=== PATIENT | female | born 1970 | race Caucasian/White ===

== ENCOUNTER 2024-03-01 14:36 | Outpatient (OUT) | payer OTHER, SELFPAY ==
[2024-03-01 16:48] LABS: Thyroid Stimulating Hormone 2.708 uIU/mL (0.358-3.740)
== END 2024-03-01 14:37 | disposition home or self-care (01) ==
LOC: LAB 14:40
PROVIDERS: PCP Family Medicine; Visit Provider Family Medicine
DX: E03.9 Hypothyroidism, unspecified (principal)
CPT/HCPCS: 36415; 84439; 84443

== ENCOUNTER 2024-08-20 17:13 | Emergency (ER) | payer OTHER, SELFPAY ==
[2024-08-20] VITALS (48 sets, daily range): BP systolic 93–172; BP diastolic 60–106; PULSE 62–94; TEMP 37.2; O2SAT 90–100; BMI 26.6
--- NOTE | 2024-08-20 17:22 | ECG_ITS ---
[facility] Test Date: 2024-08-20 Pat Name: ORTIZ BAUTISTA Department: Room: - Gender: Female [employer]: : 1970 Requested By: CHON AGUILA Order Number: [id number] Reading MD: IDA FINNEY Measurements Intervals [place] Rate: 63 P: 43 HI: 130 QRS: 88 QRSD: 78 T: 23 QT: 402 QTc: 409 Interpretive Statements 1100 Sinus rhythm [address] depression 9130 borderline ECG No previous ECG available for comparison Electronically Signed On 08-21-2024 6:37:36 EDT by IDA FINNEY
--- OUTSIDE RECORDS SUMMARY | 2024-08-20 17:28 | XMS_ITS | CCD ---
Author Organization [facility] Care Team Providers Care Stator Tester Name Role Phone Rosalba Martinez Unavailable DR ANGIE AGUILA Primary Care Unavailable SUZETTE, DR PHAN Reed Consulting Unavailable AYLA, DR ANGIE Rose Attending Unavailable AYLA, DR ANGIE Rose Admitting Unavailable AYLA, DR ANGIE Rose Consulting Unavailable AYLA, DR ANGIE Rose Primary Care Unavailable AYLA, DR ANGIE Rose Consulting Unavailable AYLA, DR ANGIE Rose Attending Unavailable AYLA, DR ANGIE Rose Admitting Unavailable Angie Aguila Unavailable GIULIA TURPIN Attending Unavailable MD Angie Aguila Primary Care Provider [phone] Self, Referral Attending Provider Unavailable DO Giulia Turpin Referring Provider [phone] Angie Aguila Primary Care Unavailable Giulia Turpin Referring Unavailable Self, Referral Attending Unavailable Self, Referral Admitting Unavailable Allergies Allergy Classification Reported Allergen(s) Allergy Type Date of Onset Reaction(s) Facility (1 source) patient allergy list reviewed by nurse or physicia Propensity to adverse reactions 5 Comment:Done [facility] Other (1 source) Allergies Reconciled Propensity to adverse reactions 1 Unknown [facility] Other Medications Current Medications Medication Drug Class(es) Dates Sig (Normalized) Sig (Original) acetaminophen 325 mg / HYDROcodone bitartrate 5 mg oral tablet (2 sources) Opioid Agonist Start: 08-27-2021 take 1 tablet by mouth every four to six hours Hydrocodone-Aceta minophen Active 1 TAB PO EVERY 4-6 HOURS 45 6 August 27, 2021 Start: 09-19-2020 End: 08-17-2021 take 1 tablet by mouth every four to six hours Hydrocodone-Acetaminophen ([place]) 5-325 mg tablet Discontinued 1 - 2 TAB PO EVERY 4-6 HOURS 50 September 19, 2020 August 17, 2021 3:22pm amoxicillin 875 mg / clavulanate 125 mg oral tablet (2 sources) Penicillin-class Antibacterial Start: 10-25-2023 take 1 tablet by mouth every twelve hours Amoxicillin-Pot Clavulanate 875-125 MG 1 tablet Orally every 12 hrs for 10 day(s) Sep, Active Ascorbic Acid (3 sources) Vitamin C Vitamin C Active azithromycin 250 mg oral tablet (2 sources) Macrolide Antimicrobial Start: 02-03-2023 Azithromycin 250 MG as directed Orally 2 tabs po today, then 1 tab daily x 4 more days for 5 Jan, Active benzonatate 200 mg oral capsule (2 sources) Non-narcotic Antitussive Start: 02-03-2023 take 1 capsule by mouth every eight hours Benzonatate 200 MG 1 capsule Orally Three times a day for 10 day(s) Jan, Active cholecalciferol 0.025 mg oral tablet (1 source) Vitamin D Start: 09-11-2020 take 1 tablet by mouth once daily Cholecalciferol (Vitamin D3) (Vitamin D3) 25 mcg (1,000 unit) Tablet Active 25 MCG PO Daily September 11, 2020 12:00am diclofenac sodium 0.01 mg/mg topical gel (4 sources) Nonsteroidal Anti-inflammatory Drug Start: 09-11-2020 apply 2 g topically twice daily Diclofenac Sodium Active 2 GM TOPICAL Twice daily September 11, 2020 12:00am Start: 07-11-2019 Voltaren 1 % a pply 1-2 grams to affected area Transdermal BID PRN for 30 days Jul, Active doxycycline hyclate 100 mg oral tablet (2 sources) Tetracycline-class Drug Start: 08-27-2021 take 100 mg by mouth twice daily Doxycycline Hyclate Active 100 MG PO Twice daily 08 04August 26, 2021 11:00pm Start: 09-19-2020 End: 08-17-2021 take 100 mg by mouth twice daily Doxycycline Hyclate Discontinued 100 MG PO Twice daily 08 04September 19, 2020 12:00am August 17, 2021 3:21pm DULoxetine 30 mg delayed release oral capsule (8 sources) Serotonin and Norepinephrine Reuptake Inhibitor Start: 09-11-2020 take 30 mg by mouth once daily in the morning Duloxetine Active 30 MG PO Every morning September 11, 2020 12:00am levothyroxine sodium 0.088 mg oral tablet (8 sources) l-Thyroxine Start: 09-11-2020 take 88 ug by mouth once daily in the morning Levothyroxine Active 88 MCG PO Every morning September 11, 2020 12:00am take 1 tablet by mouth once jasper y in the morning Magnesium (1 source) Start: 08-17-2021 take 200 mg by mouth once daily Magnesium Active 200 MG PO Daily August 16, 2021 11:00pm melatonin 10 mg oral tablet (1 source) Start: 09-11-2020 take 1 mg by mouth at bedtime Melatonin Active 1 MG PO Bedtime September 11, 2020 12:00am methylPREDNISolone 4 mg oral tablet (1 source) Corticosteroid Start: 11-06-2021 Medrol 4 MG as directed Orally for 6 days Oct, Active Multivitamin preparation (1 source) Start: 08-17-2021 take 1 tablet by mouth once daily Multivitamin Active 1 TAB PO Daily August 16, 2021 11:00pm naproxen 500 mg oral tablet (5 sources) Nonsteroidal Anti-inflammatory Drug take 1 tablet by mouth twice daily as needed Naproxen 500 MG TAKE 1 TABLET BY MOUTH TWICE DAILY NEEDED for 90 Active take 1 tablet by [facility] every twelve hours at mealtime as needed Naproxen 500 MG 1 tablet with food or milk as needed Orally every 12 hrs Active omeprazole 20 mg delayed release oral tablet (4 sources) Proton Pump Inhibitor Start: 09-11-2020 take 20 mg by mouth once daily in the morning Omeprazole Active 20 MG PO Every morning September 11, 2020 12:00am take 1 capsule by [facility] every twenty-four hours Omeprazole 20 MG 1 capsule Orally Once a day Active thyroid (assisted) 60 mg oral tablet (2 sources) take 1 tablet by mouth every twenty-four hours [place] Thyroid 60 MG 1 tablet once a day Active Turmeric extract (1 source) Start: 08-17-2021 take 800 mg by mouth once daily Turmeric Active 800 MG PO Daily August 16, 2021 11:00pm vitamin b12 0.5 mg oral tablet (1 source) Vitamin B12 Start: 09-11-2020 take 1 tablet by mouth once daily Cyanocobalamin (Vitamin B-12) (Vitamin B-12) 500 mcg Tablet Active 500 MCG PO Daily September 11, 2020 12:00am Vitamin D (3 sources) Vitamin D Active Completed/Discontinued Medications Medication Drug Class(es) Dates Sig (Normalized) Sig (Original) Triamcinolone (20 sources) Corticosteroid Start: 02-11-2021 Kenalog -40 mg Jan, 40 mg Start: 03-11-2020 Kenalog -40 mg February, 40 mg Start: 07-11-2019 Kenalog -40 mg Jul, 40 mg Problems Active Problems Problem Classification Problem Date Documented Da te Episodic/Chronic Chronic obstructive pulmonary disease and bronchiectasis (1 source) Bronchitis, not specified as acute or chronic Episodic Disorders of lipid metabolism (3 sources) Hyperlipidemia; Translations: [Hyperlipidemia, unspecified] Chronic Esophageal disorders (3 sources) Esophageal reflux finding; Translations: [Esophageal reflux] Onset: 12-13-2017 Chronic Essential hypertension (3 sources) Essential hypertension; Translations: [Essential (primary) hypertension] Chronic Immunizations and screening for infectious disease (3 sources) Vaccination given; Translations: [Encounter for immunization] Episodic Influenza (3 sources) Upper respiratory tract infection due to Influenza; Translations: [Influenza due to unidentified influenza virus with other respiratory manifestations] Episodic Menopausal disorders (3 sources) Menopause present; Translations: [Menopausal and female climacteric states] Chronic Mood disorders (7 sources) Major depression in partial remission; Translations: [Major depressive disorder, single episode, in partial remission] Chronic Nutritional deficiencies (3 sources) Vitamin D deficiency; Translations: [Vitamin D deficiency, unspecified] Onset: 05-14-2014 Chronic Osteoarthritis (20 sources) Degenerative joint disease of hand; Translations: [Primary osteoarthritis, right hand] Onset: 02-21-2017 Resolved: 11-06-2021 Chronic Other circulatory disease (3 sources) Elevated blood-pressure reading without diagnosis of hypertension; Translations: [Elevated blood-pressure reading, without diagnosis of hypertension] Episodic Other connective tissue disease (1 source) Tenosynovitis of left radial styloid; Translations: [Radial styloid tenosynovitis [de Quervain]] 10-12-2023 Episodic Other gastrointestinal disorders (3 sources) Flatulence, eructation and gas pain; Translations: [Abdominal distension (gaseous)] Episodic Other nervous system disorders (1 source) Pain in limb; Translations: [Other acute postprocedural pain] 10-12-2023 Episodic Other nutritional; endocrine; and metabolic disorders (3 sources) Overweight; Translations: [Overweight] Episodic Other nutritional; endocrine; and metabolic disorders (3 sources) Body mass index 25-29 - overweight; Translations: [Body mass index (BMI) 26.0-26.9, adult] Episodic Other upper respiratory disease (3 sources) Allergic rhinitis; Translations: [Allergic rhinitis, unspecified] Onset: 05-14-2014 Chronic Residual codes; unclassified (1 source) Family history of malignant neoplasm of breast; Translations: [FAMILY HX MALIG NEOPLASM OF BREAST] Onset: 10-26-2022 Episodic Residual codes; unclassified (7 sources) Family history of breast cancer; Translations: [Family history of malignant neoplasm of breast] Onset: 01-28-2014 Episodic Spondylosis; intervertebral disc disorders; other back problems (1 source) Other intervertebral disc degeneration, thoracic region; Translations: [OTH IV DISC DEGEN THORACIC REGION] Onset: 10-26-2022 Chronic Spondylosis; intervertebral disc disorders; other back problems (19 sources) Pain in thoracic spine; Translations: [Cervicalgia] Onset: 10-26-2022 Episodic Thyroid disorders (8 sources) Hypothyroidism, unspecified; Translations: [Hypothyroidism] Onset: 07-11-2022 Chronic Unclassified (3 sources) LOW BACK PAIN, UNSPECIFIED; Translations: [LOW BACK PAIN, UNSPECIFIED] Onset: 10-26-2022 Unclassified (1 source) Encounter for screening mammogram for malignant neoplasm of breast; Translations: [Encounter for screening mammogram for malignant neoplasm of breast] Onset: 11-29-2023 Past or Other Problems Problem Classification Problem Date Documented Da te Episodic/Chronic Allergic reactions (3 sources) Contact dermatitis due to plants; Translations: [Unspecified contact dermatitis due to plants, except food] Onset: 9 Episodic Cardiac dysrhythmias (3 sources) Palpitations; Translations: [Palpitations] Onset: 5 Episodic Noninfectious gastroenteritis (3 sources) Non-infective enteritis and colitis; Translations: [Noninfective gastroenteritis and colitis, unspecified] Onset: 7 Episodic Other connective tissue disease (1 source) Pain in left finger(s); Translations: [Pain of left thumb M79.645] Onset: 1 Resolved: 1 Episodic Other connective tissue disease (1 source) Trigger thumb, left thumb Onset: 2 Resolved: 2 Episodic Other connective tissue disease (1 source) Pain in left hand Onset: 2 Resolved: 2 Episodic Other connective tissue disease (1 source) Myalgia/myositis - multiple; Translations: [Unspecified myalgia and myositis] Onset: 7 Episodic Other connective tissue disease (2 sources) Muscle pain; Translations: [Unspecified myalgia and myositis] Onset: 7 Episodic Other gastrointestinal disorders (3 sources) Diarrhea; Translations: [Diarrhea] Onset: 7 Episodic Other non-traumatic joint disorders (3 sources) Hand joint pain; Translations: [Pain in joint, hand] Onset: 9 Episodic Other screening for suspected conditions (not mental disorders or infectious disease) (6 sources) Musculoskeletal screening procedure; Translations: [Encounter for screening for other musculoskeletal disorder] Onset: 4 Episodic Other upper respiratory infections (4 sources) Acute maxillary sinusitis; Translations: [Acute recurrent maxillary sinusitis] Onset: 8 Episodic Residual codes; unclassified (3 sources) Other specified postprocedural states; Translations: [Other specified postprocedural states Z98.890] Onset: 1 Resolved: 2 Episodic Residual codes; unclassified (3 sources) Family history of malignant neoplasm of gastrointestinal tract; Translations: [Family history of malignant neoplasm of digestive organs] Onset: 4 Episodic Residual codes; unclassified (3 sources) Family history of diabetes mellitus; Translations: [Family history of diabetes mellitus] Onset: 4 Episodic Unclassified (1 source) LOW BACK PAIN, UNSPECIFIED; Translations: [LOW BACK PAIN, UNSPECIFIED] Onset: 2 Unclassified (3 sources) Long-term current use of drug therapy; Translations: [Long-term (current) use of other medications] Onset: 4 Results Test Name Value Interpretation Reference Range Facility MM screening mammo BI w/CADo n 11-29-2023 MM screening mammo BI w/CAD [facility] [place] [address] [place] [address] Mammography Report Signed Patient: Lorena Bautista MR#: [id number] 69 : 1970 Acct:[id number] Age/Sex: 53 / F ADM Date: 11/29/23 Loc: [place] Room: Type: [facility] Attending Dr: Referral Self Copies to: MD ISADORA Nguyen MONA DO SELF,REFERRAL Ordering Provider: THERESE,REFERRAL Date of Service: 11/29/23 MM/MM screening mammo BI w/CAD: SCREENING CLINICAL DATA: Screening for malignancy. BILATERAL SCREENING MAMMOGRAMS - FULL FIELD DIGITAL WITH TOMOSYNTHESIS AND CAD Tomosynthesis craniocaudal and mediolateral oblique views of both breasts were obtained using low- dose digital technique. Comparison is made to prior studies from January 15, 2021 through August 16, 2022. This examination was reviewed with the aid of CAD. There are scattered fibroglandular densities with similar asymmetry. A few benign-appearing calcifications are noted. There are no developing masses, typically malignant calcifications or architectural distortion. There has been no significant interval change. MM/MM screening mammo BI w/CAD IMPRESSION: NO MAMMOGRAPHIC EVIDENCE OF MALIGNANCY. ROUTINE FOLLOW-UP IS RECOMMENDED IN ONE YEAR. RESULT CODE: 2 Benign Findings(s) DENSITY CODE: 2 (approximately 25-50% glandular) FOLLOW UP: 1YR The false-negative rate of mammography is approximately 10-percent. Management of a palpable abnormality must be based on clinical grounds. Patient was entered into a reminder system with a target due date for the next mammogram. Impression dictated by: Florence Jauregui M.D.11/29/2023 3:40 PM Dictation Location: [facility] Transcribed By: [facility] 11/29/23 1540 Dictated By: Florence Jauregui MD 11/29/23 1536 Signed By: 11/29/23 1540 [facility] XR CSPINE 2_3 VIEWSon 2021 XR CSPINE 2_3 VIEWS EXAMINATION: XR CSPINE 2_3 VIEWS HISTORY: Neck pain COMPARISON: No relevant comparison available. FINDINGS: BONES: Reversal normal lordotic curvature from C2 to C6. No fracture, spondylolisthesis, or bone lesion. Minimal degenerative facet arthropathy C6-C7, C7-T1. DISC SPACES: Minimal narrowing C5-C6. PARASPINOUS: Negative. No paraspinous abnormality is seen. OTHER: Negative. IMPRESSION: 1. Mild degenerative changes. No acute bone abnormality. 2. Reversal of normal lordotic curvature; positioning versus muscle spasm. Electronically authenticated by: PHAN BRADFORD Date: 2022-10-18 23:36 Normal [facility] XR LSPINE MIN 4 VIEWSon 10-01 XR LSPINE MIN 4 VIEWS EXAMINATION: XR LSPINE MIN 4 VIEWS HISTORY: Low back pain COMPARISON: No relevant comparison available. FINDINGS: BONES: Minimal grade 1 retrolisthesis of L3 on 4. No fracture, spondylolisthesis, or significant facet arthropathy. No appreciable significant bone encroachment on the neural foramen. DISC SPACES: No significant disc height narrowing, subluxation, or endplate abnormality. PARASPINOUS: Negative. No paraspinous abnormality is seen. OTHER: Negative. IMPRESSION: 1. No acute bone abnormality. 2. Minimal degenerative changes of lumbar spine. Electronically authenticated by: PHAN BRADFORD Date: 2022-10-18 23:29 Normal [facility] XR TSPINE 3 VIEWSon 10-19-20 22 XR TSPINE 3 VIEWS EXAMINATION: XR TSPINE 3 VIEWS HISTORY: Pain in thoracic spine COMPARISON: No relevant comparison available. FINDINGS: BONES: No significant spondylosis, scoliosis, fracture, or visible bony lesion. DISC SPACES: Multilevel mild degenerative changes of the midthoracic spine. PARASPINOUS: Negative. No paraspinous abnormality is seen. OTHER: Negative. IMPRESSION: 1. No acute bone abnormality. 2. Multilevel mild degenerative disc disease of mid thoracic spine. Electronically authenticated by: PHAN BRADFORD Date: 2022-10-18 23:30 Normal [facility] CBC AUTO DIFFon 07-08-2022 BASO # 0.1 103/ul Normal 0.0-0.1 [facility] Comment on above: Performed By: #### C BC #### [facility] [address] [address] [address] Hamilton Craven Basophils/100 WBC (Bld) 1.5 % Normal 0.2-2.0 [facility] Comment on above: Performed By: #### C BC #### [facility] [address] [place] [address] Dr. Hamilton Carven EO # 0.1 103/ul Normal 0.0-0.7 [facility] Comment on above: Performed By: #### C BC #### [facility] [address] [place] [address] Dr. Hamilton Craven Eosinophils/100 WBC (Bld) 2.3 % Normal 0.9-7.0 [facility] Comment on above: Performed By: #### C BC #### [facility] [address] [place] [address] Dr. Hamilton Craven Erythrocyte distribution width (RBC) [Ratio] 16.0 % Critically high 11.0-15.0 [facility] Comment on above: Performed By: #### C BC #### [facility] [address] [place] [address] Dr. Hamilton Craven Hematocrit (Bld) [Volume fraction] 40.3 % Normal 36.0-48.0 [facility] Comment on above: Performed By: #### C BC #### [facility] [address] [place] [address] Dr. Hamilton Craven Hemoglobin (Bld) [Mass/Vol] 12.7 g/dL Normal 12.0-16.0 [facility] Comment on above: Performed By: #### C BC #### [facility] [address] [place] [address] Dr. Hamilton Craven IG # 0.02 10e3/ul Normal 0.00-0.03 [facility] Comment on above: Performed By: #### C BC #### [facility] [address] [place] [address] Dr. Hamilton Craven IG % 0.3 % Normal 0.0-0.5 [facility] Comment on above: Performed By: #### C BC #### [facility] [address] [place] [address] Dr. Hamilton Craven LYMPH # 1.8 103/ul Normal 1.2-3.8 [facility] Comment on above: Performed By: #### C BC #### [facility] [address] [place] [address] Dr. Hamilton Craven Lymphocytes/100 WBC (Bld) 30.5 % Normal 20.5-60.0 [facility] Comment on above: Performed By: #### C BC #### [facility] [address] [place] [address] Dr. Hamilton Craven MANUAL DIFF REQ NO Normal [facility] Comment on above: Performed By: #### C BC #### [facility] [address] [place] [address] Dr. Hamilton Craven MCH (RBC) [Entitic mass] 26.4 pg Critically low 26.7-34.0 [facility] Comment on above: Performed By: #### C BC #### [facility] [address] [place] [address] Dr. Hamilton Craven MCHC (RBC) [Mass/Vol] 31.5 g/dL Normal 29.9-35.2 [facility] Comment on above: Performed By: #### C BC #### [facility] [address] [place] [address] Dr. Hamilton Craven MCV (RBC) [Entitic vol] 83.8 fL Normal 81.0-99.0 [facility] Comment on above: Performed By: #### C BC #### [facility] [address] [place] [address] Dr. Hamilton Craven MONO # 0.4 103/ul Normal 0.3-0.8 [facility] Comment on above: Performed By: #### C BC #### [facility] [address] [place] [address] Dr. Hamilton Craven Monocytes/100 WBC (Bld) 6.0 % Normal 1.7-12.0 [facility] Comment on above: Performed By: #### C BC #### [facility] [address] [place] [address] Dr. Hamilton Craven NEUT # 3.6 103/ul Normal 1.4-6.5 [facility] Comment on above: Performed By: #### C BC #### [facility] [address] [place] [address] Dr. Hamilton Craven Neutrophils/100 WBC (Bld) 59.4 % Normal 43.0-75.0 [facility] Comment on above: Performed By: #### C BC #### [facility] [address] [place] [address] Dr. Hamilton Craven Platelet mean volume (Bld) [Entitic vol] 9.1 fL Critically low 9.5-13.5 [facility] Comment on above: Performed By: #### C BC #### [facility] [address] [place] [address] Dr. Hamilton Craven PLT 431 103/ul Normal 150-450 [facility] Comment on above: Performed By: #### C BC #### [facility] [address] [place] [address] Dr. Hamilton Craven RBC 4.81 106/ul Normal 4.20-5.40 [facility] Comment on above: Performed By: #### C BC #### [facility] [address] [place] [address] Dr. Hamilton Craven WBC 6.0 103/ul Normal 4.0-11.0 [facility] Comment on above: Performed By: #### C BC #### [facility] [address] [place] [address] Dr. Hamilton Craven FREE T4on 07-08-2022 Free T4 [Mass/Vol] 1.30 ng/dL Normal 0.76-1.46 [facility] Comment on above: Performed By: #### F T4 #### [facility] [address] [place] [address] Dr. Hamilton Craven GLYCOHEMOGLOBIN A1Con 2021 ADA RECOMMENDATION SEE BELOW Normal [facility] Comment on above: Result Comment: ADA RECOMMENDED LIMIT 4.0 - 6.0 ADA THERAPEUTIC TARGET < 7.0 ACTION SUGGESTED > 7.0 Performed By: #### A 1C #### [facility] [address] [place] [address] Dr. Hamilton Craven Glucose [Mass/Vol] 128 mg/dL Normal [facility] Comment on above: Performed By: #### A 1C #### [facility] [address] [address] [address] Hamilton Craven HbA1c (Bld) [Mass fraction] 6.1 % Normal 4.5-6.2 [facility] Comment on above: Performed By: #### A 1C #### [facility] [address] [address] [address] Hamilton Craven LIPID PROFILEon 07-08-2022 CHOL-HDL RATIO NORM SEE BELOW Normal [facility] Comment on above: Result Comment: 3.3 - 4.4 LOW RISK 4.4 - 7.1 AVERAGE RISK 7.1 - 11.0 MODERATE RISK >11.0 HIGH RISK Performed By: #### T SH, LIPID, CMP #### [facility] [address] [address] [address] Hamilton Craven Cholesterol [Mass/Vol] 214 mg/dL Critically high <=200 [facility] Comment on above: Performed By: #### T SH, LIPID, CMP #### [facility] [address] [address] [address] Hamilton Craven Cholesterol in HDL [Mass/Vol] 56 mg/dL Normal 40-60 [facility] Comment on above: Performed By: #### T ANGELA, LIPID, CMP #### [facility] [address] [address] [address] Hamilton Craven Cholesterol in LDL [Mass/Vol] 141.0 mg/dL Normal [facility] Comment on above: Performed By: #### T SH, LIPID, CMP #### [facility] [address] [address] [address] Hamilton Craven Cholesterol.total/C holesterol in HDL [Mass ratio] 3.8 {ratio} Normal [facility] Comment on above: Performed By: #### T SH, LIPID, CMP #### [facility] [address] [address] [address] Hamilton Craven HDL NORMAL > or = 60 mg/dl - LO W CARDIOVASCULAR RISK <40 mg/dl - HIGH CARDIOVASCULAR RISK Normal [facility] Comment on above: Performed By: #### T ANGELA, LIPID, CMP #### [facility] [address] [place] [address] Dr. Hamilton Craven LDL CALC NORMAL SEE BELOW Normal [facility] Comment on above: Result Comment: <100 mg/dl OPTIMAL 100 - 129 mg/dl NEAR OR ABOVE OPTIMAL 130 - 159 mg/dl BORDERLINE HIGH 160 - 189 mg/dl HIGH >190 mg/dl VERY HIGH Performed By: #### T ANGELA, LIPID, CMP #### [facility] [address] [address] [address] Hamilton Craven Triglyceride [Mass/Vol] 85 mg/dL Normal <=150 [facility] Comment on above: Performed By: #### T ANGELA, LIPID, CMP #### [facility] [address] [place] [address] Dr. Hamilton Craven VLDL CALC 17.0 mg/dL Normal [facility] Comment on above: Performed By: #### T ANGELA, LIPID, CMP #### [facility] [address] [place] [address] Dr. Hamilton Craven PROF 14(COMP METB)on 022 Albumin [Mass/Vol] 3.9 g/dL Normal 3.4-5.0 [facility] Comment on above: Performed By: #### T ANGELA, LIPID, CMP #### [facility] [address] [place] [address] Dr. Hamilton Craven Albumin/Globulin [Mass ratio] 1.1 {ratio} Normal [facility] Comment on above: Performed By: #### T ANGELA, LIPID, CMP #### [facility] [address] [place] [address] Dr. Hamilton Craven ALP [Catalytic activity/Vol] 95 U/L Normal 46-116 [facility] Comment on above: Performed By: #### T ANGELA, LIPID, CMP #### [facility] [address] [place] [address] Dr. Hamilton Craven ALT [Catalytic activity/Vol] 41 U/L Normal 14-59 [facility] Comment on above: Performed By: #### T ANGELA, LIPID, CMP #### [facility] [address] [address] [address] Hamilton Craven Anion gap [Moles/Vol] 7.0 mmol/L Normal [facility] Comment on above: Performed By: #### T SH, LIPID, CMP #### [facility] [address] [place] [address] Dr. Hamilton Craven AST [Catalytic activity/Vol] 25 U/L Normal 15-37 [facility] Comment on above: Performed By: #### T SH, LIPID, CMP #### [facility] [address] [place] [address] Dr. Hamilton Craven Bilirubin [Mass/Vol] 0.3 mg/dL Normal 0.2-1.0 [facility] Comment on above: Performed By: #### T ANGELA, LIPID, CMP #### [facility] [address] [place] [address] Dr. Hamilton Craven Calcium [Mass/Vol] 9.0 mg/dL Normal 8.5-10.1 [facility] Comment on above: Performed By: #### T ANGELA, LIPID, CMP #### [facility] [address] [place] [address] Dr. Hamilton Craven Chloride [Moles/Vol] 102 mmol/L Normal 98-107 [facility] Comment on above: Performed By: #### T ANGELA, LIPID, CMP #### [facility] [address] [place] [address] Dr. Hamilton Craven CO2 [Moles/Vol] 32.7 mmol/L Critically high 21.0-32.0 [facility] Comment on above: Performed By: #### T SH, LIPID, CMP #### [facility] [address] [place] [address] Dr. Hamilton Craven Creatinine [Mass/Vol] 0.95 mg/dL Normal 0.55-1.02 [facility] Comment on above: Performed By: #### T SH, LIPID, CMP #### [facility] [address] [place] [address] Dr. Hamilton Craven EGFR-AF BURMESE >60 Normal >=60 [facility] Comment on above: Performed By: #### T SH, LIPID, CMP #### [facility] [address] [address] [address] Hamilton Craven EGFR-NON AF BURMESE >60 Normal >=60 [facility] Comment on above: Performed By: #### T SH, LIPID, CMP #### [facility] [address] [address] [address] Hamilton Craven Globulin (S) [Mass/Vol] 3.7 g/dL Normal [facility] Comment on above: Performed By: #### T SH, LIPID, CMP #### [facility] [address] [address] [address] Hamilton Craven Glucose [Mass/Vol] 112 mg/dL Critically high 74-106 [facility] Comment on above: Performed By: #### T SH, LIPID, CMP #### [facility] [address] [place] [address] Dr. Hamilton Craven Potassium [Moles/Vol] 3.7 mmol/L Normal 3.5-5.1 [facility] Comment on above: Performed By: #### T SH, LIPID, CMP #### [facility] [address] [place] [address] Dr. Hamilton Craven Protein [Mass/Vol] 7.6 g/dL Normal 6.4-8.2 [facility] Comment on above: Performed By: #### T SH, LIPID, CMP #### [facility] [address] [place] [address] Dr. Hamilton Craven Sodium [Moles/Vol] 138 mmol/L Normal 136-145 [facility] Comment on above: Performed By: #### T SH, LIPID, CMP #### [facility] [address] [place] [address] Dr. Hamilton Craven Urea nitrogen [Mass/Vol] 10.0 mg/dL Normal 7.0-18.0 [facility] Comment on above: Performed By: #### T SH, LIPID, CMP #### [facility] [address] [place] [address] Dr. Hamilton Craven Urea nitrogen/Creatinine [Mass ratio] 10.5 mg/mg Normal [facility] Comment on above: Performed By: #### T SH, LIPID, CMP #### [facility] [address] [place], [place] [address] Dr. Hamilton Craven TSHon 07-08-2022 TSH 0.200 uIU/mL Critically low 0.358-3.740 [facility] Comment on above: Performed By: #### T SH, LIPID, CMP #### [facility] [address] [place], [place] [address] Dr. Hamilton Craven XR hand LT min 3V*on 022 XR hand LT min 3V* [facility] Other XR hand LT min 3V* [facility] [employer] Other XR hand LT min 3V* [address] [place] [address] [facility] Other XR hand LT min 3V* [place] [address] [facility] Other XR hand LT min 3V* XRay Report [facility] Other XR hand LT min 3V* Signed [facility] Other XR hand LT min 3V* Patient: Diandra Bautitsa MR#: [id number] [facility] Other XR hand LT min 3V* 69 [facility] Other XR hand LT min 3V* : 1970 Acct:[id number] [facility] Other XR hand LT min 3V* Age/Sex: 51 / F ADM Date: 11/06/21 [facility] Other XR hand LT min 3V* Loc: SOXD Room: Type : REG CLI [facility] Other XR hand LT min 3V* Attending Dr: Patito Martinez MD [facility] Other XR hand LT min 3V* Ordering Provider: Rosalba Martinez MD [facility] Other XR hand LT min 3V* Date of Service: 11/06/21 [facility] Other XR hand LT min 3V* XR/XR hand LT min 3V*: Primary osteoarthritis of left hand [facility] Other XR hand LT min 3V* Copies to: Rosalba Martinez MD [facility] Other XR hand LT min 3V* Left wrist 11/06/2021. [facility] Other XR hand LT min 3V* CLINICAL DATA: Primary osteoarthritis of left hand. [facility] Other XR hand LT min 3V* FINDINGS: 3 views of the left wrist were obtained along with a dedicated view of the left first [facility] Other XR hand LT min 3V* carpal-metacarpal joint. This examination is compared with a prior study 09/30/2021. [facility] Other XR hand LT min 3V* There is redemonstration of postsurgical changes related to fusion of the first carpal-metacarpal [facility] Other XR hand LT min 3V* joint. The hardware appears intact and unchanged in position. There are underlying degenerative [facility] Other XR hand LT min 3V* changes at the first carpal-metacarpal joint. No fracture or dislocation is identified. No [facility] Other XR hand LT min 3V* significant soft tissue swelling is seen. [facility] Other XR hand LT min 3V* XR/XR hand LT min 3V* [facility] Other XR hand LT min 3V* IMPRESSION: Stable postsurgical changes related to fusion of the left first CMC joint [facility] Other XR hand LT min 3V* Impression dictated by: Tarun Aranda Jr., M.D.11/06/2021 12:15 PM [facility] Other XR hand LT min 3V* Dictation Location: RADIO-PC-05 [facility] Other XR hand LT min 3V* Transcribed By: ERNIE 11/06/21 1215 [facility] Other XR hand LT min 3V* Dictated By: Tarun Aranda Jr, MD 11/06/21 1211 [facility] Other XR hand LT min 3V* Signed By: [facility] Other XR hand LT min 3V* 11/06/21 1215 [facility] Other XR hand LT min 3V*on XR hand LT min 3V* [facility] Other XR hand LT min 3V* [facility] [employer] Other XR hand LT min 3V* [address] [place] [address] [facility] Other XR hand LT min 3V* [place] [address] [facility] Other XR hand LT min 3V* XRay Report [facility] Other XR hand LT min 3V* Signed [facility] Other XR hand LT min 3V* Patient: Diandra Bautista MR#: [id number] [facility] Other XR hand LT min 3V* 69 [facility] Other XR hand LT min 3V* : 1970 Acct:[id number] [facility] Other XR hand LT min 3V* Age/Sex: 51 / F ADM Date: 09/30/21 [facility] Other XR hand LT min 3V* Loc: SOXD Room: Type : REG CLI [facility] Other XR hand LT min 3V* Attending Dr: Patito Martinez MD [facility] Other XR hand LT min 3V* Ordering Provider: Rosalba Martinez MD [facility] Other XR hand LT min 3V* Date of Service: 09/30/21 [facility] Other XR hand LT min 3V* XR/XR hand LT min 3V*: Primary osteoarthritis, right hand [facility] Other XR hand LT min 3V* Copies to: Rosalba Martinez MD [facility] Other XR hand LT min 3V* 4 views LEFT hand plain film [facility] Other XR hand LT min 3V* COMPARISON:None [facility] Other XR hand LT min 3V* HISTORY:Status post LEFT 1st carpometacarpal fusion [facility] Other XR hand LT min 3V* 2 bony vikki fuse the 1st carpometacarpal articulation. Mild bony bridging identified. Bony [facility] Other XR hand LT min 3V* alignment adequate. No soft tissue abnormality. [facility] Other XR hand LT min 3V* XR/XR hand LT min 3V* [facility] Other XR hand LT min 3V* IMPRESSION:No hardware failure. Bony fusion changes. [facility] Other XR hand LT min 3V* Impression dictated by: Jignesh Mercado M.D.09/30/2021 2:36 PM [facility] Other XR hand LT min 3V* Dictation Location: [address] [address] [facility] Other XR hand LT min 3V* Transcribed By: ERNIE 09/30/21 1436 [facility] Other XR hand LT min 3V* Dictated By: Jignesh Mercado DO 09/30/21 1434 [facility] Other XR hand LT min 3V* Signed By: [facility] Other XR hand LT min 3V* 09/30/21 1436 [facility] [employer] Other XR hand LT min 3V*on 021 XR hand LT min 3V* [facility] [employer] Other XR hand LT min 3V* [facility] [employer] Other XR hand LT min 3V* [address] [place] [address] [facility] Other XR hand LT min 3V* [place] [address] [facility] Other XR hand LT min 3V* XRay Report [facility] Other XR hand LT min 3V* Signed [facility] Other XR hand LT min 3V* Patient: Diandra Bautista MR#: [id number] [facility] Other XR hand LT min 3V* 69 [facility] Other XR hand LT min 3V* : 1970 Acct:[id number] [facility] Other XR hand LT min 3V* Age/Sex: 51 / F ADM Date: 08/11/21 [facility] Other XR hand LT min 3V* Loc: SOXD Room: Type : [facility] Other XR hand LT min 3V* Attending Dr: Patito Martinez MD [facility] Other XR hand LT min 3V* Ordering Provider: Rosalba Martinez MD [facility] Other XR hand LT min 3V* Date of Service: 08/11/21 [facility] Other XR hand LT min 3V* XR/XR hand LT min 3V*: Pain of left thumb [facility] Other XR hand LT min 3V* Copies to: Rosalba Martinez MD [facility] Other XR hand LT min 3V* 4 viewsLEFT hand plain film [facility] Other XR hand LT min 3V* COMPARISON:None [facility] Other XR hand LT min 3V* HISTORY:Status post LEFT carpometacarpal fusion. [facility] Other XR hand LT min 3V* Extensive 1st carpometacarpal degenerative changes identified. No fracture or dislocation. [facility] Other XR hand LT min 3V* XR/XR hand LT min 3V* [facility] Other XR hand LT min 3V* IMPRESSION:Extensive 1st carpometacarpal degeneration. [facility] Other XR hand LT min 3V* Impression dictated by: Jignesh Mercado M.D.08/11/2021 4:17 PM [facility] Other XR hand LT min 3V* Dictation Location: [address] [address] [facility] Other XR hand LT min 3V* Transcribed By: ERNIE 08/11/21 [facility] Other XR hand LT min 3V* Dictated By: Jignesh Mercado DO 08/11/21 [facility] Other XR hand LT min 3V* Signed By: [facility] Other XR hand LT min 3V* 08/11/[address] [place] [address] [employer] Other OBSOLETEon 10-21-2017 OBSOLETE Refill (RHEULN) ----LORENA BAUTISTA ([id number]) 1970 [facility] Time Provider Gpnqaudkjy72/22/17 JANAK YE During your visit today, we recorded the following information about you:Rosamaria Ramirez Ma 10/21/2017 7:26 AM SignedPharmacy electronically requests the following refill(s)Pending Prescriptions Disp Refills DULOXETINE 30 MG CAPSULE,DELAYED RELEASE 90 capsule 0 Sig: Take 1 capsule by mouth once daily. ASHWIN: Daisy Ye MD 10/21/2017 8:50 AM SignedCall pharmacy and patientNot seen since 01/2016Multiple cancellationDefer med refill to current providerThank you.Dinorah Smith RN 10/25/2017 6:48 PM SignedCall to patient. Lm to return call.Call to pharmacy.They will send the order to the pcp.Allergies As of Date: 10/21/2017(No Known Allergies)Date Reviewed: 02/02/2016Reviewed by: Rosamaria Ramirez Ma - Fully AssessedReason for Visit: Refill Request [94]Prescriptions as of 10/21/2017 Sig: DULOXETINE 30 MG CAPSULE,[place]* TAKE 1 CAPSULE BY MOUTH EVERY* NAPROXEN 500 MG TABLET TAKE 1 TABLET BY MOUTH TWICE * GABAPENTIN 100 MG CAPSULE TAKE 1 TO 3 CAPSULES BY MOUTH* PATANASE NASAL Use in the nose. LEVOTHYROXINE 100 MCG CAPSULE Take by mouth once daily. OMEPRAZOLE 20 MG CAPSULE,[place]UST[place]* Take 20 mg by mouth once jasper* MELATONIN 3 MG TABLET Take by mouth as needed.Problem List As Of Date 10/21/2017 Noted Resolved Bilateral hand pain [M79.641, M79.642] INVALID FOR* Pain in both feet [M79.671, M79.672] INVALID FOR* YENNI positive [R76.8] INVALID FOR* Thyroid disease [E07.9] INVALID FOR* Myalgia [M79.1] INVALID FOR* Secondary osteoarthritis of multiple sites [M15*INVALID FOR* Knee pain, bilateral [M25.561, M25.562] INVALID FOR* Joint stiffness of multiple sites [M25.60] INVALID FOR* Palpitations [R00.2] Bilateral low back pain without sciatica [M54.5]INVALID FOR* Chronic thumb pain, bilateral [M79.646, G89.29] INVALID FOR* Chronic pain syndrome [G89.4] INVALID FOR* Bilateral thumb pain [M79.644, M79.645] INVALID FOR* Chronic bilateral low back pain without sciatic*INVALID FOR* Status:Closed by DINORAH SMITH RN on 10/25/17 Normal [facility] Vital Signs Date Time Vital Sign Value Performing Clinician Facility 10-25-2023 11:30-0500 Body height 160.02 cm Angie Aguila Other [facility] Other 10-25-2023 11:30-0500 Body mass index (BMI) [Ratio] 26.29 kg/m2 Angie Aguila Other [facility] Other 10-25-2023 11:30-0500 Body temperature 98.5 [degF] Angie Aguila Other [facility] Other 10-25-2023 11:30-0500 Body weight 67.31 kg Angie Aguila Other [facility] Other 10-25-2023 11:30-0500 Diastolic blood pressure 77 mm[Hg] Angie Aguila Other [facility] Other 10-25-2023 11:30-0500 Systolic blood pressure 124 mm[Hg] Angie Aguila Other [facility] Other 09-30-2021 12:15-0500 Body height 160.02 cm Rosalba Martinez Other [facility] Other 09-30-2021 12:15-0500 Body mass index (BMI) [Ratio] 32.77 kg/m2 Rosalba Calvmelissa Other [facility] Other 09-30-2021 12:15-0500 Body weight 83.92 kg Rosalbaadriel Martinez Other [facility] Other 08-11-2021 12:15-0400 Body height 160.02 cm Rosalba Martinez Other [facility] Other 08-11-2021 12:15-0400 Body mass index (BMI) [Ratio] 26.57 kg/m2 Rosalba Martinez Other [facility] Other 08-11-2021 12:15-0400 Body weight 68.04 kg Rosalba Martinez Other [facility] Other Encounters Encounter Date Encounter Type Care Provider Facility Start: 12-12-2023 End: 12-12-2023 ambulatory Angie Aguila Other [facility] Other Start: 12-12-2023 Telephone encounter Angie Aguila [facility] Start: 11-29-2023 End: 11-29-2023 ambulatory Angie Aguila Facility:[facility] Start: 11-29-2023 End: 11-29-2023 ambulatory MD Angie Aguila Work Phone: [facility] Work Phone: Start: 11-29-2023 End: 11-29-2023 Patient encounter procedure MD Angie Aguila Work Phone: [facility] Work Phone: Start: 11-02-2023 End: 11-02-2023 ambulatory GIULIA TURPIN Not Available Start: 10-25-2023 End: 10-25-2023 ambulatory Angie Aguila Other [facility] Other Start: 10-25-2023 Office outpatient visit 15 minutes Angie Aguila [facility] Start: 10-25-2023 End: 10-25-2023 Patient encounter procedure MD Angie Aguila Work Phone: [facility] Work Phone: Start: 06-07-2023 End: 06-07-2023 ambulatory Angie Aguila Other [facility] Other Start: 06-07-2023 Telephone encounter Angie Aguila [facility] Start: 02-03-2023 (Televisit) Televisit Angie Aguila [facility] Start: 02-03-2023 End: 02-03-2023 ambulatory Angie Aguila Other [facility] Other Start: 10-18-2022 Adult health examination Angie Aguila Other [facility] Other Start: 10-18-2022 End: 10-19-[address] ANGIE AGUILA Facility:[facility] Start: 07-11-2022 Encounter for genera l adult medical examination without abnormal findings DR ANGEI AGUILA [facility] Start: 07-08-2022 End: 07-09-[address] ANGIE AGUILA Facility:[facility] Start: 07-08-2022 End: 07-09-2022 Encounter for general adult medical examination without abnormal findings DR ANGIE AGUILA Facility:[facility] Start: 11-06-2021 End: 11-06-2021 ambulatory Rosalba Martinez Other [facility] Other Start: 11-06-2021 Postop follow up vis it related to original px Rosalba Martinez [facility] Start: 09-30-2021 End: 09-30-2021 ambulatory Rosalba Martinez Other [facility] Other Start: 09-30-2021 Postop follow up vis it related to original px Rosalba Martinez [facility] Start: 08-11-2021 Office outpatient visit 25 minutes Rosalba Martinez [facility] Procedures Date Procedure Procedure Detail Performing Clinician Start: 11-29-2023 Screening mammograph y of bilateral breasts MD Angie Aguila Work Phone: Start: 09-19-2018 General examination of patient Angie Aguila Other Screening for malign ant neoplasm of colon Angie Aguila Other Immunizations Immunization Date Immunization Notes Care Provider Fa rock 08-30-2022 influenza virus vaccine, split virus (incl. purified surface antigen) Angie Aguila Other [facility] Other 08-04-2021 influenza virus vaccine, split virus (incl. purified surface antigen) Angie Aguila Other [facility] Other 07-01-2021 COVID-19 Vaccine Pfi zer - Documentation Purposes Only Angie Aguila Other [facility] 06-10-2021 COVID-19 Vaccine Pfi zer - Documentation Purposes Only Angie Aguila Other [facility] 02-11-2021 Kenalog -40 mg Rosalba Calve y Other [facility] Other 03-11-2020 Kenalog -40 mg Rosalba Calve y Other [facility] Other 07-11-2019 Kenalog -40 mg Rosalba Calve y Other [facility] Other 08-31-2017 tetanus and diphther ia toxoids, adsorbed, preservative free, for adult use (5 Lf of tetanus toxoid and 2 Lf of diphtheria toxoid) Angie Aguila Other [facility] Other 09-13-2016 tetanus and diphther ia toxoids, adsorbed, preservative free, for adult use (5 Lf of tetanus toxoid and 2 Lf of diphtheria toxoid) Angie Aguila Other [facility] Other 10-02-2015 influenza virus vaccine, split virus (incl. purified surface antigen) Angie Ayla Other [facility] Other Payers Date Payer Category Payer Self-pay [id number] 2023 Unknown [id number] 2.16.8 [id number] 1970 Unknown [id number] 2.16.84 [id number] 1970 Unknown [id number] 2.16.84 [id number] 1970 Unknown [id number] 1959 Unknown [id number] 2.16. [id number] Unknown [id number] 2.16.8 [id number] Social History Date Type Detail Facility Unknown if ever smoked [facility] Other Sex Assigned At Sex Assigned At Bir th [facility] Other Start: 08-27-2021 Tobacco smoking status MEIS Never smoked tobacco (finding) [facility] Start: 1970 Sex Assigned At Female F [facility] Medical Equipment Procedure Code Equipment Code Equipment Origin al Text Equipment Identifier Dates Arthroplasty, thumb Orthopaedic bone staple, non-adjustable, sterile [id number] FDA Start: 09-19-2020 Arthroplasty, thumb Orthopaedic bone staple, non-adjustable, sterile [id number] FDA Start: 08-27-2021 Arthroplasty, thumb Orthopaedic bone staple, non-adjustable, sterile [id number] FDA Start: 08-27-2021 Evaluation note 10-25-2023 Note Date & Type Note Facility 10-25-2023 Evaluation note Encounter Date Diagnosis Assessment Notes Sep, Acute non-recurrent maxillary sinusitis (ICD-10 - J01.00) Sinus infections can be triggered by a secondary infection from a viral URI or even seasonal allergies. Take medications as directed. Use saline nasal spray prior to presciption nasal spray. Take medications as directed, and complete all doses of medication even if you start to feel better. Patient advised to follow up with PCP if symptoms persist or worsen. Patient verbalized understanding and agreement with treatment plan. Sep, Hypothyroidism , unspecified (ICD-10 - E03.9) Chronic problem, due for labs. [facility] Other Evaluation note 02-03-2023 Note Date & Type Note Facility 02-03-2023 Evaluation note Encounter Date Diagnosis Assessment Notes Jan, Bronchitis (ICD-10 - J40) Supportive care as directed. Push fluids and rest. Pt denied school or work note today. Pt is to take otc antipyretic prn for fever and aches. Pt is to take otc cough suppressant prn for cough. Pt is to be re-evaluated after tx if sx worsen or don't improve by pcp or UC. Discussed sx of resp distress - wheeze, sob, difficulty breathing and swallowing, chest tightness, or chest pain. Pt is to f/u immediately in ER if these sx present. Pt is to call the office with any questions or concerns regarding dx and tx. Pt understood and agreed to tx plan. [facility] Other Evaluation note 11-06-2021 Note Date & Type Note Facility 11-06-2021 Evaluation note Encounter Date Diagnosis Assessment Notes Oct, Primary osteoarthritis of left hand (ICD-10 - M19.042) Oct, Trigger thumb, left thumb (ICD-10 - M65.312) Rx given for Medrol Dosepak Oct, Left hand pain (ICD-10 - M79.642) Oct, Other specified postprocedural states (ICD-10 - Z98.890) [facility] Other Evaluation note 09-30-2021 Note Date & Type Note Facility 09-30-2021 Evaluation note Encounter Date Diagnosis Assessment Notes Sep, Other specified postprocedural states (ICD-10 - Z98.890) Sep, Primary osteoarthritis of left hand (ICD-10 - M19.042) Radiographs reviewed with patient. She is progressing well from surgery at this time. May transition from large brace to smaller neoprene thumb brace. Continue gentle motion and strengthening exercises. Call with questions/julio rns. [facility] Other Evaluation note 08-11-2021 Note Date & Type Note Facility 08-11-2021 Evaluation note Encounter Date Diagnosis Assessment Notes Jul, Primary osteoarthritis, right hand (ICD-10 - M19.041) Jul, Other specified postprocedural states (ICD-10 - Z98.890) Jul, Pain of left thumb (ICD-10 - M79.645) Based on location of pain and exam findings we will proceed with a left thumb CMC fusion with a first dorsal wrist compartment release. : Risks and benefits of procedure explained to patient: patient verbalizes understanding. Jul, Arthritis of hand, left (ICD-10 - M19.042) [facility] Other Evaluation note Note Date & Type Note Facility Evaluation note No Information [employer] Other Evaluation note Note Date & Type Note Facility Evaluation note No assessment information [facility] Work Phone: History general Narrative - Reported Note Date & Type Note Facility History general Narrative - Reported Type Medical History acid reflux Medical History thyroid disease Medical History Osteoarthritis Surgical History gall bladder Surgical History tonsillectomy and adenoidectomy Surgical History C section Surgical History colonoscopy Surgical History right thumb carpomet acarpal joint arthrodesis/ fusion 09/19 [facility] Other History general Narrative - Reported Note Date & Type Note Facility History general Narrative - Reported Type Medical History acid reflux Medical History thyroid disease Medical History Osteoarthritis Surgical History gall bladder Surgical History tonsillectomy and adenoidectomy Surgical History C section Surgical History colonoscopy Surgical History right thumb carpomet acarpal joint arthrodesis/ fusion 09/19 Surgical History left thumb [facility] arthr odesis/ fusion and left first dorsal wrist compartment. DOS: 08/27/2021. 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 DOS: 08/27/2021. Hospitalization History SEE SURGICAL HX [facility] Other Summary Purpose Family History Relationship Condition Age at Onset Recorded Date/T sharron father Family history of co ronary artery bypass surgery Unknown Coronary artery disease Unknown Alzheimer's disease Unknown Diabetes mellitus Unknown Hypertension Unknown Not Specified Malignant neoplasm of ovary Unknown Malignant neoplasm of breast Unknown Hypothyroidism Unknown natural son Type 1 diabetes mellitus Unknown Advance Directives Advance Directive Response Recorded Date/ Time Advance Directives No December 3:08pm Chief Complaint and Reason for Visit Chief Complaint Cough, Sinus Congest ion, Covid Negative Screening Additional Source Comments INFORMATION SOURCE (unrecogn ized section and content) DATE CREATED AUTHOR 04/25/2018 [facility] DATE CREATED AUTHOR AUTHOR'S ORGANIZ ATION 01/12/2023 [facility] DATE CREATED AUTHOR AUTHOR'S ORGANIZ ATION 11/03/2023 [facility] DATE CREATED AUTHOR AUTHOR'S ORGANIZ ATION 12/02/2023 [facility] REASON FOR VISIT (unrecogniz ed section and content) Left Thumb PainRecheck Left HandRecheck Left Handsinus drainage, congestion, coughrefillCOUGH, SINUS CONGESTION, COVID NEGATIVENo Information Care Teams (unrecognized sec tion and content) Team Status: Active Member Role Status Dates Angie Aguila MD Primary Care Provider Active Team Status: Inactive Member Role Status Dates Angie Aguila MD Attending Provider Active St art: October 25, 2023 End: October 25, 2023 Team Status: Inactive Member Role Status Dates Angie Aguila MD Primary Care Provider Active Start: November 29, 2023 End: November 29, 2023 Referral Self Attending Provider Active Start: J anuary 2023 End: November 29, 2023 Giulia Turpin DO Referring Provider Active Start: November 29, 2023 End: November 29, 2023 Goals (unrecognized section and content) Goals may be documented in a n alternate section FOR RECORDS PERTAINING TO PATIENTS WHO ARE OR HAVE BEEN ENROLLED IN A CHEMICAL DEPENDENCY/SUBSTANCEABUSE PROGRAM, SOME INFORMATION MAY BE OMITTED. This clinical summary was aggregated from multiple sources. Caution should be exercised in using it in the provision of clinical care. This summary normalizes information from multiple sources, and as a consequence, information in this document may materially change the coding, format and clinical context of patient data. In addition, data may be omitted in some cases. CLINICAL DECISIONS SHOULD BE BASED ON THE PRIMARY CLINICAL RECORDS. [employer] [facility]. provides no warranty or guarantee of the accuracy or completeness of information in this document.
--- NOTE | 2024-08-20 17:34 | XR_ITS ---
The [address] [address] Patient Name: ORTIZ BAUTISTA MRN: [id number] date: 1970 Sex: F Assigned Patient Location: ED.MAIN Current Patient Location: ED.MAIN Accession/Order Number: [id number] Exam Date: 08/20/2024 17:30 Report Date: 08/20/2024 18:59 At the request of: WILLIAM BANEGAS Procedure: XR chest 1V EXAM: XR chest 1V HISTORY: Chest pain COMPARISON: None. TECHNIQUE: Chest X-ray AP, 1 view FINDINGS: Support devices: None. Lungs/pleura: No consolidation, effusion, or pneumothorax. Heart and mediastinum: Normal contours. Bones: No acute abnormality identified. XR/XR chest 1V Impression: No radiographic evidence of acute cardiopulmonary process. Electronically authenticated by: DANNI MEYER Date: 08/20/2024 18:59
[2024-08-20 17:36] LABS: Basophils Absolute Auto 0.1 10^3/uL (0.0-0.1); Basophils Percent Auto 1.1 % (0.2-2.0); Eosinophils Absolute Auto 0.5 10^3/uL (0.0-0.7); Eosinophils Percent Auto 5.3 % (0.9-7.0); Hemoglobin 15.4 g/dL (12.0-16.0); Immature Granulocytes Abs Auto 0.03 10^3/uL (0.00-0.03); Immature Granulocytes Pct Auto 0.3 % (0.0-0.5); Lymphocytes Absolute Auto 2.8 10^3/uL (1.2-3.8); Lymphocytes Percent Auto 28.7 % (20.5-60.0); Mean Corpuscular HGB Conc 33.5 g/dL (29.9-35.2); Mean Corpuscular Hemoglobin 30.4 pg (26.7-34.0); Mean Corpuscular Volume 90.9 fL (81.0-99.0); Mean Platelet Volume 8.9 fL (9.5-13.5); Monocytes Absolute Auto 0.5 10^3/uL (0.3-0.8); Monocytes Percent Auto 5.6 % (1.7-12.0); Neutrophils Absolute Auto 5.7 10^3/uL (1.4-6.5); Platelet Count 395 10^3/uL (150-450); Red Blood Count 5.06 10^6/uL (4.20-5.40); Red Cell Distribution Width 12.8 % (11.0-15.0); White Blood Count 9.6 10^3/uL (4.0-11.0)
[2024-08-20] MEDS: ASPIRIN 81 MG TAB.CHEW 162 MG PO (17:45)
[2024-08-20] MEDS: NITROGLYCERIN 0.4 MG BOTTLE SL (17:45)
[2024-08-20 17:48] LABS: INR 0.93; Prothrombin Time 9.9 sec (9.0-11.6)
[2024-08-20 17:54] LABS: Lactate/Lactic Acid 1.1 mmol/L (0.4-2.0)
--- NOTE | 2024-08-20 17:57 | ED_ITS ---
Documented by User: MANOLO Mendoza 08/20/24 20:18 HPI - Chest Pain General Chief Complaint: Chest Pain Stated Complaint: CHEST PAIN Time Seen by Provider: 08/20/24 17:22 Source: patient and family Mode of arrival: walk-in Limitations: no limitations History of Present Illness HPI narrative: Patient is a 54-year-old female who presents to the emergency department for a 1 hour history of chest pain radiating to the left arm. She states she has had intermittent jaw pain for some time which is not a new symptom today. She does not feel short of breath and has not had any upper respiratory symptoms. Pain is not worse with movement or deep breathing. She states she has been under a lot of stress recently caring for her father with dementia. She states her father had issues with coronary artery disease in his 50s. She denies pedal edema. She does not take any medications for high blood pressure, cholesterol or diabetes. She denies tobacco abuse. Related Data Allergies Allergy/AdvReac Type Severity Reaction Status Date / Time No Known Drug Allergies Allergy Verified 08/20/24 17:17 Review of Systems ROS Constitutional Denies: fever or chills Ears, nose, mouth, and throat Denies: throat pain or nasal congestion Cardiovascular Reports: chest pain Respiratory Denies: shortness of breath or cough Gastrointestinal Denies: abdominal pain, nausea or vomiting Musculoskeletal Reports: extremity pain; Denies: back pain or neck pain Integumentary/Breast Denies: rash Neurological Denies: numbness in extremities or weakness in extremities Hematologic/Lymphatic Denies: easy bruising or easy bleeding PFSH PFS Social History Little interest or pleasure in doing things: not at all Feeling down, depressed, or hopeless: not at all Exam Narrative Exam Narrative: Gen.: Awake, alert, in no distress Head: Normocephalic, atraumatic ENT: Moist mucous membranes Respiratory: No respiratory distress, lungs clear bilaterally Cardio: Regular rate and rhythm Gastrointestinal: Abdomen is soft, nondistended and nontender to palpation Extremities: Moves extremities equally, no pedal edema Psych: Normal mood and affect Neuro: No focal neuro deficit Skin: Warm, dry, intact Constitutional Vital Signs, click to edit/add: Last Vital Signs Temp 98.9 F 08/20/24 17:17 Pulse 81 08/20/24 17:57 Resp 17 08/20/24 17:57 BP 110/74 08/20/24 17:57 Pulse Ox 97 08/20/24 17:57 O2 Del Method Room Air 08/20/24 17:17 Course Vital Signs Vital signs: Vital Signs Temperature 98.9 F 08/20/24 17:17 Pulse Rate 71 08/20/24 17:17 Respiratory Rate 18 08/20/24 17:17 Blood Pressure 172/106 H 08/20/24 17:17 Pulse Oximetry 98 08/20/24 17:17 Oxygen Delivery Method Room Air 08/20/24 17:17 Temperature 98.9 F 08/20/24 17:17 Pulse Rate 81 08/20/24 17:57 Respiratory Rate 17 08/20/24 17:57 Blood Pressure 110/74 08/20/24 17:57 Pulse Oximetry 97 08/20/24 17:57 Oxygen Delivery Method Room Air 08/20/24 17:17 MDM - Chest Pain MDM Narrative Medical decision making narrative: After my initial evaluation, the patient was ordered to have 2 aspirin, sublingual nitro. She was given 1 sublingual nitro, she did have a vasovagal episode where her heart rate elevated, this resolved almost immediately and blood pressure was stable. She had no syncopal episode, loss of consciousness and remained awake and aware the whole time. Blood pressure is 110/74 and most recent evaluation. Initial troponin is elevated, no EKG changes noted. Repeat troponin was obtained after 1 hour. Patient and her were made aware that the patient will need transfer to tertiary care for non-STEMI. Heparin drip was ordered for the patient, she was pain-free after the sublingual nitro. They prefer to be transferred to [facility]. Case discussed with Dr. Espinosa for cardiology. Repeat troponin is 700. [facility] hospitalist accepted the patient through the transfer line, I did contact the transfer line to make them aware of the significantly elevated repeat troponin. Patient remains pain free and is stable at this time. SHARED APC VISIT, PHYSICIAN ATTESTATION: [id number] I performed a substantive part of the MDM during the patient?s E/M visit. I personally evaluated and examined the patient. I personally made or approved the documented management plan and acknowledge its risk of complications. I, Dr Naik, have reviewed the above progress note and course of action in the ER; agree with the above. I have personally seen and evaluated this patient, gone over history and physical, and discussed disposition and treatment plan with the patient. Critical care time 35 minutes exclusive from separate billable procedures that were performed. The following was considered in the determination of critical care but not limited to the level of medical decision making, intensive cardiac and/or respiratory monitoring, frequent vital sign monitoring, evaluation of laboratory studies, evaluation of radiographic studies, oxygen monitoring, and constant monitoring and speaking to family at bedside Medical Records Data Attestation: I reviewed the patient's medical records. Lab Data Attestation: I reviewed the patient's lab results. Labs: Lab Results 08/20/24 08/20/24 Range/Units 17:25 18:35 WBC 9.6 (4.0-11.0) 10^3/uL RBC 5.06 (4.20-5.40) 10^6/uL Hgb 15.4 (12.0-16.0) g/dL Hct 46.0 (36.0-48.0) % MCV 90.9 (81.0-99.0) fL MCH 30.4 (26.7-34.0) pg MCHC 33.5 (29.9-35.2) g/dL RDW 12.8 (11.0-15.0) % Plt Count 395 (150-450) 10^3/uL MPV 8.9 L (9.5-13.5) fL Neut % (Auto) 59.0 (43.0-75.0) % Lymph % (Auto) 28.7 (20.5-60.0) % [place] % (Auto) 5.6 (1.7-12.0) % Eos % (Auto) 5.3 (0.9-7.0) % Baso % (Auto) 1.1 (0.2-2.0) % Neut # (Auto) 5.7 (1.4-6.5) 10^3/uL Lymph # (Auto) 2.8 (1.2-3.8) 10^3/uL [place] # (Auto) 0.5 (0.3-0.8) 10^3/uL Eos # (Auto) 0.5 (0.0-0.7) 10^3/uL Baso # (Auto) 0.1 (0.0-0.1) 10^3/uL Abs Immat Gran (auto) 0.03 (0.00-0.03) 10^3/uL Imm/Tot Granulo (auto) 0.3 (0.0-0.5) % PT 9.9 (9.0-11.6) sec INR 0.93 Sodium 141 (136-145) mmol/L Potassium 3.9 (3.5-5.1) mmol/L Chloride 103 (98-107) mmol/L Carbon Dioxide 28.9 (21.0-32.0) mmol/L Anion Gap 13.0 BUN 11.0 (7.0-18.0) mg/dL Creatinine 1.05 H (0.55-1.02) mg/dL Est GFR ( Amer) >60 (>=60 mL/min/1.73m^2) Est GFR (Non-Af Amer) 54 L (>=60 mL/min/1.73m^2) BUN/Creatinine Ratio 10.5 Glucose 106 (74-106) mg/dL Lactate 1.1 (0.4-2.0) mmol/L Calcium 9.5 (8.5-10.1) mg/dL Magnesium 2.3 (1.8-2.4) mg/dL Total Bilirubin 0.5 (0.2-1.0) mg/dL AST 23 (15-37) U/L ALT 36 (14-59) U/L Alkaline Phosphatase 69 (46-116) U/L Troponin I High Sens 143.7 H* 710.1 H* (4.0-51.3) pg/mL NT-Pro-B Natriuret Pep 40.0 (<=900.0) pg/mL Total Protein 8.1 (6.4-8.2) g/dL Albumin 4.3 (3.4-5.0) g/dL Globulin 3.8 g/dL Albumin/Globulin Ratio 1.1 Lipase 84.0 H (16.0-77.0) U/L Imaging Data Chest x-ray: Attestation: I have reviewed the pertinent imaging results. Radiologist's impression: ITS Impressions Chest X-Ray 08/20/24 17:34 Impression: No radiographic evidence of acute cardiopulmonary process. Electronically authenticated by: DANNI MEYER Date: 08/20/2024 18:59 ECG Data Attestation: I personally reviewed and interpreted this ECG as follows: (Normal sinus rhythm at a rate of 63, no acute ST elevation or ectopy. EKG reviewed by attending physician. EKG #2 at 17:52. Normal sinus rhythm at a rate of 76, no acute ST elevation or ectopy. EKG reviewed by attending physician. Or) Heart Score History: Highly Suspicious ECG: Normal Age: >45-<65 years Risk Factors: 1 or 2 Risk Factors Troponin: <3X Normal Limit Total Heart Score Recommendations & Risks:: 5 Critical Care Time Critical Care Time Critical Care Time: Yes Total Critical Care Time: 35 Attestation: 35 minutes of critical care time for evaluation of non-STEMI, heparin drip and transfer to tertiary care Discharge Plan Discharge Chief Complaint: Chest Pain Clinical Impression: Chest pain, Elevated troponin Patient Disposition: [facility] Time of Disposition Decision: 20:17 Discharge Location: [facility] Condition: Fair Mode of Transportation: EMS Documented by User: Jignesh Naik MD 08/20/24 20:25 HPI - Chest Pain General Chief Complaint: Chest Pain Stated Complaint: CHEST PAIN Time Seen by Provider: 08/20/24 17:22 Related Data Allergies Allergy/AdvReac Type Severity Reaction Status Date / Time No Known Drug Allergies Allergy Verified 08/20/24 17:17 PFSH PFS Social History Little interest or pleasure in doing things: not at all Feeling down, depressed, or hopeless: not at all Exam Constitutional Vital Signs, click to edit/add: Last Vital Signs Temp 98.9 F 08/20/24 17:17 Pulse 81 08/20/24 17:57 Resp 17 08/20/24 17:57 BP 110/74 08/20/24 17:57 Pulse Ox 97 08/20/24 17:57 O2 Del Method Room Air 08/20/24 17:17 Course Vital Signs Vital signs: Vital Signs Temperature 98.9 F 08/20/24 17:17 Pulse Rate 71 08/20/24 17:17 Respiratory Rate 18 08/20/24 17:17 Blood Pressure 172/106 H 08/20/24 17:17 Pulse Oximetry 98 08/20/24 17:17 Oxygen Delivery Method Room Air 08/20/24 17:17 Temperature 98.9 F 08/20/24 17:17 Pulse Rate 81 08/20/24 17:57 Respiratory Rate 17 08/20/24 17:57 Blood Pressure 110/74 08/20/24 17:57 Pulse Oximetry 97 08/20/24 17:57 Oxygen Delivery Method Room Air 08/20/24 17:17 MDM - Chest Pain MDM Narrative Medical decision making narrative: I, Dr Naik, have reviewed the above progress note and course of action in the ER; agree with the above. I have personally seen and evaluated this patient, gone over history and physical, and discussed disposition and treatment plan with the patient. Critical care time 35 minutes exclusive from separate billable procedures that were performed. The following was considered in the determination of critical care but not limited to the level of medical decision making, intensive cardiac and/or respiratory monitoring, frequent vital sign monitoring, evaluation of laboratory studies, evaluation of radiographic studies, oxygen monitoring, and constant monitoring and speaking to family at bedside Lab Data Labs: Lab Results 08/20/24 08/20/24 Range/Units 17:25 18:35 WBC 9.6 (4.0-11.0) 10^3/uL RBC 5.06 (4.20-5.40) 10^6/uL Hgb 15.4 (12.0-16.0) g/dL Hct 46.0 (36.0-48.0) % MCV 90.9 (81.0-99.0) fL MCH 30.4 (26.7-34.0) pg MCHC 33.5 (29.9-35.2) g/dL RDW 12.8 (11.0-15.0) % Plt Count 395 (150-450) 10^3/uL MPV 8.9 L (9.5-13.5) fL Neut % (Auto) 59.0 (43.0-75.0) % Lymph % (Auto) 28.7 (20.5-60.0) % [place] % (Auto) 5.6 (1.7-12.0) % Eos % (Auto) 5.3 (0.9-7.0) % Baso % (Auto) 1.1 (0.2-2.0) % Neut # (Auto) 5.7 (1.4-6.5) 10^3/uL Lymph # (Auto) 2.8 (1.2-3.8) 10^3/uL [place] # (Auto) 0.5 (0.3-0.8) 10^3/uL Eos # (Auto) 0.5 (0.0-0.7) 10^3/uL Baso # (Auto) 0.1 (0.0-0.1) 10^3/uL Abs Immat Gran (auto) 0.03 (0.00-0.03) 10^3/uL Imm/Tot Granulo (auto) 0.3 (0.0-0.5) % PT 9.9 (9.0-11.6) sec INR 0.93 Sodium 141 (136-145) mmol/L Potassium 3.9 (3.5-5.1) mmol/L Chloride 103 (98-107) mmol/L Carbon Dioxide 28.9 (21.0-32.0) mmol/L Anion Gap 13.0 BUN 11.0 (7.0-18.0) mg/dL Creatinine 1.05 H (0.55-1.02) mg/dL Est GFR ( Amer) >60 (>=60 mL/min/1.73m^2) Est GFR (Non-Af Amer) 54 L (>=60 mL/min/1.73m^2) BUN/Creatinine Ratio 10.5 Glucose 106 (74-106) mg/dL Lactate 1.1 (0.4-2.0) mmol/L Calcium 9.5 (8.5-10.1) mg/dL Magnesium 2.3 (1.8-2.4) mg/dL Total Bilirubin 0.5 (0.2-1.0) mg/dL AST 23 (15-37) U/L ALT 36 (14-59) U/L Alkaline Phosphatase 69 (46-116) U/L Troponin I High Sens 143.7 H* 710.1 H* (4.0-51.3) pg/mL NT-Pro-B Natriuret Pep 40.0 (<=900.0) pg/mL Total Protein 8.1 (6.4-8.2) g/dL Albumin 4.3 (3.4-5.0) g/dL Globulin 3.8 g/dL Albumin/Globulin Ratio 1.1 Lipase 84.0 H (16.0-77.0) U/L Imaging Data Chest x-ray: Radiologist's impression: ITS Impressions Chest X-Ray 08/20/24 17:34 Impression: No radiographic evidence of acute cardiopulmonary process. Electronically authenticated by: DANNI MEYER Date: 08/20/2024 18:59 Heart Score Total Heart Score Recommendations & Risks:: 5 Discharge Plan Discharge Chief Complaint: Chest Pain Clinical Impression: Chest pain, Elevated troponin Patient Disposition: [facility] Time of Disposition Decision: 20:17 Discharge Location: [facility] Condition: Fair Mode of Transportation: EMS
[2024-08-20 18:00] LABS: Alanine Aminotransferase 36 U/L (14-59); Albumin Level 4.3 g/dL (3.4-5.0); Alkaline Phosphatase 69 U/L (46-116); Aspartate Amino Transferase 23 U/L (15-37); BUN Creatinine Ratio 10.5; Bilirubin Total 0.5 mg/dL (0.2-1.0); Calcium 9.5 mg/dL (8.5-10.1); Carbon Dioxide 28.9 mmol/L (21.0-32.0); Chloride 103 mmol/L (98-107); Estimated GFR (African America >60 (>=60 mL/min/1.73m^2); Estimated GFR (Non-African Ame 54 (>=60 mL/min/1.73m^2); Globulin 3.8 g/dL; Glucose 106 mg/dL (74-106); Magnesium 2.3 mg/dL (1.8-2.4); Potassium 3.9 mmol/L (3.5-5.1); Sodium 141 mmol/L (136-145); Total Protein 8.1 g/dL (6.4-8.2)
--- NOTE | 2024-08-20 18:00 | ECG_ITS ---
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
[2024-08-20 18:01] LABS: Albumin Globulin Ratio 1.1
[2024-08-20 18:04] LABS: Troponin I High Sensitivity 143.7 pg/mL (4.0-51.3)
[2024-08-20] MEDS: HEPARIN SODIUM,PORCINE/D5W 25,000 UNIT/500 ML IV.SOLN 14.064 UNIT IV (18:44)
[2024-08-20 19:20] LABS: Troponin I High Sensitivity 710.1 pg/mL (4.0-51.3)
[2024-08-20] MEDS: ACETAMINOPHEN 500 MG TABLET 1000 MG PO (19:29)
[2024-08-20 22:05] LABS: Creatine Kinase 192 U/L (26-192)
[2024-08-20 22:14] LABS: Creatine Kinase MB 7.56 ng/mL (<=3.60); Troponin I High Sensitivity 3845.2 pg/mL (4.0-51.3)
[2024-08-20] MEDS: MORPHINE SULFATE 2 MG/ML SYRINGE IV (22:32)
[2024-08-21] VITALS (7 sets, daily range): BP systolic 131–140; BP diastolic 91–98; PULSE 73–88; O2SAT 94–98
--- NOTE | 2024-08-21 00:43 | ECG_ITS ---
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
[2024-08-21 01:09] LABS: Troponin I High Sensitivity 5205.7 pg/mL (4.0-51.3)
[2024-08-21 01:11] LABS: Partial Thromboplastin Time 38.7 sec (22.3-36.2)
== END 2024-08-21 02:00 | disposition short-term general hospital (02) ==
PROVIDERS: Emergency Medicine; Physician Assistant; Emergency Provider Emergency Medicine; PCP Family Medicine
DX: R07.9 Chest pain, unspecified (principal); R79.89 Other specified abnormal findings of blood chemistry
CPT/HCPCS: 36415; 71045; 80053; 82550; 82553; 83605; 83690; 83735; 83880; 84484; 85025; 85610; 85730; 93005; 96365; 96366; 96375; 99285; J1644; J2270

== ENCOUNTER 2024-09-17 11:55 | Outpatient (OUT) | payer OTHER, SELFPAY ==
[2024-09-17 12:41] LABS: Anion Gap 10.4; BUN Creatinine Ratio 13.5; Calcium 9.1 mg/dL (8.5-10.1); Carbon Dioxide 29.9 mmol/L (21.0-32.0); Chloride 102 mmol/L (98-107); Estimated GFR (African America >60 (>=60 mL/min/1.73m^2); Estimated GFR (Non-African Ame 55 (>=60 mL/min/1.73m^2); Glucose 132 mg/dL (74-106); Potassium 4.3 mmol/L (3.5-5.1); Sodium 138 mmol/L (136-145)
[2024-09-17 13:38] LABS: Thyroid Stimulating Hormone 3.358 uIU/mL (0.358-3.740)
== END 2024-09-17 11:56 | disposition home or self-care (01) ==
LOC: LAB 11:56
PROVIDERS: PCP Family Medicine; Visit Provider Internal Medicine Cardiovascular Disease
DX: I51.9 Heart disease, unspecified (principal); E03.9 Hypothyroidism, unspecified
CPT/HCPCS: 36415; 80048; 84443

== ENCOUNTER 2024-10-19 11:32 | Outpatient (OUT) | payer OTHER, SELFPAY ==
--- OUTSIDE RECORDS SUMMARY | 2024-10-19 11:44 | XMS_ITS | CCD ---
Author Organization [facility] Care Team Providers Care Conservation Biology Professor Name Role Phone Rosalba Martinez Unavailable DR ANGIE AGUILA Primary Care Unavailable SUZETTE, DR PHAN Reed Consulting Unavailable AGUILA, DR ANGIE Rose Attending Unavailable AYLA, DR ANGIE Rose Admitting Unavailable AGUILA, DR ANGIE Rose Consulting Unavailable AGUILA, DR ANGIE Rose Primary Care Unavailable AGUILA, DR ANGIE Rose Consulting Unavailable AGUILA, DR ANGIE Rose Attending Unavailable AGUILA, DR ANGIE Rose Admitting Unavailable Angie Aguila Unavailable GIULIA MUIR Attending Unavailable MD Angie Aguila Primary Care Provider Self, Referral Attending Provider Unavailable DO Giulia Muir Referring Provider Angie Aguila Primary Care Unavailable Giulia Muir Referring Unavailable Self, Referral Attending Unavailable Self, Referral Admitting Unavailable PIRKL, DELL Referring Unavailable PIRKL, DELL Referring Unavailable UNA CRAVEN Attending Unavailable FELICIA ORNELAS Referring Unavailable NAM SANCHEZ Admitting Unavailable PREET MACHADO Attending Unavailable Allergies Allergy Classification Reported Allergen(s) Allergy Type Date of Onset Reaction(s) Facility (1 source) patient allergy list reviewed by nurse or physicia Propensity to adverse reactions 5 Comment:Done [place] Other (1 source) Allergies Reconciled Propensity to adverse reactions 1 Unknown [place] Other (1 source) Nitroglycerin; Translations: [NITROGLYCERIN] Drug Allergy 4 [facility] Repository Medications Current Medications Medication Drug Class(es) Dates Sig (Normalized) Sig (Original) amoxicillin 875 mg / clavulanate 125 mg oral tablet (2 sources) Penicillin-class Antibacterial Start: 10-25-2023 take 1 tablet by mouth every twelve hours Amoxicillin-Pot Clavulanate 875-125 MG 1 tablet Orally every 12 hrs for 10 day(s) Sep, Active apixaban 2.5 mg oral tablet (2 sources) Factor Xa Inhibitor Start: 08-28-2024 take 1 tablet by mouth twice daily Apixaban (Eliquis) 2.5 mg tablet Active 2.5 MG PO Twice daily August 28, 2024 12:00am Ascorbic Acid (3 sources) Vitamin C Vitamin [...] a day for 10 day(s) Jan, Active carvedilol 3.125 mg oral tablet (2 sources) alpha-Adrenergic Moises, beta-Adrenergic Moises Start: 08-28-2024 take 3.125 mg by mouth twice daily at mealtime Carvedilol Active 3.125 MG PO Twice daily August 28, 2024 12:00am must administer with a meal/food DULoxetine 20 mg delayed release oral capsule (16 sources) Serotonin and Norepinephrine Reuptake Inhibitor Start: 08-28-2024 take 1 capsule by mouth once daily Duloxetine Active 0 .ROUTE .COMPLEX August 28, 2024 11:43am TAKE 1 CAPSULE BY MOUTH DAILY Start: 05-22-2024 End: 08-28-2024 take 1 capsule by mouth once daily Duloxetine Discontinued 0 .ROUTE .COMPLEX May 22, 2024 11:10am August 28, 2024 11:44am TAKE 1 CAPSULE BY MOUTH DAILY Start: 03-12-2024 End: 05-22-2024 take 1 capsule by mouth once daily Duloxetine Discontinued 0 .ROUTE .COMPLEX March 12, 2024 12:43pm May 22, 2024 11:10am TAKE 1 CAPSULE BY MOUTH DAILY Start: 09-11-2020 End: 03-12-2024 take 30 mg by mouth once daily in the morning Duloxetine Discontinued 30 MG PO Every morning September 11, 2020 1:00am March 12, 2024 12:43pm levothyroxine sodium 0.075 mg oral tablet (11 sources) l-Thyroxine Start: 08-28-2024 take 75 ug by mouth once daily Levothyroxine Active 75 MCG PO Daily August 28, 2024 12:00am Start: 09-11-2020 End: 03-13-2024 take 88 ug by mouth once daily in the morning Levothyroxine Discontinued 88 MCG PO Every morning September 11, 2020 1:00am March 13, 2024 2:00pm take 1 tablet by raeann th once daily in the morning melatonin 10 mg oral tablet (3 sources) Start: 09-11-2020 take 1 mg by mouth at bedtime Melatonin Active 1 MG PO Bedtime September 11, 2020 1:00am methylPREDNISolone 4 mg oral tablet (1 source) Corticosteroid Start: 11-06-2021 Medrol 4 MG as directed Orally for 6 days Oct, Active Multivitamin preparation (3 sources) Start: 08-17-2021 take 1 tablet by mouth once daily Multivitamin Active 1 TAB PO Daily August 17, 2021 12:00am Start: 08-17-2021 take 1 tablet by raeann th once daily Multivitamin Active 1 TAB PO Daily August 16, 2021 11:00pm naproxen 500 mg oral tablet (5 sources) Nonsteroidal Anti-inflammatory Drug take 1 tablet by mouth twice daily as needed Naproxen 500 MG TAKE 1 TABLET BY MOUTH TWICE DAILY NEEDED for 90 Active take 1 tablet by raeann th every twelve hours at mealtime as needed Naproxen 500 MG 1 tablet with food or milk as needed Orally every 12 hrs Active thyroid (shelter) 60 mg oral tablet (2 sources) take 1 tablet by raeann th every twenty-four hours [place] Thyroid 60 MG 1 tablet once a day Active Turmeric extract (3 sources) Start: 08-17-2021 take 800 mg by mouth once daily Turmeric Active 800 MG PO Daily August 17, 2021 12:00am Start: 08-17-2021 take 800 mg by mouth once jasper y Turmeric Active 800 MG PO Daily August 16, 2021 11:00pm valsartan 40 mg oral tablet (2 sources) Angiotensin 2 Receptor Moises Start: 08-28-2024 take 40 mg by mouth once daily Valsartan Active 40 MG PO Daily August 28, 2024 12:00am vitamin b12 0.5 mg oral tablet (3 sources) Vitamin B12 Start: 09-11-2020 take 1 tablet by mouth once daily Cyanocobalamin (Vitamin B-12) (Vitamin B-12) 500 mcg Tablet Active 500 MCG PO Daily September 11, 2020 1:00am Vitamin D (3 sources) Vitamin D Active Completed/Discontinued Medications Medication Drug Class(es) Dates Sig (Normalized) Sig (Original) acetaminophen 325 mg / HYDROcodone bitartrate 5 mg oral tablet (6 sources) Opioid Agonist Start: 08-27-2021 End: 08-28-2024 take 1 tablet by mouth every four to six hours Hydrocodone-Acetami nophen Discontinued 1 TAB PO EVERY 4-6 HOURS 45 6 August 27, 2021 August 28, 2024 11:43am Start: 09-19-2020 End: 08-17-2021 take 1 tablet by mouth every four to six hours Hydrocodone-Acetaminophen ([place]) 5-325 mg tablet Discontinued 1 - 2 TAB PO EVERY 4-6 HOURS 50 7 September 19, 2020 August 17, 2021 4:22pm cholecalciferol 0.025 mg oral tablet (3 sources) Vitamin D Start: 09-11-2020 End: 08-28-2024 take 1 tablet by mouth once daily Cholecalciferol (Vitamin D3) (Vitamin D3) 25 mcg (1,000 unit) Tablet Discontinued 25 MCG PO Daily September 11, 2020 1:00am August 28, 2024 11:42am diclofenac sodium 0.01 mg/mg topical gel (6 sources) Nonsteroidal Anti-inflammatory Drug Start: 09-11-2020 End: 08-28-2024 apply 2 g topically twice daily Diclofenac Sodium Discontinued 2 GM TOPICAL Twice daily September 11, 2020 1:00am August 28, 2024 11:42am Start: 07-11-2019 Voltaren 1 % a pply 1-2 grams to affected area Transdermal BID PRN for 30 days Jul, Active doxycycline hyclate 100 mg oral tablet (6 sources) Tetracycline-class Drug Start: 08-27-2021 End: 08-28-2024 take 100 mg by mouth twice daily Doxycycline Hyclate Discontinued 100 MG PO Twice daily 10 August 27, 2021 12:00August 28, 2024 11:42am Start: 09-19-2020 End: 08-17-2021 take 100 mg by mouth twice daily Doxycycline Hyclate Discontinued 100 MG PO Twice daily 08 04September 19, 2020 1:00am August 17, 2021 4:21pm Magnesium (3 sources) Start: 08-17-2021 End: 08-28-2024 take 200 mg by mouth once daily Magnesium Discontinued 200 MG PO Daily August 17, 2021 12:00am August 28, 2024 11:43am Start: 08-17-2021 take 200 mg by mouth once jasper y Magnesium Active 200 MG PO Daily August 16, 2021 11:00pm omeprazole 20 mg delayed release oral tablet (6 sources) Proton Pump Inhibitor Start: 09-11-2020 End: 08-28-2024 take 20 mg by mouth once daily in the morning Omeprazole Discontinued 20 MG PO Every morning September 11, 2020 1:00am August 28, 2024 11:43am take 1 capsule by [facility] every twenty-four hours Omeprazole 20 MG 1 capsule Orally Once a day Active Thyroid (Pork) (2 sources) Start: 05-22-2024 End: 08-28-2024 take 1 tablet by mouth once daily Thyroid (Pork) Discontinued 0 .ROUTE .COMPLEX May 22, 2024 11:10am August 28, 2024 11:45am TAKE 1 TABLET BY MOUTH EVERY DAY Thyroid (Pork) ([place] Thyroid) 60 mg tablet (4 sources) Start: 03-13-2024 End: 05-22-2024 take 1 tablet by mouth once daily Thyroid (Pork) ([place] Thyroid) 60 mg tablet Discontinued 60 MG PO Daily March 13, 2024 2:00pm May 22, 2024 11:10am Start: 03-13-2024 End: 03-13-2024 take 1 tablet by mouth once daily Thyroid (Pork) ([place] Thyroid) 60 mg tablet Discontinued 60 MG PO Daily March 13, 2024 12:00am March 13, 2024 2:00pm Triamcinolone (20 sources) Corticosteroid Start: 02-11-2021 Kenalog [...] disorder, single episode, in partial remission] Chronic Nonspecific chest pain (2 sources) Chest pain, unspecified; Translations: [Chest pain, unspecified] Onset: 08-21-2024 Episodic Nutritional deficiencies (3 sources) Vitamin D deficiency; Translations: [Vitamin D deficiency, unspecified] Onset: 05-14-2014 Chronic Osteoarthritis (20 sources) Degenerative joint disease of hand; Translations: [Primary osteoarthritis, right hand] Onset: 02-21-2017 Resolved: 11-06-2021 Chronic Other and ill-defined heart disease (2 sources) Takotsubo syndrome; Translations: [Takotsubo syndrome] Onset: 09-05-2024 Chronic Other and ill-defined heart disease (2 sources) Heart disease, unspecified; Translations: [Heart disease, unspecified] Onset: 09-05-2024 Chronic Other circulatory disease (3 sources) Elevated blood-pressure reading without diagnosis of hypertension; Translations: [Elevated blood-pressure reading, without diagnosis of hypertension] Episodic Other connective tissue disease (3 sources) Tenosynovitis of left radial styloid; Translations: [Radial styloid tenosynovitis [de Quervain]] 10-12-2023 Episodic Other gastrointestinal disorders (3 sources) Flatulence, eructation and gas pain; Translations: [Abdominal distension (gaseous)] Episodic Other nervous system disorders (3 sources) Pain in limb; Translations: [Other acute postprocedural [...] Translations: [Cervicalgia] Onset: 10-26-2022 Episodic Thyroid disorders (16 sources) Hypothyroidism, unspecified; Translations: [Hypothyroidism] Onset: 07-11-2022 [...] Test Name Value Interpretation Reference Range Facility Follow-Upon 09-05-2024 Follow-Up [id number] DaengeloMark mikaela Ryan 1970 F Date Provider Department Center 09/05/2024 [id number] MACHADO JOSHUA Angela [facility] Family History Problem Relation Age of Onset Breast cancer Mother Heart disease Father Family Status - Relation Status Age at Mother Father Level of Service:57775 [place] OFFICE/OUTPATIENT ESTABLISHED MOD MDM 30 MIN Reason for Visit and Comments: Post-Cath [731] - 1. Normal coronary angiogram. 2. 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 Having some episodes of pressure since cath Cardiomyopathy [104] - NON ISCHEMIC Hypothyroidism [143] Normal [facility] 30on 08-22-2024 30 The patient is Moderately Stable - Low risk of patient condition declining or worsening The patient's goals for the shift include discharge The clinical goals for the shift include vss Over the shift, the patient did not make progress toward the following goals. Barriers to progression include . Recommendations to address these barriers include . Normal [facility] 30 The patient is Moderately Stable - Low risk of patient condition declining or worsening The patient's goals for the shift include discharge The clinical goals for the shift include vss; rest Over the shift, the patient did not make progress toward the following goals. Barriers to progression include . Recommendations to address these barriers include Problem: Neurosensory - Adult Goal: Achieves stable or improved neurological status Outcome: Progressing Goal: Achieves maximal functionality and self care Outcome: Progressing Problem: Respiratory - Adult Goal: Achieves optimal ventilation and oxygenation Outcome: Progressing Problem: Cardiovascular - Adult Goal: Maintains optimal cardiac output and hemodynamic stability Outcome: Progressing Goal: Absence of cardiac dysrhythmias or at baseline Outcome: Progressing Problem: Skin/Tissue Integrity - Adult Goal: Skin integrity remains intact Outcome: Progressing Problem: Musculoskeletal - Adult Goal: Return mobility to safest level of function Outcome: Progressing Goal: Return ADL status to a safe level of function Outcome: Progressing Problem: Gastrointestinal - Adult Goal: Minimal or absence of nausea and vomiting Outcome: Progressing Goal: Maintains or returns to baseline bowel function Outcome: Progressing Goal: Maintains adequate nutritional intake Outcome: Progressing Problem: Genitourinary - Adult Goal: Absence of urinary retention Outcome: Progressing Problem: Infection - Adult Goal: Absence of infection at discharge Outcome: Progressing Goal: Absence of infection during hospitalization Outcome: Progressing Problem: Metabolic/Fluid and Electrolytes - Adult Goal: Electrolytes maintained within normal limits Outcome: Progressing Goal: Hemodynamic stability and optimal renal function maintained Outcome: Progressing Problem: Hematologic - Adult Goal: Maintains hematologic stability Outcome: Progressing . Normal [facility] BASIC METABOLIC PANELon 10-2 Anion gap [Moles/Vol] 11 mmol/L Normal 7-20 [facility] Comment on above: Performed By: #### L [id number] #### [facility] ([facility]) [address] [place] [address] Calcium [Mass/Vol] 8.8 mg/dL Normal 8.6-10.3 [facility] Comment on above: Performed By: #### L [id number] #### [facility] ([facility]) [address] [place] [address] Chloride [Moles/Vol] 105 mmol/L Normal 98-107 [facility] Comment on above: Performed By: #### L [id number] #### [facility] ([facility]) [address] [facility] [address] CO2 [Moles/Vol] 26 mmol/L Normal 21-31 [facility] Comment on above: Performed By: #### L [id number] #### [facility] ([facility]) [address] [place] [address] Creatinine [Mass/Vol] 0.83 mg/dL Normal 0.60-1.20 [facility] Comment on above: Performed By: #### L [id number] #### [facility] ([facility]) [address] [facility] [place] [address] GLOMERULAR FILTRATION RATE ML/MIN/1.73 SQ M.PREDICTED 82.7 mL/min/1.73m*2 Normal >60.0 [facility] Comment on above: Result Comment: The [facility]???s estimated glomerular filtration rate (eGFR) will no longer include consideration of race in its calculation. The National Kidney Foundation???s eGFR Task Force developed new recommendations for the estimation of the glomerular filtration rate in the [place] They recommend immediate implementation of the new equation refit without the race variable in all laboratories because the calculation does not include race. In addition to not including race in the calculation and reporting, it included diversity in its development, and has acceptable performance characteristics and potential consequences that do not disproportionately affect any one group of individuals. Performed By: #### L [id number] #### [facility] ([facility]) [address] [place] [address] Glucose [Mass/Vol] 96 mg/dL Normal 70-100 [facility] Comment on above: Performed By: #### L [id number] #### [facility] ([facility]) [address] [place] [address] Potassium [Moles/Vol] 3.8 mmol/L Normal 3.5-5.1 [facility] Comment on above: Performed By: #### L [id number] #### [facility] ([facility]) [address] [place] [address] Sodium [Moles/Vol] 138 mmol/L Normal 136-145 [facility] Comment on above: Performed By: #### L [id number] #### [facility] ([facility]) [address] [place] [address] Urea nitrogen [Mass/Vol] 18 mg/dL Normal 7-25 [facility] Comment on above: Performed By: #### L [id number] #### [facility] ([facility]) [address] [place] [address] UREA NITROGEN/CREATININE (MASS RATIO) IN SER/PLAS 21.7 Normal [facility] Comment on above: Performed By: #### L [id number] #### [facility] ([facility]) [address] [place] [address] CBC WITH AUTO DIFFERENTIALon 08-22-2024 Basophils (Bld) [#/Vol] 0.09 10*3/uL Normal 0.00-0.20 [facility] Comment on above: Performed By: #### L [id number] #### [facility] ([facility]) [address] [place] [address] Basophils/100 WBC (Bld) 0.9 % Normal 0.0-1.0 [facility] Comment on above: Performed By: #### L [id number] #### [facility] ([facility]) [address] [place] [address] Eosinophils (Bld) [#/Vol] 0.26 10*3/uL Normal 0.00-0.50 [facility] Comment on above: Performed By: #### L [id number] #### [facility] [address] [place] [address] Eosinophils/100 WBC (Bld) 2.5 % Normal 0.0-6.0 [facility] Comment on above: Performed By: #### L [id number] #### [facility] [address] [place] [address] Erythrocyte distribution width (RBC) [Ratio] 13.1 % Normal 11.5-15.0 [facility] Comment on above: Performed By: #### L [id number] #### [facility] ([facility]) [address] [place] [address] ERYTHROCYTE MEAN CORPUSCULAR HEMOGLOBIN CONCENTRATION (G/DL) BY AUTOMATED 33.4 g/dL Normal 32.0-35.0 [facility] Comment on above: Performed By: #### L [id number] #### [facility] ([facility]) [address] [place] [address] Hematocrit (Bld) [Volume fraction] 44.6 % Normal 36.0-48.0 [facility] Comment on above: Performed By: #### L [id number] #### [facility] ([facility]) [address] [place] [address] Hemoglobin (Bld) [Mass/Vol] 14.9 g/dL Normal 12.0-15.0 [facility] Comment on above: Performed By: #### L [id number] #### [facility] ([facility]) [address] [place] [address] Immature granulocytes (Bld) [#/Vol] 0.05 10*3/uL Normal 0.00-0.20 [facility] Comment on above: Performed By: #### L [id number] #### [facility] [address] [place] [address] Immature granulocytes/100 WBC (Bld) 0.5 % Normal 0.0-1.0 [facility] Comment on above: Performed By: #### L [id number] #### [facility] ([facility]) [address] [place] [address] Lymphocytes (Bld) [#/Vol] 2.85 10*3/uL Normal 1.20-4.00 [facility] Comment on above: Performed By: #### L [id number] #### [facility] ([facility]) [address] [place] [address] Lymphocytes/100 WBC (Bld) 27.4 % Normal 20.0-45.0 [facility] Comment on above: Performed By: #### L [id number] #### [facility] ([facility]) [address] [place] [address] MCH (RBC) [Entitic mass] 30.4 pg Normal 27.0-33.0 [facility] Comment on above: Performed By: #### L [id number] #### [facility] ([facility]) [address] [place] [address] MCV (RBC) [Entitic vol] 91.0 fL Normal 82.0-98.0 [facility] Comment on above: Performed By: #### L [id number] #### [facility] [address] [place] [address] Monocytes (Bld) [#/Vol] 0.67 10*3/uL Normal 0.10-1.00 [facility] Comment on above: Performed By: #### L [id number] #### [facility] ([facility]) [address] [place] [address] Monocytes/100 WBC (Bld) 6.4 % Normal 5.0-12.0 [facility] Comment on above: Performed By: #### L [id number] #### [facility] [address] [place] [address] Neutrophils (Bld) [#/Vol] 6.48 10*3/uL Normal 1.60-7.60 [facility] Comment on above: Performed By: #### L [id number] #### [facility] ([facility]) [address] [place] [address] Neutrophils/100 WBC (Bld) 62.3 % Normal 40.0-72.0 [facility] Comment on above: Performed By: #### L [id number] #### [facility] ([facility]) [address] [place] [address] NRBC (PER 100 WBCS) BY AUTOMATED COUNT 0.0 % Normal 0 [facility] Comment on above: Performed By: #### L [id number] #### [facility] ([facility]) [address] [place] [address] PLATELETS (10*3/UL) IN BLOOD AUTOMATED COUNT 384 10*3/uL Normal 150-400 [facility] Comment on above: Performed By: #### L [id number] #### [facility] ([facility]) [address] [place] [address] RBC (Bld) [#/Vol] 4.90 10*6/uL Normal 3.80-5.00 [facility] Comment on above: Performed By: #### L [id number] #### [facility] [address] [place] [address] WBC (Bld) [#/Vol] 10.40 10*3/uL Normal 4.00-10.60 [facility] Comment on above: Performed By: #### L [id number] #### [facility] [address] [place] [address] Documentationon 08-22-2024 Documentation [id number] Mark Bautista 1970 F Date Provider Department Center 08/22/2024 [facility] No family history on file Normal [facility] MAGNESIUMon 08-22-2024 Magnesium [Mass/Vol] 2.2 mg/dL Normal 1.9-2.7 [facility] Comment on above: Performed By: #### L [id number] #### [facility] ([facility]) [address] [place] [address] TROPONIN Ion 08-22-2024 Troponin I.cardiac [Mass/Vol] 0.64 ng/mL Critically high 0.00-0.04 [facility] Comment on above: Result Comment: M-KS EVIOUS CRITICAL RESULT Previous result verified on 08/22/2024 0103 on specimen/case [id number] called with component Troponin I for procedure Troponin I with value 0.76 ng/mL. Performed By: #### L [id number] #### [facility] ([facility]) [address] [place] [address] 30on 08-21-2024 30 Daily Case Managemen t Update Multidisciplinary rounds have been completed. Barriers to Discharge: Pending clinical course and improvement in clinical condition. Patient transferred from [facility] w/ CP and elevated troponin's. Patient developed midsternal CP w/ radiation into L arm and L jaw. No reported cardiac hx. Started on hep gtt prior to transfer. Cardio consult: NSTEMI, likely type 1. TTE showed EF of 15-20%, no significant valvular abnormalities. Bilateral cardiac catheterization today, normal coronary angio, non-ischemic cardiomyopathy, likely Takotsubo Syndrome. Patient is from home. Diet: Dietary Orders (From admission, onward) Start Ordered 08/21/241453 Regular Diet Heart Healthy/HTN, CABG,Stroke, (2gNA, low fat, low cholesterol) Diet effective now Question Answer Comment Room Service? Yes Fat restriction: Heart Healthy/HTN, CABG,Stroke, (2gNA, low fat, low cholesterol) 08/21/24 145 Physician Expected Discharge Date: 08/24/2024 Discharge Delays: PT Six Click Score: 24 OT Six Click Score: PT Recommendations: OT Recommendations: Does patient understand post acute plan of care? Yes Is expected discharge disposition appropriate for patient?: Yes New Consults: Normal [facility] 30 The patient is Moderately Stable - Low risk of patient condition declining or worsening The patient's goals for the shift include remain chest pain free The clinical goals for the shift include hemodynamically stable Problem: Neurosensory - Adult Goal: Achieves stable or improved neurological status Outcome: Progressing Goal: Absence of seizures Outcome: Progressing Goal: Remains free of injury related to seizures activity Outcome: Progressing Goal: Achieves maximal functionality and self care Outcome: Progressing Problem: Respiratory - Adult Goal: Achieves optimal ventilation and oxygenation Outcome: Progressing Problem: Cardiovascular - Adult Goal: Maintains optimal cardiac output and hemodynamic stability Outcome: Progressing Goal: Absence of cardiac dysrhythmias or at baseline Outcome: Progressing Problem: Skin/Tissue Integrity - Adult Goal: Skin integrity remains intact Outcome: Progressing Goal: Incisions, wounds, or drain sites healing without S/S of infection Outcome: Progressing Goal: Oral mucous membranes remain intact Outcome: Progressing Problem: Musculoskeletal - Adult Goal: Return mobility to safest level of function Outcome: Progressing Goal: Maintain proper alignment of affected body part Outcome: Progressing Goal: Return ADL status to a safe level of function Outcome: Progressing Problem: Gastrointestinal - Adult Goal: Minimal or absence of nausea and vomiting Outcome: Progressing Goal: Maintains or returns to baseline bowel function Outcome: Progressing Goal: Maintains adequate nutritional intake Outcome: Progressing Goal: Establish and maintain optimal ostomy function Outcome: Progressing Problem: Genitourinary - Adult Goal: Absence of urinary retention Outcome: Progressing Goal: Urinary catheter remains patent Outcome: Progressing Problem: Infection - Adult Goal: Absence of infection at discharge Outcome: Progressing Goal: Absence of infection during hospitalization Outcome: Progressing Goal: Absence of fever/infection during anticipated neutropenic period Outcome: Progressing Problem: Metabolic/Fluid and Electrolytes - Adult Goal: Electrolytes maintained within normal limits Outcome: Progressing Goal: Hemodynamic stability and optimal renal function maintained Outcome: Progressing Goal: Glucose maintained within prescribed range Outcome: Progressing Problem: Hematologic - Adult Goal: Maintains hematologic stability Outcome: Progressing Normal [facility] 30 The patient is Moderately Stable - Low risk of patient condition declining or worsening The patient's goals for the shift include no pain The clinical goals for the shift include vss Problem: Neurosensory - Adult Goal: Achieves stable or improved neurological status Outcome: Progressing Problem: Respiratory - Adult Goal: Achieves optimal ventilation and oxygenation Outcome: Progressing Problem: Cardiovascular - Adult Goal: Maintains optimal cardiac output and hemodynamic stability Outcome: Progressing Normal [facility] ANTI-XA (HEPARIN LEVEL)on HEPARIN UNFRACTIONATED (U/ML) IN PPP BY CHROMOGENIC METHOD 0.68 IU/mL Normal 0.3-0.7 [facility] Comment on above: Order Comment: Check anti-Xa level every 6 hours while on heparin infusion, or per protocol. Result Comment: Kiki roxaban and Apixaban will interfere with the anti Xa assay used to monitor UFH and LMWH. Performed By: #### L [id number] #### [facility] ([facility]) [address] [place] [address] APTTon 08-21-2024 ACTIVATED PARTIAL THROMBOPLASTIN TIME IN PPP BY COAGULATION ASSAY 30.0 Seconds Normal 25.0-35.0 [facility] Comment on above: Order Comment: Basel ine aPTT before initiating heparin infusion. Result Comment: Clin ical significance of the APTT is questionable in the presence of heparin. Performed By: #### L [id number] #### [facility] ([facility]) [address] [place] [address] Activated partial thrombopla stin time (aPTT) in platelet poor plasma by coagulation aon 08-21-2024 aPTT Coag (PPP) [Time] 38.7 s High 22.3-36.2 [facility] BASIC METABOLIC PANELon 08-01 Anion gap [Moles/Vol] 12 mmol/L Normal 7-20 [facility] Comment on above: Performed By: #### L [id number] #### [facility] ([facility]) [address] [place] [address] Calcium [Mass/Vol] 8.7 mg/dL Normal 8.6-10.3 [facility] Comment on above: Performed By: #### L [id number] #### [facility] ([facility]) [address] [place] [address] Chloride [Moles/Vol] 103 mmol/L Normal 98-107 [facility] Comment on above: Performed By: #### L [id number] #### [facility] ([facility]) [address] [place] [address] CO2 [Moles/Vol] 27 mmol/L Normal 21-31 [facility] Comment on above: Performed By: #### L [id number] #### [facility] ([facility]) [address] [place] [address] Creatinine [Mass/Vol] 0.83 mg/dL Normal 0.60-1.20 [facility] Comment on above: Performed By: #### L [id number] #### [facility] ([facility]) [address] [place] [address] GLOMERULAR FILTRATION RATE ML/MIN/1.73 SQ M.PREDICTED 82.7 mL/min/1.73m*2 Normal >60.0 [facility] Comment on above: Result Comment: The [facility]???s estimated glomerular filtration rate (eGFR) will no longer include consideration of race in its calculation. The National Kid[employer] Foundation???s eGFR Task Force developed new recommendations for the estimation of the glomerular filtration rate in the [place] They recommend immediate implementation of the new equation refit without the race variable in all laboratories because the calculation does not include race. In addition to not including race in the calculation and reporting, it included diversity in its development, and has acceptable performance characteristics and potential consequences that do not disproportionately affect any one group of individuals. Performed By: #### L [id number] #### [facility] ([facility]) [address] [place] [address] Glucose [Mass/Vol] 100 mg/dL Normal 70-100 [facility] Comment on above: Performed By: #### L [id number] #### [facility] ([facility]) [address] [place] [address] Potassium [Moles/Vol] 3.7 mmol/L Normal 3.5-5.1 [facility] Comment on above: Performed By: #### L [id number] #### [facility] ([facility]) [address] [place] [address] Sodium [Moles/Vol] 138 mmol/L Normal 136-145 [facility] Comment on above: Performed By: #### L [id number] #### [facility] ([facility]) [address] [place] [address] Urea nitrogen [Mass/Vol] 11 mg/dL Normal 7-25 [facility] Comment on above: Performed By: #### L [id number] #### [facility] ([facility]) [address] [place] [address] UREA NITROGEN/CREATININE (MASS RATIO) IN SER/PLAS 13.3 Normal [facility] Comment on above: Performed By: #### L [id number] #### [facility] ([facility]) [address] [place] [address] CBC WITH AUTO DIFFERENTIALon 08-21-2024 Basophils (Bld) [#/Vol] 0.10 10*3/uL Normal 0.00-0.20 [facility] Comment on above: Performed By: #### L [id number] #### [facility] ([facility]) [address] [place] [address] Basophils/100 WBC (Bld) 1.0 % Normal 0.0-1.0 [facility] Comment on above: Performed By: #### L [id number] #### [facility] ([facility]) [address] [place] [address] Eosinophils (Bld) [#/Vol] 0.31 10*3/uL Normal 0.00-0.50 [facility] Comment on above: Performed By: #### L [id number] #### [facility] ([facility]) [address] [place] [address] Eosinophils/100 WBC (Bld) 3.0 % Normal 0.0-6.0 [facility] Comment on above: Performed By: #### L [id number] #### [facility] ([facility]) [address] [place] [address] Erythrocyte distribution width (RBC) [Ratio] 13.0 % Normal 11.5-15.0 [facility] Comment on above: Performed By: #### L [id number] #### [facility] [address] [place] [address] ERYTHROCYTE MEAN CORPUSCULAR HEMOGLOBIN CONCENTRATION (G/DL) BY AUTOMATED 34.3 g/dL Normal 32.0-35.0 [facility] Comment on above: Performed By: #### L [id number] #### [facility] [address] [place] [address] Hematocrit (Bld) [Volume fraction] 43.7 % Normal 36.0-48.0 [facility] Comment on above: Performed By: #### L [id number] #### [facility] [address] [place] [address] Hemoglobin (Bld) [Mass/Vol] 15.0 g/dL Normal 12.0-15.0 [facility] Comment on above: Performed By: #### L [id number] #### [facility] ([facility]) [address] [place] [address] Immature granulocytes (Bld) [#/Vol] 0.03 10*3/uL Normal 0.00-0.20 [facility] Comment on above: Performed By: #### L [id number] #### [facility] [address] [place] [address] Immature granulocytes/100 WBC (Bld) 0.3 % Normal 0.0-1.0 [facility] Comment on above: Performed By: #### L [id number] #### [facility] ([facility]) [address] [place] [address] Lymphocytes (Bld) [#/Vol] 3.16 10*3/uL Normal 1.20-4.00 [facility] Comment on above: Performed By: #### L [id number] #### [facility] ([facility]) [address] [place] [address] Lymphocytes/100 WBC (Bld) 30.6 % Normal 20.0-45.0 [facility] Comment on above: Performed By: #### L [id number] #### [facility] ([facility]) [address] [place] [address] MCH (RBC) [Entitic mass] 30.4 pg Normal 27.0-33.0 [facility] Comment on above: Performed By: #### L [id number] #### [facility] ([facility]) [address] [place] [address] MCV (RBC) [Entitic vol] 88.6 fL Normal 82.0-98.0 [facility] Comment on above: Performed By: #### L [id number] #### [facility] ([facility]) [address] [place] [address] Monocytes (Bld) [#/Vol] 0.62 10*3/uL Normal 0.10-1.00 [facility] Comment on above: Performed By: #### L [id number] #### [facility] ([facility]) [address] [place] [address] Monocytes/100 WBC (Bld) 6.0 % Normal 5.0-12.0 [facility] Comment on above: Performed By: #### L [id number] #### [facility] ([facility]) [address] [place] [address] Neutrophils (Bld) [#/Vol] 6.10 10*3/uL Normal 1.60-7.60 [facility] Comment on above: Performed By: #### L [id number] #### [facility] ([facility]) [address] [place] [address] Neutrophils/100 WBC (Bld) 59.1 % Normal 40.0-72.0 [facility] Comment on above: Performed By: #### L [id number] #### [facility] ([facility]) [address] [place] [address] NRBC (PER 100 WBCS) BY AUTOMATED COUNT 0.0 % Normal 0 [facility] Comment on above: Performed By: #### L [id number] #### [facility] [address] [place] [address] PLATELETS (10*3/UL) IN BLOOD AUTOMATED COUNT 377 10*3/uL Normal 150-400 [facility] Comment on above: Performed By: #### L [id number] #### [facility] ([facility]) [address] [place] [address] RBC (Bld) [#/Vol] 4.93 10*6/uL Normal 3.80-5.00 [facility] Comment on above: Performed By: #### L [id number] #### [facility] ([facility]) [address] [place] [address] WBC (Bld) [#/Vol] 10.32 10*3/uL Normal 4.00-10.60 [facility] Comment on above: Performed By: #### L [id number] #### [facility] ([facility]) [address] [place] [address] CONSULTon 08-21-2024 CONSULT -- Attestation signed by Ankit Crook MD at 08/21/2024 2:10 PM Evaluated, reviewed and discussed with water resources program director on rounds. I agree with his notations and plan Cardiology Consult Note Reason for Consult: elevated trop, chest pain HPI: Lorena Bautista is a 54 y.o. female with past medical history of major depressive disorder and hypothyroidism, who presented as a direct admission from [facility] with chest pain and elevated troponin. Patient reported that last night she started having midsternal chest pain with radiation into her left arm and left jaw, her chest pain was retrosternal in location, severe in intensity, with no other associated symptoms. She denied having any shortness of breath or sweating or any other complaints. Initial high-sensitivity troponin of 143, initial troponin in [facility] with 2 mg/dL. Patient was started on heparin infusion. EKG with ST depressions laterally. Transthoracic echocardiogram pending. Cardiology consulted for further evaluation and management. Cardiology ROS: Review of Systems Constitutional: Negative for activity change and appetite change. Respiratory: Negative for chest tightness, shortness of breath and wheezing. Cardiovascular: Positive for chest pain. Negative for palpitations and leg swelling. Gastrointestinal: Negative for abdominal pain, nausea and vomiting. Neurological: Negative for dizziness and light-headedness. Past Medical History She has no past medical history on file. Surgical History She has no past surgical history on file. Social History She reports that she has never smoked. She has never used smokeless tobacco. No history on file for alcohol use and drug use. Family History No family history on file. Allergies Nitroglycerin Medications Current Outpatient Medications Medication Instructions cholecalciferol (VITAMIN D-3) 1,000 Units, oral, Daily cyanocobalamin (VITAMIN B-12) 500 mcg, oral, Daily DULoxetine (CYMBALTA) 30 mg, oral, Daily melatonin 1.5 mg, oral, Nightly PRN thyroid, pork, 60 mg tablet 1 tablet, oral, Daily Medications Prior to Admission Medication Sig Dispense Refill Last Dose cholecalciferol (Vitamin D-3) 25 MCG (1000 units) tablet Take 1,000 Units by mouth in the morning. cyanocobalamin (Vitamin B-12) 500 mcg tablet Take 500 mcg by mouth in the morning. DULoxetine (Cymbalta) [address] capsule Take 30 mg by mouth in the morning. melatonin 3 mg tablet Take 1.5 mg by mouth if needed at bedtime for sleep. thyroid, pork, 60 mg tablet Take 1 tablet by mouth in the morning. Last Recorded Vitals Patient Vitals for the past 24 hrs: BP Temp Temp src Pulse Resp SpO2 Height Weight 08/21/24 0500 122/79 -- -- 71 14 97 % -- -- 08/21/24 0346 (!) 151/106 37.2 ???C (99 ???F) Temporal 77 16 99 % 1.6 m (5' 3 ) 67 kg (147 lb 12.8 oz) Physical Examination: Physical Exam Constitutional: General: She is not in acute distress. Appearance: Normal appearance. She is not ill-appearing. HENT: Head: Normocephalic and atraumatic. Cardiovascular: Rate and Rhythm: Normal rate and regular rhythm. Heart sounds: Normal heart sounds. No murmur heard. Pulmonary: Breath sounds: Normal breath sounds. No wheezing or rales. Abdominal: Palpations: Abdomen is soft. Tenderness: There is no abdominal tenderness. Musculoskeletal: Right lower leg: No edema. Left lower leg: No edema. Skin: General: Skin is warm and dry. Findings: No erythema or rash. Neurological: Mental Status: She is alert and oriented to person, place, and time. Mental status is at baseline. Relevant Lab Results Encounter Date: 08/21/24 ECG 12 lead Result Value Ventricular Rate 76 Atrial Rate 76 KS Interval 132 QRS DURATION 72 QT Interval 408 QTC CALCULATION(BAZETT) 459 P Huntington 63 R-Huntington 87 T Wave Huntington 99 Impression Normal sinus rhythm Nonspecific ST and T wave abnormality Abnormal ECG No previous ECGs available Lab Results Component Value Date TROPONINI 2.09 (HH) 08/21/2024 No echocardiogram results found for the past 12 months No nuclear medicine results found for the past 12 months Relevant Imaging Results ECG 12 lead Normal sinus rhythm Nonspecific ST and T wave abnormality Abnormal ECG No previous ECGs available ASSESSMENT NSTEMI, likely type I, EKG with ST depressions laterally, transthoracic echocardiogram report pending (preliminary reading with apical regional wall motion abnormalities, which could be LAD territory versus stress-induced cardiomyopathy) Major depressive disorder Hypothyroidism PLAN Given ongoing chest pain and ischemic EKG signs, in addition to elevated troponin and regional wall motion abnormalities on echocardiogram we will proceed with coronary an (more content not included)... Normal [facility] HEMOGLOBIN A1Con 08-21-2024 Glucose [Mass/Vol] 128 mg/dL Normal [facility] Comment on above: Performed By: #### L [id number] #### [facility] ([facility]) [address] [place] [address] HbA1c (Bld) [Mass fraction] 6.1 % High 4.0-6.0 [facility] Comment on above: Performed By: #### L [id number] #### [facility] ([facility]) [address] [place] [address] HEMOGLOBIN AND HEMATOCRIT, B LOODon 08-21-2024 Hematocrit (Bld) [Volume fraction] 46.3 % Normal 36.0-48.0 [facility] Comment on above: Performed By: #### L [id number] ####[facility] ([facility])[address] [place] [address] Hemoglobin (Bld) [Mass/Vol] 15.2 g/dL High 12.0-15.0 [facility] Comment on above: Performed By: #### L [id number] ####[facility] ([facility])[address] [place] [address] HPon 08-21-2024 HP Cardiology Interval Pre-Procedural History & Physical Chief Complaint: elevated trop, chest pain HPI: Lorena Bautista is a 54 y.o. female with past medical history of major depressive disorder and hypothyroidism, who presented as a direct admission from [facility] with chest pain and elevated troponin. Patient reported that last night she started having midsternal chest pain with radiation into her left arm and left jaw, her chest pain was retrosternal in location, severe in intensity, with no other associated symptoms. She denied having any shortness of breath or sweating or any other complaints. Initial high-sensitivity troponin of 143, initial troponin in [facility] with 2 mg/dL. Patient was started on heparin infusion. EKG with ST depressions laterally. Transthoracic echocardiogram pending. Cardiology consulted for further evaluation and management. Cardiology ROS: Constitutional: Negative for activity change and appetite change. Respiratory: Negative for chest tightness, shortness of breath and wheezing. Cardiovascular: Positive for chest pain. Negative for palpitations and leg swelling. Gastrointestinal: Negative for abdominal pain, nausea and vomiting. Neurological: Negative for dizziness and light-headedness. Past Medical History She has no past medical history on file. Surgical History She has no past surgical history on file. Social History She reports that she has never smoked. She has never used smokeless tobacco. No history on file for alcohol use and drug use. Family History No family history on file. Allergies Nitroglycerin Medications Medications Prior to Admission Medication Sig Dispense Refill Last Dose cholecalciferol (Vitamin D-3) 25 MCG (1000 units) tablet Take 1,000 Units by mouth in the morning. cyanocobalamin (Vitamin B-12) 500 mcg tablet Take 500 mcg by mouth in the morning. DULoxetine (Cymbalta) [address] capsule Take 30 mg by mouth in the morning. melatonin 3 mg tablet Take 1.5 mg by mouth if needed at bedtime for sleep. thyroid, pork, 60 mg tablet Take 1 tablet by mouth in the morning. Last Recorded Vitals Patient Vitals for the past 24 hrs: BP Temp Temp src Pulse Resp SpO2 Height Weight 08/21/24 0927 (!) 141/103 36 ???C (96.8 ???F) Temporal 78 12 98 % -- -- 08/21/24 0500 122/79 -- -- 71 14 97 % -- -- 08/21/24 0346 (!) 151/106 37.2 ???C (99 ???F) Temporal 77 16 99 % 1.6 m (5' 3 ) 67 kg (147 lb 12.8 oz) Physical Examination: GENERAL: alert and oriented x3, well developed, in no acute distress. HEAD: atraumatic, normocephalic. EYES: YONATAN, EOMI. NECK: trachea midline, no JVD present, no carotid bruits present. CARDIAC: S1, S2 present. RRR. No murmur, rubs, or gallops. RESPIRATORY: CTAB, no increased effort of breathing, no rales, rhonchi, or wheezing. ABDOMEN: soft, nontender, nondistended. EXTREMITIES: no lower extremity edema, peripheral pulses are 2+ bilaterally. No rash/skin discoloration present. NEURO: strength/sensation equal and symmetric in bilateral upper and lower extremities. PSYCH: appropriate mood, affect, and judgement. Relevant Lab Results Encounter Date: 08/21/24 ECG 12 lead Result Value Ventricular Rate 76 Atrial Rate 76 KS Interval 132 QRS DURATION 72 QT Interval 408 QTC CALCULATION(BAZETT) 459 P Huntington 63 R-Huntington 87 T Wave Huntington 99 Impression Normal sinus rhythm Nonspecific ST and T wave abnormality Abnormal ECG No previous ECGs available Lab Results Component Value Date TROPONINI 1.07 (HH) 08/21/2024 Complete Echo (TTE) w/wo Imaging Agent, Strain, 3D, Bubble Study Result Date: 08/21/2024 1 1 [facility] Heart Station [address] [place] [address] [phone] (fax) Echocardiogram-[facility] Name: LORENA BAUTISTA Study Date: 08/21/2024 07:30 AM B/P: 122 mmHg/79 mmHg HR: 78 bpm Date of : 1970 Location: [facility] Height: 63 in. Age: 54 year(s) Patient Room: 3116 Weight: 147 lb. Gender: Female Patient Status: InPt BSA: 1.7 m2 Indication: Chest Pain, Non-STEMI Examination: Echocardiogram (Complete), Lumason Contrast Image Quality: Poor sound transmission in apical views Patient Consent: Procedure explained to patient Exam Details Contrast: I.V. dose of Lumason Conclusions Left Ventricle: The left ventricle is normal size. Global left ventricular systolic function is normal. EF range is estimated at 15 % -20 %. Interventricular septal thickness is increased in the proximal portion. Regional wall motion abnormalities (see diagram). Grade 1, mild diastolic dysfunction (abnormal relaxation). Right Ventricle: The right ventricle is normal in size. Normal right ventricular systolic function. Doppler studies suggest normal right sided pressures. Left Atrium: The left atrium is at upper normal limits in size. Mitral Valve: Mild mitral regurgitation. Overall Conclusions: No (more content not included)... Normal [facility] LIPID PANELon 08-21-2024 CHOL/HDL 4.2 mg/dL Normal [facility] Comment on above: Performed By: #### L [id number] #### [facility] ([facility]) [address] [place] [address] Cholesterol [Mass/Vol] 226 mg/dL High 120-200 [facility] Comment on above: Performed By: #### L [id number] #### [facility] ([facility]) [address] [place] [address] Magnesium [Mass/Vol] 179 mg/dL High 40-149 [facility] Comment on above: Result Comment: TRIG LYCERIDE REFERENCE RANGE: 20 YEARS AND OLDER CARDIOVASCULAR RISK LESS THAN 150 mg/dL LOW RISK 150 TO 199 mg/dL BORDERLINE RISK 200 mg/dL AND GREATER HIGH RISK Performed By: #### L [id number] #### [facility] ([facility]) [address] [place] [address] Magnesium [Mass/Vol] 136 mg/dL Normal 0-160 [facility] Comment on above: Performed By: #### L [id number] #### [facility] ([facility]) [address] [place] [address] Magnesium [Mass/Vol] 54 mg/dL Normal 23-92 [facility] Comment on above: Performed By: #### L [id number] #### [facility] ([facility]) [address] [place] [address] NON HDL CHOL. (LDL+VLDL) 172 Normal [facility] Comment on above: Performed By: #### L [id number] #### [facility] ([facility]) [address] [place] [address] TOTAL VLDL-C 36 mg/dL Normal 0-40 [facility] Comment on above: Performed By: #### L [id number] #### [facility] ([facility]) [address] [place] [address] MAGNESIUMon 08-21-2024 Magnesium [Mass/Vol] 2.1 mg/dL Normal 1.9-2.7 [facility] Comment on above: Performed By: #### L [id number] #### [facility] ([facility]) [address] [place] [address] No Panel Informationon 08-21 Troponin I High Sensitivity 5205.7 pg/mL High 4.0-51.3 [facility] Comment on above: RESULTS CALLED TO MUNIR KAMINSKI RN at 0108CUT-OFF POINTS HAVE BEEN ESTABLISHED BASED ON THE FOURTHUNIVERSAL DEFINITION OF MYOCARDIAL INFARCTION. THE UPPERREFERENCE LIMIT (URL) OF TROPONIN, DEFINED THE 99THPERCENTILE OF cTnI DISTRIBUTION IN A REFERENCE POPULATION,HAS BEEN CONFIRMED THE DECISION THRESHOLD FOR MIDIAGNOSIS.99TH PERCENTILE = 51.4 PG/MLNOTE: HIGH-SENSITIVITY TROPONIN ASSAY IS NOT INTENDED TO BEUSED IN ISOLATION BUT SHOULD BE INTERPRETED IN CONJUNCTIONWITH OTHER DIAGNOSTIC AND CLINICAL INFORMATION. PHOSPHORUSon 08-21-2024 Magnesium [Mass/Vol] 3.8 mg/dL Normal 2.5-5.0 [facility] Comment on above: Performed By: #### L [id number] #### [facility] ([employer]) [address] [place] [address] POCT GLUCOSE METER UNSOLICIT ED RESULTSon 08-21-2024 Glucose [Mass/Vol] 130 mg/dL High 70-105 [facility] Comment on above: Order Comment: Waive d Testing in the ED is performed under the ED CLIA certificate #[id number]. Result Comment: bflo od Performed By: #### L [id number] #### [facility] ([facility]ICKI) [address] [place] [address] PROTIME-INRon 08-21-2024 INR IN PPP BY COAGULATION ASSAY 0.96 Normal 0.90-1.10 [facility] Comment on above: Result Comment: ACCC P RECOMMENDED INR FOR WARFARIN THERAPY CONDITION INR PROPHYLAXIS OF VENOUS THROMBOSIS 2-3 (HIGH-RISK SURGERY) TREATMENT OF VENOUS THROMBOSIS 2-3 TREATMENT OF PULMONARY EMBOLISM 2-3 PREVENTION OF SYSTEMIC EMBOLISM: 2-3 ACUTE MYOCARDIAL INFARCTION TISSUE HEART VALVES VALVULAR HEART DISEASE ATRIAL FIBRILLATION RECURRENT SYSTEMIC EMBOLISM MECHANICAL HEART VALVE 2.5-3.5 FROM: ORAL ANTICOAGULANTS. MECHANISM OF ACTION, CLINICAL EFFECTIVENESS, AND OPTIMAL THERAPEUTIC RANGE. CHEST 1995;108:231S-246S. Performed By: #### L [id number] #### [facility] ([facility]) [address] [place] [address] PROTHROMBIN TIME (PT) IN PPP BY COAGULATION ASSAY 12.8 Seconds Normal 12.3-14.8 [facility] Comment on above: Performed By: #### L [id number] #### [facility] ([facility]) [address] [place] [address] T4, FREEon 08-21-2024 THYROXINE (T4) FREE (NG/DL) IN SER/PLAS 0.58 ng/dL Low 0.71-1.85 [facility] Comment on above: Performed By: #### L [id number] #### [facility] ([facility]) [address] [place] [address] TROPONIN Ion 08-21-2024 Troponin I.cardiac [Mass/Vol] 0.76 ng/mL Critically high 0.00-0.04 [facility] Comment on above: Result Comment: M-KS EVIOUS CRITICAL RESULT Previous result verified on 08/21/2024612 on specimen/case [id number] called with component Troponin I for procedure Troponin I with value 2.09 ng/mL. Performed By: #### L [id number] #### [facility] ([facility]) [address] [place] [address] Troponin I.cardiac [Mass/Vol] 0.58 ng/mL Critically high 0.00-0.04 [facility] Comment on above: Result Comment: M-KS EVIOUS CRITICAL RESULT Previous result verified on 08/21/2024612 on specimen/case [id number] called with component Troponin I for procedure Troponin I with value 2.09 ng/mL. Performed By: #### L [id number] ####[facility] ([facility])[address] [place] [address] Troponin I.cardiac [Mass/Vol] 1.07 ng/mL Critically high 0.00-0.04 [facility] Comment on above: Result Comment: M-KS EVIOUS CRITICAL RESULT Previous result verified on 08/21/2024612 on specimen/case [id number] called with component Troponin I for procedure Troponin I with value 2.09 ng/mL. Performed By: #### L [id number] #### [facility] ([facility]) [address] [place] [address] Troponin I.cardiac [Mass/Vol] 2.09 ng/mL Critically high 0.00-0.04 [facility] Comment on above: Result Comment: M-TR OPONIN INITIAL CRITICAL HIGH; RESPUN AND RETESTED Performed By: #### L [id number] #### [facility] ([facility]) [address] [place] [address] TSH3 REFLEX TO FT4on 024 THYROTROPIN (MIU/L) IN SER/PLAS BY DETECTION LIMIT <= 0.05 MIU/L 10.64 mIU/L High 0.34-5.60 [facility] Comment on above: Performed By: #### L [id number] #### [facility] ([facility]) [address] [place] [address] Basophils Auto (Bld) [#/Vol] on 08-20-2024 Basophils (Bld) [#/Vol] 0.1 10 3/uL 0.0-0.1 [facility] Basophils/100 WBC Auto (Bld) on 08-20-2024 Basophils/100 WBC (Bld) 1.1 % 0.2-2.0 [facility] Eosinophils/100 WBC Auto (Bl d)on 08-20-2024 Eosinophils/100 WBC (Bld) 5.3 % 0.9-7.0 [facility] Erythrocyte distribution wid th Auto (RBC) [Ratio]on 08-20-2024 Erythrocyte distribution width (RBC) [Ratio] 12.8 % 11.0-15.0 [facility] Estimated glomerular filtrat ion rate (GFR) non- Americanon 08-20-2024 GFR/1.73 sq M.predicted among non-blacks MDRD (S/P/Bld) [Vol rate/Area] 54 mL/min/{1.73_m2} Low >=60 mL/min/1.73m 2 [facility] Globulin Calc (S) [Mass/Vol] on 08-20-2024 Globulin (S) [Mass/Vol] 3.8 g/dL [facility] Hematocrit Auto (Bld) [Volum e fraction]on 08-20-2024 Hematocrit (Bld) [Volume fraction] 46.0 % 36.0-48.0 [facility] Hemoglobin [Mass/volume] in Bloodon 08-20-2024 Hemoglobin (Bld) [Mass/Vol] 15.4 g/dL 12.0-16.0 [facility] INR in Platelet poor plasma by Coagulation assayon 08-20-2024 INR Coag (PPP) [Relative time] 0.93 {INR} [facility] Comment on above: DESIRED INR:2.0-3.0 CONDITIONS NOT LISTED BELOW2.5-3.5 FOR PROSTHETIC HEART VALVE REPLACEMENT2.5-3.5 RECURRENT THROMBOSIS Laboratory - Chemistry and C hemistry - challengeon 08-20-2024 CK [Catalytic activity/Vol] 192 U/L 26-192 [facility] CK.MB [Mass/Vol] 7.56 ng/mL High <=3.60 [facility] Comment on above: RESULTS CALLED TO JUAN MARRERO RN at 2211 Albumin [Mass/Vol] 4.3 g/dL 3.4-5.0 [facility] ALP [Catalytic activity/Vol] 69 U/L 46-116 [facility] ALT [Catalytic activity/Vol] 36 U/L 14-59 [facility] AST [Catalytic activity/Vol] 23 U/L 15-37 [facility] Bilirubin [Mass/Vol] 0.5 mg/dL 0.2-1.0 [facility] Calcium [Mass/Vol] 9.5 mg/dL 8.5-10.1 [facility] Chloride [Moles/Vol] 103 mmol/L 98-107 [facility] CO2 [Moles/Vol] 28.9 mmol/L 21.0-32.0 [facility] Creatinine [Mass/Vol] 1.05 mg/dL High 0.55-1.02 [facility] GFR/1.73 sq M.predicted MDRD (S/P/Bld) [Vol rate/Area] mL/min/{1.73_m2} >=60 mL/min/1.73m 2 [facility] Glucose [Mass/Vol] 106 mg/dL 74-106 [facility] Lactate [Moles/Vol] 1.1 mmol/L 0.4-2.0 [facility] Lipase [Catalytic activity/Vol] 84.0 U/L High 16.0-77.0 [facility] Magnesium [Mass/Vol] 2.3 mg/dL 1.8-2.4 [facility] Natriuretic peptide B (Bld) [Mass/Vol] 40.0 pg/mL <=900.0 [facility] Potassium [Moles/Vol] 3.9 mmol/L 3.5-5.1 [facility] Protein [Mass/Vol] 8.1 g/dL 6.4-8.2 [facility] Sodium [Moles/Vol] 141 mmol/L 136-145 [facility] Urea nitrogen [Mass/Vol] 11.0 mg/dL 7.0-18.0 [facility] Urea nitrogen/Creatinine [Mass ratio] 10.5 mg/mg [facility] Laboratory - Hematology and Cell countson 08-20-2024 Immature granulocytes/100 WBC (Bld) 0.3 % 0.0-0.5 [facility] Leukocytes [#/volume] correc ermelnida for nucleated erythrocytes in Blood by Automated counon 08-20-2024 WBC corrected for nucl RBC Auto (Bld) [#/Vol] 9.6 10 3/uL 4.0-11.0 [facility] Lymphocytes Auto (Bld) [#/Vo l]on 08-20-2024 Lymphocytes (Bld) [#/Vol] 2.8 10 3/uL 1.2-3.8 [facility] Lymphocytes/100 WBC Auto (Bl d)on 08-20-2024 Lymphocytes/100 WBC (Bld) 28.7 % 20.5-60.0 [facility] MCH Auto (RBC) [Entitic mass ]on 08-20-2024 MCH (RBC) [Entitic mass] 30.4 pg 26.7-34.0 [facility] MCHC Auto (RBC) [Mass/Vol]on 08-20-2024 MCHC (RBC) [Mass/Vol] 33.5 g/dL 29.9-35.2 [facility] MCV Auto (RBC) [Entitic vol] on 08-20-2024 MCV (RBC) [Entitic vol] 90.9 fL 81.0-99.0 [facility] Monocytes Auto (Bld) [#/Vol] on 08-20-2024 Monocytes (Bld) [#/Vol] 0.5 10 3/uL 0.3-0.8 [facility] Monocytes/100 WBC Auto (Bld) on 08-20-2024 Monocytes/100 WBC (Bld) 5.6 % 1.7-12.0 [facility] Neutrophils Auto (Bld) [#/Vo l]on 08-20-2024 Neutrophils (Bld) [#/Vol] 5.7 10 3/uL 1.4-6.5 [facility] Neutrophils/100 WBC Auto (Bl d)on 08-20-2024 Neutrophils/100 WBC (Bld) 59.0 % 43.0-75.0 [facility] No Panel Informationon 08-20 Troponin I High Sensitivity 3845.2 pg/mL High 4.0-51.3 [facility] Comment on above: RESULTS CALLED TO JUAN MARRERO RN at 2211CUT-OFF POINTS HAVE BEEN ESTABLISHED BASED ON THE FOURTHUNIVERSAL DEFINITION OF MYOCARDIAL INFARCTION. THE UPPERREFERENCE LIMIT (URL) OF TROPONIN, DEFINED THE 99THPERCENTILE OF cTnI DISTRIBUTION IN A REFERENCE POPULATION,HAS BEEN CONFIRMED THE DECISION THRESHOLD FOR MIDIAGNOSIS.99TH PERCENTILE = 51.4 PG/MLNOTE: HIGH-SENSITIVITY TROPONIN ASSAY IS NOT INTENDED TO BEUSED IN ISOLATION BUT SHOULD BE INTERPRETED IN CONJUNCTIONWITH OTHER DIAGNOSTIC AND CLINICAL INFORMATION. Eosinophils # (Auto) 0.5 10 3/uL 0.0-0.7 [facility] Immature Granulocyte # (Auto) 0.03 10 3/uL 0.00-0.03 [facility] Platelet mean volume Auto (B ld) [Entitic vol]on 08-20-2024 Platelet mean volume (Bld) [Entitic vol] 8.9 fL Low 9.5-13.5 [facility] Platelets Auto (Bld) [#/Vol] on 08-20-2024 Platelets (Bld) [#/Vol] 395 10 3/uL 150-450 [facility] Prothrombin time (PT)on 08-01 PT Coag (PPP) [Time] 9.9 s 9.0-11.6 [facility] RBC Auto (Bld) [#/Vol]on RBC (Bld) [#/Vol] 5.06 10 6/uL 4.20-5.40 [facility] Serum or plasma albumin/glob ulin mass ratioon 08-20-2024 Albumin/Globulin [Mass ratio] 1.1 {ratio} [facility] Serum or plasma anion gap de terminationon 08-20-2024 Anion gap [Moles/Vol] 13.0 mmol/L [facility] MM screening mammo BI w/CADo n 11-29-2023 MM screening mammo BI w/CAD [place] [address] Mammography Report Signed Patient: Lorena Bautista MR#: [id number] 69 : 1970 Acct:[id number] Age/Sex: 53 / F ADM Date: 11/29/23 Loc: [place] Room: Type: [facility] Attending Dr: Referral Self Copies to: MD ISADORA Nguyen MONA DO SELF,REFERRAL Ordering Provider: SELF,REFERRAL Date of Service: 11/29/23 MM/MM screening mammo [...] Florence Jauregui M.D.11/29/2023 3:40 PM Dictation Location: [facility] Transcribed By: [facility] 11/29/23 1540 Dictated By: Florence Jauregui MD 11/29/23 1536 Signed By: 11/29/23 1540 [facility] XR CSPINE 2_3 VIEWSon 2021 XR CSPINE 2_3 VIEWS EXAMINATION: XR CSPI NE 2_3 VIEWS HISTORY: Neck pain COMPARISON: No [...] PHAN BRADFORD Date: 2022-10-18 23:36 Normal [facility] XR LSPINE MIN 4 VIEWSon 10-01 [...] by: PHAN BRADFORD Date: 2022-10-18 23:29 Normal [facility] XR TSPINE 3 VIEWSon 10-19-20 XR TSPINE 3 VIEWS EXAMINATION: XR TSPI NE 3 VIEWS HISTORY: Pain in thoracic spine [...] by: PHAN BRADFORD Date: 2022-10-18 23:30 Normal [facility] CBC AUTO DIFFon 07-08-2022 BASO # 0.1 103/ul Normal 0.0-0.1 [facility] Comment on above: Performed By: #### C BC #### [facility] [address] [place] [address] Dr. Hamilton Craven Basophils/100 WBC (Bld) 1.5 % Normal 0.2-2.0 [facility] Comment on above: Performed By: #### C BC #### [facility] [address] [place] [address] Dr. Hamilton Craven EO # 0.1 103/ul Normal 0.0-0.7 [facility] Comment on above: Performed By: #### C BC #### [facility] [address] [place] [address] Dr. Hamilton Craven Eosinophils/100 WBC (Bld) 2.3 % Normal 0.9-7.0 [facility] Comment on above: Performed By: #### C BC #### [facility] [address] [place] [address] Dr. Hamilton Craven Erythrocyte distribution width (RBC) [Ratio] 16.0 % Critically high 11.0-15.0 [facility] Comment on above: Performed By: #### C BC #### [facility] [address] [place] [address] Dr. Hamilton Craven Hematocrit (Bld) [Volume fraction] 40.3 % Normal 36.0-48.0 [facility] Comment on above: Performed By: #### C BC #### [facility] [address] [place] [address] Dr. Hamilton Craven Hemoglobin (Bld) [Mass/Vol] 12.7 g/dL Normal 12.0-16.0 [facility] Comment on above: Performed By: #### C BC #### [facility] [address] [place] [address] Dr. Hamilton Craven IG # 0.02 10e3/ul Normal 0.00-0.03 [facility] Comment on above: Performed By: #### C BC #### [facility] [address] [place] [address] Dr. Hamilton Craven IG % 0.3 % Normal 0.0-0.5 [facility] Comment on above: Performed By: #### C BC #### [facility] [address] [place] [address] Dr. Hamilton Craven LYMPH # 1.8 103/ul Normal 1.2-3.8 [facility] Comment on above: Performed By: #### C BC #### [facility] [address] [place] [address] Dr. Hamilton Craven Lymphocytes/100 WBC (Bld) 30.5 % Normal 20.5-60.0 [facility] Comment on above: Performed By: #### C BC #### [facility] [address] [place] [address] Dr. Hamilton Craven MANUAL DIFF REQ NO Normal [facility] Comment on above: Performed By: #### C BC #### [facility] [address] [place] [address] Dr. Hamilton Craven MCH (RBC) [Entitic mass] 26.4 pg Critically low 26.7-34.0 [facility] Comment on above: Performed By: #### C BC #### [facility] [address] [place] [address] Dr. Hamilton Craven MCHC (RBC) [Mass/Vol] 31.5 g/dL Normal 29.9-35.2 [facility] Comment on above: Performed By: #### C BC #### [facility] [address] [place] [address] Dr. Hamilton Craven MCV (RBC) [Entitic vol] 83.8 fL Normal 81.0-99.0 [facility] Comment on above: Performed By: #### C BC #### [facility] [address] [place] [address] Dr. Hamilton Craven MONO # 0.4 103/ul Normal 0.3-0.8 [facility] Comment on above: Performed By: #### C BC #### [facility] [address] [place] [address] Dr. Hamilton Craven Monocytes/100 WBC (Bld) 6.0 % Normal 1.7-12.0 [facility] Comment on above: Performed By: #### C BC #### [facility] [address] [place] [address] Dr. Hamilton Craven NEUT # 3.6 103/ul Normal 1.4-6.5 [facility] Comment on above: Performed By: #### C BC #### [facility] [address] [place] [address] Dr. Hamilton Craven Neutrophils/100 WBC (Bld) 59.4 % Normal 43.0-75.0 [facility] Comment on above: Performed By: #### C BC #### [facility] [address] [place] [address] Dr. Hamilton Craven Platelet mean volume (Bld) [Entitic vol] 9.1 fL Critically low 9.5-13.5 [facility] Comment on above: Performed By: #### C BC #### [facility] [address] [place] [address] Dr. Hamilton Craven PLT 431 103/ul Normal 150-450 [facility] Comment on above: Performed By: #### C BC #### [facility] [address] [place] [address] Dr. Hamilton Craven RBC 4.81 106/ul Normal 4.20-5.40 [facility] Comment on above: Performed By: #### C BC #### [facility] [address] [place] [address] Dr. Hamilton Craven WBC 6.0 103/ul Normal 4.0-11.0 [facility] Comment on above: Performed By: #### C BC #### [facility] [address] [address] [address] Hamilton Craven FREE T4on 07-08-2022 Free T4 [Mass/Vol] 1.30 ng/dL Normal 0.76-1.46 [facility] Comment on above: Performed By: #### F T4 #### [facility] [address] [address] [address] Hamilton Craven GLYCOHEMOGLOBIN A1Con 2021 ADA RECOMMENDATION SEE BELOW Normal [facility] Comment on above: Result Comment: ADA RECOMMENDED LIMIT 4.0 - 6.0 ADA THERAPEUTIC TARGET < 7.0 ACTION SUGGESTED > 7.0 Performed By: #### A 1C #### [facility] [address] [place] [address] Dr. Hamilton Craven Glucose [Mass/Vol] 128 mg/dL Normal [facility] Comment on above: Performed By: #### A 1C #### [facility] [address] [place] [address] Dr. Hamilton Craven HbA1c (Bld) [Mass fraction] 6.1 % Normal 4.5-6.2 [facility] Comment on above: Performed By: #### A 1C #### [facility] [address] [place] [address] Dr. Hamilton Craven LIPID PROFILEon 07-08-2022 CHOL-HDL RATIO NORM SEE BELOW Normal [facility] Comment on above: Result Comment: 3.3 - 4.4 LOW RISK 4.4 - 7.1 AVERAGE RISK 7.1 - 11.0 MODERATE RISK >11.0 HIGH RISK Performed By: #### T SH, LIPID, CMP #### [facility] [address] [address] [address] Hamilton Craven Cholesterol [Mass/Vol] 214 mg/dL Critically high <=200 [facility] Comment on above: Performed By: #### T SH, LIPID, CMP #### [facility] [address] [place] [address] Dr. Hamilton Craven Cholesterol in HDL [Mass/Vol] 56 mg/dL Normal 40-60 [facility] Comment on above: Performed By: #### T SH, LIPID, CMP #### [facility] [address] [address] [address] Hamilton Craven Cholesterol in LDL [Mass/Vol] 141.0 mg/dL Normal [facility] Comment on above: Performed By: #### T SH, LIPID, CMP #### [facility] [address] [address] [address] Hamilton Craven Cholesterol.total/C holesterol in HDL [Mass ratio] 3.8 {ratio} Normal [facility] Comment on above: Performed By: #### T SH, LIPID, CMP #### [facility] [address] [address] [address] Hamilton Craven HDL NORMAL > or = 60 mg/dl - LO W CARDIOVASCULAR RISK <40 mg/dl - HIGH CARDIOVASCULAR RISK Normal [facility] Comment on above: Performed By: #### T ANGELA, LIPID, CMP #### [facility] [address] [address] [address] Hamilton Craven LDL CALC NORMAL SEE BELOW Normal [facility] Comment on above: Result Comment: <100 mg/dl OPTIMAL 100 - 129 mg/dl NEAR OR ABOVE OPTIMAL 130 - 159 mg/dl BORDERLINE HIGH 160 - 189 mg/dl HIGH >190 mg/dl VERY HIGH Performed By: #### T SH, LIPID, CMP #### [facility] [address] [address] [address] Hamilton Craven Triglyceride [Mass/Vol] 85 mg/dL Normal <=150 [facility] Comment on above: Performed By: #### T ANGELA, LIPID, CMP #### [facility] [address] [address] [address] Hamilton Craven VLDL CALC 17.0 mg/dL Normal [facility] Comment on above: Performed By: #### T SH, LIPID, CMP #### [facility] [address] [place] [address] Dr. Hamilton Craven PROF 14(COMP METB)on 022 Albumin [Mass/Vol] 3.9 g/dL Normal 3.4-5.0 [facility] Comment on above: Performed By: #### T SH, LIPID, CMP #### [facility] [address] [address] [address] Hamilton Craven Albumin/Globulin [Mass ratio] 1.1 {ratio} Normal [facility] Comment on above: Performed By: #### T SH, LIPID, CMP #### [facility] [address] [address] [address] Hamilton Craven ALP [Catalytic activity/Vol] 95 U/L Normal 46-116 [facility] Comment on above: Performed By: #### T SH, LIPID, CMP #### [facility] [address] [address] [address] Hamilton Craven ALT [Catalytic activity/Vol] 41 U/L Normal 14-59 [facility] Comment on above: Performed By: #### T SH, LIPID, CMP #### [facility] [address] [address] [address] Hamilton Craven Anion gap [Moles/Vol] 7.0 mmol/L Normal [facility] Comment on above: Performed By: #### T SH, LIPID, CMP #### [facility] [address] [address] [address] Hamilton Craven AST [Catalytic activity/Vol] 25 U/L Normal 15-37 [facility] Comment on above: Performed By: #### T SH, LIPID, CMP #### [facility] [address] [address] [address] Hamilton Craven Bilirubin [Mass/Vol] 0.3 mg/dL Normal 0.2-1.0 [facility] Comment on above: Performed By: #### T SH, LIPID, CMP #### [facility] [address] [address] [address] Hamilton Craven Calcium [Mass/Vol] 9.0 mg/dL Normal 8.5-10.1 [facility] Comment on above: Performed By: #### T SH, LIPID, CMP #### [facility] [address] [address] [address] Hamilton Craven Chloride [Moles/Vol] 102 mmol/L Normal 98-107 [facility] Comment on above: Performed By: #### T SH, LIPID, CMP #### [facility] [address] [address] [address] Hamilton Craven CO2 [Moles/Vol] 32.7 mmol/L Critically high 21.0-32.0 [facility] Comment on above: Performed By: #### T SH, LIPID, CMP #### [facility] [address] [address] [address] Hamilton Craven Creatinine [Mass/Vol] 0.95 mg/dL Normal 0.55-1.02 [facility] Comment on above: Performed By: #### T SH, LIPID, CMP #### [facility] [address] [address] [address] Hamilton Craven EGFR-AF LUXEMBOURGER >60 Normal >=60 [facility] Comment on above: Performed By: #### T SH, LIPID, CMP #### [facility] [address] [address] [address] Hamilton Craven EGFR-NON AF LUXEMBOURGER >60 Normal >=60 [facility] Comment on above: Performed By: #### T SH, LIPID, CMP #### [facility] [address] [address] [address] Hamilton Craven Globulin (S) [Mass/Vol] 3.7 g/dL Normal [facility] Comment on above: Performed By: #### T SH, LIPID, CMP #### [facility] [address] [address] [address] Hamilton Craven Glucose [Mass/Vol] 112 mg/dL Critically high 74-106 [facility] Comment on above: Performed By: #### T SH, LIPID, CMP #### [facility] [address] [address] [address] Hamilton Craven Potassium [Moles/Vol] 3.7 mmol/L Normal 3.5-5.1 [facility] Comment on above: Performed By: #### T SH, LIPID, CMP #### [facility] [address] [address] [address] Hamilton Craven Protein [Mass/Vol] 7.6 g/dL Normal 6.4-8.2 [facility] Comment on above: Performed By: #### T SH, LIPID, CMP #### [facility] [address] [address] [address] Hamilton Craven Sodium [Moles/Vol] 138 mmol/L Normal 136-145 [facility] Comment on above: Performed By: #### T SH, LIPID, CMP #### [facility] [address] [address] [address] Hamilton Craven Urea nitrogen [Mass/Vol] 10.0 mg/dL Normal 7.0-18.0 [facility] Comment on above: Performed By: #### T SH, LIPID, CMP #### [facility] [address] [address] [address] Hamilton Craven Urea nitrogen/Creatinine [Mass ratio] 10.5 mg/mg Normal [facility] Comment on above: Performed By: #### T ANGELA, LIPID, CMP #### [facility] [address] [address] [address] Hamilton Craven TSHon 07-08-2022 TSH 0.200 uIU/mL Critically low 0.358-3.740 [facility] Comment on above: Performed By: #### T SH, LIPID, CMP #### [facility] [address] [place] [address] Dr. Hamilton Craven XR hand LT min 3V*on 022 XR hand LT min 3V* [facility] [employer] Other XR hand LT min 3V* [facility] [employer] Other XR hand LT min 3V* [address] [place] [address] [employer] Other XR hand LT min 3V* [place] [address] [employer] [facility] [employer] Other XR hand LT min 3V* XRay Report [employer] [facility] [employer] Other XR hand LT min 3V* Signed [employer] Other XR hand LT min 3V* Patient: Diandra Bautista MR#: [id number] [employer] Other XR hand LT min 3V* 69 [employer] Other XR hand LT min 3V* : 1970 Acct:[id number] [employer] Other XR hand LT min 3V* Age/Sex: 51 / F ADM Date: 11/06/21 [employer] Other XR hand LT min 3V* Loc: SOXD Room: Type : [facility] [employer] Other XR hand LT min 3V* Attending Dr: Patito Martinez MD [employer] Other XR hand LT min 3V* Ordering Provider: Rosalba Martinez MD [employer] Other XR hand LT min 3V* Date of Service: 11/06/21 [employer] Other XR hand LT min 3V* XR/XR hand LT min 3V*: Primary osteoarthritis of left hand [employer] Other XR hand LT min 3V* Copies to: Rosalba Martinez MD [employer] Other XR hand LT min 3V* Left wrist 11/06/2021. [employer] Other XR hand LT min 3V* CLINICAL DATA: Prima ry osteoarthritis of left hand. [employer] Other XR hand LT min 3V* FINDINGS: 3 views of the left wrist were obtained along with a dedicated view of the left first [employer] Other XR hand LT min 3V* carpal-metacarpal joint. This examination is compared with a prior study 09/30/2021. [employer] Other XR hand LT min 3V* There is redemonstration of postsurgical changes related to fusion of the first carpal-metacarpal [employer] Other XR hand LT min 3V* joint. The hardware appears intact and unchanged in position. There are underlying degenerative [employer] Other XR hand LT min 3V* changes at the first carpal-metacarpal joint. No fracture or dislocation is identified. No [employer] Other XR hand LT min 3V* significant soft tissue swelling is seen. [employer] Other XR hand LT min 3V* XR/XR hand LT min 3V* [employer] Other XR hand LT min 3V* IMPRESSION: Stable postsurgical changes related to fusion of the left first CMC joint [employer] Other XR hand LT min 3V* Impression dictated by: Tarun Aranda Jr., M.D.11/06/2021 12:15 PM [employer] Other XR hand LT min 3V* Dictation Location: [place] [address] [employer] Other XR hand LT min 3V* Transcribed By: ERNIE 11/06/21 [facility]5 [employer] Other XR hand LT min 3V* Dictated By: Tarun Aranda Jr, MD 11/06/21 [facility]1 [employer] Other XR hand LT min 3V* Signed By: [employer] Other XR hand LT min 3V* 11/06/21 1215 [facility] [employer] Other XR hand LT min 3V*on 021 XR hand LT min 3V* [facility] [employer] Other XR hand LT min 3V* [facility] [place] [employer] Other XR hand LT min 3V* [address] [place] [address] [employer] Other XR hand LT min 3V* [place] [address] [employer] Other XR hand LT min 3V* XRay Report [employer] Other XR hand LT min 3V* Signed [employer] Other XR hand LT min 3V* Patient: Diandra Bautista MR#: [id number] [employer] Other XR hand LT min 3V* 71 [employer] Other XR hand LT min 3V* : 1970 Acct:[id number] [employer] Other XR hand LT min 3V* Age/Sex: 51 / F ADM Date: 09/30/21 [employer] Other XR hand LT min 3V* Loc: [facility] Room: Type : [facility] [employer] Other XR hand LT min 3V* Attending Dr: Patito Martinez MD [employer] Other XR hand LT min 3V* Ordering Provider: Rosalba Martinez MD [employer] Other XR hand LT min 3V* Date of Service: 09/30/21 [employer] Other XR hand LT min 3V* XR/XR hand LT min 3V*: Primary osteoarthritis, right hand [employer] Other XR hand LT min 3V* Copies to: Rosalba Martinez MD [employer] Other XR hand LT min 3V* 4 views LEFT hand plain film [employer] Other XR hand LT min 3V* COMPARISON:None [email or web address] Other XR hand LT min 3V* HISTORY:Status post LEFT 1st carpometacarpal fusion [employer] Other XR hand LT min 3V* 2 bony vikki fuse the 1st carpometacarpal articulation. Mild bony bridging identified. Bony [employer] Other XR hand LT min 3V* alignment adequate. No soft tissue abnormality. [employer] Other XR hand LT min 3V* XR/XR hand LT min 3V* [employer] Other XR hand LT min 3V* IMPRESSION:No hardwa re failure. Bony fusion changes. [employer] Other XR hand LT min 3V* Impression dictated by: Jignesh Mercado M.D.09/30/2021 2:36 PM [employer] Other XR hand LT min 3V* Dictation Location: [place] [address] [employer] Other XR hand LT min 3V* Transcribed By: ERNIE 09/30/21 [facility] [employer] Other XR hand LT min 3V* Dictated By: Jignesh Mercaod DO 09/30/21 [facility] [employer] Other XR hand LT min 3V* Signed By: [employer] Other XR hand LT min 3V* 09/30/[address] [place] [address] [employer] Other XR hand LT min 3V*on 021 XR hand LT min 3V* [facility] [employer] Other XR hand LT min 3V* [facility] [employer] Other XR hand LT min 3V* [address] [place] [address] [employer] Other XR hand LT min 3V* [place] [address] [employer] Other XR hand LT min 3V* XRay Report [employer] Other XR hand LT min 3V* Signed [employer] Other XR hand LT min 3V* Patient: Diandra Bautista MR#: [id number] [employer] Other XR hand LT min 3V* 69 [employer] Other XR hand LT min 3V* : 1970 Acct:[id number] [employer] Other XR hand LT min 3V* Age/Sex: 51 / F ADM Date: 08/11/21 [employer] Other XR hand LT min 3V* Loc: SOXD Room: Type : REG CLI [employer] Other XR hand LT min 3V* Attending Dr: Patito Martinez MD [employer] Other XR hand LT min 3V* Ordering Provider: Rosalba Martinez MD [employer] Other XR hand LT min 3V* Date of Service: 08/11/21 [employer] Other XR hand LT min 3V* XR/XR hand LT min 3V*: Pain of left thumb [employer] Other XR hand LT min 3V* Copies to: Rosalba Martinez MD [employer] Other XR hand LT min 3V* 4 viewsLEFT hand noe in film [employer] Other XR hand LT min 3V* COMPARISON:None [email or web address] Other XR hand LT min 3V* HISTORY:Status post LEFT carpometacarpal fusion. [employer] Other XR hand LT min 3V* Extensive 1st carpometacarpal degenerative changes identified. No fracture or dislocation. 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 [employer] Other XR hand LT min 3V* Impression dictated by: Jignesh Mercado M.D.08/11/2021 4:17 PM [employer] Other XR hand LT min 3V* Dictation Location: [facility] [employer] Other XR hand LT min 3V* Transcribed By: PWS 08/11/21 [facility]7 [place] [employer] Other XR hand LT min 3V* Dictated By: Jignesh Mercado DO 08/11/21 1612 [place] [employer] Other XR hand LT min 3V* Signed By: [employer] Other XR hand LT min 3V* 08/11/21 [facility]3 [facility] [employer] Other OBSOLETEon 10-21-2017 OBSOLETE Refill (RHEULN) LORENA BAUTISTA ([id number]) 1970 [facility] Time Provider Vvuazkwbsc16/22/17 JANAK YE During your visit today, we [...] by DINORAH SMITH RN on 10/25/[address] [facility] Vital Signs Date Time Vital Sign Value Performing Clinician Facility 08-28-2024 11:040 Body height 160.02 cm [facility] 08-28-2024 11:240400 Body mass index (BMI) [Ratio] 27.1 kg/m2 [facility] 08-28-2024 11:24040 Body weight 69.39 kg [facility] 10-29-2024 11:24-0400 Diastolic blood pressure 84 mm[Hg] [facility] 08-28-2024 11:24-0400 Heart rate 62 /min [facility] 08-28-2024 11:24-0400 SaO2% (BldA) [Mass fraction] 97 % [facility] 08-28-2024 11:24-0400 Systolic blood pressure 128 mm[Hg] [facility] 10-25-2023 11:30-0500 Body height 160.02 cm Angie Aguila Other [facility] [employer] Other 10-25-2023 11:30-0500 Body mass index (BMI) [Ratio] 26.29 kg/m2 Angie Aguila Other [employer] Other 10-25-2023 11:30-0500 Body temperature 98.5 [degF] Angie Aguila Other [facility] Other 10-25-2023 11:30-0500 Body weight 67.31 kg Angie Aguila Other [employer] Other 10-25-2023 11:30-0500 Diastolic blood pressure 77 mm[Hg] Angie Aguila Other [facility] Other 10-25-2023 11:30-0500 Systolic blood pressure 124 mm[Hg] Angie Aguila Other [employer] Other 09-30-2021 12:15-0500 Body height 160.02 cm Rosalba Martinez Other [facility] Other 09-30-2021 12:15-0500 Body mass index (BMI) [Ratio] 32.77 kg/m2 Rosalba Juan Other [employer] Other 09-30-2021 12:15-0500 Body weight 83.92 kg Rosalba Martinez Other [facility] Other 08-11-2021 12:15-0400 Body height 160.02 cm Rosalba Martinez Other [facility] Other 08-11-2021 12:15-0400 Body mass index (BMI) [Ratio] 26.57 kg/m2 Rosalba Martinez Other [employer] Other 08-11-2021 12:15-0400 Body weight 68.04 kg Rosalba Martienz Other [employer] Other Encounters Encounter Date Encounter Type Care Provider Facility Start: 09-05-2024 End: 09-05-2024 ambulatory [facility] Start: 08-28-2024 End: 08-28-2024 ambulatory [facility] Work Phone: Start: 08-28-2024 End: 08-28-2024 Patient encounter procedure [facility] Work Phone: Start: 08-23-2024 Non-patient / Non-visit [facility] Work Phone: Start: 08-21-2024 Evaluation and management of inpatient DELL LOPEZ [facility] Start: 08-21-2024 End: 08-22-2024 Evaluation and management of inpatient UNA CRAVEN [facility] Start: 08-21-2024 Non-patient / Non-visit [facility] Work Phone: Start: 08-20-2024 Non-patient / Non-visit [facility] Work Phone: Start: 12-12-2023 End: 12-12-2023 ambulatory Angie Aguila Other [employer] Other Start: 12-12-2023 Telephone encounter Angie Aguila [facility] Start: 11-29-2023 End: 11-29-2023 ambulatory Angie Aguila Facility:[facility] Start: 11-29-2023 End: 11-29-2023 ambulatory MD Angie Aguila Work Phone: [facility] Work Phone: Start: 11-29-2023 End: 11-29-2023 Patient encounter procedure MD Angie Aguila Work Phone: [facility] Work Phone: Start: 11-02-2023 End: 11-02-2023 ambulatory GIULIA MUIR Not Available Start: 10-25-2023 End: 10-25-2023 ambulatory Angie Aguila Other [facility] Other Start: 10-25-2023 Office outpatient visit 15 minutes Angie Aguila [facility] Start: 10-25-2023 End: 10-25-2023 Patient encounter procedure MD Angie Aguila Work Phone: [facility] Work Phone: Start: 06-07-2023 End: 06-07-2023 ambulatory Angie Aguila Other [facility] Other Start: 06-07-2023 Telephone encounter Angie Aguila [facility] Start: 02-03-2023 (Televisit) Televisit Angie Aguila [facility] Start: 02-03-2023 End: 02-03-2023 ambulatory Angie Aguila Other [facility] Other Start: 10-18-2022 Adult health examination Angie Aguila Other [employer] Other Start: 10-18-2022 End: 10-19-[address] ANGIE AGUILA Facility: Start: 07-11-2022 Encounter for genera l adult medical examination without abnormal findings DR ANGIE AGUILA [facility] Start: 07-08-2022 End: 07-09-[address] ANGIE AGUILA Facility:[facility] Start: 07-08-2022 End: 07-09-2022 Encounter for general adult medical examination without abnormal findings DR ANGIE AGUILA Facility:[facility] Start: 11-06-2021 End: 11-06-2021 ambulatory Rosalba Martinez Other [employer] Other Start: 11-06-2021 Postop follow up vis it related to original px Rosalba Calvey [facility] Start: 09-30-2021 End: 09-30-2021 ambulatory Rosalbaadriel Martinez Other [employer] Other Start: 09-30-2021 Postop follow up vis it related to original px Rosalba Calvey [facility] Start: 08-11-2021 Office outpatient visit 25 minutes Rosalba Calvey [facility] Procedures Date Procedure Procedure Detail Performing Clinician Start: 11-29-2023 Screening mammograph y of bilateral breasts MD Angie Aguila Work Phone: Start: 09-19-2018 General examination of patient Angie Ayla Other Screening for malign ant neoplasm of colon Angie Aguila Other Plan of Treatment Date Care Activity Detail Author [facility] Immunizations Immunization Date Immunization Notes Care Provider Fa cility 08-30-2022 influenza virus vaccine, split virus (incl. purified surface antigen) Angie Aguila Other [facility] [employer] Other 08-30-2022 influenza virus vaccine, unspecified formulation [facility] 08-04-2021 influenza virus vaccine, split virus (incl. purified surface antigen) Angie Aguila Other [facility] [employer] Other 08-04-2021 influenza virus vaccine, unspecified formulation [facility] 07-01-2021 COVID-19 Vaccine Pfi zer - Documentation Purposes Only Angie Aguila Other [facility] 06-10-2021 COVID-19 Vaccine Pfi zer - Documentation Purposes Only Angie Aguila Other [facility] 02-11-2021 Kenalog -40 mg Rosalba Calve y Other [employer] Other 03-11-2020 Kenalog -40 mg Rosalba Calve y Other [employer] Other 07-11-2019 Kenalog -40 mg Rosalba Calve y Other [employer] Other 08-31-2017 tetanus and diphther ia toxoids, adsorbed, preservative free, for adult use (5 Lf of tetanus toxoid and 2 Lf of diphtheria toxoid) Angie Aguila Other [facility] 09-13-2016 tetanus and diphther ia toxoids, adsorbed, preservative free, for adult use (5 Lf of tetanus toxoid and 2 Lf of diphtheria toxoid) Angie Aguila Other [facility] 10-02-2015 influenza virus vaccine, split virus (incl. purified surface antigen) Angie Aguila Other [place] [employer] Other 10-02-2015 influenza virus vaccine, unspecified formulation [facility] Payers Date Payer Category Payer Self-pay [id number] 2022 Unknown [id number] 2.16.8 [id number] 1970 Unknown [id number] 2.16.84 [id number] 1970 Unknown [id number] 2.16.84 [id number] 1970 Unknown [id number] 1959 Unknown [id number]. [id number] Unknown [id number] 2.16.8 [id number] Social History Date Type Detail Facility Unknown if ever smoked [facility] Other Sex Assigned At Sex Assigned At Bir th [employer] Other Start: 08-27-2021 End: 08-27-2021 Tobacco smoking status TXIS Never smoked tobacco (finding) [facility] Start: 1970 Sex Assigned At Female F [facility] Medical Equipment Procedure Code Equipment Code Equipment Origin al Text Equipment Identifier Dates Arthroplasty, thumb Orthopaedic bone staple, non-adjustable, sterile [id number] FDA Start: 09-19-2020 Arthroplasty, thumb Orthopaedic bone staple, non-adjustable, sterile [id number] FDA Start: 08-27-2021 Arthroplasty, thumb Orthopaedic bone staple, non-adjustable, sterile [id number] FDA Start: 08-27-2021 Clinical Notes 08-11-2021 to 09-05-2024 Note Date & Type Note Facility 09-05-2024 Note DC Cardiology - [facility] Subjective Lorena Bautista is a 54 y.o. year old female patient being seen for Post-Cath, Cardiomyopathy (NON ISCHEMIC ), and Hypothyroidism Patient Active Problem List Diagnosis Chest pain Elevated troponin Depression Acquired hypothyroidism HPI Patient was admitted recently to the hospital with chest pain and elevated troponin associated with ST depression laterally on the EKG. Echo showed severely reduced left ventricular ejection fraction. Cardiac catheterization showed normal coronary arteries. It was felt that the findings were consistent with stress/Takotsubo cardiomyopathy. She was discharged home on carvedilol, valsartan, aspirin, and atorvastatin in addition to small dose of anticoagulation Eliquis 2.5 mg twice daily because of the severity of left ventricle dysfunction. Patient is here today for follow-up visit. She states that she has been doing very good. She is almost back to her normal activities. She denies any chest discomfort or shortness of breath at rest or with exertion. She denies orthopnea or paroxysmal nocturnal dyspnea or dizziness or palpitations. She denies legs edema or leg discomfort on exertion. ROS All systems were reviewed and they were negative except for the positive findings noted above in the history Past Medical History: Diagnosis Date CHF (congestive heart failure) (CMS/HCC) Depression Hypothyroidism Myocardial infarction (CMS/HCC) Nonischemic cardiomyopathy (CMS/HCC) Past Surgical History: Procedure Laterality Date ADENOIDECTOMY CARDIAC CATHETERIZATION SECTION, CLASSIC CHOLECYSTECTOMY TONSILLECTOMY Family History Problem Relation Name Age of Onset Breast cancer Mother Heart disease Father Social History Tobacco Use Smoking status: Never Smokeless tobacco: Never Substance Use Topics Alcohol use: Never Drug use: Never Allergies Allergies Allergen Reactions Nitroglycerin Other Asystole after nitroglycerin was given Medications Current Outpatient Medications: carvedilol (Coreg) 3.125 mg tablet, Take 1 tablet (3.125 mg) by mouth with breakfast and with evening meal for 197 doses., Disp: 60 tablet, Rfl: 3 cholecalciferol (Vitamin D-3) 25 MCG (1000 units) tablet, Take 1,000 Units by mouth in the morning., Disp: , Rfl: cyanocobalamin (Vitamin B-12) 500 mcg tablet, Take 500 mcg by mouth in the morning., Disp: , Rfl: DULoxetine (Cymbalta) [address] capsule, Take 20 mg by mouth in the morning., Disp: , Rfl: levothyroxine (Synthroid, Levoxyl) 75 mcg tablet, Take 75 mcg by mouth before breakfast., Disp: , Rfl: melatonin 3 mg tablet, Take 1.5 mg by mouth if needed at bedtime for sleep., Disp: , Rfl: valsartan (Diovan) 40 mg tablet, Take 1 tablet (40 mg) by mouth in the morning for 198 doses., Disp: 30 tablet, Rfl: 6 apixaban (Eliquis) 2.5 mg tablet, Take 1 tablet (2.5 mg) by mouth two times daily for 14 days., Disp: 28 tablet, Rfl: 0 thyroid, pork, 60 mg tablet, Take 1 tablet (60 mg) by mouth in the morning. Do not start before August 27, 2024. (Patient not taking: Reported on 09/05/2024), Disp: 30 tablet, Rfl: 0 Objective Visit Vitals BP 131/85 Pulse 55 Wt 70.3 kg (155 lb) SpO2 98% BMI 27.46 kg/m??? Smoking Status Never BSA 1.77 m??? Physical exam: GENERAL: alert and oriented x3, well developed, in no acute distress. HEAD: atraumatic, normocephalic. EYES: YONATAN, EOMI. NECK: trachea midline, no JVD present, no carotid bruits present. CARDIAC: S1, S2 present. RRR. No murmur, rubs, or gallops. RESPIRATORY: CTAB, no increased effort of breathing, no rales, rhonchi, or wheezing. ABDOMEN: soft, nontender, nondistended. EXTREMITIES: no lower extremity edema. No rash/skin discoloration present. NEURO: strength/sensation equal and symmetric in bilateral upper and lower extremities. PSYCH: appropriate mood, affect, and judgement. Recent Labs Lab Results Component Value Date GLUCOSE 96 08/22/2024 CALCIUM 8.8 08/22/2024 NA 138 08/22/2024 K 3.8 08/22/2024 CO2 26 08/22/2024 CL 105 08/22/2024 BUN 18 08/22/2024 CREATININE 0.83 08/22/2024 Lab Results Component Value Date WBC 10.40 08/22/2024 HGB 14.9 08/22/2024 HCT 44.6 08/22/2024 MCV 91.0 08/22/2024 PLT 384 08/22/2024 Lab Results Component Value Date CHOL 226 (H) 08/21/2024 Lab Results Component Value Date HDL 54 08/21/2024 Lab Results Component Value Date LDLCALC 136 08/21/2024 Lab Results Component Value Date TRIG 179 (H) 08/21/2024 No components found for: CHOLHDL No results found for: ALT , AST , GGT , ALKPHOS , BILITOT Lab Results Component Value Date TSH 10.64 (H) 08/21/2024 Imaging and other tests EK08/21/2024 showed normal sinus rhythm and slight ST-T changes EKG 08/20/2024 showed sinus rhythm and minimal ST depression Echo: 08/21/2024 Left Ventricle: The left ventricle is normal size. Global left ventricular (more content not included)... [facility] 08-22-2024 Note Hospital Medicine Discharge Summary Final Discharge Diagnosis: Stress-induced cardiomyopathy Elevated troponin in setting of above Acquired hypothyroidism Major depressive disorder Admission Diagnosis: Chest pain [R07.9] Hospital course: Lorena Bautista is a 54 y.o. female with past medical history of major depressive disorder and hypothyroidism, who presented as a direct admission from [facility] with chest pain and elevated troponin. Patient reported that last night she started having midsternal chest pain with radiation into her left arm and left jaw, her chest pain was retrosternal in location, severe in intensity, with no other associated symptoms. She denied having any shortness of breath or sweating or any other complaints. Initial high-sensitivity troponin of 143, initial troponin in [facility] with 2 mg/dL. Patient was started on heparin infusion. EKG with ST depressions laterally. Transthoracic echocardiogram pending. Cardiology consulted for further evaluation and management. Patient was seen by cardiology service on 08/21 who decided to take the patient to cardiac catheterization on the same day. TTE showed EF 15-20% with regional wall motion abnormalities. The cardiac cath showed normal coronary angiogram and the findings were consistent with non-ischemic cardiomyopathy, likely stress-induced cardiomyopathy. Patient did state that she has been having a stressful time due to legal issues surrounding the family. Cardiology was okay with the patient being discharged. She was discharged in stable condition to home. Surgical, Invasive or Diagnostic Procedures Done During Admission: Cardiac Cath Consultations During Admission: Cardiology Dear Dr. Ayla MD, Lorena is advised to follow up with you within 1-2 weeks. Items to follow up in ambulatory setting: None Follow-up with: Cardiology Scheduled appointments: No future appointments. Your medication list START taking these medications Instructions Last Dose Given Next Dose Due apixaban 2.5 mg tablet Commonly known as: Eliquis Take 1 tablet (2.5 mg) by mouth two times daily for 14 days. carvedilol 3.125 mg tablet Commonly known as: Coreg Take 1 tablet (3.125 mg) by mouth with breakfast and with evening meal for 197 doses. valsartan 40 mg tablet Commonly known as: Diovan Take 1 tablet (40 mg) by mouth in the morning for 198 doses. CHANGE how you take these medications Instructions Last Dose Given Next Dose Due thyroid (pork) 60 mg tablet Start taking on: August 27, 2024 What changed: These instructions start on August 27, 2024. If you are unsure what to do until then, ask your doctor or other care provider. Take 1 tablet (60 mg) by mouth in the morning. Do not start before August 27, 2024. CONTINUE taking these medications Instructions Last Dose Given Next Dose Due cholecalciferol 25 MCG (1000 units) tablet Commonly known as: Vitamin D-3 cyanocobalamin 500 mcg tablet Commonly known as: Vitamin B-12 D[address] capsule Commonly known as: Cymbalta melatonin 3 mg tablet Where to Get Your Medications These medications were sent to [id number] - [place], [facility] [address] [id number] apixaban 2.5 mg tablet carvedilol 3.125 mg tablet thyroid (pork) 60 mg tablet valsartan 40 mg tablet Lorena is allergic to nitroglycerin. Disposition: Home or Self Care () Discharge Condition: Stable Code Status: Prior Diagnostic Results Hematology: No lab exists for component: PCAL1 , LACTICACID , ESR Chemistry: No lab exists for component: AFIO2 , APHT , APCOT , APOT , ATCO2 , CK , ALB , IBILI Test Results Pending At Discharge: Diet at the time of discharge: regular diet Nutrition Screen Activity: Patient currently has no discharge activity orders Objective Blood pressure 99/73, pulse 79, temperature 36.6 ???C (97.9 ???F), temperature source Temporal, resp. rate 12, height 1.6 m (5' 3 ), weight 66.8 kg (147 lb 3.2 oz), SpO2 95%. Physical Exam Vitals reviewed. Constitutional: General: She is not in acute distress. Appearance: She is not ill-appearing or toxic-appearing. HENT: Head: Normocephalic and atraumatic. Mouth/Throat: Mouth: Mucous membranes are moist. Eyes: General: No scleral icterus. Extraocular Movements: Extraocular movements intact. Pupils: Pupils are equal, round, and reactive to light. Cardiovascular: Rate and Rhythm: Normal rate and regular rhythm. Pulmonary: Effort: Pulmonary effort is normal. No respiratory distress. Breath sounds: No stridor. Abdominal: General: There is no distension. Palpations: Abdomen is soft. There is no mass. Tenderness: There is no abdominal tenderness. There is no guarding. Skin: Findings: No rash. Neurological: Mental Status: She is alert. Mental (more content not included)... [facility] 08-22-2024 Note [facility] CARDIOLOGY INPAT IENT PROGRESS NOTE Reason for follow up: elevated trop, chest pain Subjective Patient was seen today while in room, with at bedside. Patient reports ongoing episodes of hot flashes with associated sweating. She has felt one mild episode of chest heaviness that occurred this morning and resolved within a few minutes. Review of Systems Constitutional: Sweating, hot flashes All other systems reviewed and are negative. ALLERGIES Allergies Allergen Reactions Nitroglycerin Other Asystole after nitroglycerin was given CURRENT MEDS apixaban, 2.5 mg, oral, BID aspirin, 81 mg, oral, Daily atorvastatin, 40 mg, oral, Nightly carvedilol, 3.125 mg, oral, BID with meals DULoxetine, 30 mg, oral, Daily ondansetron, 4 mg, intravenous, Once valsartan, 40 mg, oral, q12h JOSE ANGEL PRN medications: acetaminophen, melatonin, Insert peripheral IV AND Saline lock IV AND sodium chloride Objective Patient Vitals for the past 24 hrs: BP Temp Temp src Pulse Resp SpO2 Weight 08/22/24 0825 99/73 36.6 ???C (97.9 ???F) Temporal 79 12 95 % -- 08/22/24 0535 -- -- -- -- -- -- 66.8 kg (147 lb 3.2 oz) 08/22/24 0400 104/72 36.8 ???C (98.2 ???F) Temporal 59 14 95 % -- 08/22/24 0000 93/73 36.2 ???C (97.2 ???F) Temporal 62 11 97 % -- 08/21/24 2200 94/74 -- -- 75 17 95 % -- 08/21/24 2000 106/73 36.5 ???C (97.7 ???F) Temporal 66 17 95 % -- 08/21/24 1700 98/82 36.4 ???C (97.6 ???F) Temporal 70 13 96 % -- 08/21/24 1415 113/83 36.6 ???C (97.9 ???F) Temporal 68 15 -- -- 08/21/24 1357 108/87 -- -- 69 14 100 % -- 08/21/24 1323 -- -- -- -- -- 99 % -- 08/21/24 1322 (!) 138/97 -- -- 77 12 99 % -- BP 99/73 (BP Location: Right arm, Patient Position: Lying) Pulse 79 Temp 36.6 ???C (97.9 ???F) (Temporal) Resp 12 Ht 1.6 m (5' 3 ) Wt 66.8 kg (147 lb 3.2 oz) SpO2 95% BMI 26.08 kg/m??? Wt Readings from Last 3 Encounters: 08/22/24 66.8 kg (147 lb 3.2 oz) General: Awake, alert, appropriate mood / affect, NAD Eyes: anicteric sclera. Non-injected conjunctiva. No xanthelasmas Neck: No elevated JVP. No carotid bruit Pulm: Breath sounds clear to ascultation bilaterally with no wheeze, crackles or rhonchi Cards: HRRR. NL S1, S2. No S3 or S4 gallop. Murmur: none Abd: Soft, Nontender, physiologic bowel sounds are present Extr: Lower extremity edema: mild. DP pulses present bilaterally Skin: warm, dry, well perfused Neuro: A&Ox3, No gross deficits Lab Results Component Value Date NA 138 08/22/2024 K 3.8 08/22/2024 CL 105 08/22/2024 ANIONGAP 11 08/22/2024 BUN 18 08/22/2024 CREATININE 0.83 08/22/2024 CALCIUM 8.8 08/22/2024 MG 2.2 08/22/2024 PHOS 3.8 08/21/2024 Lab Results Component Value Date CHOLESTEROL 226 (H) 08/21/2024 TRIGLYCERIDES 179 (H) 08/21/2024 HDL 54 08/21/2024 LDL CALC 136 08/21/2024 Lab Results Component Value Date TSH 10.64 (H) 08/21/2024 FREE T4 0.58 (L) 08/21/2024 Lab Results Component Value Date HGBA1C 6.1 (H) 08/21/2024 Lab Results Component Value Date WBC 10.40 08/22/2024 RBC 4.90 08/22/2024 HGB 14.9 08/22/2024 HCT 44.6 08/22/2024 MCV 91.0 08/22/2024 MCH 30.4 08/22/2024 MCHC 33.4 08/22/2024 RDW 13.1 08/22/2024 NEUTOPHILPCT 62.3 08/22/2024 LYMPHOPCT 27.4 08/22/2024 MONOPCT 6.4 08/22/2024 EOSPCT 2.5 08/22/2024 BASOPCT 0.9 08/22/2024 NEUTROABS 6.48 08/22/2024 LYMPHSABS 2.85 08/22/2024 MONOSABS 0.67 08/22/2024 EOSABS 0.26 08/22/2024 BASOSABS 0.09 08/22/2024 PLT 384 08/22/2024 NRBC 0.0 08/22/2024 No X-ray results found for the past 24 hours CV Testing: Echo 08/21/24: Conclusions Left Ventricle: The left ventricle is normal size. Global left ventricular systolic function is normal. EF range is estimated at 15 % -20 %. Interventricular septal thickness is increased in the proximal portion. Regional wall motion abnormalities (see diagram). Grade 1, mild diastolic dysfunction (abnormal relaxation). Right Ventricle: The right ventricle is normal in size. Normal right ventricular systolic function. Doppler studies suggest normal right sided pressures. Left Atrium: The left atrium is at upper normal limits in size. Mitral Valve: Mild mitral regurgitation. Overall Conclusions: No significant valvular abnormalities Due to suboptimal imaging Lumason contrast was administered for opacification and better delineation of endocardial borders. Encounter Date: 08/21/24 ECG 12 lead Result Value Ventricular Rate 76 Atrial Rate 76 KS Interval 132 QRS DURATION 72 QT Interval 408 QTC CALCULATION(BAZETT) 459 P Huntington 63 R-Huntington 87 T Wave Huntington 99 Impression Normal sinus rhythm Nonspecific ST and T wave abnormality Abnormal ECG No previous ECGs available Confirmed by Francisca Liang ([id number]) on 08/21/2024 5:36:12 PM Cardiac Catheterization 08/21/24: Impression/Findings: Normal coronary angiogram. Findings are consistent with non-ischemic cardiomyopathy, likely Takotsubo syndrome (stre (more content not included)... [facility] 08-21-2024 Note 08/21/24 1830 Admission Assessment Questions Verify insurance with patient Yes Do you understand medical disease or what brought you into the hospital? Yes Who is your current PCP? Angie Aguila MD Can I schedule a follow up appointment for you at the time of discharge? No (Patient will schedule per self.) Do you understand why you are taking your current medications? Yes Are you taking your medications as prescribed? Yes Did patient provide teach back? No Pharmacy Bedside Delivery Status Interested Does the patient have a rn case mgr assigned to them through their insurance? No Living Arrangement (Current/Prior to Hospitalization) Private residence (Home, 1 story home with 3-4 steps to enter but does have a ramp.) Does the patient have history of HHC or SNF? No Assistive Device Other (Comment);Grab bars;Raised toilet seat (Ramp) Patient's goal for discharge Home Was patient reminded that goal for discharge is 11am? Yes Does the patient have transportation at discharge? Yes Type of Residence Private residence Is PT/OT appropriate? No Is PT/OT ordered? No Is SW consult appropriate? No Is SW consult ordered? No Do you understand the benefits of MyChart? Yes Were you able to send link and activate MyChart? No (Declines sign up at this time. Instructed patient to ask at [facility] in [place] when she follows up if she decides she would like to.) [facility] 08-21-2024 Note Patient: Lorena Bautista Procedure Information Date/Time: 08/21/24 1900 Procedure: Coronary angiography Location: [facility] RADIO/TV TECHNICIAN 3 / [facility] (Cath) Providers: Shun Benz MD Clinical information reviewed: Tobacco Allergies Meds Med Hx Surg Hx Fam Hx Soc Hx Physical Exam Airway Mallampati: II TM distance: >3 FB Neck ROM: full Cardiovascular Rhythm: regular Rate: normal Dental Pulmonary Abdominal Anesthesia Plan ASA 3 (Conscious sedation) Anesthetic plan and risks discussed with patient. Additional Equipment Requests [facility] 08-21-2024 Note Case was discussed w [employer] the PANKAJ on 08/21/2024. I agree with the history, physical, assessment, and plan of care. I discussed the findings and therapeutic plan. I agree with the documentation, except for any updates below. Roxy Ocasio MD [facility] 08-21-2024 Note Hospital Medicine History and Physical 08/21/2024 4:01 AM THE HOSPITALIST TEAM PREFERS TO USE [employer] CHAT FOR NON-URGENT COMMUNICATION 7AM-7PM. IF I DO NOT RESPOND WITHIN 20 MINUTES OR URGENT MATTERS, PLEASE CALL THROUGH THE REPA[employer]. FROM 7PM-7AM, PLEASE PAGE [phone](COVR). Chief Complaint Direct admission from [facility] with chest pain and elevated troponin History of Present Illness Lorena Bautista is an 54 y.o. female who came from home with past medical history of depression and hypothyroidism presents as a direct mission from [facility] with chest pain and elevated troponin level. Patient reports around 4:30 PM this afternoon she began to have midsternal chest pain with radiation into her left arm and left jaw. She reports the pain was stabbing and constant. She denies any cardiac history in the past. She denies smoking use. She does report that her father has a history of a CABG. At [facility], labs were completed showing WBC 9.6, RBC 5.06, hemoglobin 15.4, hematocrit 46, platelet count 395, INR 0.93, sodium 141, potassium 3.9, BUN 11, creatinine 1.05, lactate 1.1, magnesium 2.3, troponin 143.7. Repeat troponin found to be 710.1. [place] provider spoke with our cardiology department who stated to start patient on a heparin drip and transfer patient for possible cardiac intervention in a.m. During my exam, patient is still complaining of left jaw pain but states that chest pain has subsided. She reports that she was given sublingual nitroglycerin at [facility] which bottomed out her blood pressure and cause a near syncopal episode. Review of System and Physical Exam Temp: [37.2 ???C (99 ???F)] 37.2 ???C (99 ???F) Heart Rate: [77] 77 Resp: [16] 16 BP: (151)/(106) 151/106 Physical Exam Vitals reviewed. Constitutional: Appearance: She is normal weight. HENT: Head: Normocephalic. Mouth/Throat: Pharynx: Oropharynx is clear. Eyes: Conjunctiva/sclera: Conjunctivae normal. Cardiovascular: Rate and Rhythm: Normal rate. Pulses: Normal pulses. Pulmonary: Effort: Pulmonary effort is normal. Breath sounds: Normal breath sounds. Abdominal: General: Abdomen is flat. Bowel sounds are normal. Palpations: Abdomen is soft. Musculoskeletal: General: Normal range of motion. Skin: General: Skin is warm and dry. Capillary Refill: Capillary refill takes less than 2 seconds. Neurological: General: No focal deficit present. Mental Status: She is alert and oriented to person, place, and time. Mental status is at baseline. Psychiatric: Mood and Affect: Mood normal. Review of Systems Constitutional: Negative for appetite change, chills, diaphoresis, fatigue and fever. Respiratory: Positive for chest tightness. Negative for shortness of breath. Cardiovascular: Positive for chest pain. Negative for palpitations. Gastrointestinal: Negative for abdominal distention, abdominal pain, anal bleeding, blood in stool, constipation, diarrhea, nausea and vomiting. Genitourinary: Negative for difficulty urinating and dyspareunia. Musculoskeletal: Negative for arthralgias and back pain. Skin: Negative for color change and pallor. Neurological: Negative for dizziness, syncope, facial asymmetry, light-headedness, numbness and headaches. Psychiatric/Behavioral: Negative for agitation and behavioral problems. Problem List Principal Problem: Chest pain Active Problems: Elevated troponin Depression Acquired hypothyroidism Assessment and Plan Lorena Bautista is an 54 y.o. female who came from home with past medical history of depression and hypothyroidism presents as a direct mission from [facility] with chest pain and elevated troponin level. #Chest pain #Elevated troponin #Acquired hypothyroidism #Depression -Troponin 143.7->710.1 on the high intensity scale at outside hospital, will trend troponin every 6 hours -IV heparin drip initiated -N.p.o. for possible cardiac cath -Patient currently denying chest pain -Patient reportedly given nitroglycerin at outside hospital which caused extreme hypotension and near syncope episode -Echocardiogram for a.m. -CXR completed outside hospital showing no acute process -Repeat EKG pending -Cardiology consult -Continue home meds VTE Prophylaxis: IV heparin ----- Focus of this inpatient stay will remain on problems that need acute care setting for care. We will review available studies and will order additional labs, imaging and other studies as appropriate. As needed medicines are ordered as appropriate. VTE Prophylaxis will be ordered as appropriate. Please see above for management plan for individual hospital problems. Home medications are reviewed and will be continued as appropriate. Patient will be continued to be followed during this hospital stay by a member of [facility]. Past Medical History No past medical history on file. Past (more content not included)... [facility] 10-25-2023 Evaluation note Encounter Date Diagnosis Assessment [...] - E03.9) Chronic problem, due for labs. [facility] Other 04-06-2023 Evaluation note* Encounter Date Diagnosis Assessment Notes Treatment Notes Treatment Clinical Notes Jan, Bronchitis (ICD-10 - J40) Supportive [...] Pt understood and agreed to tx plan. [facility] Other 01-07-2022 Evaluation note* Encounter Date Diagnosis Assessment Notes Treatment Notes Treatment Clinical Notes Oct, Primary osteoarthritis of left hand (ICD-10 - M19.042) Oct, Trigger thumb, left thumb (ICD-10 - M65.312) Rx given for Medrol Dosepak Oct, Left hand pain (ICD-10 - M79.642) Oct, Other specified postprocedural states (ICD-10 - Z98.890) [facility] Other 12-01-2021 Evaluation note* Encounter Date Diagnosis Assessment Notes Treatment Notes Treatment Clinical Notes Sep, Other specified postprocedural states (ICD-10 - Z98.890) Sep, Primary osteoarthritis of left hand (ICD-10 - M19.042) Radiographs reviewed with patient. She is progressing well from surgery at this time. May transition from large brace to smaller neoprene thumb brace. Continue gentle motion and strengthening exercises. Call with questions/concerns. [facility] Other 10-12-2021 Evaluation note* Encounter Date Diagnosis Assessment Notes Treatment Notes Treatment Clinical Notes Jul, Primary osteoarthritis, right hand (ICD-10 [...] Arthritis of hand, left (ICD-10 - M19.042) [facility] Other Evaluation noteNo InformationNort [employer] Other Evaluation noteNo assessment information available [facility] Work Phone: Evaluation note* Diagnosis Onset Date Resolution Status Hypothyroidism, unspecified acute [facility] Work Phone: History general Narrative - Reported* Type Description Date Medical History acid reflux Medical History thyroid disease Medical History Osteoarthritis Surgical History gall bladder Surgical History tonsillectomy and adenoidectomy Surgical History C section Surgical History colonoscopy Surgical History right thumb carpometacarpal caridad nt arthrodesis/ fusion 09/19 [facility] Other History general Narrative - Reported* Type Description Date Medical History acid reflux Medical History thyroid disease Medical History Osteoarthritis Surgical History gall bladder Surgical History tonsillectomy and adenoidectomy Surgical History C section Surgical History colonoscopy Surgical History right thumb carpometacarpal caridad nt arthrodesis/ fusion 09/19 Surgical History left thumb [facility] arthr odesis/ fusion and left first dorsal wrist compartment. DOS: 08/27/2021. 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 DOS: 08/27/2021. Hospitalization History SEE SURGICAL HX [facility] Other Summary Purpose Family History No Family History Records Found Relationship Condition Age at Onset Recorded Date/T sharron father Family history of co ronary artery bypass surgery Unknown Coronary artery disease Unknown Alzheimer's disease Unknown Diabetes mellitus Unknown Hypertension Unknown Not Specified Malignant neoplasm of ovary Unknown Malignant neoplasm of breast Unknown Hypothyroidism Unknown natural son Type 1 diabetes mellitus Unknown Relationship Condition Age at Onset Recorded Date/T sharron father Family history of co ronary artery bypass surgery Unknown Coronary artery disease Unknown Alzheimer's disease Unknown Diabetes mellitus Unknown Hypertension Unknown mother Malignant neoplasm of ovary Unknown Malignant neoplasm of breast Unknown Hypothyroidism Unknown son Type 1 diabetes mellitus Unknown father Heart disease Unknown mother Malignant neoplasm Unknown son Diabetes mellitus Unknown Advance Directives No Advanced Directives Records Found Advance Directive Response Recorded Date/ Time Advance Directives No December 3:08pm Advance Directive Response Recorded Date/ Time Advance Directives No December 4:08pm Chief Complaint and Reason for Visit Chief Complaint Cough, Sinus Congest ion, Covid Negative Screening Chief Complaint Amb Documentation [facility]: Heart Cath f/u Reason for Visit Hypothyroidism, unsp ecified Additional Source Comments INFORMATION SOURCE (unrecogn ized section and content) DATE CREATED AUTHOR 04/25/[address] [facility] DATE CREATED AUTHOR AUTHOR'S ORGANIZ ATION 01/12/2023 [facility] DATE CREATED AUTHOR AUTHOR'S ORGANIZ ATION 11/03/2023 [facility] EPIC DATE CREATED AUTHOR AUTHOR'S ORGANIZ ATION 12/02/2023 [facility] DATE CREATED AUTHOR AUTHOR'S ORGANIZ ATION 09/18/2024 [facility] REASON FOR VISIT (unrecogniz ed section and content) Left Thumb PainRecheck Left HandRecheck Left Handsinus drainage, congestion, coughrefillCOUGH, SINUS CONGESTION, COVID NEGATIVENo Information Care Teams (unrecognized sec tion and content) Team Status: Active Member Role Status Dates Angie Aguila MD Primary Care Provider Active Team Status: Active Member Role Status Dates Angie Aguila MD Primary Care Provider Active Start: August 20, 2024 Jade Soto PA-C Attending Provider Active Start: August 20, 2024 Team Status: Active Member Role Status Dates Angie Aguila MD Primary Care Provider Active Start: August 21, 2024 Jignesh Ornelas DO Attending Provider Active S tart: August 21, 2024 Team Status: Active Member Role Status Dates Angie Aguila MD Primary Care Provider Active Start: August 23, 2024 Trina David CMA Attending Provider Active Start: August 23, 2024 Team Status: Inactive Member Role Status Dates Angie Aguila MD Primary Care Provide r, Attending Provider Active Start: August 28, 2024 End: August 28, 2024 Team Status: Inactive Member Role Status Dates Angie Aguila MD Attending Provider Active St art: October 25, 2023 End: October 25, 2023 Team Status: Inactive Member Role Status Dates Angie Aguila MD Primary Care Provider Active Start: November 29, 2023 End: November 29, 2023 Referral Self Attending Provider Active Start: Aiden [email or web address] End: November 29, 2023 Giulia Muir DO Referring Provider Active Start: November 29, [...] BE BASED ON THE PRIMARY CLINICAL RECORDS. [email or web address] [email or web address]. provides no warranty or guarantee of the accuracy or completeness of information in this document.
[2024-10-19 12:33] LABS: Anion Gap 9.3; BUN Creatinine Ratio 9.1; Calcium 8.6 mg/dL (8.5-10.1); Chloride 105 mmol/L (98-107); Estimated GFR (African America >60 (>=60 mL/min/1.73m^2); Estimated GFR (Non-African Ame 58 (>=60 mL/min/1.73m^2); Glucose 122 mg/dL (74-106); Potassium 4.3 mmol/L (3.5-5.1); Sodium 142 mmol/L (136-145)
== END 2024-10-19 11:33 | disposition home or self-care (01) ==
LOC: LAB 11:33
PROVIDERS: PCP Family Medicine; Visit Provider Nurse Practitioner Family
DX: I50.22 Chronic systolic (congestive) heart failure (principal)
CPT/HCPCS: 36415; 80048

== ENCOUNTER 2024-12-03 09:52 | Outpatient (OUT) | payer OTHER, SELFPAY ==
--- NOTE | 2024-12-03 10:00 | CA_ITS ---
Patient Name: ORTIZ BAUTISTA MR#: [id number] : 1970 Exam Date: 12/03/2024 Ordering Doctor: DR. PREET MACHADO M.D. ECHOCARDIOGRAM REPORT PROCEDURE: CA ECHO DOPPLER COMPLETE INDICATIONS: Structural heart disease COMPARISON: None. DESCRIPTION: COMPLETE ECHOCARDIOGRAM Real-time transthoracic echocardiography with 2D, M-mode, spectral and color flow Doppler performed. QUALITY: Technical quality was good. LEFT VENTRICLE: Normal chamber size. Normal left ventricular wall thickness. LV EF: Global left ventricular systolic function is normal; visually estimated ejection fraction is 55 to 60%. No significant wall motion abnormalities. DIASTOLIC: Normal diastolic function. ATRIAL SEPTUM: Inadequately seen. LEFT ATRIUM: Normal chamber size. RIGHT ATRIUM: Normal chamber size. RIGHT VENTRICLE: Normal chamber size. Right ventricular systolic function appears reduced. TRICUSPID VALVE: Normal mobility and thickness. No stenosis with no regurgitation. MITRAL VALVE: Normal mobility and thickness. No evidence of mitral valve stenosis. There is no mitral annular calcification. No mitral regurgitation. AORTIC VALVE: Normal trileaflet appearance. No visible sclerosis. Normal leaflet mobility. No evidence of aortic valve stenosis. No aortic regurgitation. AORTIC ROOT: Normal diameter and appearance. Ascending aorta is normal in size. PULMONIC VALVE: Normal thickness and mobility. No stenosis. Trivial regurgitation. PERICARDIUM: Anterior free space; trivial effusion versus fat pad. IVC: Inadequately seen. CONCLUSION: 1. Global left ventricular systolic function is normal; visually estimated ejection fraction is 55 to 60% 2. Normal right ventricular size and reduced systolic function 3. Normal diastolic function 4. The left atrium is normal in size 5. No significant valvular abnormalities 6. Anterior free space; trivial effusion versus fat pad Adult Echocardiography Procedure Report Left Ventricle LVEDD (3.7 - 5.6 cm): 4.63 cm LVESD (2.2 - 4.0 cm): 2.61 cm LVIVS thickness (0.6 - 1.2 cm): 0.98 cm LVPW thickness (0.5 - 1.0 cm): 0.77 cm e': 0.07 m/s E - e': 7.30 LVOT Max Gradient: 3.17 mm[Hg] LVOT Area (cm2): 0.89 m/s Peak Velocity (LVOT): 0.89 m/s Mean Velocity (LVOT): 0.52 m/s LVOT Diameter 2.23 cm Left Atrium LA Volume Index (2D A2C): 30.50 ml/m2 Left Atrium Systolic Dimension: 3.14 cm Mitral Valve MV E to A Ratio: 0.73 Mitral Valve A-Wave Peak Velocity: 0.67 m/s Mitral Valve E-Wave Peak Velocity: 0.48 m/s Right Ventricle Aorta AO Root Diam: 3.48 cm Ascending Ao Diam: 2.73 cm Aortic Valve AoV Area (Peak Chaitanya): 3.70 cm2, 3.70 cm2 AoV Area (VTI): 3.87 cm2, 3.87 cm2 Peak Velocity(Antegrade Flow): 0.94 m/s Peak Gradient(Antegrade Flow): 3.54 mm[Hg] Mean Velocity(Antegrade Flow): 0.55 m/s Mean Gradient(Antegrade Flow): 1.49 mm[Hg] Velocity Time Integral: 21.71 cm Tricuspid Valve Pulmonic Valve Mean Gradient: 1.32 mm[Hg] Mean Velocity: 0.54 m/s Peak Velocity: 0.79 m/s, 0.82 m/s Peak Gradient: 2.66 mm[Hg], 2.48 mm[Hg] Right Atrium Right Atrium Systolic Pressure: 46.16 ml, 46.16 ml Dictated by: Benny Willoughby M.D. on 12/03/2024 at 12:51 Approved by: Benny Willoughby M.D. on 12/03/2024 at 12:54
[2024-12-03 12:32] LABS: Alanine Aminotransferase 31 U/L (14-59); Aspartate Amino Transferase 22 U/L (15-37); Chol HDL Ratio 4.3; Cholesterol 231 mg/dL (<=200); HDL Cholesterol 54 mg/dL (40-60); Triglycerides 141 mg/dL (<=150); VLDL CHOLESTEROL 28.2 mg/dL
== END 2024-12-03 09:53 | disposition home or self-care (01) ==
PROVIDERS: PCP Family Medicine; Visit Provider Internal Medicine Cardiovascular Disease
DX: I51.9 Heart disease, unspecified (principal)
CPT/HCPCS: 36415; 80061; 84450; 84460; 93306

== ENCOUNTER 2025-01-04 12:26 | Outpatient (OUT) | payer OTHER, SELFPAY ==
--- OUTSIDE RECORDS SUMMARY | 2025-01-04 12:32 | XMS_ITS | CCD ---
Author Organization [facility] Care Team Providers Care Conveyor Operator Name Role Phone Rosalba Martinez Unavailable DR CHON AGUILA Primary Care Unavailable SUZETTE, DR PHAN Reed Consulting Unavailable AYLA, DR CHON Rose Attending Unavailable AYLA, DR CHON Rose Admitting Unavailable AYLA, DR CHON Rose Consulting Unavailable AYLA, DR CHON Rose Primary Care Unavailable AYLA, DR CHON Rose Consulting Unavailable AGUILA, DR CHON Rose Attending Unavailable AYLA, DR CHON Rose Admitting Unavailable Chon Aguila Unavailable MD Chon Aguila Primary Care Provider Self, Referral Attending Provider Unavailable DO Giulia Miur Referring Provider [phone] Chon Aguila MD Primary Care Provider GIULIA MIUR Attending Unavailable Chon Aguila MD Primary Care Provider Giulia Muir DO Attending Provider Giulia Muir Admitting Unavailable Giulia Muir Attending Unavailable Chon Aguila Primary Care Unavailable FELICIA ORNELAS Referring Unavailable HORNAM OLIVA Admitting Unavailable UNA CRAVEN Attending Unavailable JOHN DELL Referring Unavailable JOHN DELL Referring Unavailable PREET ESPINOSA Attending Unavailable PREET ESPINOSA Attending Unavailable Allergies Allergy Classification Reported Allergen(s) Allergy Type Date of Onset Reaction(s) Facility (1 source) patient allergy list reviewed by nurse or physicia Propensity to adverse reactions 5 Comment:Done [employer] Other (1 source) Allergies Reconciled Propensity to adverse reactions 1 Unknown [employer] Other (1 source) Nitroglycerin; Translations: [NITROGLYCERIN] Drug Allergy 4 [facility] Repository Medications Current Medications Medication Drug Class(es) Dates Sig (Normalized) Sig (Original) amoxicillin 875 mg / clavulanate 125 mg oral tablet (2 sources) Penicillin-class Antibacterial Start: 10-25-2023 take 1 tablet by mouth every twelve hours Amoxicillin-Pot Clavulanate 875-125 MG 1 tablet Orally every 12 hrs for 10 day(s) Sep, Active apixaban 2.5 mg oral tablet (5 sources) Factor Xa Inhibitor Start: 08-28-2024 End: 08-31-2025 take 1 tablet by mouth in the morning apixaban (Eliquis) 2.5 MG tablet Take 2.5 mg by mouth in the morning and 2.5 mg in the evening. 09/05/2024 08/31/2025 Active Ascorbic Acid (3 sources) Vitamin C [...] Jan, Active carvedilol 3.125 mg oral tablet (5 sources) alpha-Adrenergic Moises, beta-Adrenergic Moises Start: 08-28-2024 End: 09-05-2025 take 1 tablet by mouth in the morning carvedilol (Coreg) 3.125 MG tablet Take 3.125 mg by mouth in the morning and 3.125 mg in the evening. Take with meals. 09/05/2024 09/05/2025 Active DULoxetine 20 mg delayed release oral capsule (20 sources) Serotonin and Norepinephrine Reuptake Inhibitor Start: 10-29-2024 DULoxetine (Cymbalta) [address] capsule 10/29/2024 Active Start: 08-28-2024 End: 10-29-2024 take 1 capsule by mouth once daily Duloxetine 20 mg capsule,delayed release(DR/EC) Active 0 .ROUTE .COMPLEX 30 Siddharth 30th, 2024 4:39pm TAKE 1 CAPSULE BY MOUTH DAILY Start: [...] MOUTH DAILY Start: 09-11-2020 End: 03-12-2024 take 1 capsule by mouth once daily in the morning Duloxetine 30 mg capsule,delayed release(DR/EC) Discontinued 30 MG PO Every morning September 11, 2020 12:00am March 12, 2024 11:43am eplerenone 25 mg oral tablet (2 sources) Aldosterone Antagonist Start: 10-10-2024 End: 10-10-2025 take 1 tablet by mouth in the morning eplerenone (Inspra) 25 MG tablet Take 25 mg by mouth in the morning. 10/10/2024 10/10/2025 Active levothyroxine sodium 0.075 mg oral tablet (16 sources) l-Thyroxine Start: 09-24-2024 take 1 tablet by mouth once daily Levothyroxine 75 mcg tablet Active 0 .ROUTE .COMPLEX September 24, 2024 4:59pm TAKE 1 TABLET BY MOUTH DAILY Start: 08-28-2024 End: 09-24-2024 take 1 tablet by mouth once daily Levothyroxine 75 mcg tablet Discontinued 75 MCG PO Daily August 27, 2024 11:00pm September 24, 2024 4:59pm Start: 09-11-2020 End: 03-13-2024 take 1 tablet by mouth once daily in the morning Levothyroxine 88 mcg tablet Discontinued 88 MCG PO Every morning September 11, 2020 12:00am March 13, 2024 1:00pm take 1 tablet by raeann th once daily in the morning melatonin 10 mg oral tablet (6 sources) Start: 09-11-2020 take 1 mg by mouth at bedtime as needed for sleep Melatonin 10 mg Tablet Active 1 MG PO Bedtime as needed for Sleep September 11, 2020 12:00am Start: 09-11-2020 take 1 mg by mouth at bedtime Melatonin Active 1 MG PO Bedtime September 11, 2020 1:00am melatonin ([facility] latonin) 3 MG tablet Oral Active methylPREDNISolone 4 mg oral tablet (1 source) [...] TAB PO Daily August 16, 2021 11:00pm Multivitamin Tablet (1 source) Start: 08-17-2021 take 1 tablet by mouth once daily Multivitamin Tablet Active 1 TAB PO Daily August 16, 2021 11:00pm naproxen 500 mg oral tablet (7 sources) Nonsteroidal Anti-inflammatory Drug naproxen (Naprosyn) 500 MG tablet every 12 (twelve) hours Active take 1 tablet by raeann th twice daily as needed Naproxen 500 MG TAKE 1 TABLET BY MOUTH TWICE DAILY NEEDED for 90 Active take 1 tablet by raeann th every twelve hours at mealtime as needed Naproxen 500 MG 1 tablet with food or milk as needed Orally every 12 hrs Active thyroid (alf) 60 mg oral tablet (4 sources) Start: 08-26-2023 End: 11-07-2024 take 1 tablet by mouth in the morning [place] Thyroid 60 MG tablet Take 60 mg by mouth in the morning. 08/26/2023 11/07/2024 Discontinued Turmeric extract (4 sources) Start: 08-17-2021 take 1 capsule by mouth once daily Turmeric 400 mg Capsule Active 800 MG PO Daily August 16, 2021 11:00pm Start: 08-17-2021 take 800 mg by mouth once jasper y Turmeric Active 800 MG PO Daily August 17, 2021 12:00am Start: 08-17-2021 take 800 mg by mouth once jasper y Turmeric Active 800 MG PO Daily August 16, 2021 11:00pm valsartan 40 mg oral tablet (5 sources) Angiotensin 2 Receptor Moises Start: 08-28-2024 End: 09-05-2025 valsartan (Diovan) 40 MG tablet Take 40 mg by mouth 09/05/2024 09/05/2025 Active vitamin b12 0.5 mg oral tablet (4 sources) Vitamin B12 Start: 09-11-2020 take 1 tablet by mouth once daily Cyanocobalamin (Vitamin B-12) (Vitamin B-12) 500 mcg Tablet Active 500 MCG PO Daily September 11, 2020 12:00am Vitamin D (3 sources) Vitamin D Active Completed/Discontinued Medications Medication Drug Class(es) Dates Sig (Normalized) Sig (Original) acetaminophen 325 mg / HYDROcodone bitartrate 5 mg oral tablet (8 sources) Opioid Agonist Start: 08-27-2021 End: 08-28-2024 take 1 tablet by mouth every four to six hours as needed for pain Hydrocodone-Acetami nophen 5-325 mg tablet Discontinued 1 TAB PO EVERY 4-6 HOURS as needed for pain 45 6 August 27, 2021 August 28, 2024 10:43am Start: 09-19-2020 End: 08-17-2021 take 1 tablet by mouth every four to six hours as needed for pain Hydrocodone-Acetaminophen ([place]) 5-325 mg tablet Discontinued 1 - 2 TAB PO EVERY 4-6 HOURS as needed for Pain 50 7 September 19, 2020 August 17, 2021 3:22pm cholecalciferol 0.025 mg oral tablet (4 sources) Vitamin D Start: 09-11-2020 End: 08-28-2024 take 1 tablet by mouth once daily Cholecalciferol (Vitamin D3) (Vitamin D3) 25 mcg (1,000 unit) Tablet Discontinued 25 MCG PO Daily September 11, 2020 12:00am August 28, 2024 10:42am diclofenac sodium 0.01 mg/mg topical gel (7 sources) Nonsteroidal Anti-inflammatory Drug Start: 09-11-2020 End: 08-28-2024 apply 2 g topically twice daily as needed for pain Diclofenac Sodium 1 % Gel Discontinued 2 GM TOPICAL Twice daily as needed for Pain September 11, 2020 12:00am August 28, 2024 10:42am Start: 09-11-2020 End: 08-28-2024 apply 2 g topically twice daily Diclofenac Sodium Disc ontinued 2 GM TOPICAL Twice daily September 11, 2020 1:00am August 28, 2024 11:42am Start: 07-11-2019 Voltaren 1 % a pply 1-2 grams to affected area Transdermal BID PRN for 30 days Jul, Active doxycycline hyclate 100 mg oral tablet (8 sources) Tetracycline-class Drug Start: 08-27-2021 End: 08-28-2024 take 1 tablet by mouth twice daily Doxycycline Hyclate 100 mg tablet Discontinued 100 MG PO Twice daily 08 04August 26, 2021 11:00pm August 28, 2024 10:42am Start: 09-19-2020 End: 08-17-2021 take 1 tablet by mouth twice daily Doxycycline Hyclate 100 mg tablet Discontinued 100 MG PO Twice daily 08 04September 19, 2020 12:00am August 17, 2021 3:21pm Duloxetine 30 mg capsule,delayed release(DR/EC) (2 sources) Start: 05-22-2024 End: 08-28-2024 take 1 capsule by mouth once daily Duloxetine 30 mg capsule,delayed release(DR/EC) Discontinued 0 .ROUTE .COMPLEX May 22, 2024 10:10am August 28, 2024 10:44am TAKE 1 CAPSULE BY MOUTH DAILY Start: 03-12-2024 End: 05-22-2024 take 1 capsule by mouth once daily Duloxetine 30 mg capsule,delayed release(DR/EC) Discontinued 0 .ROUTE .COMPLEX March 12, 2024 11:43am May 22, 2024 10:10am TAKE 1 CAPSULE BY MOUTH DAILY Magnesium (4 sources) Start: 08-17-2021 End: 08-28-2024 take 1 tablet by mouth once daily Magnesium 200 mg Tablet Discontinued 200 MG PO Daily August 16, 2021 11:00pm August 28, 2024 10:43am Start: 08-17-2021 End: 08-28-2024 take 200 mg by mouth once daily Magnesium Discontinued 200 MG PO Daily August 17, 2021 12:00am August 28, 2024 11:43am Start: 08-17-2021 take 200 mg by mouth once daily Magnesium Active 200 MG PO Daily August 16, 2021 11:00pm omeprazole 20 mg delayed release oral tablet (7 sources) Proton Pump Inhibitor Start: 09-11-2020 End: 08-28-2024 take 1 tablet by mouth once daily in the morning Omeprazole 20 mg Tablet,Delayed Release (Dr/Ec) Discontinued 20 MG PO Every morning September 11, 2020 12:00am August 28, 2024 10:43am take 1 capsule by [facility] every twenty-four hours Omeprazole 20 MG 1 capsule Orally Once a day Active Thyroid ([place]) (2 sources) Start: 05-22-2024 End: 08-28-2024 take 1 tablet by mouth once daily Thyroid ([place]) Discontinued 0 .ROUTE .COMPLEX May 22, 2024 11:10am August 28, 2024 11:45am TAKE 1 TABLET BY MOUTH EVERY DAY Thyroid ([place]) ([place] Thyroid) 60 mg tablet (6 sources) Start: 03-13-2024 End: 05-22-2024 take 1 tablet by mouth once daily Thyroid ([place]) ([place] Thyroid) 60 mg tablet Discontinued 60 MG PO Daily March 13, 2024 1:00pm May 22, 2024 10:10am Start: 03-13-2024 End: 05-22-2024 take 1 tablet by mouth once daily Thyroid ([place]) ([place] Thyroid) 60 mg tablet Discontinued 60 MG PO Daily March 13, 2024 2:00pm May 22, 2024 11:10am Start: 03-13-2024 End: 03-13-2024 take 1 tablet by mouth once daily Thyroid ([place]) ([place] Thyroid) 60 mg tablet Discontinued 60 MG PO Daily March 12, 2024 11:00pm March 13, 2024 1:00pm Start: 03-13-2024 End: 03-13-2024 take 1 tablet by mouth once daily Thyroid ([place]) ([place] Thyroid) 60 mg tablet Discontinued 60 MG PO Daily March 13, 2024 12:00am March 13, 2024 2:00pm Thyroid ([place]) 60 mg tablet (1 source) Start: 05-22-2024 End: 08-28-2024 take 1 tablet by mouth once daily Thyroid ([place]) 60 mg tablet Discontinued 0 .ROUTE .COMPLEX May 22, 2024 10:10am August 28, 2024 10:45am TAKE 1 TABLET BY MOUTH EVERY DAY Triamcinolone (20 sources) Corticosteroid Start: 02-11-2021 Kenalog -40 mg Jan, 40 mg Start: 03-11-2020 Kenalog -40 mg February, 40 mg Start: 07-11-2019 Kenalog -40 mg Jul, 40 mg Problems Active Problems Problem Classification Problem Date Documented Da te Episodic/Chronic Chronic obstructive pulmonary disease and bronchiectasis (1 source) Bronchitis, not specified as acute or chronic Episodic Disorders of lipid metabolism (5 sources) Hyperlipidemia; Translations: [Hyperlipidemia, unspecified] Onset: 12-19-2024 Chronic Esophageal disorders (3 sources) Esophageal reflux finding; Translations: [Esophageal reflux] Onset: 12-13-2017 Chronic Essential hypertension (5 sources) Essential hypertension; Translations: [Essential (primary) hypertension] Onset: 12-19-2024 Chronic Immunizations and screening for infectious disease [...] right hand] Onset: 02-21-2017 Resolved: 11-06-2021 Chronic Comment on above: Problem List clean-u p per request of Phys. EHR Cmte Other and ill-defined heart disease (2 sources) Takotsubo syndrome; Translations: [Takotsubo syndrome] Onset: 09-05-2024 Chronic Other and ill-defined heart disease (2 sources) Heart disease, unspecified; Translations: [Heart disease, unspecified] Onset: 09-05-2024 Chronic Other circulatory disease (3 sources) Elevated blood-pressure reading without diagnosis of hypertension; Translations: [Elevated blood-pressure reading, without diagnosis of hypertension] Episodic Other connective tissue disease (4 sources) Tenosynovitis of left radial styloid; Translations: [Radial styloid tenosynovitis [de Quervain]] 10-12-2023 Episodic Comment on above: Problem List clean-u p per request of Phys. EHR Cmte Other gastrointestinal disorders (3 sources) Flatulence, eructation and gas pain; Translations: [Abdominal distension (gaseous)] Episodic Other nervous system disorders (4 sources) Pain in limb; Translations: [Other acute postprocedural pain] 10-12-2023 Episodic Comment on above: Problem List clean-u p per request of Phys. EHR Cmte Other nutritional; endocrine; and metabolic disorders (4 sources) Overweight; Translations: [Overweight] Onset: 12-19-2024 Episodic Other nutritional; endocrine; and metabolic disorders (3 sources) Body mass index 25-29 - overweight; Translations: [Body mass index (BMI) 26.0-26.9, adult] Episodic Other nutritional; endocrine; and metabolic disorders (1 source) Overweight; Translations: [Overweight] Onset: 12-19-2024 Episodic Other screening for suspected conditions (not mental disorders or infectious disease) (9 sources) Musculoskeletal screening procedure; Translations: [Encounter for screening for other musculoskeletal disorder] Onset: 05-14-2014 11-07-2024 Episodic Other upper respiratory disease (3 sources) Allergic rhinitis; Translations: [Allergic rhinitis, unspecified] Onset: 05-14-2014 Chronic Kristy-; endo-; and myocarditis; cardiomyopathy (except that caused by tuberculosis or sexually transmitted disease) (1 source) Cardiomyopathy; Translations: [Other cardiomyopathies] 08-28-2024 Chronic Residual codes; unclassified (1 source) Family history of malignant neoplasm of breast; Translations: [FAMILY HX MALIG NEOPLASM OF BREAST] Onset: 10-26-2022 Episodic Residual codes; unclassified (9 sources) Family history of breast cancer; Translations: [Family history of malignant neoplasm of breast] Onset: 01-28-2014 11-07-2024 Episodic Spondylosis; intervertebral disc disorders; other back problems (1 source) Other intervertebral disc degeneration, thoracic region; Translations: [OTH IV DISC DEGEN THORACIC REGION] Onset: 10-26-2022 Chronic Spondylosis; intervertebral disc disorders; other back problems (19 sources) Pain in thoracic spine; Translations: [Cervicalgia] Onset: 10-26-2022 Episodic Thyroid disorders (17 sources) Hypothyroidism, unspecified; Translations: [Hypothyroidism] Onset: 07-11-2022 Chronic Unclassified (3 sources) LOW BACK PAIN, UNSPECIFIED; Translations: [LOW BACK PAIN, UNSPECIFIED] Onset: 10-26-2022 Past or Other Problems Problem Classification Problem Date Documented Da te Episodic/Chronic Allergic reactions (3 sources) Contact dermatitis due to plants; Translations: [Unspecified contact dermatitis due to plants, except food] Onset: 9 Episodic Cardiac dysrhythmias (3 sources) Palpitations; Translations: [Palpitations] Onset: 5 Episodic Noninfectious gastroenteritis (3 sources) Non-infective enteritis and colitis; Translations: [Noninfective gastroenteritis and colitis, unspecified] Onset: 7 Episodic Nonspecific chest pain (2 sources) Chest pain, unspecified; Translations: [Chest pain, unspecified] Onset: 4 Episodic Other connective tissue disease (1 source) [...] in joint, hand] Onset: 9 Episodic Other upper respiratory infections (4 sources) [...] Test Name Value Interpretation Reference Range Facility Office Visiton 12-19-2024 Follow-up visit [id number] Mark Bautista 1970 F Date Provider Department Center 12/19/2024 [id number] ESPINOSA JOSH[facility] Family History Problem Relation Age of Onset Breast cancer Mother Heart disease Father Family Status - Relation Status Age at Mother Father Level of Service:74564 [place] OFFICE/OUTPATIENT ESTABLISHED MOD MDM 30 MIN Reason for Visit and Comments: Cardiomyopathy [104] Congestive Heart Failure [127] - Had echo 2 weeks ago. She wasn't able to tolerate spironolactone or Inspra. Hyperlipidemia [182] - Had lipids 2 weeks ago. Valve Disorder [3372] Normal [facility] MM screening mammo BI w/CADo n 12-14-2024 MM screening mammo BI w/CAD [facility] [place] [address] Mammography Report Signed Patient: Ortiz Bautista MR#: [id number] : 1970 Acct:[id number] Age/Sex: 54 / F ADM Date: 12/14/24 Loc: [place] Room: Type: [facility] Attending Dr: Giulia Muir DO Copies to: MD ISADORA Nguyen MONA DO Ordering Provider: GIULIA MUIR DO Date of Service: 12/14/24 MM/MM screening mammo BI w/CAD: screening BILATERAL Screening Full Field digital mammogram with 3-D imaging. Full field digital CC and MLO imaging performed. CAD utilized. COMPARISON: 11/29/2023 HISTORY: Annual screening BREAST COMPOSITION: Scattered fibroglandular densities of the breast parenchyma identified BREAST CALCIFICATIONS: Benign calcifications present. VASCULAR CALCIFICATIONS: None ARCHITECTURAL DISTORTION: None BREAST NODULE: None AXILLARY LYMPH NODES: Normal POSTSURGICAL CHANGES: None MM/MM screening mammo BI w/CAD IMPRESSION: No mammographic evidence of malignancy. Routine follow-up recommended in one year. RESULT CODE: 2 Benign Findings(s) DENSITY CODE: 2 (approximately 25-50% glandular) FOLLOW UP: 1YR THE FALSE-NEGATIVE RATE OF MAMMOGRAPHY IS APPROXIMATELY 10%. IMAGING OF A PALPABLE ABNORMALITY MUST BE BASED ON CLINICAL GROUNDS. PATIENT WAS ENTERED INTO A REMINDER SYSTEM WITH A TARGET DUE DATE FOR THE NEXT MAMMOGRAM. Impression dictated by: Jignesh Mercado M.D.12/14/2024 11:18 AM Dictation Location: [facility] Transcribed By: [facility] 12/14/24 1118 Dictated By: Jignesh Mercado DO 12/14/24 111 Signed By: 12/14/24 1118 Normal [facility] Mammography reportOrdered By : Jignesh Mercado on 12-14-2024 Diagnostic imaging study [facility] [address] [place] [address] [place] [address] Mammography Report Signed Patient: Ortiz Bautista MR#: [id number] : 1970 Acct:[id number] Age/Sex: 54 / F ADM Date: 5 Loc: [place] Room: Type: [facility] Attending Dr: Giulia Muir DO Copies to: MD ISADORA Nguyen MONA DO~ Ordering Provider: GIULIA MUIR DO Date of Service: 12/14/24 MM/MM screening mammo BI w/CAD: screening BILATERAL Screening Full Field digital mammogram with 3-D imaging. Full field digital CC and MLO imaging performed. CAD utilized. COMPARISON: 11/29/2023 HISTORY: Annual screening BREAST COMPOSITION: Scattered fibroglandular densities of the breast parenchyma identified BREAST CALCIFICATIONS: Benign calcifications present. VASCULAR CALCIFICATIONS: None ARCHITECTURAL DISTORTION: None BREAST NODULE: None AXILLARY LYMPH NODES: Normal POSTSURGICAL CHANGES: None MM/MM screening mammo BI w/CAD IMPRESSION: No mammographic evidence of malignancy. Routine follow-up recommended in one year. RESULT CODE: 2 Benign Findings(s) DENSITY CODE: 2 (approximately 25-50% glandular) FOLLOW UP: 1YR THE FALSE-NEGATIVE RATE OF MAMMOGRAPHY IS APPROXIMATELY 10%. IMAGING OF A PALPABLE ABNORMALITY MUST BE BASED ON CLINICAL GROUNDS. PATIENT WAS ENTERED INTO A REMINDER SYSTEM WITH A TARGET DUE DATE FOR THE NEXT MAMMOGRAM. Impression dictated by: Jignesh Mercado M.D.12/14/2024 11:18 AM Dictation Location: [facility] Transcribed By: [facility] 12/14/24 111 Dictated By: Jignesh Mercado DO 12/14/24 1117 Signed By: 12/14/24 1118 [facility] 36on 12-11-2024 36 MD Alvaro Moreira MA Her lipids are elevated. I put in my note that she is on atorvastatin but I do not see that is on her medication list. Can you please verify if she is on it what the dose is. Spoke with patient and informed her of normal echo per Dr. Espinosa. Also confirmed with patient she is NOT on atorvastatin. She has follow up apt with Dr. Espinosa on 12/13/2024 and will discuss lipids at that time. Patient verbalized understanding. Normal [facility] Cholesterol in LDL Calc [Mas s/Vol]on 12-03-2024 Cholesterol in LDL [Mass/Vol] Cholesterol in LDL [Mass/volume] in Serum or Plasma by calculation [facility] Comment on above: <100 mg/dl [id number] 0-129 mg/dl NEAR OR ABOVE [id number] mg/dl BORDERLINE [id number] mg/dl HIGH>190 mg/dl VERY HIGH Cholesterol in VLDL Calc [Ma ss/Vol]on 12-03-2024 Cholesterol in VLDL [Mass/Vol] Cholesterol in VLDL [Mass/volume] in Serum or Plasma by calculation [facility] Laboratory - Chemistry and C hemistry - challengeon 12-03-2024 ALT [Catalytic activity/Vol] 31 U/L 14-59 [facility] AST [Catalytic activity/Vol] 22 U/L 15-37 [facility] Cholesterol [Mass/Vol] 231 mg/dL High <=200 [facility] Cholesterol in HDL [Mass/Vol] 54 mg/dL 40-60 [facility] Comment on above: > or =60 mg/dl - LOW CARDIOVASCULAR RISK<40 mg/dl - HIGH CARDIOVASCULAR RISK Triglyceride [Mass/Vol] 141 mg/dL <=150 [facility] Serum or plasma total choles terol/high density lipoprotein (HDL) cholesterol mass rodney 12-03-2024 Cholesterol.total/C holesterol in HDL [Mass ratio] Serum or plasma total cholesterol/high density lipoprotein (HDL) cholesterol mass rat [facility] Comment on above: 3.3 - 4.4 LOW RISK4. 4 - 7.1 AVERAGE RISK7.1 - 11.0 MODERATE RISK>11.0 HIGH RISK Estimated glomerular filtrat ion rate (GFR) non- Americanon 10-19-2024 GFR/1.73 sq M.predicted among non-blacks MDRD (S/P/Bld) [Vol rate/Area] Estimated glomerular filtration rate (GFR) non- Low >=60 mL/min/1.73m 2 [facility] Laboratory - Chemistry and C hemistry - challengeon 10-19-2024 Calcium [Mass/Vol] 8.6 mg/dL 8.5-10.1 [facility] Chloride [Moles/Vol] 105 mmol/L 98-107 [facility] CO2 [Moles/Vol] 32.0 mmol/L 21.0-32.0 [facility] Creatinine [Mass/Vol] 0.99 mg/dL 0.55-1.02 [facility] GFR/1.73 sq M.predicted MDRD (S/P/Bld) [Vol rate/Area] mL/min/{1.73_m2} >=60 mL/min/1.73m 2 [facility] Glucose [Mass/Vol] 122 mg/dL High 74-106 [facility] Potassium [Moles/Vol] 4.3 mmol/L 3.5-5.1 [facility] Sodium [Moles/Vol] 142 mmol/L 136-145 [facility] Urea nitrogen [Mass/Vol] 9.0 mg/dL 7.0-18.0 [facility] Urea nitrogen/Creatinine [Mass ratio] 9.1 mg/mg [facility] Serum or plasma anion gap de terminationon 10-19-2024 Anion gap [Moles/Vol] Serum or plasma anion gap determination [facility] 36on 10-04-2024 36 Regarding lab result s from 09/17/2024: MD Sherin Moreira MA BMP and TSH are normal. Continue current management Spoke with patient and informed her of lab results per Dr. Espinosa. I scheduled her for her follow up in Dec and transferred her to [facility] to get her echo set up. Normal [facility] Estimated glomerular filtrat ion rate (GFR) non- Americanon 09-17-2024 GFR/1.73 sq M.predicted among non-blacks MDRD (S/P/Bld) [Vol rate/Area] Estimated glomerular filtration rate (GFR) non- Low >=60 mL/min/1.73m 2 [facility] Laboratory - Chemistry and C hemistry - challengeon 09-17-2024 Calcium [Mass/Vol] 9.1 mg/dL 8.5-10.1 [facility] Chloride [Moles/Vol] 102 mmol/L 98-107 [facility] CO2 [Moles/Vol] 29.9 mmol/L 21.0-32.0 [facility] Creatinine [Mass/Vol] 1.04 mg/dL High 0.55-1.02 [facility] GFR/1.73 sq M.predicted MDRD (S/P/Bld) [Vol rate/Area] mL/min/{1.73_m2} >=60 mL/min/1.73m 2 [facility] Glucose [Mass/Vol] 132 mg/dL High 74-106 [facility] Potassium [Moles/Vol] 4.3 mmol/L 3.5-5.1 [facility] Sodium [Moles/Vol] 138 mmol/L 136-145 [facility] Urea nitrogen [Mass/Vol] 14.0 mg/dL 7.0-18.0 [facility] Urea nitrogen/Creatinine [Mass ratio] 13.5 mg/mg [facility] TSH Qn 3.358 m[IU]/L 0.358-3.740 [facility] Serum or plasma anion gap de terminationon 09-17-2024 Anion gap [Moles/Vol] Serum or plasma anion gap determination [facility] Follow-Upon 09-05-2024 Follow-Up [id number] Mark Bautista Shelby 1970 F Date Provider Department [place] 09/05/2024 [id number] ESPINOSA JOSHUA [facility] Family History Problem Relation Age of Onset Breast cancer Mother Heart disease Father Family Status - Relation Status Age at Mother Father Level of Service:36608 [place] OFFICE/OUTPATIENT ESTABLISHED MOD MDM 30 MIN Reason for Visit and Comments: Post-Cath [731] - 1. Normal coronary angiogram. 2. 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 Having some episodes of pressure since cath Cardiomyopathy [104] - NON ISCHEMIC Hypothyroidism [143] Normal [facility] 30on 08-22-2024 30 The patient is Moderately Stable - Low risk of patient condition declining or worsening The patient's goals for the shift include discharge The clinical goals for the shift include vss Over the shift, the patient did not make progress toward the following goals. Barriers to progression include . Recommendations to address these barriers include . Normal [facility] 30 The patient is Moderately Stable - [...] Maintains hematologic stability Outcome: Progressing . Normal [facility] BASIC METABOLIC PANELon 10-2 Anion gap [Moles/Vol] 11 mmol/L Normal 7-20 [facility] Comment on above: Performed By: #### L [id number] #### [facility] ([facility]) [address] [place] [address] Calcium [Mass/Vol] 8.8 mg/dL Normal 8.6-10.3 [facility] Comment on above: Performed By: #### L [id number] #### [facility] ([facility]) [address] [place] [address] Chloride [Moles/Vol] 105 mmol/L Normal 98-107 [facility] Comment on above: Performed By: #### L [id number] #### [facility] ([facility] [address] [place] [address] CO2 [Moles/Vol] 26 mmol/L Normal 21-[address] [facility] Comment on above: Performed By: #### L [id number] #### [facility] ([facility]) [address] [place] [address] Creatinine [Mass/Vol] 0.83 mg/dL Normal 0.60-1.20 [facility] Comment on above: Performed By: #### L [id number] #### [facility] ([facility]) [address] [place] [address] GLOMERULAR FILTRATION RATE ML/MIN/1.73 SQ M.PREDICTED 82.7 mL/min/1.73m*2 Normal >60.0 [facility] Comment on above: Result Comment: [facility]???s estimated glomerular filtration rate (eGFR) will no [...] group of individuals. Performed By: #### L [id number] #### [facility] ([facility]) [address] [place] [address] Glucose [Mass/Vol] 96 mg/dL Normal 70-100 [facility] Comment on above: Performed By: #### L [id number] #### [facility] ([facility]) [address] [place] [address] Potassium [Moles/Vol] 3.8 mmol/L Normal 3.5-5.1 [facility] Comment on above: Performed By: #### L [id number] #### [facility] ([facility]) [address] [place] [address] Sodium [Moles/Vol] 138 mmol/L Normal 136-145 [facility] Comment on above: Performed By: #### L [id number] #### [facility] ([facility]) [address] [place] [address] Urea nitrogen [Mass/Vol] 18 mg/dL Normal 7-25 [facility] Comment on above: Performed By: #### L [id number] #### [facility] ([facility]) [address] [place] [address] UREA NITROGEN/CREATININE (MASS RATIO) IN SER/PLAS 21.7 Normal [facility] Comment on above: Performed By: #### L [id number] #### [facility] ([facility]) [address] [place] [address] CBC WITH AUTO DIFFERENTIALon 08-22-2024 Basophils (Bld) [#/Vol] 0.09 10*3/uL Normal 0.00-0.20 [facility] Comment on above: Performed By: #### L [id number] #### [facility] ([facility]) [address] [place] [address] Basophils/100 WBC (Bld) 0.9 % Normal 0.0-1.0 [facility] Comment on above: Performed By: #### L [id number] #### [facility] ([facility]) [address] [place] [address] Eosinophils (Bld) [#/Vol] 0.26 10*3/uL Normal 0.00-0.50 [facility] Comment on above: Performed By: #### L [id number] #### [facility] ([facility] [address] [place] [address] Eosinophils/100 WBC (Bld) 2.5 % Normal 0.0-6.0 [facility] Comment on above: Performed By: #### L [id number] #### [facility] ([facility] [address] [place] [address] Erythrocyte distribution width (RBC) [Ratio] 13.1 % Normal 11.5-15.0 [facility] Comment on above: Performed By: #### L [id number] #### [facility] ([facility]) [address] [place] [address] ERYTHROCYTE MEAN CORPUSCULAR HEMOGLOBIN CONCENTRATION (G/DL) BY AUTOMATED 33.4 g/dL Normal 32.0-35.0 [facility] Comment on above: Performed By: #### L [id number] #### [facility] ([facility]) [address] [place] [address] Hematocrit (Bld) [Volume fraction] 44.6 % Normal 36.0-48.0 [facility] Comment on above: Performed By: #### L [id number] #### [facility] ([facility]) [address] [place] [address] Hemoglobin (Bld) [Mass/Vol] 14.9 g/dL Normal 12.0-15.0 [facility] Comment on above: Performed By: #### L [id number] #### [facility] ([facility]) [address] [place] [address] Immature granulocytes (Bld) [#/Vol] 0.05 10*3/uL Normal 0.00-0.20 [facility] Comment on above: Performed By: #### L [id number] #### [facility] ([facility] [address] [place] [address] Immature granulocytes/100 WBC (Bld) 0.5 % Normal 0.0-1.0 [facility] Comment on above: Performed By: #### L [id number] #### [facility] ([facility]) [address] [place] [address] Lymphocytes (Bld) [#/Vol] 2.85 10*3/uL Normal 1.20-4.00 [facility] Comment on above: Performed By: #### L [id number] #### [facility] ([facility]) [address] [address] Lymphocytes/100 WBC (Bld) 27.4 % Normal 20.0-45.0 [facility] Comment on above: Performed By: #### L [id number] #### [facility] ([facility]) [address] [place] [address] MCH (RBC) [Entitic mass] 30.4 pg Normal 27.0-33.0 [facility] Comment on above: Performed By: #### L [id number] #### [facility] ([facility]) [address] [address] MCV (RBC) [Entitic vol] 91.0 fL Normal 82.0-98.0 [facility] Comment on above: Performed By: #### L [id number] #### [facility] ([facility]) [address] [place] [address] Monocytes (Bld) [#/Vol] 0.67 10*3/uL Normal 0.10-1.00 [facility] Comment on above: Performed By: #### L [id number] #### [facility] ([facility]) [address] [place] [address] Monocytes/100 WBC (Bld) 6.4 % Normal 5.0-12.0 [facility] Comment on above: Performed By: #### L [id number] #### [facility] ([facility]) [address] [place] [address] Neutrophils (Bld) [#/Vol] 6.48 10*3/uL Normal 1.60-7.60 [facility] Comment on above: Performed By: #### L [id number] #### [facility] ([facility]) [address] [place] [address] Neutrophils/100 WBC (Bld) 62.3 % Normal 40.0-72.0 [facility] Comment on above: Performed By: #### L [id number] #### [facility] ([facility]) [address] [place] [address] NRBC (PER 100 WBCS) BY AUTOMATED COUNT 0.0 % Normal 0 [facility] Comment on above: Performed By: #### L [id number] #### [facility] ([facility]) [address] [place] [address] PLATELETS (10*3/UL) IN BLOOD AUTOMATED COUNT 384 10*3/uL Normal 150-400 [facility] Comment on above: Performed By: #### L [id number] #### [facility] ([facility] [address] [place] [address] RBC (Bld) [#/Vol] 4.90 10*6/uL Normal 3.80-5.00 [facility] Comment on above: Performed By: #### L [id number] #### [facility] ([facility] [address] [place] [address] WBC (Bld) [#/Vol] 10.40 10*3/uL Normal 4.00-10.60 [facility] Comment on above: Performed By: #### L [id number] #### [facility] ([facility] [address] [place] [address] Documentationon 08-22-2024 Documentation [id number] Mark Bautista 1970 F Date Provider Department Center 08/22/2024 FRANCI COUGHLIN [facility] CARD [facility] HeartVAS No family history on file Normal [facility] MAGNESIUMon 08-22-2024 Magnesium [Mass/Vol] 2.2 mg/dL Normal 1.9-2.7 [facility] Comment on above: Performed By: #### L [id number] #### [facility] ([facility]) [address] [place] [address] TROPONIN Ion 08-22-2024 Troponin I.cardiac [Mass/Vol] 0.64 ng/mL Critically high 0.00-0.04 [facility] Comment on above: Result Comment: M-[place] EVIOUS CRITICAL RESULT Previous result verified on 08/22/2024 0103 on specimen/case [id number] called with component Troponin I for procedure Troponin I with value 0.76 ng/mL. Performed By: #### L [id number] #### [facility] ([facility]) [address] [place] [address] 30on 08-21-2024 30 Daily Case Managemen t Update Multidisciplinary rounds have been completed. Barriers to Discharge: Pending clinical course and improvement in clinical condition. Patient transferred from [facility] w/ CP and elevated troponin's. Patient developed [...] Dietary Orders (From admission, onward) Start Ordered 08/21/24 1454 Regular Diet Heart Healthy/HTN, CABG,Stroke, (2gNA, low fat, low cholesterol) Diet effective now Question Answer Comment Room Service? Yes Fat restriction: Heart Healthy/HTN, CABG,Stroke, (2gNA, low fat, low cholesterol) 08/21/24 1454 Physician Expected Discharge Date: 08/24/2024 Discharge Delays: PT Six Click Score: 24 OT Six Click Score: PT Recommendations: OT Recommendations: Does patient understand post acute plan of care? Yes Is expected discharge disposition appropriate for patient?: Yes New Consults: Normal [facility] 30 The patient is Moderately Stable - [...] Goal: Maintains hematologic stability Outcome: Progressing Normal [facility] 30 The patient is Moderately Stable - [...] output and hemodynamic stability Outcome: Progressing Normal [facility] ANTI-XA (HEPARIN LEVEL)on HEPARIN UNFRACTIONATED (U/ML) IN PPP BY CHROMOGENIC METHOD 0.68 IU/mL Normal 0.3-0.7 [facility] Comment on above: Order Comment: Check anti-Xa level every 6 hours while on heparin infusion, or per protocol. Result Comment: [place] roxaban and Apixaban will interfere with the anti Xa assay used to monitor UFH and LMWH. Performed By: #### L [id number] ####[facility] ([facility])[address] [place] [address] APTTon 08-21-2024 ACTIVATED PARTIAL THROMBOPLASTIN TIME IN PPP BY COAGULATION ASSAY 30.0 Seconds Normal 25.0-35.0 [facility] Comment on above: Order Comment: Basel ine aPTT before initiating heparin infusion. Result Comment: Clin ical significance of the APTT is questionable in the presence of heparin. Performed By: #### L [id number] #### [facility] ([facility]) [address] [place] [address] Activated partial thrombopla stin time (aPTT) in platelet poor plasma by coagulation aon 08-21-2024 aPTT Coag (PPP) [Time] 38.7 s High 22.3-36.2 [facility] BASIC METABOLIC PANELon 08-01 Anion gap [Moles/Vol] 12 mmol/L Normal 7-20 [facility] Comment on above: Performed By: #### L [id number] #### [facility] ([facility]) [address] [place] [address] Calcium [Mass/Vol] 8.7 mg/dL Normal 8.6-10.3 [facility] Comment on above: Performed By: #### L [id number] #### [facility] ([facility]) [address] [place] [address] Chloride [Moles/Vol] 103 mmol/L Normal 98-107 [facility] Comment on above: Performed By: #### L [id number] #### [facility] ([facility]) [address] [facility] [place] [address] CO2 [Moles/Vol] 27 mmol/L Normal 21-[address] [facility] Comment on above: Performed By: #### L [id number] #### [facility] ([facility]) [address] [place] [address] Creatinine [Mass/Vol] 0.83 mg/dL Normal 0.60-1.20 [facility] Comment on above: Performed By: #### L [id number] #### [facility] ([facility]) [address] [place] [address] GLOMERULAR FILTRATION RATE ML/MIN/1.73 SQ M.PREDICTED 82.7 mL/min/1.73m*2 Normal >60.0 [facility] Comment on above: Result Comment: [facility]???s estimated glomerular filtration rate (eGFR) will no [...] individuals. Performed By: #### L [id number] #### [facility] ([facility]) [address] [place] [place] [address] Glucose [Mass/Vol] 100 mg/dL Normal 70-100 [facility] Comment on above: Performed By: #### L [id number] #### [facility] ([facility]) [address] [place] [address] Potassium [Moles/Vol] 3.7 mmol/L Normal 3.5-5.1 [facility] Comment on above: Performed By: #### L [id number] #### [facility] ([facility]) [address] [place] [address] Sodium [Moles/Vol] 138 mmol/L Normal 136-145 [facility] Comment on above: Performed By: #### L [id number] #### [facility] ([facility]) [address] [place] [address] Urea nitrogen [Mass/Vol] 11 mg/dL Normal 7-25 [facility] Comment on above: Performed By: #### L [id number] #### [facility] ([facility]) [address] [place] [address] UREA NITROGEN/CREATININE (MASS RATIO) IN SER/PLAS 13.3 Normal [facility] Comment on above: Performed By: #### L [id number] #### [facility] ([facility]) [address] [place] [address] CBC WITH AUTO DIFFERENTIALon 08-21-2024 Basophils (Bld) [#/Vol] 0.10 10*3/uL Normal 0.00-0.20 [facility] Comment on above: Performed By: #### L [id number] #### [facility] ([facility]) [address] [place] [address] Basophils/100 WBC (Bld) 1.0 % Normal 0.0-1.0 [facility] Comment on above: Performed By: #### L [id number] #### [facility] ([facility]) [address] [place] [address] Eosinophils (Bld) [#/Vol] 0.31 10*3/uL Normal 0.00-0.50 [facility] Comment on above: Performed By: #### L [id number] #### [facility] ([facility]) [address] [place] [address] Eosinophils/100 WBC (Bld) 3.0 % Normal 0.0-6.0 [facility] Comment on above: Performed By: #### L [id number] #### [facility] ([facility]) [address] [facility] [place] [address] Erythrocyte distribution width (RBC) [Ratio] 13.0 % Normal 11.5-15.0 [facility] Comment on above: Performed By: #### L [id number] #### [facility] ([facility]) [address] [place] [address] ERYTHROCYTE MEAN CORPUSCULAR HEMOGLOBIN CONCENTRATION (G/DL) BY AUTOMATED 34.3 g/dL Normal 32.0-35.0 [facility] Comment on above: Performed By: #### L [id number] #### [facility] ([facility]) [address] [place] [address] Hematocrit (Bld) [Volume fraction] 43.7 % Normal 36.0-48.0 [facility] Comment on above: Performed By: #### L [id number] #### [facility] ([facility]) [address] [place] [address] Hemoglobin (Bld) [Mass/Vol] 15.0 g/dL Normal 12.0-15.0 [facility] Comment on above: Performed By: #### L [id number] #### [facility] ([facility]) [address] [place] [address] Immature granulocytes (Bld) [#/Vol] 0.03 10*3/uL Normal 0.00-0.20 [facility] Comment on above: Performed By: #### L [id number] #### [facility] ([facility]) [address] [place] [address] Immature granulocytes/100 WBC (Bld) 0.3 % Normal 0.0-1.0 [facility] Comment on above: Performed By: #### L [id number] #### [facility] ([facility]) [address] [place] [address] Lymphocytes (Bld) [#/Vol] 3.16 10*3/uL Normal 1.20-4.00 [facility] Comment on above: Performed By: #### L [id number] #### [facility] ([facility]) [address] [place] [address] Lymphocytes/100 WBC (Bld) 30.6 % Normal 20.0-45.0 [facility] Comment on above: Performed By: #### L [id number] #### [facility] ([facility]) [address] [place] [address] MCH (RBC) [Entitic mass] 30.4 pg Normal 27.0-33.0 [facility] Comment on above: Performed By: #### L [id number] #### [facility] [address] [place] [address] MCV (RBC) [Entitic vol] 88.6 fL Normal 82.0-98.0 [facility] Comment on above: Performed By: #### L [id number] #### [facility] ([facility]) [address] [place] [address] Monocytes (Bld) [#/Vol] 0.62 10*3/uL Normal 0.10-1.00 [facility] Comment on above: Performed By: #### L [id number] #### [facility] ([facility]) [address] [place] [address] Monocytes/100 WBC (Bld) 6.0 % Normal 5.0-12.0 [facility] Comment on above: Performed By: #### L [id number] #### [facility] ([facility]) [address] [place] [address] Neutrophils (Bld) [#/Vol] 6.10 10*3/uL Normal 1.60-7.60 [facility] Comment on above: Performed By: #### L [id number] #### [facility] [address] [place] [address] Neutrophils/100 WBC (Bld) 59.1 % Normal 40.0-72.0 [facility] Comment on above: Performed By: #### L [id number] #### [facility] ([facility]) [address] [place] [address] NRBC (PER 100 WBCS) BY AUTOMATED COUNT 0.0 % Normal 0 [facility] Comment on above: Performed By: #### L [id number] #### [facility] ([facility]) [address] [place] [address] PLATELETS (10*3/UL) IN BLOOD AUTOMATED COUNT 377 10*3/uL Normal 150-400 [facility] Comment on above: Performed By: #### L [id number] #### [facility] ([facility]) [address] [place] [address] RBC (Bld) [#/Vol] 4.93 10*6/uL Normal 3.80-5.00 [facility] Comment on above: Performed By: #### L [id number] #### [facility] ([facility]) [address] [place] [address] WBC (Bld) [#/Vol] 10.32 10*3/uL Normal 4.00-10.60 [facility] Comment on above: Performed By: #### L [id number] #### [facility] ([facility]) [address] [place] [address] CONSULTon 08-21-2024 CONSULT -- Attestation signed by Ankit Crook MD at 08/21/2024 2:10 PM Evaluated, reviewed and discussed with steamfitter apprentice on rounds. I agree with his notations and plan Cardiology Consult Note Reason for Consult: elevated trop, chest pain HPI: Ortiz Bautista is a 54 y.o. female with past medical history of major depressive disorder and hypothyroidism, who presented as a direct admission from [facility] with chest pain and elevated troponin. Patient reported that last night she started having midsternal chest pain with radiation into her left arm and left jaw, her chest pain was retrosternal in location, severe in intensity, with no other associated symptoms. She denied having any shortness of breath or sweating or any other complaints. Initial high-sensitivity troponin of 143, initial troponin in [facility] with 2 mg/dL. Patient was started on [...] Value Ventricular Rate 76 Atrial Rate 76 [place] Interval 132 QRS DURATION 72 QT Interval 408 QTC CALCULATION(BAZETT) 459 P [place] 63 R-[place] 87 T Wave [place] 99 Impression Normal sinus rhythm Nonspecific ST [...] coronary an (more content not included)... Normal [facility] HEMOGLOBIN A1Con 08-21-2024 Glucose [Mass/Vol] 128 mg/dL Normal [facility] Comment on above: Performed By: #### L [id number] ####[facility] ([facility])[address] [place] [address] HbA1c (Bld) [Mass fraction] 6.1 % High 4.0-6.0 [facility] Comment on above: Performed By: #### L [id number] ####[facility] ([facility])[address] [facility] [address] HEMOGLOBIN AND HEMATOCRIT, B LOODon 08-21-2024 Hematocrit (Bld) [Volume fraction] 46.3 % Normal 36.0-48.0 [facility] Comment on above: Performed By: #### L [id number] #### [facility] ([facility]) [address] [place] [address] Hemoglobin (Bld) [Mass/Vol] 15.2 g/dL High 12.0-15.0 [facility] Comment on above: Performed By: #### L [id number] #### [facility] ([facility]) [address] [place] [address] HPon 08-21-2024 HP Cardiology Interval Pre-Procedural History & Physical Chief Complaint: elevated trop, chest pain HPI: Ortiz Bautista is a 54 y.o. female with past medical history of major depressive disorder and hypothyroidism, who presented as a direct admission from [facility] with chest pain and elevated troponin. Patient reported that last night she started having midsternal chest pain with radiation into her left arm and left jaw, her chest pain was retrosternal in location, severe in intensity, with no other associated symptoms. She denied having any shortness of breath or sweating or any other complaints. Initial high-sensitivity troponin of 143, initial troponin in [facility] with 2 mg/dL. Patient was started on [...] Value Ventricular Rate 76 Atrial Rate 76 [place] Interval 132 QRS DURATION 72 QT Interval 408 QTC CALCULATION(BAZETT) 459 P [place] 63 R-[place] 87 T Wave [place] 99 Impression Normal sinus rhythm Nonspecific ST and T wave abnormality Abnormal ECG No previous ECGs available Lab Results Component Value Date TROPONINI 1.07 () 08/21/2024 Complete Echo (TTE) w/wo Imaging Agent, Strain, 3D, Bubble Study Result Date: 08/21/2024 1 1 [facility] Heart Station [address] [place] [address] [phone] (fax) Echocardiogram-[facility] Name: ORTIZ BAUTISTA Study Date: 08/21/2024 07:30 AM B/P: 122 mmHg/79 mmHg HR: 78 bpm Date of : 1970 Location: [facility] Height: 63 in. Age: [...] Conclusions: No (more content not included)... Normal [facility] LIPID PANELon 08-21-2024 CHOL/HDL 4.2 mg/dL Normal [facility] Comment on above: Performed By: #### L [id number] ####[facility] ([facility])[address] [place] [address] Cholesterol [Mass/Vol] 226 mg/dL High 120-200 [facility] Comment on above: Performed By: #### L [id number] ####[facility] ([facility])[address] [place] [address] Magnesium [Mass/Vol] 179 mg/dL High 40-149 [facility] Comment on above: Result Comment: TRIG LYCERIDE REFERENCE RANGE: 20 YEARS AND OLDER CARDIOVASCULAR RISK LESS THAN 150 mg/dL LOW RISK 150 TO 199 mg/dL BORDERLINE RISK 200 mg/dL AND GREATER HIGH RISK Performed By: #### L [id number] ####[facility] ([facility])[address] [place] [address] Magnesium [Mass/Vol] 136 mg/dL Normal 0-160 [facility] Comment on above: Performed By: #### L [id number] ####[facility] ([facility])[address] [place] [address] Magnesium [Mass/Vol] 54 mg/dL Normal 23-92 [facility] Comment on above: Performed By: #### L [id number] ####[facility] ([facility])[address] [place] [address] NON HDL CHOL. (LDL+VLDL) 172 Normal [facility] Comment on above: Performed By: #### L [id number] ####[facility] ([facility])[address] [place] [address] TOTAL VLDL-C 36 mg/dL Normal 0-40 [facility] Comment on above: Performed By: #### L [id number] ####[facility] ([facility])[address] [place] [address] MAGNESIUMon 08-21-2024 Magnesium [Mass/Vol] 2.1 mg/dL Normal 1.9-2.7 [facility] Comment on above: Performed By: #### L [id number] #### [facility] ([facility]) [address] [place] [address] No Panel Informationon 08-21 Troponin I High Sensitivity 5205.7 pg/mL High 4.0-51.3 [facility] Comment on above: RESULTS CALLED TO [...] 08-21-2024 Magnesium [Mass/Vol] 3.8 mg/dL Normal 2.5-5.0 [facility] Comment on above: Performed By: #### L [id number] #### [facility] ([facility]) [address] [place] [address] POCT GLUCOSE METER UNSOLICIT ED RESULTSon 08-21-2024 Glucose [Mass/Vol] 130 mg/dL High 70-105 [facility] Comment on above: Order Comment: Waive d Testing in the ED is performed under the ED CLIA certificate #[id number]. Result Comment: bflo od Performed By: #### L [id number] #### [facility] ([facility]) [address] [place] [address] PROTIME-INRon 08-21-2024 INR IN PPP BY COAGULATION ASSAY 0.96 Normal 0.90-1.10 [facility] Comment on above: Result Comment: ACCC P [...] RANGE. CHEST 1995;108:231S-246S. Performed By: #### L [id number] #### [facility] ([facility]) [address] [place] [address] PROTHROMBIN TIME (PT) IN PPP BY COAGULATION ASSAY 12.8 Seconds Normal 12.3-14.8 [facility] Comment on above: Performed By: #### L [id number] #### [facility] ([facility]) [address] [place] [address] T4, FREEon 08-21-2024 THYROXINE (T4) FREE (NG/DL) IN SER/PLAS 0.58 ng/dL Low 0.71-1.85 [facility] Comment on above: Performed By: #### L [id number] #### [facility] ([facility]) [address] [place] [address] TROPONIN Ion 08-21-2024 Troponin I.cardiac [Mass/Vol] 0.76 ng/mL Critically high 0.00-0.04 [facility] Comment on above: Result Comment: M-[place] EVIOUS CRITICAL RESULT Previous result verified on 08/21/2024612 on specimen/case [id number] called with component Troponin I for procedure Troponin I with value 2.09 ng/mL. Performed By: #### L [id number] #### [facility] ([facility]) [address] [place] [address] Troponin I.cardiac [Mass/Vol] 0.58 ng/mL Critically high 0.00-0.04 [facility] Comment on above: Result Comment: M-WY EVIOUS CRITICAL RESULT Previous result verified on 08/21/2024612 on specimen/case [id number] called with component Troponin I for procedure Troponin I with value 2.09 ng/mL. Performed By: #### L [id number] ####[facility] ([facility])[address] [place] [address] Troponin I.cardiac [Mass/Vol] 1.07 ng/mL Critically high 0.00-0.04 [facility] Comment on above: Result Comment: M-WY EVIOUS CRITICAL RESULT Previous result verified on 08/21/2024612 on specimen/case [id number] called with component Troponin I for procedure Troponin I with value 2.09 ng/mL. Performed By: #### L [id number] ####[facility] ([facility])[address] [place] [address] Troponin I.cardiac [Mass/Vol] 2.09 ng/mL Critically high 0.00-0.04 [facility] Comment on above: Result Comment: M-TR OPONIN INITIAL CRITICAL HIGH; RESPUN AND RETESTED Performed By: #### L [id number] #### [facility] ([facility]) [address] [place] [address] TSH3 REFLEX TO FT4on 024 THYROTROPIN (MIU/L) IN SER/PLAS BY DETECTION LIMIT <= 0.05 MIU/L 10.64 mIU/L High 0.34-5.60 [facility] Comment on above: Performed By: #### L [id number] #### [facility] ([facility]) [address] [place] [address] Basophils Auto (Bld) [#/Vol] on 08-20-2024 Basophils (Bld) [#/Vol] 0.1 10 3/uL 0.0-0.1 [facility] Basophils/100 WBC Auto (Bld) on 08-20-2024 Basophils/100 WBC (Bld) 1.1 % 0.2-2.0 [facility] Eosinophils/100 WBC Auto (Bl d)on 08-20-2024 Eosinophils/100 WBC (Bld) 5.3 % 0.9-7.0 [facility] Erythrocyte distribution wid th Auto (RBC) [Ratio]on 08-20-2024 Erythrocyte distribution width (RBC) [Ratio] 12.8 % 11.0-15.0 [facility] Estimated glomerular filtrat ion rate (GFR) non- Americanon 08-20-2024 GFR/1.73 sq M.predicted among non-blacks MDRD (S/P/Bld) [Vol rate/Area] 54 mL/min/{1.73_m2} Low >=60 mL/min/1.73m 2 [facility] Globulin Calc (S) [Mass/Vol] on 08-20-2024 Globulin (S) [Mass/Vol] 3.8 g/dL [facility] Hematocrit Auto (Bld) [Volum e fraction]on 08-20-2024 Hematocrit (Bld) [Volume fraction] 46.0 % 36.0-48.0 [facility] Hemoglobin [Mass/volume] in Bloodon 08-20-2024 Hemoglobin (Bld) [Mass/Vol] 15.4 g/dL 12.0-16.0 [facility] INR in Platelet poor plasma by Coagulation assayon 08-20-2024 INR Coag (PPP) [Relative time] 0.93 {INR} [facility] Comment on above: DESIRED INR:2.0-3.0 CONDITIONS NOT LISTED BELOW2.5-3.5 FOR PROSTHETIC HEART VALVE REPLACEMENT2.5-3.5 RECURRENT THROMBOSIS Laboratory - Chemistry and C hemistry - challengeon 08-20-2024 CK [Catalytic activity/Vol] 192 U/L 26-192 [facility] CK.MB [Mass/Vol] 7.56 ng/mL High <=3.60 [facility] Comment on above: RESULTS CALLED TO JUAN MARRERO RN at 2211 Albumin [Mass/Vol] 4.3 g/dL 3.4-5.0 [facility] ALP [Catalytic activity/Vol] 69 U/L 46-116 [facility] ALT [Catalytic activity/Vol] 36 U/L 14-59 [facility] AST [Catalytic activity/Vol] 23 U/L 15-37 [facility] Bilirubin [Mass/Vol] 0.5 mg/dL 0.2-1.0 [facility] Calcium [Mass/Vol] 9.5 mg/dL 8.5-10.1 [facility] Chloride [Moles/Vol] 103 mmol/L 98-107 [facility] CO2 [Moles/Vol] 28.9 mmol/L 21.0-32.0 [facility] Creatinine [Mass/Vol] 1.05 mg/dL High 0.55-1.02 [facility] GFR/1.73 sq M.predicted MDRD (S/P/Bld) [Vol rate/Area] mL/min/{1.73_m2} >=60 mL/min/1.73m 2 [facility] Glucose [Mass/Vol] 106 mg/dL 74-106 [facility] Lactate [Moles/Vol] 1.1 mmol/L 0.4-2.0 [facility] Lipase [Catalytic activity/Vol] 84.0 U/L High 16.0-77.0 [facility] Magnesium [Mass/Vol] 2.3 mg/dL 1.8-2.4 [facility] Natriuretic peptide B (Bld) [Mass/Vol] 40.0 pg/mL <=900.0 [facility] Potassium [Moles/Vol] 3.9 mmol/L 3.5-5.1 [facility] Protein [Mass/Vol] 8.1 g/dL 6.4-8.2 [facility] Sodium [Moles/Vol] 141 mmol/L 136-145 [facility] Urea nitrogen [Mass/Vol] 11.0 mg/dL 7.0-18.0 [facility] Urea nitrogen/Creatinine [Mass ratio] 10.5 mg/mg [facility] Laboratory - Hematology and Cell countson 08-20-2024 Immature granulocytes/100 WBC (Bld) 0.3 % 0.0-0.5 [facility] Leukocytes [#/volume] correc ermelinda for nucleated erythrocytes in Blood by Automated counon 08-20-2024 WBC corrected for nucl RBC Auto (Bld) [#/Vol] 9.6 10 3/uL 4.0-11.0 [facility] Lymphocytes Auto (Bld) [#/Vo l]on 08-20-2024 Lymphocytes (Bld) [#/Vol] 2.8 10 3/uL 1.2-3.8 [facility] Lymphocytes/100 WBC Auto (Bl d)on 08-20-2024 Lymphocytes/100 WBC (Bld) 28.7 % 20.5-60.0 [facility] MCH Auto (RBC) [Entitic mass ]on 08-20-2024 MCH (RBC) [Entitic mass] 30.4 pg 26.7-34.0 [facility] MCHC Auto (RBC) [Mass/Vol]on 08-20-2024 MCHC (RBC) [Mass/Vol] 33.5 g/dL 29.9-35.2 [facility] MCV Auto (RBC) [Entitic vol] on 08-20-2024 MCV (RBC) [Entitic vol] 90.9 fL 81.0-99.0 [facility] Monocytes Auto (Bld) [#/Vol] on 08-20-2024 Monocytes (Bld) [#/Vol] 0.5 10 3/uL 0.3-0.8 [facility] Monocytes/100 WBC Auto (Bld) on 08-20-2024 Monocytes/100 WBC (Bld) 5.6 % 1.7-12.0 [facility] Neutrophils Auto (Bld) [#/Vo l]on 08-20-2024 Neutrophils (Bld) [#/Vol] 5.7 10 3/uL 1.4-6.5 [facility] Neutrophils/100 WBC Auto (Bl d)on 08-20-2024 Neutrophils/100 WBC (Bld) 59.0 % 43.0-75.0 [facility] No Panel Informationon 08-20 Troponin I High Sensitivity 3845.2 pg/mL High 4.0-51.3 [facility] Comment on above: RESULTS CALLED TO [...] Eosinophils # (Auto) 0.5 10 3/uL 0.0-0.7 [facility] Immature Granulocyte # (Auto) 0.03 10 3/uL 0.00-0.03 [facility] Platelet mean volume Auto (B ld) [Entitic vol]on 08-20-2024 Platelet mean volume (Bld) [Entitic vol] 8.9 fL Low 9.5-13.5 [facility] Platelets Auto (Bld) [#/Vol] on 08-20-2024 Platelets (Bld) [#/Vol] 395 10 3/uL 150-450 [facility] Prothrombin time (PT)on 08-01 PT Coag (PPP) [Time] 9.9 s 9.0-11.6 [facility] RBC Auto (Bld) [#/Vol]on RBC (Bld) [#/Vol] 5.06 10 6/uL 4.20-5.40 [facility] Serum or plasma albumin/glob ulin mass ratioon 08-20-2024 Albumin/Globulin [Mass ratio] 1.1 {ratio} [facility] Serum or plasma anion gap de terminationon 08-20-2024 Anion gap [Moles/Vol] 13.0 mmol/L [facility] XR CSPINE 2_3 VIEWSon 2021 XR [...] by: PHAN BRADFORD Date: 2022-10-18 23:36 Normal [facility] XR LSPINE MIN 4 VIEWSon 10-01 [...] by: PHAN BRADFORD Date: 2022-10-18 23:29 Normal [facility] XR TSPINE 3 VIEWSon 10-19-20 22 XR TSPINE 3 VIEWS EXAMINATION: XR TSPI [...] PHAN BRADFORD Date: 2022-10-18 23:30 Normal [facility] CBC AUTO DIFFon 07-08-2022 BASO # 0.1 103/ul Normal 0.0-0.1 [facility] Comment on above: Performed By: #### C BC #### [facility] [address] [address] [address] Hamilton Craven Basophils/100 WBC (Bld) 1.5 % Normal 0.2-2.0 [facility] Comment on above: Performed By: #### C BC #### [facility] [address] [address] [address] Hamilton Craven EO # 0.1 103/ul Normal 0.0-0.7 [facility] Comment on above: Performed By: #### C BC #### [facility] [address] [address] [address] Hamilton Craven Eosinophils/100 WBC (Bld) 2.3 % Normal 0.9-7.0 [facility] Comment on above: Performed By: #### C BC #### [facility] [address] [address] [address] Hamilton Craven Erythrocyte distribution width (RBC) [Ratio] 16.0 % Critically high 11.0-15.0 [facility] Comment on above: Performed By: #### C BC #### [facility] [address] [place] [address] Dr. Hamilton Craven Hematocrit (Bld) [Volume fraction] 40.3 % Normal 36.0-48.0 [facility] Comment on above: Performed By: #### C BC #### [facility] [address] [address] [address] Hamilton Craven Hemoglobin (Bld) [Mass/Vol] 12.7 g/dL Normal 12.0-16.0 [facility] Comment on above: Performed By: #### C BC #### [facility] [address] [place] [address] Dr. Hamilton Craven IG # 0.02 10e3/ul Normal 0.00-0.03 [facility] Comment on above: Performed By: #### C BC #### [facility] [address] [place] [address] Dr. Hamilton Craven IG % 0.3 % Normal 0.0-0.5 [facility] Comment on above: Performed By: #### C BC #### [facility] [address] [place] [address] Dr. Hamilton Craven LYMPH # 1.8 103/ul Normal 1.2-3.8 [facility] Comment on above: Performed By: #### C BC #### [facility] [address] [place] [address] Dr. Hamilton Craven Lymphocytes/100 WBC (Bld) 30.5 % Normal 20.5-60.0 [facility] Comment on above: Performed By: #### C BC #### [facility] [address] [place] [address] Dr. Hamilton Craven MANUAL DIFF REQ NO Normal [facility] Comment on above: Performed By: #### C BC #### [facility] [address] [place] [address] Dr. Hamilton Craven MCH (RBC) [Entitic mass] 26.4 pg Critically low 26.7-34.0 [facility] Comment on above: Performed By: #### C BC #### [facility] [address] [place] [address] Dr. Hamilton Craven MCHC (RBC) [Mass/Vol] 31.5 g/dL Normal 29.9-35.2 [facility] Comment on above: Performed By: #### C BC #### [facility] [address] [place] [address] Dr. Hamilton Craven MCV (RBC) [Entitic vol] 83.8 fL Normal 81.0-99.0 [facility] Comment on above: Performed By: #### C BC #### [facility] [address] [place] [address] Dr. Hamilton Craven MONO # 0.4 103/ul Normal 0.3-0.8 [facility] Comment on above: Performed By: #### C BC #### [facility] [address] [place] [address] Dr. Hamilton Craven Monocytes/100 WBC (Bld) 6.0 % Normal 1.7-12.0 [facility] Comment on above: Performed By: #### C BC #### [facility] [address] [place] [address] Dr. Hamilton Craven NEUT # 3.6 103/ul Normal 1.4-6.5 [facility] Comment on above: Performed By: #### C BC #### [facility] [address] [place] [address] Dr. Hamilton Craven Neutrophils/100 WBC (Bld) 59.4 % Normal 43.0-75.0 [facility] Comment on above: Performed By: #### C BC #### [facility] [address] [place] [address] Dr. Hamilton Craven Platelet mean volume (Bld) [Entitic vol] 9.1 fL Critically low 9.5-13.5 [facility] Comment on above: Performed By: #### C BC #### [facility] [address] [place] [address] Dr. Hamilton Craven PLT 431 103/ul Normal 150-450 [facility] Comment on above: Performed By: #### C BC #### [facility] [address] [place] [address] Dr. Hamilton Craven RBC 4.81 106/ul Normal 4.20-5.40 [facility] Comment on above: Performed By: #### C BC #### [facility] [address] [place] [address] Dr. Hamilton Craven WBC 6.0 103/ul Normal 4.0-11.0 [facility] Comment on above: Performed By: #### C BC #### [facility] [address] [place] [address] Dr. Hamilton Craven FREE T4on 07-08-2022 Free T4 [Mass/Vol] 1.30 ng/dL Normal 0.76-1.46 [facility] Comment on above: Performed By: #### F T4 #### [facility] [address] [address] [address] Hamilton Craven GLYCOHEMOGLOBIN A1Con 2021 ADA RECOMMENDATION SEE BELOW Normal [facility] Comment on above: Result Comment: ADA RECOMMENDED LIMIT 4.0 - 6.0 ADA THERAPEUTIC TARGET < 7.0 ACTION SUGGESTED > 7.0 Performed By: #### A 1C #### [facility] [address] [place] [address] Dr. Hamilton Craven Glucose [Mass/Vol] 128 mg/dL Normal [facility] Comment on above: Performed By: #### A 1C #### [facility] [address] [place] [address] Dr. Hamilton Craven HbA1c (Bld) [Mass fraction] 6.1 % Normal 4.5-6.2 [facility] Comment on above: Performed By: #### A 1C #### [facility] [address] [place] [address] Dr. Hamilton Craven LIPID PROFILEon 07-08-2022 CHOL-HDL RATIO NORM SEE BELOW Normal [facility] Comment on above: Result Comment: 3.3 - 4.4 LOW RISK 4.4 - 7.1 AVERAGE RISK 7.1 - 11.0 MODERATE RISK >11.0 HIGH RISK Performed By: #### T SH, LIPID, CMP #### [facility] [address] [place] [address] Dr. Hamilton Craven Cholesterol [Mass/Vol] 214 mg/dL Critically high <=200 [facility] Comment on above: Performed By: #### T SH, LIPID, CMP #### [facility] [address] [place] [address] Dr. Hamilton Craven Cholesterol in HDL [Mass/Vol] 56 mg/dL Normal 40-60 [facility] Comment on above: Performed By: #### T SH, LIPID, CMP #### [facility] [address] [address] [address] Hamilton Craven Cholesterol in LDL [Mass/Vol] 141.0 mg/dL Normal [facility] Comment on above: Performed By: #### T SH, LIPID, CMP #### [facility] [address] [address] [address] Hamilton Craven Cholesterol.total/C holesterol in HDL [Mass ratio] 3.8 {ratio} Normal [facility] Comment on above: Performed By: #### T SH, LIPID, CMP #### [facility] [address] [place] [address] Dr. Hamilton Craven HDL NORMAL > or = 60 mg/dl - LO W CARDIOVASCULAR RISK <40 mg/dl - HIGH CARDIOVASCULAR RISK Normal [facility] Comment on above: Performed By: #### T ANGEAL, LIPID, CMP #### [facility] [address] [place] [address] Dr. Hamilton Craven LDL CALC NORMAL SEE BELOW Normal [facility] Comment on above: Result Comment: <100 mg/dl OPTIMAL 100 - 129 mg/dl NEAR OR ABOVE OPTIMAL 130 - 159 mg/dl BORDERLINE HIGH 160 - 189 mg/dl HIGH >190 mg/dl VERY HIGH Performed By: #### T ANGELA, LIPID, CMP #### [facility] [address] [place] [address] Dr. Hamilton Craven Triglyceride [Mass/Vol] 85 mg/dL Normal <=150 [facility] Comment on above: Performed By: #### T SH, LIPID, CMP #### [facility] [address] [address] [address] Hamilton Craven VLDL CALC 17.0 mg/dL Normal [facility] Comment on above: Performed By: #### T SH, LIPID, CMP #### [facility] [address] [place] [address] Dr. Hamilton Craven PROF 14(COMP METB)on 022 Albumin [Mass/Vol] 3.9 g/dL Normal 3.4-5.0 [facility] Comment on above: Performed By: #### T SH, LIPID, CMP #### [facility] [address] [address] [address] Hamilton Craven Albumin/Globulin [Mass ratio] 1.1 {ratio} Normal [facility] Comment on above: Performed By: #### T SH, LIPID, CMP #### [facility] [address] [address] [address] Hamilton Craven ALP [Catalytic activity/Vol] 95 U/L Normal 46-116 [facility] Comment on above: Performed By: #### T SH, LIPID, CMP #### [facility] [address] [place] [address] Dr. Hamilton Craven ALT [Catalytic activity/Vol] 41 U/L Normal 14-59 [facility] Comment on above: Performed By: #### T SH, LIPID, CMP #### [facility] [address] [address] [address] Hamilton Craven Anion gap [Moles/Vol] 7.0 mmol/L Normal [facility] Comment on above: Performed By: #### T SH, LIPID, CMP #### [facility] [address] [place] [address] Dr. Hamilton Craven AST [Catalytic activity/Vol] 25 U/L Normal 15-37 [facility] Comment on above: Performed By: #### T SH, LIPID, CMP #### [facility] [address] [address] [address] Hamilton Craven Bilirubin [Mass/Vol] 0.3 mg/dL Normal 0.2-1.0 [facility] Comment on above: Performed By: #### T SH, LIPID, CMP #### [facility] [address] [place] [address] Dr. Hamilton Craven Calcium [Mass/Vol] 9.0 mg/dL Normal 8.5-10.1 [facility] Comment on above: Performed By: #### T SH, LIPID, CMP #### [facility] [address] [place] [address] Dr. Hamilton Craven Chloride [Moles/Vol] 102 mmol/L Normal 98-107 [facility] Comment on above: Performed By: #### T ANGELA, LIPID, CMP #### [facility] [address] [address] [address] Hamilton Craven CO2 [Moles/Vol] 32.7 mmol/L Critically high 21.0-32.0 [facility] Comment on above: Performed By: #### T ANGELA, LIPID, CMP #### [facility] [address] [place] [address] Dr. Hamilton Craven Creatinine [Mass/Vol] 0.95 mg/dL Normal 0.55-1.02 [facility] Comment on above: Performed By: #### T ANGELA LIPID, CMP #### [facility] [address] [place] [address] Dr. Hamilton Craven EGFR-AF MALDIVIAN >60 Normal >=60 [facility] Comment on above: Performed By: #### T ANGELA, LIPID, CMP #### [facility] [address] [place] [address] Dr. Hamilton Craven EGFR-NON AF MALDIVIAN >60 Normal >=60 [facility] Comment on above: Performed By: #### T ANGELA, LIPID, CMP #### [facility] [facility] [address] [place] [address] Dr. Hamilton Craven Globulin (S) [Mass/Vol] 3.7 g/dL Normal [facility] Comment on above: Performed By: #### T ANGELA, LIPID, CMP #### [facility] [address] [place] [address] Dr. Hamilton Craven Glucose [Mass/Vol] 112 mg/dL Critically high 74-106 [facility] Comment on above: Performed By: #### T ANGELA, LIPID, CMP #### [facility] [address] [place] [address] Dr. Hamilton Craven Potassium [Moles/Vol] 3.7 mmol/L Normal 3.5-5.1 [facility] Comment on above: Performed By: #### T SH, LIPID, CMP #### [facility] [address] [place] [address] Dr. Hamilton Craven Protein [Mass/Vol] 7.6 g/dL Normal 6.4-8.2 [facility] Comment on above: Performed By: #### T SH, LIPID, CMP #### [facility] [address] [address] [address] Hamilton Craven Sodium [Moles/Vol] 138 mmol/L Normal 136-145 [facility] Comment on above: Performed By: #### T ANGELA, LIPID, CMP #### [facility] [address] [address] [address] Hamilton Craven Urea nitrogen [Mass/Vol] 10.0 mg/dL Normal 7.0-18.0 [facility] Comment on above: Performed By: #### T ANGELA, LIPID, CMP #### [facility] [address] [address] [address] Hamilton Craven Urea nitrogen/Creatinine [Mass ratio] 10.5 mg/mg Normal [facility] Comment on above: Performed By: #### T ANGELA, LIPID, CMP #### [facility] [address] [address] [address] Hamilton Craven TSHon 07-08-2022 TSH 0.200 uIU/mL Critically low 0.358-3.740 [facility] Comment on above: Performed By: #### T ANGELA, LIPID, CMP #### [facility] [address] [address] [address] Hamilton Craven XR hand LT min 3V*on 022 XR hand LT min 3V* [facility] [employer] Other XR hand LT min 3V* [facility] [employer] Other XR hand LT min 3V* [address] [place] [address] [employer] Other XR hand LT min 3V* [place] [address] [employer] [facility] [employer] Other XR hand LT min 3V* XRay Report [employer] [facility] [employer] Other XR hand LT min 3V* Signed [employer] Other XR hand LT min 3V* Patient: Diandra Bautista MR#: [id number] [employer] Other XR hand LT min 3V* 71 [employer] Other XR hand LT min 3V* : 1970 Acct:[id number] [employer] Other XR hand LT min 3V* Age/Sex: 51 / F ADM Date: 11/06/21 [employer] Other XR hand LT min 3V* Loc: SOX Room: Type : [facility] [employer] Other XR hand LT min 3V* Attending Dr: Patito Martinez MD [employer] Other XR hand LT min 3V* Ordering Provider: Rosalba Martinez MD [employer] Other XR hand LT min 3V* Date of Service: 11/06/21 [employer] Other XR hand LT min 3V* XR/XR hand LT min 3V*: Primary osteoarthritis of left hand [employer] Other XR hand LT min 3V* Copies to: Rosalba Martinez MD [employer] Other XR hand LT min 3V* Left wrist 11/06/2021. [employer] Other XR hand LT min 3V* CLINICAL DATA: Prima ry osteoarthritis of left hand. [employer] Other XR hand LT min 3V* FINDINGS: 3 views of the left wrist were obtained along with a dedicated view of the left first [employer] Other XR hand LT min 3V* carpal-metacarpal joint. This examination is compared with a prior study 09/30/2021. [employer] Other XR hand LT min 3V* There is redemonstration of postsurgical changes related to fusion of the first carpal-metacarpal [employer] Other XR hand LT min 3V* joint. The hardware appears intact and unchanged in position. There are underlying degenerative [employer] Other XR hand LT min 3V* changes at the first carpal-metacarpal joint. No fracture or dislocation is identified. No [employer] Other XR hand LT min 3V* significant soft tissue swelling is seen. [employer] Other XR hand LT min 3V* XR/XR hand LT min 3V* [employer] Other XR hand LT min 3V* IMPRESSION: Stable postsurgical changes related to fusion of the left first CMC joint [employer] Other XR hand LT min 3V* Impression dictated by: Tarun Aranda Jr., M.D.11/06/2021 12:15 PM [employer] Other XR hand LT min 3V* Dictation Location: [place] [address] [employer] Other XR hand LT min 3V* Transcribed By: ERNIE 11/06/21 [facility] [employer] Other XR hand LT min 3V* Dictated By: Tarun Aranda Jr, MD 11/06/21 1211 [employer] Other XR hand LT min 3V* Signed By: [employer] Other XR hand LT min 3V* 11/06/[address] [place] [address] [employer] Other XR hand LT min 3V*on 021 XR hand LT min 3V* [facility] [employer] Other XR hand LT min 3V* [facility] [place] [employer] Other XR hand LT min 3V* [address] [facility] [employer] Other XR hand LT min 3V* [place] [address] [employer] Other XR hand LT min 3V* XRay Report [employer] Other XR hand LT min 3V* Signed [employer] Other XR hand LT min 3V* Patient: Diandra Bautista MR#: [id number] [employer] Other XR hand LT min 3V* 71 [employer] Other XR hand LT min 3V* : 1970 Acct:[id number] [employer] Other XR hand LT min 3V* Age/Sex: 51 / F ADM Date: 09/30/21 [employer] Other XR hand LT min 3V* Loc: [facility] Room: Type : [facility] [employer] Other XR hand LT min 3V* Attending Dr: Patito Martinez MD [employer] Other XR hand LT min 3V* Ordering Provider: Rosalba Martinez MD [employer] Other XR hand LT min 3V* Date of Service: 09/30/21 [employer] Other XR hand LT min 3V* XR/XR hand LT min 3V*: Primary osteoarthritis, right hand [employer] Other XR hand LT min 3V* Copies to: Rosalba Martinez MD [employer] Other XR hand LT min 3V* 4 views LEFT hand plain film [employer] Other XR hand LT min 3V* COMPARISON:None N [employer] Other XR hand LT min 3V* HISTORY:Status post LEFT 1st carpometacarpal fusion [employer] Other XR hand LT min 3V* 2 bony vikki fuse the 1st carpometacarpal articulation. Mild bony bridging identified. Bony [employer] Other XR hand LT min 3V* alignment adequate. No soft tissue abnormality. [employer] Other XR hand LT min 3V* XR/XR hand LT min 3V* [employer] Other XR hand LT min 3V* IMPRESSION:No hardwa re failure. Bony fusion changes. [employer] Other XR hand LT min 3V* Impression dictated by: Jignesh Mercado M.D.09/30/2021 2:36 PM [employer] Other XR hand LT min 3V* Dictation Location: [place] [address] [employer] Other XR hand LT min 3V* Transcribed By: ERNIE 09/30/21 [facility] [employer] Other XR hand LT min 3V* Dictated By: Jignesh Mercado DO 09/30/21 [facility] [employer] Other XR hand LT min 3V* Signed By: [employer] Other XR hand LT min 3V* 09/30/[address] [place] [address] [employer] Other XR hand LT min 3V*on XR hand LT min 3V* [facility] [employer] Other XR hand LT min 3V* [facility] [place] [employer] Other XR hand LT min 3V* [address] [place] [address] [employer] Other XR hand LT min 3V* LYD[place] [address] [employer] Other XR hand LT min 3V* XRay Report [employer] Other XR hand LT min 3V* Signed [employer] Other XR hand LT min 3V* Patient: Diandra Bautista MR#: [id number] [employer] Other XR hand LT min 3V* 71 [employer] Other XR hand LT min 3V* : 1970 Acct:[id number] [employer] Other XR hand LT min 3V* Age/Sex: 51 / F ADM Date: 08/11/21 [employer] Other XR hand LT min 3V* Loc: SOX Room: Type : [facility] [employer] Other XR hand LT min 3V* Attending Dr: Patito Martinez MD [employer] Other XR hand LT min 3V* Ordering Provider: Rosalba Martinez MD [employer] Other XR hand LT min 3V* Date of Service: 08/11/21 [employer] Other XR hand LT min 3V* XR/XR hand LT min 3V*: Pain of left thumb [employer] Other XR hand LT min 3V* Copies to: Rosalba Martinez MD [employer] Other XR hand LT min 3V* 4 viewsLEFT hand noe in film [employer] Other XR hand LT min 3V* COMPARISON:None [employer] Other XR hand LT min 3V* HISTORY:Status post LEFT carpometacarpal fusion. [employer] Other XR hand LT min 3V* Extensive 1st carpometacarpal degenerative changes identified. No fracture or dislocation. 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 [employer] Other XR hand LT min 3V* Impression dictated by: Jignesh Mercado M.D.08/11/2021 4:17 PM [employer] Other XR hand LT min 3V* Dictation Location: [place] [address] [employer] Other XR hand LT min 3V* Transcribed By: ERNIE 08/11/21 [facility] [place] [employer] Other XR hand LT min 3V* Dictated By: Jignesh Mercado DO 08/11/21 1612 [employer] Other XR hand LT min 3V* Signed By: [employer] Other XR hand LT min 3V* 08/11/[address] [place] [address] [employer] Other OBSOLETEon 10-21-2017 OBSOLETE Refill (RHEULN) ORTIZ BAUTISTA ([id number]) 1970 [facility] Time Provider Qggavfycio07/22/17 JANAK YE During your visit today, we [...] by DINORAH SMITH RN on 10/25/17 Normal [facility] Vital Signs Date Time Vital Sign Value Performing Clinician Faci lity 11-07-2024 10:16-0500 Body mass index (BMI) [Ratio] 27.12 kg/m2 Giulia Muir DO Work Phone: [facility] 11-07-2024 10:16-0500 Body weight 71.67 kg Giulia Juaresaprchuyitara DO Work Phone: [facility] 11-07-2024 10:16-0500 Diastolic blood pressure 82 mm[Hg] Giulia Nataprawira DO Work Phone: [facility] 11-07-2024 10:16-0500 Systolic blood pressure 144 mm[Hg] Giulia Nataprawira DO Work Phone: [facility] 08-28-2024 11:24-0400 Body height 160.02 cm [facility] 08-28-2024 11:24-0400 Body mass index (BMI) [Ratio] 27.1 kg/m2 [facility] 08-28-2024 11:24-0400 Body weight 69.39 kg [facility] 08-28-2024 11:24-0400 Diastolic blood pressure 84 mm[Hg] [facility] 08-28-2024 11:24-0400 Heart rate 62 /min [facility] 08-28-2024 11:24-0400 SaO2% (BldA) [Mass fraction] 97 % [facility] 08-28-2024 11:24-0400 Systolic blood pressure 128 mm[Hg] [facility] 10-25-2023 11:30-0500 Body height 160.02 cm Chon Aguila Other [facility] [employer] Other 10-25-2023 11:30-0500 Body mass index (BMI) [Ratio] 26.29 kg/m2 Chon Aguila Other [employer] [facility] [employer] Other 10-25-2023 11:30-0500 Body temperature 98.5 [degF] Chon Aguila Other [employer] Other 10-25-2023 11:30-0500 Body weight 67.31 kg Chon Aguila Other [employer] Other 10-25-2023 11:30-0500 Diastolic blood pressure 77 mm[Hg] Chon Aguila Other [employer] Other 10-25-2023 11:30-0500 Systolic blood pressure 124 mm[Hg] Chon Aguila Other [employer] Other 09-30-2021 12:15-0500 Body height 160.02 cm Rosalbaadriel Martinez Other [employer] Other 09-30-2021 12:15-0500 Body mass index (BMI) [Ratio] 32.77 kg/m2 Rosalba Calvey Other [employer] Other 09-30-2021 12:15-0500 Body weight 83.92 kg Rosalba Calvmelissa Other [employer] Other 08-11-2021 12:15-0400 Body height 160.02 cm Rosalba Calvmelissa Other [employer] Other 08-11-2021 12:15-0400 Body mass index (BMI) [Ratio] 26.57 kg/m2 Rosalba Calvey Other [employer] Other 08-11-2021 12:15-0400 Body weight 68.04 kg Rosalba Calvmelissa Other [employer] Other Encounters Encounter Date Encounter Type Care Provider Facility Start: 12-19-2024 End: 12-19-2024 ambulatory [facility] Start: 12-14-2024 End: 12-14-2024 Patient encounter procedure Chon Aguila MD Work Phone: [facility] Work Phone: Start: 12-14-2024 End: 12-14-2024 ambulatory Chon Aguila MD Work Phone: [facility] Work Phone: Start: 12-03-2024 Non-patient / Non-visit Chon Aguila MD Work Phone: [facility] Work Phone: Start: 11-07-2024 End: 11-07-2024 Patient encounter status Giulia Muir DO Work Phone: [facility] Start: 11-07-2024 End: 11-07-2024 Periodic preventive med est patient 40-64yrs Giulia Muir DO Work Phone: [facility] Comment on above: Encounter for gyneco logical examination without abnormal finding (Primary Dx); Other screening mammogram; Family history of breast cancer Start: 11-07-2024 End: 11-07-2024 ambulatory GIULIA Wolfe GABRIELLA Not Available Start: 10-19-2024 Non-patient / Non-visit Chon Aguila MD Work Phone: [facility] Work Phone: Start: 09-17-2024 Non-patient / Non-visit Chon Aguila MD Work Phone: [facility] Work Phone: Start: 09-05-2024 End: 09-05-2024 ambulatory [facility] Start: 08-28-2024 End: 08-28-2024 ambulatory [facility] Work Phone: Start: 08-28-2024 End: 08-28-2024 Patient encounter procedure [facility] Work Phone: Start: 08-23-2024 Non-patient / Non-visit [facility] Work Phone: Start: 08-21-2024 Evaluation and management of inpatient DELL JOHN [facility] Start: 08-21-2024 End: 08-22-2024 Evaluation and management of inpatient FELICIA ORNELAS [facility] Start: 08-21-2024 Non-patient / [facility] Work Phone: Start: 08-20-2024 Non-patient / Non-visit [facility] Work Phone: Start: 12-12-2023 End: 12-12-2023 ambulatory Chon Aguila Other [employer] Other Start: 12-12-2023 Telephone encounter Chon Aguila [facility] Start: 11-29-2023 End: 11-29-2023 ambulatory MD Chon Aguila Work Phone: [facility] Work Phone: Start: 11-29-2023 End: 11-29-2023 Patient encounter procedure MD Chon Aguila Work Phone: [facility] Work Phone: Start: 10-25-2023 End: 10-25-2023 ambulatory Chon Aguila Other [employer] Other Start: 10-25-2023 Office outpatient vi sit 15 minutes Chon Aguila [facility] Start: 10-25-2023 End: 10-25-2023 Patient encounter procedure MD Chon Aguila Work Phone: [facility] Work Phone: Start: 06-07-2023 End: 06-07-2023 ambulatory Chon Aguila Other [employer] Other Start: 06-07-2023 Telephone encounter Chon Aguila [facility] Start: 02-03-2023 (Televisit) Televisit Chon Hess [facility] Start: 02-03-2023 End: 02-03-2023 ambulatory Chon Aguila Other [employer] Other Start: 10-18-2022 Adult health examination Aileen Aguila Other [employer] Other Start: 10-18-2022 End: 10-19-[address] CHON AGUILA Facility:[facility] Start: 07-11-2022 Encounter for genera l adult medical examination without abnormal findings DR CHON AGUILA [facility] Start: 07-08-2022 End: 07-09-[address] CHON AGUILA Facility:[facility] Start: 07-08-2022 End: 07-09-2022 Encounter for general adult medical examination without abnormal findings DR CHON AGUILA Facility:[facility] Start: 11-06-2021 End: 11-06-2021 ambulatory Rosalba Martinez Other [employer] Other Start: 11-06-2021 Postop follow up vis it related to original px Rosalba Calvey [facility] Start: 09-30-2021 End: 09-30-2021 ambulatory Rosalba Juan Other [employer] Other Start: 09-30-2021 Postop follow up vis it related to original px Rosalba Calvey [facility] Start: 08-11-2021 Office outpatient vi sit 25 minutes Rosalba Calvey [facility] Procedures Date Procedure Procedure Detail Performing Clinician Start: 12-14-2024 Screening mammograph y of bilateral breasts Chon Aguila MD Work Phone: Start: 11-29-2023 Screening mammograph y of bilateral breasts MD Chon Aguila Work Phone: Start: 09-19-2018 General examination of patient Chon Aguila Other Screening for malign ant neoplasm of colon Chon Aguila Other Plan of Treatment Date Care Activity Detail Author Start: 11-30-2024 End: 01-05-2026 DBT Breast - bilateral screening Bilateral screening mammogram with tomosynthesis Imaging Routine Other screening mammogram Expected: 11/30/2024, Expires: 01/05/2026 [facility] Work Phone: Comment on above: Expected: 11/30/2024 , Expires: 01/05/2026 [facility] Immunizations Immunization Date Immunization Notes Care Provider Chidi dillard 08-30-2022 influenza virus vaccine, split virus (incl. purified surface antigen) Chon Aguila Other [facility] [employer] Other 08-30-2022 influenza virus vaccine, unspecified formulation [facility] 08-04-2021 influenza virus vaccine, split virus (incl. purified surface antigen) Chon Aguila Other [facility] [employer] Other 08-04-2021 influenza virus vaccine, unspecified formulation [facility] 07-01-2021 COVID-19 Vaccine Pfi zer - Documentation Purposes Only Chon Aguila Other [facility] 06-10-2021 COVID-19 Vaccine Pfi zer - Documentation Purposes Only Chon Aguila Other [facility] 02-11-2021 Kenalog -40 mg Rosalba Calve y Other [facility] [employer] Other 03-11-2020 Kenalog -40 mg Rosalba Calve y Other [facility] [employer] Other 07-11-2019 Kenalog -40 mg Rosalba Calve y Other [facility] [employer] Other 08-31-2017 tetanus and diphther ia toxoids, adsorbed, preservative free, for adult use (5 Lf of tetanus toxoid and 2 Lf of diphtheria toxoid) Chon Aguila Other [facility] 09-13-2016 tetanus and diphther ia toxoids, adsorbed, preservative free, for adult use (5 Lf of tetanus toxoid and 2 Lf of diphtheria toxoid) Chon Aguila Other [facility] 10-02-2015 influenza virus vaccine, split virus (incl. purified surface antigen) Chon Aguila Other [employer] Other 10-02-2015 influenza virus vaccine, unspecified formulation [facility] Payers Date Payer Category Payer Self-pay [id number] 2023 Private Health Insurance [facility] [id number] 2022 Unknown [id number] 1970 Unknown [id number] 1970 Unknown [id number] 1970 Unknown [id number] 1959 Unknown [id number] Unknown [id number] Social History Date Type Detail Facility Unknown if ever smoked [employer] Other Start: 11-07-2024 Sex Assigned At [employer] Other Start: 08-27-2021 End: 11-02-2023 Tobacco smoking status NHIS Never smoked tobacco (finding) [facility] Start: 1970 Sex Assigned At Female [facility] Start: 11-02-2023 Tobacco use and exposure Smokeless tobacco non-user [facility] Start: 11-07-2024 Alcoholic beverage intake Ex-drinker (finding) [facility] Start: 11-07-2024 History of Social function [facility] Start: 11-02-2023 Gender identity Identifies as female gender (finding) [facility] Start: 11-02-2023 Sexual orientation Heterosexual (finding) [facility] Start: 12-15-2024 Sex Female (finding) [facility] Medical Equipment Procedure Code Equipment Code Equipment Origin al Text Equipment Identifier Dates Arthroplasty, thumb Orthopaedic bone staple, non-adjustable, sterile [id number] FDA Start: 09-19-2020 Arthroplasty, thumb Orthopaedic bone staple, non-adjustable, sterile [id number] FDA Start: 08-27-2021 Arthroplasty, thumb Orthopaedic bone staple, non-adjustable, sterile [id number] FDA Start: 08-27-2021 Clinical Notes 08-11-2021 to 12-19-2024 Giulia Muir, DO - 11/07/2024 10:15 AM EST Note Date & Type Note Facility 12-19-2024 Note [place] Cardiology - [facility] Subjective Ortiz Bautista is a 54 y.o. year old female patient being seen for Cardiomyopathy (NON ISCHEMIC ), and Hypothyroidism Patient Active Problem List Diagnosis Chest pain Elevated troponin Depression Hypothyroidism Takotsubo cardiomyopathy Left ventricular systolic dysfunction (LVSD) YENNI positive Bilateral hand pain Chronic bilateral low back pain without sciatica Joint stiffness of multiple sites Myalgia Knee pain, bilateral Pain in both feet Palpitations Secondary osteoarthritis of multiple sites HPI 12/19/2024 Patient is here today for follow-up visit. She reports that she has been doing well. She denies any chest pain or shortness of breath at rest or with exertion. She denies orthopnea or paroxysmal nocturnal dyspnea or dizziness or palpitations. She denies legs edema or leg discomfort on exertion. She has not been checking her blood pressure at home. She states that she is under a lot of stress because her father who lives with her fell recently and had fracture of his back. Also he has Alzheimer and Parkinson. 09/05/2024 Patient was admitted recently to the hospital [...] nitroglycerin was given Medications Current Outpatient Medications: apixaban (Eliquis) 2.5 mg tablet, Take 1 tablet (2.5 mg) by mouth two times daily., Disp: 180 tablet, Rfl: 3 carvedilol (Coreg) 3.125 mg tablet, Take 1 tablet (3.125 mg) by mouth with breakfast and with evening meal., Disp: 180 tablet, Rfl: 3 cholecalciferol (Vitamin D-3) 25 [...] Take 1 tablet (40 mg) by mouth once daily as directed., Disp: 90 tablet, Rfl: 3 eplerenone (Inspra) 25 mg tablet, Take 1 tablet (25 mg) by mouth in the morning. (Patient not taking: Reported on 12/19/2024), Disp: 90 tablet, Rfl: 3 spironolactone (Aldactone) 25 mg tablet, Take 1 tablet (25 mg) by mouth in the morning. (Patient not taking: Reported on 12/19/2024), Disp: 90 tablet, Rfl: 3 thyroid, pork, 60 mg tablet, Take 1 tablet (60 mg) by mouth in the morning. Do not start before August 27, 2024. (Patient not taking: Reported on 09/05/2024), Disp: 30 tablet, Rfl: 0 Objective Visit Vitals BP 157/85 (BP Location: Left arm, Patient Position: Sitting) Pulse 61 Ht 1.6 m (5' 3 ) Wt 72.1 kg (159 lb) SpO2 98% BMI 28.17 kg/m??? Smoking Status Never BSA 1.79 m??? Physical exam: GENERAL: alert and oriented x3, well developed, in no acute distress. HEAD: atraumatic, normocephalic. EYES: YONATAN, EOMI. NECK: trachea midline, no JVD present, no carotid bruits present. CARDIAC: S1, S2 present. RRR. No murmur, rubs, or gallops. RESPIRATORY: CTAB, no increased effort of breathing, no rales, rhonchi, or wheezing. ABDOMEN: soft, nontender, nondistended. EXTREMITIES: no lower extremity edema. No rash/skin discolo (more content not included)... [facility] 11-07-2024 History of Present illness Narrative Images from the original note were not included. Giulia Muir DO Obstetrics and Gynecology Name: Ortiz Shelyb Bautista Date/Time of Service:11/07/2024 10:49 AM :1970 Age: 54 y.o. Subjective Ortiz Bautista is a 54 y.o. female who is here for a routine exam. Gynecologic Exam (Patient here for yearly. Denies any problems at this time. Mammogram order sent to [facility]. Cologuard completed on 04/23/24) Control Contraception: post menopausal status. LMP: No LMP recorded. Patient is postmenopausal. Last Mammogram Results for orders placed in visit on 03/15/22 Bilateral screening mammogram Narrative PERFORMED AT [facility] LOCATION:[address] [place] [address] [place] [address] Mammography Report Signed Patient: Ortiz Bautista MR#: [id number] 69 : 1970 Acct:[id number] Age/Sex: 52 / F ADM Date: 08/16/22 Loc: [place] Room: Type: [facility] Attending Dr: Giulia Muir DO Copies to: MD ISADORA Nguyen MONA DO Ordering Provider: GIULIA MUIR DO Date of Service: 08/16/22 MM/MM screening mammo BI w/CAD: screening;Other screening mammogram CLINICAL DATA: Screening for malignancy. SCREENING MAMMOGRAM - FULL FIELD DIGITAL WITH TOMOSYNTHESIS AND CAD COMPARISON:Mammograms dating back to 2019 Tomosynthesis craniocaudal and mediolateral oblique views of both breasts were obtained using low- dose digital technique. This examination was reviewed with the aid of CAD. The breast tissue is composed of scattered fibroglandular densities. There are no dominant masses, typically malignant calcifications or architectural distortion. There has been no significant interval change. MM/MM screening mammo BI w/CAD Impression NO MAMMOGRAPHIC EVIDENCE OF MALIGNANCY. ROUTINE FOLLOW-UP IS RECOMMENDED IN ONE YEAR. RESULT CODE: 1 Negative DENSITY CODE: 2 (approximately 25-50% glandular) FOLLOW UP: 1YR The false-negative rate of mammography is approximately 10-percent. Management of a palpable abnormality must be based on clinical grounds. Patient was entered into a reminder system with a target due date for the next mammogram. Impression dictated by: Wilbur Ayala Jr., D.OLatesha08/16/2022 4:08 PM Dictation Location: [facility] Transcribed By: ERNIE 08/16/22 1608 Dictated By: Wilbur Ayala Jr, DO 08/16/22 1501 Signed By: <Electronically signed by Wilbur Ayala Jr, DO in OV> 08/16/22 1608 Current Outpatient Medications on File Prior to Visit Medication Sig Dispense Refill apixaban (Eliquis) 2.5 MG tablet Take 2.5 mg by mouth in the morning and 2.5 mg in the evening. carvedilol (Coreg) 3.125 MG tablet Take 3.125 mg by mouth in the morning and 3.125 mg in the evening. Take with meals. DULoxetine (Cymbalta) [address] capsule eplerenone (Inspra) 25 MG tablet Take 25 mg by mouth in the morning. valsartan (Diovan) 40 MG tablet Take 40 mg by mouth levothyroxine (Synthroid, Levoxyl) 75 MCG tablet Take 75 mcg by mouth in the morning. Take before meals. melatonin ( Melatonin) 3 MG tablet Oral naproxen (Naprosyn) 500 MG tablet every 12 (twelve) hours [DISCONTINUED] [place] Thyroid 60 MG tablet Take 60 mg by mouth in the morning. No current facility-administered medications on file prior to visit. Past Medical History: Diagnosis Date YENNI positive COVID-19 09/2021 Depression (CMS/HCC) Enlarged heart Hiatal hernia Hypothyroidism (CMS/HCC) Osteoarthritis Right thyroid nodule (CMS/HCC) Sleep apnea Vitamin D deficiency Past Surgical History: Procedure Laterality Date SECTION, LOW TRANSVERSE CHOLECYSTECTOMY 2008 OTHER SURGICAL HISTORY endoscopy NEG for barretts change OTHER SURGICAL HISTORY 08/2020 bone fusion in right wrist OTHER SURGICAL HISTORY RT thumb carpometacarpal joint fusion w bone autograft OTHER SURGICAL HISTORY left thumb carpometacarpal joint fusion w/bone autograft and release of tendon TONSILECTOMY, ADENOIDECTOMY, BILATERAL MYRINGOTOMY AND TUBES Family History Problem Relation Name Age of Onset Postmenopausal breast cancer Mother Cervical cancer Mother Social History Tobacco Use Smoking status: Never Smokeless tobacco: Never Substance Use Topics Alcohol use: Not Currently Drug use: Never OB History Para Term AB Living 1 1 SAB IAB Ectopic Multiple Live Births # Outcome Date GA Lbr Joss/2nd Weight Sex Type Anes PTL Lv 1 Para No Known Allergies Review of Systems Constitutional: Negative. Respiratory: Negative. Cardiovascular: Negative. Gastrointestinal: Negative. Musculoskeletal: Negative. Skin: Negative. Neurological: Negative. Endocrine: Negative. Objective BP 144/82 Wt 158 lb BMI 27.12 kg/m Body mass index is 27.12 kg/m . Physical Exam Genitourinary: Urethral meatus normal. No lesions in the vagina. Right Labia: No lesions. Left Labia: No lesions. No vaginal discharge. No vaginal prolapse present. Moderate vaginal atrophy present. Right Adnexa: not tender and no mass present. Left Adnexa: not tender and no mass present. No cervical lesion. Cervical exam comments: Stenotic cervical os. Uterus is not tender. Uterus is anteverted. No urethral stress urinary incontinence with cough stress test present. Bladder is not tender. Rectum: No rectovaginal septum nodularity. Breasts: Right: No mass, nipple discharge, skin change or tenderness. Left: No mass, nipple discharge, skin change or tenderness. HENT: Head: Normocephalic and atraumatic. Mouth/Throat: Mouth: Mucous membranes are moist. Cardiovascular: Rate and Rhythm: Normal rate and regular rhythm. Pulmonary: Effort: Pulmonary effort is normal. Breath sounds: Normal breath sounds. Abdominal: General: Bowel sounds are normal. Palpations: Abdomen is soft. Musculoskeletal: General: No tenderness. Cervical back: Neck supple. Neurological: Mental Status: She is alert and oriented to person, place, and time. Skin: General: Skin is warm and dry. Psychiatric: Mood and Affect: Mood normal. Vitals and nursing note reviewed. Assessment/Plan 1. Encounter for gynecological examination without abnormal finding (Primary) Breast and pelvic exam performed. Discussed findings. Patient to contact the office with any changes to her gynecological condition. 2. Other screening mammogram Mammogram order sent. Patient to schedule appointment - Bilateral screening mammogram with tomosynthesis; Future 3. Family history of breast cancer ICD-10-CM 1. Encounter for gynecological examination without abnormal finding Z01.419 2. Other screening mammogram Z12.31 Bilateral screening mammogram with tomosynthesis 3. Family history of breast cancer Z80.3 No follow-ups on file. Giulia Muir DO 11/07/2024 10:49 AM documented in this encounter [facility] 09-05-2024 Note [place] Cardiology - [facility] Subjective Ortiz Bautista is a 54 y.o. year old [...] Global left ventricular (more content not included)... [facility] 08-22-2024 Note Hospital Medicine Discharge Summary Final Discharge Diagnosis: Stress-induced cardiomyopathy Elevated troponin in setting of above Acquired hypothyroidism Major depressive disorder Admission Diagnosis: Chest pain [R07.9] Hospital course: Ortiz Bautista is a 54 y.o. female with past medical history of major depressive disorder and hypothyroidism, who presented as a direct admission from [facility] with chest pain and elevated troponin. Patient reported that last night she started having midsternal chest pain with radiation into her left arm and left jaw, her chest pain was retrosternal in location, severe in intensity, with no other associated symptoms. She denied having any shortness of breath or sweating or any other complaints. Initial high-sensitivity troponin of 143, initial troponin in [facility] with 2 mg/dL. Patient was started on [...] During Admission: Cardiology Dear Dr. Ayla MD, Ortiz is advised to follow up with you [...] Your Medications These medications were sent to [id number] [id number] apixaban 2.5 mg tablet carvedilol 3.125 mg tablet thyroid (pork) 60 mg tablet valsartan 40 mg tablet Ortiz is allergic to nitroglycerin. Disposition: Home or [...] is alert. Mental (more content not included)... [facility] 08-22-2024 Note [facility] CARDIOLOGY INPAT IENT PROGRESS [...] Value Ventricular Rate 76 Atrial Rate 76 [place] Interval 132 QRS DURATION 72 QT Interval 408 QTC CALCULATION(BAZETT) 459 P [place] 63 R-[place] 87 T Wave [place] 99 Impression Normal sinus rhythm Nonspecific ST and T wave abnormality Abnormal ECG No previous ECGs available Confirmed by Francisca Liang ([id number]) on 08/21/2024 5:36:12 PM Cardiac Catheterization 08/21/24: Impression/Findings: Normal coronary angiogram. Findings are consistent with non-ischemic cardiomyopathy, likely Takotsubo syndrome (stre (more content not included)... [facility] 08-21-2024 Note 08/21/24 1830 Admission Assessment Questions Verify insurance with patient Yes Do you understand medical disease or what brought you into the hospital? Yes Who is your current PCP? Chon Aguila MD Can I schedule a follow up appointment for you at the time of discharge? No (Patient will schedule per self.) Do you understand why you are taking your current medications? Yes Are you taking your medications as prescribed? Yes Did patient provide teach back? No Pharmacy Bedside Delivery Status Interested Does the patient have a supportive employment case manager assigned to them through their insurance? No [...] patient to ask at [facility]io Clinic in [place] when she follows up if she decides she would like to.) [facility] 08-21-2024 Note Patient: Ortiz Bautista Procedure Information Date/Time: 08/21/24 1900 Procedure: Coronary angiography Location: [facility] TURP[facility] 3 / [facility] (Cath) Providers: Shun Benz MD Clinical information reviewed: Tobacco Allergies Meds Med Hx Surg Hx Fam Hx Soc Hx Physical Exam Airway Mallampati: II TM distance: >3 FB Neck ROM: full Cardiovascular Rhythm: regular Rate: normal Dental Pulmonary Abdominal Anesthesia Plan ASA 3 (Conscious sedation) Anesthetic plan and risks discussed with patient. Additional Equipment Requests [facility] 08-21-2024 Note Case was discussed w ith the PANKAJ on 08/21/2024. I agree with the history, physical, assessment, and plan of care. I discussed the findings and therapeutic plan. I agree with the documentation, except for any updates below. Roxy Ocasio MD [facility] 08-21-2024 Note Hospital Medicine History and Physical 08/21/2024 4:01 AM THE HOSPITALIST TEAM PREFERS TO USE [employer] CHAT FOR NON-URGENT COMMUNICATION 7AM-7PM. IF I DO NOT RESPOND WITHIN 20 MINUTES OR URGENT MATTERS, PLEASE CALL THROUGH THE FIELD MECHANIC. FROM 7PM-7AM, PLEASE PAGE [phone](COVR). Chief Complaint Direct admission from [facility] with chest pain and elevated troponin History of Present Illness Ortiz Bautista is an 54 y.o. female who came from home with past medical history of depression and hypothyroidism presents as a direct mission from [facility] with chest pain and elevated troponin level. Patient reports around 4:30 PM this afternoon she began to have midsternal chest pain with radiation into her left arm and left jaw. She reports the pain was stabbing and constant. She denies any cardiac history in the past. She denies smoking use. She does report that her father has a history of a CABG. At [facility], labs were completed showing WBC 9.6, RBC 5.06, hemoglobin 15.4, hematocrit 46, platelet count 395, INR 0.93, sodium 141, potassium 3.9, BUN 11, creatinine 1.05, lactate 1.1, magnesium 2.3, troponin 143.7. Repeat troponin found to be 710.1. [place] provider spoke with our cardiology department who stated to start patient on a heparin drip and transfer patient for possible cardiac intervention in a.m. During my exam, patient is still complaining of left jaw pain but states that chest pain has subsided. She reports that she was given sublingual nitroglycerin at [facility] which bottomed out her blood pressure and [...] troponin Depression Acquired hypothyroidism Assessment and Plan Ortiz Bautista is an 54 y.o. female who came from home with past medical history of depression and hypothyroidism presents as a direct mission from [facility] with chest pain and elevated troponin level. [...] this hospital stay by a member of [facility]. Past Medical History No past medical history on file. Past (more content not included)... [facility] 10-25-2023 Evaluation note Encounter Date Diagnosis Assessment [...] - E03.9) Chronic problem, due for labs. [employer] Other 04-06-2023 Evaluation note* Encounter Date Diagnosis [...] Pt understood and agreed to tx plan. [employer] Other 01-07-2022 Evaluation note* Encounter Date Diagnosis Assessment Notes Treatment Notes Treatment Clinical Notes Oct, Primary osteoarthritis of left hand (ICD-10 - M19.042) Oct, Trigger thumb, left thumb (ICD-10 - M65.312) Rx given for Medrol Dosepak Oct, Left hand pain (ICD-10 - M79.642) Oct, Other specified postprocedural states (ICD-10 - Z98.890) [employer] Other 12-01-2021 Evaluation note* Encounter Date Diagnosis Assessment Notes Treatment Notes Treatment Clinical Notes Sep, Other specified postprocedural states (ICD-10 - Z98.890) Sep, Primary osteoarthritis of left hand (ICD-10 - M19.042) Radiographs reviewed with patient. She is progressing well from surgery at this time. May transition from large brace to smaller neoprene thumb brace. Continue gentle motion and strengthening exercises. Call with questions/concerns. [employer] Other 10-12-2021 Evaluation note* Encounter Date Diagnosis [...] Arthritis of hand, left (ICD-10 - M19.042) [employer] Other Evaluation noteNo InformationNort [employer] Other Evaluation noteNo assessment information available [facility] Work Phone: Evaluation note* Diagnosis Onset Date Resolution Status Hypothyroidism, unspecified acute [facility] Work Phone: Evaluation note* Diagnosis Encounter for gynecological examination without abnormal finding- Primary Other screening mammogram Family history of breast cancer Family history of malignant neoplasm of breast [facility] - [facility]* Type Description Date Medical History acid reflux Medical History thyroid disease Medical History Osteoarthritis Surgical History gall bladder Surgical History tonsillectomy and adenoidectomy Surgical History C section Surgical History colonoscopy Surgical History right thumb carpometacarpal caridad nt arthrodesis/ fusion 09/19 [employer] Other History general Narrative - Reported* Type Description Date Medical History acid reflux Medical History thyroid disease Medical History Osteoarthritis Surgical History gall bladder Surgical History tonsillectomy and adenoidectomy Surgical History C section Surgical History colonoscopy Surgical History right thumb carpometacarpal caridad nt arthrodesis/ fusion 09/19 Surgical History left thumb [facility] arthr odesis/ fusion and left first dorsal wrist compartment. DOS: 08/27/2021. [employer] Other Hisvjvq general Narrative - Reported* Type Description Date [...] DOS: 08/27/2021. Hospitalization History SEE SURGICAL HX [employer] Other Summary Purpose Family History No Family [...] Covid Negative Screening Chief Complaint Amb Documentation [facility]: Heart Cath f/u Reason for Visit Hypothyroidism, unsp ecified Chief Complaint Admit Date Z12.December 14, 2024 10:53am Additional Source Comments INFORMATION SOURCE (unrecogn ized section and content) DATE CREATED AUTHOR 04/25/2018 [facility] DATE CREATED AUTHOR AUTHOR'S ORGANIZ ATION 01/12/2023 [facility] DATE CREATED AUTHOR AUTHOR'S ORGANIZ ATION 11/12/2024 [facility] EPIC DATE CREATED AUTHOR AUTHOR'S ORGANIZ ATION 12/16/2024 [facility] DATE CREATED AUTHOR AUTHOR'S ORGANIZ ATION 12/21/2024 [facility] REASON FOR VISIT (unrecogniz ed section and content) Reason Comments Gynecologic Exam Patient here for arlyn mcgarry. Denies any problems at this time. Mammogram order sent to [facility]. Cologuard completed on 04/23/24 Care Teams (unrecognized sec tion and content) Team Status: Active Member Role Status Dates Chon Aguila MD Primary Care Provider Active Team Status: Active Member Role Status Dates Chon Aguila MD Primary Care Provider Active Start: August 20, 2024 Jade Soto PA-C Attending Provider Active Start: August 20, 2024 Team Status: Active Member Role Status Dates Chon Aguila MD Primary Care Provider Active Start: August 21, 2024 Jignesh Ornelas DO Attending Provider Active S tart: August 21, 2024 Team Status: Active Member Role Status Dates Chon Aguila MD Primary Care Provider Active Start: August 23, 2024 Trina David CMA Attending Provider Active Start: August 23, 2024 Team Status: Inactive Member Role Status Dates Chon Aguila MD Primary Care Provide r, Attending Provider Active Start: August 28, 2024 End: August 28, 2024 Team Status: Inactive Member Role Status Dates Chon Aguila MD Attending Provider Active St art: October 25, 2023 End: October 25, 2023 Team Status: Inactive Member Role Status Dates Chon Aguila MD Primary Care Provider Active Start: November 29, 2023 End: November 29, 2023 Referral Self Attending Provider Active Start: J an2023 End: November 29, 2023 Giulia Muir DO Referring Provider Active Start: November 29, 2023 End: November 29, 2023 Conveyor Operator Relationship Specialty Start Date End Date Chon Aguila MD [address] [place] [id number] PCP - General Family Medicine 11/02/23 Team Status: Active Member Role Status Dates Chon Aguila MD Primary Care Provider Active Start: September 17, 2024 Preet Espinosa MD Attending Provider Active Star t: September 17, 2024 Team Status: Active Member Role Status Dates Chon Aguila MD Primary Care Provider Active Start: October 19, 2024 Mayelin Rivero NP-C Attending Provider Active Start: October 19, 2024 Team Status: Active Member Role Status Dates Chon Aguila MD Primary Care Provider Active Start: December 03, 2024 Preet Espinosa MD Attending Provider Active Star t: December 03, 2024 Team Status: Inactive Member Role Status Dates Chon Aguila MD Primary Care Provider Active Start: December 14, 2024 End: December 14, 2024 Giulia Muir DO Attending Provider Active Start: December 14, 2024 End: December 14, 2024 Goals (unrecognized section and content) Goals may [...] BE BASED ON THE PRIMARY CLINICAL RECORDS. [facility]. provides no warranty or guarantee of the accuracy or completeness of information in this document.
[2025-01-04 13:50] LABS: Alanine Aminotransferase 36 U/L (14-59); Anion Gap 10.9; Aspartate Amino Transferase 21 U/L (15-37); BUN Creatinine Ratio 8.4; Calcium 8.8 mg/dL (8.5-10.1); Carbon Dioxide 31.3 mmol/L (21.0-32.0); Chloride 104 mmol/L (98-107); Chol HDL Ratio 2.2; Cholesterol 132 mg/dL (<=200); Estimated GFR (African America >60 (>=60 mL/min/1.73m^2); Estimated GFR (Non-African Ame 53 (>=60 mL/min/1.73m^2); Glucose 123 mg/dL (74-106); HDL Cholesterol 61 mg/dL (40-60); Potassium 4.2 mmol/L (3.5-5.1); Sodium 142 mmol/L (136-145); Triglycerides 102 mg/dL (<=150); VLDL CHOLESTEROL 20.4 mg/dL
== END 2025-01-04 12:27 | disposition home or self-care (01) ==
LOC: LAB 12:28
PROVIDERS: PCP Family Medicine; Visit Provider Internal Medicine Cardiovascular Disease
DX: E78.00 Pure hypercholesterolemia, unspecified (principal); I51.81 Takotsubo syndrome
CPT/HCPCS: 36415; 80048; 80061; 84450; 84460

== ENCOUNTER 2025-05-23 10:55 | Outpatient (OUT) | payer OTHER, SELFPAY ==
[2025-05-23 12:07] LABS: Alanine Aminotransferase 42 U/L (14-59); Anion Gap 11.0; Aspartate Amino Transferase 23 U/L (15-37); Blood Urea Nitrogen 12.0 mg/dL (7.0-18.0); Calcium 8.7 mg/dL (8.5-10.1); Carbon Dioxide 31.0 mmol/L (21.0-32.0); Chloride 104 mmol/L (98-107); Estimated GFR (African America >60 (>=60 mL/min/1.73m^2); Estimated GFR (Non-African Ame >60 (>=60 mL/min/1.73m^2); Glucose 120 mg/dL (74-106); HDL Cholesterol 52 mg/dL (40-60); Potassium 4.0 mmol/L (3.5-5.1); Sodium 142 mmol/L (136-145); Triglycerides 159 mg/dL (<=150); VLDL CHOLESTEROL 31.8 mg/dL
[2025-05-23 12:31] LABS: Cholesterol 239 mg/dL (<=200)
== END 2025-05-23 10:56 | disposition home or self-care (01) ==
LOC: LAB 10:56
PROVIDERS: PCP Family Medicine; Visit Provider Internal Medicine Cardiovascular Disease
DX: E78.2 Mixed hyperlipidemia (principal); I51.81 Takotsubo syndrome
CPT/HCPCS: 36415; 80048; 80061; 84450; 84460

== ENCOUNTER 2025-09-18 12:50 | Outpatient (OUT) | payer BC, SELFPAY ==
--- OUTSIDE RECORDS SUMMARY | 2025-09-12 07:24 | XMS_ITS | Continuity of Care Document ---
Author Organization [facility] Address [address] [place] [address] Phone Care Team Providers Care Brain Wave Technician Name Role Phone Angie Mcgee MD Primary Care Provider Angie Mcgee MD Attending Provider Care Teams Patient Care Team Team Status: Active Member Role/Relationship Status Dates Angie Mcgee MD Primary Care Provider Active Patient Care Team Team Status: Inactive Member Role/Relationship Status Dates Angie Mcgee MD Primary Care Provider Active Start: September 12, 2025 End: September 12, 2025Angie Mcgee MDAttending ProviderActiveStart: September 12, 2025 End: September 12, 2025 Chief Complaint and Reason for Visit Chief Complaint Admit Date Wellness September 12, 2025 11:30am Reason for Visit Admit Date Hypothyroidism, unspecified August 11:30am Allergies, Adverse Reactions, Alerts Allergen Type Severity Reaction Last Updated Verified Status No Known Allergies Allergy Unknown September 12, 2025 11:43amYesActive Social History Smoking Status Status Start Date End Date Date of Observa tion Never smoked tobacco (finding) August 27, 2021 11:33am Observation Status Observation Response Date of Response Legal Sex Female (finding) Sex Assigned At BirthFemaleApril 1969 Family History Relationship Condition Age at Onset Recorded Date/T sharron father Family history of co ronary artery bypass surgery Unknown Coronary artery diseaseUnknownAlzheimer's diseaseUnknownDiabetes mellitusUnknown HypertensionUnknownmotherMalignant neoplasm of ovaryUnknownMalignant neoplasm of breastUnknownHypothyroidismUnknownsonType 1 diabetes mellitusUnknownfatherHeart diseaseUnknownDiabetes mellitusUnknownmotherMalignant neoplasmUnknownsonDiabetes mellitusUnknown Problems Active Problems Problem Diagnosis/Recorded Date Onset Date Status C omments Hypothyroidism, unspecified August 28, 2024 7:56am Unkn own Active NICM (nonischemic cardiomyopathy)August 28, 2024 12:12pmUnknownActive Inactive/Resolved Problems Problem Diagnosis/Recorded Date Onset Date Status C omments Postoperative pain of extremity August 27, 2021 12:19pm Unknown Resolved Probl em List clean-up per request of Phys. EHR Cmte De Quervain's tenosynovitis, left August 27, 2021 12:19pm Unknown Resolved P roblem List clean-up per request of Phys. EHR Cmte Arthritis of carpometacarpal (CMC) joint of thumb August 27, 2021 12:19pm Unknown Resolved Probl em List clean-up per request of Phys. EHR Cmte Medications Medication Status Dose Units Route Directions Qty Days Refills S tart Date Stop Date End Date Reason(s) Instructions Adherence Duloxetine 30 mg capsule,delayed release(DR/EC) Discon tinued 0 .ROUTE.BJRTKKF570Pix 2023 11:43amJuly 2023 10:10amTAKE 1 CAPSULE BY MOUTH DAILYDuloxetine 30 mg capsule,delayed release(DR/EC)Discontinued0.ROUTE .GLKJPVL127Xzmj 2023 10:10amOctober 2023 10:44amTAKE 1 CAPSULE BY MOUTH DAILYThyroid (Pork) 60 mg tabletDiscontinued0.ROUTE.RTJVPBC792Xxpq 2023 10:10amOctober 2023 10:45amTAKE 1 TABLET BY MOUTH EVERY DAYDuloxetine 20 mg capsule,delayed release(DR/EC)Discontinued0.ROUTE.SEGMYOQ961Mlzpywkh 2023 4:59pmDecember 2023 4:39pmTAKE 1 CAPSULE BY MOUTH DAILYLevothyroxine 75 mcg tabletDiscontinued0.ROUTE.SOIOFQR540Vdlzgiem 2023 4:59pmFebruary 2024 3:14pmTAKE 1 TABLET BY MOUTH DAILYDuloxetine 20 mg capsule,delayed release(DR/EC)Discontinued0.ROUTE.TDGJQSL169Cbhlrkhl 2023 4:39pmMarch 2024 9:24amTAKE 1 CAPSULE BY MOUTH DAILYLevothyroxine 75 mcg tablet Discontinued0.ROUTE.ARNOLXW672Lvvfbwuj 2024 3:14pmMay 2024 2:39pm TAKE 1 TABLET BY MOUTH DAILYDuloxetine 20 mg capsule,delayed release(DR/EC) Discontinued0.ROUTE.NZVPOJG536Dsafl 2024 9:24amJuly 2024 6:19amTAKE 1 CAPSULE BY MOUTH DAILYLevothyroxine 75 mcg tabletDiscontinued0.ROUTE.SOXODWI35 0March 19, 2025 2:39pmAugust 2024 7:33amTAKE 1 TABLET BY MOUTH DAILY Duloxetine 20 mg capsule,delayed release(DR/EC)Discontinued0.ROUTE.SIVKVIC991 May 24, 2025 6:19amOctober 2024 11:48amTAKE 1 CAPSULE BY MOUTH DAILY Levothyroxine 75 mcg tabletActive0.ROUTE.OWADXMV745Qcwplf 25th, 2025 7:33amTAKE 1 TABLET BY MOUTH DAILYComplies with drug therapyDuloxetine 20 mg capsule,delayed release(DR/EC)Active0.ROUTE.NIDNUPR964Jvnofnv2024 11:48am TAKE 1 CAPSULE BY MOUTH DAILYComplies with drug therapyMultivitamin TabletActive 1TABPODaIndiana [facility] 2020 11:00pmComplies with drug therapyMagnesium 200 mg WfhedwDmrgqncmsrna118RVGNCrtrmAyjhvue 2020 11:00pmOctrobley rex va medical center 2023 10:43amTurmeric 400 mg HlsbifgKlsgxw196XHEWJlkymXjkjhcd 2020 11:00pm Complies with drug therapyDoxycycline Hyclate 100 mg pqaiikJjgbugbjdczy649IHHB Twice aztoc3916Mjlffbn 27th, 2021 11:00pmOctrobley rex va medical center 2023 10:42amHydrocodone- Acetaminophen 5-325 mg vjnqohOufzxdlpaqsi6PPXXDOMBZH 4-6 HOURS as needed for ukro7338Ibrspih 2020October 2023 10:43amPostoperative pain of extremity Arthritis of carpometacarpal (CMC) joint of thumb Radial styloid tenosynovitis of left hand Other acute postprocedural pain Pain in unspecified limb Radial styloid tenosynovitis [de Quervain]Levothyroxine 88 mcg tablet Aeytatzfsluc94EEJCAIqowg morningSeptember 11, 2020 12:00amMa2023 1:00pm hypothyroidCyanocobalamin (Vitamin B-12) (Vitamin B-12) 500 mcg ZmlwuySnmbrl027 MCGPODailyNov2019 12:00amComplies with drug therapyDuloxetine 30 mg capsule,delayed release(DR/EC)Xgyscsaengiq01SVKSJzmpb 2019 12:00amMay 2023 11:43amanxietyCholecalciferol (Vitamin D3) (Vitamin D3) 25 mcg (1,000 unit) TgqnklPezyguphiyfe30HMLIBZmhjuJjrhrftq 12th, 2020 12:00am October 2023 10:42amMelatonin 10 mg NfvopxUgresr0AKYRAvwbfod as needed for SleepSeptember 11, 2020 12:00amComplies with drug therapyDiclofenac Sodium 1 % YwdZzrhglvtqmzh7MQHJPHOCYKggjl daily as needed for PainNov2019 12:00amOct2023 10:42amOmeprazole 20 mg Tablet,Delayed Release (Dr/Ec) Rbblklfhmldc93FGCSIjqwc 2019 12:00amOct2023 10:43amgerdHydrocodone-Acetaminophen ([place]) 5-325 mg tabletDiscontinued1 - 2TAB POEVERY 4-6 HOURS as needed for What6887Tavieylc 20th, 2020October 2020 3:22pmArthritis of carpometacarpal (CMC) joint of thumb Postoperative pain of extremity Other acute postprocedural painDoxycycline Hyclate 100 mg bmfegoXasmwgnpbamc125 MGPOTwice cgyac7247ZaijzmgnSeptember 19, 2020 12:00amOctober 2020 3:21pmThyroid (Pork) (Elysian Thyroid) 60 mg qujrccOqfpzmguadvz20RIPBKrvcsFyo 2023 11:00pmMay 2023 1:00pmThyroid (Pork) (Elysian Thyroid) 60 mg tablet Avajcslqassn13DAFSLtmtt610Vki 2023 1:00pmJuly 2023 10:10amApixaban (Eliquis) 2.5 mg tabletDiscontinued2.5MGPOTwice dailyOctober 2023 11:00pm September 12, 2025 11:44amCarvedilol 3.125 mg tabletDiscontinued3.125MGPOTwice dailyOctober 2023 11:00pmNovember 2024 11:44ammust administer with a meal/foodValsartan 40 mg bxmbqyTyxtbhbxixvf79YOTBWxugmMuukcoj 2023 11:00pm September 12, 2025 11:44amDuloxetine 20 mg capsule,delayed release(DR/EC) Discontinued0.ROUTE.PURQGPP085Zawouei 2023 10:43amNovember 2023 4:59pmTAKE 1 CAPSULE BY MOUTH DAILYLevothyroxine 75 mcg zcvzfqKxmqepcjotdw27PXD YKOnegy666Ebaopio 2023 11:00pmNov2023 4:59pm Immunizations Immunization Event Date Not Given Reason Dose Number Staff Training And Development Manager Lot Number Reason(s) Given Vaccine Information Statement (VIS) Detail Administration Location COVID-19 mRNA, Comirnaty (AirXpanders) June 10 COVID-19 mRNA, Comirnaty (AirXpanders)July 01, 2021influenza, unspecified formulationDece2014influenza, unspecified formulationOctrobley [facility] 2020 influenza, unspecified formulationOctrobley [facility]x va [facility] 2021Tetanus, Diphtheria adult, 5 Lf pres free absNov2015Tetanus, Diphtheria adult, 5 Lf pres free abs August 31, 2017 Medical Equipment Device Date Implanted Device Details Orthopaedic bone staple, non-adjustable, sterile September 19, 2020 ZAHRA: [id number] Issuing Agency: [facility] Device Id: [id number] Expiration Date: 2025-05-31 Lot Number: [id number] bone staple, non-adjustable, sterileNovember 2019UDI: [id number] Issuing Agency: [facility] Device Id: [id number] Expiration Date: 2025-05-31 Lot Number: [id number] bone staple, non-adjustable, sterileOctober 2020UDI: [id number] Issuing Agency: [facility] Device Id: [id number] Expiration Date: 2025-07-31 Lot Number: [id number] bone staple, non-adjustable, sterileOctober 2020UDI: ()[id number] Issuing Agency: [facility] Device Id: [id number] Expiration Date: 2023-05-25 Lot Number: [id number] Vital Signs Vital Reading Result Reference Range Collection Date/Time Height 63 [in_i] September 12, 2025 11:16npHqzrqv66.66 kgSeptember 12, 2025 11:35amHeart Rate71 /wzs46-824FewircvnSeptember 12, 2025 11:48amBP Djujdqns077 mm[Hg]100-140September 12, 2025 11:57amBP Sykwokwbf34 mm[Hg]60-100September 12, 2025 11:57amBMI (Body Mass Index)28.0 kg/a6HxqavbqeSeptember 12, 2025 11:35am Advance Directives Advance Directive Response Recorded Date/ Time Advance Directives No December 3:08pm Insurance Providers Guarantor Shelby Oquendo Address [address] [facility] [address]Osrlibg Info.Home Phone: Coverage Status Update:2025 Payer Group Member ID Coverage Type Subscriber Relationship to Subscriber Effective Date Expiration Date Deondre SORENSON [id number] Lee , M Id: [id number] [address] [facility] [address] Home Phone: Email: [email or web address] Id: [id number] Lee Id: [id number] [address] [address] Home Phone: Email: [email or web address] Encounters Encounter Location(s) Arrival/Admit Date Discharge/Departure Date Discharge/Departure Disposition Provider(s) Departed Physician/ Provider Office Visit -[facility] September 12, 2025 11:30am September 12, 2025 12:23pm Discharged to home care or self care (routine discharge) Angie Mcgee MD Recent Diagnosis Onset Date Admit Date Hypothyroidism, unspecified Unknown Louise coats 2024 11:30am Assessments Diagnosis Onset Date Resolution Status Admit Date Hypothyroidism, unspecified acuteSeptember 12, 2025 11:30am Plan of Treatment Future Tests Future scheduled test information is unavailable Pending Tests Pending diagnostic test information is unavailable Future Visits Future appointment information is unavailable Future Procedures Procedure Name Ordered Date Scheduled Date Triiodothyronine (T3) Reverse September 12 12:02pm Free T4 (Free Thyroxine)September 12, 2025 12:02pmThyroxine (T4) TotalSeptember 12, 2025 12:02pmThyroid Stim Hormone w/RflxNov2024 12:02pm Future Medications Future medication information is unavailable Patient Instructions Patient instructions are unavailable
--- OUTSIDE RECORDS SUMMARY | 2025-09-18 12:56 | XMS_ITS | Clinical Summary ---
Author Organization [facility] Address [address] [facility] [place] [address] Care Team Providers Care Flitch Hanger Name Role Phone Angie Mcgee MD Primary Care Provider [phone] Allergies No known active allergies Medications MedicationSigDispense QuantityRefillsLast FilledStart DateEnd DateStatus melatonin (KP Melatonin) 3 MG tablet OralActive naproxen (Naprosyn) 500 MG tablet every 12 (twelve) hoursActive levothyroxine (Synthroid, Levoxyl) 75 MCG tablet Take 75 mcg by mouth in the morning. Take before meals.Active apixaban (Eliquis) 2.5 MG tablet Take 2.5 mg by mouth in the morning and 2.5 mg in the evening.09/05/2024ctive carvedilol (Coreg) 3.125 MG tablet Take 3.125 mg by mouth in the morning and 3.125 mg in the evening. Take with meals.09/05/2024ctive eplerenone (Inspra) 25 MG tablet Take 25 mg by mouth in the morning./tive valsartan (Diovan) 40 MG tablet Take 40 mg by mouth09/05/2024ctive DULoxetine (Cymbalta) [address] capsule 10/29/2024ctive Family History Medical HistoryRelationNameCommentsCervical cancerMotherPostmenopausal breast cancerMotherRelationNameStatusCommentsFatherAliveMotherDeceased Social History Tobacco UseTypesPacks/DayYears UsedDateSmoking Tobacco: NeverSmokeless Tobacco: Never Tobacco Cessation:Counseling Given: Not Answered Alcohol UseStandard Drinks/WeekCommentsNot Currently0 (1 standard drink = 0.6 oz pure alcohol)CommentsNoSex and Gender InformationValueDate RecordedSex Assigned at ClibcPklhra21/03/2024 1:41 PM ESTLegal OfmExlhdy60/15/2023 6:41 PM EDTGender RjynglleFgvocd07/03/2024 1:41 PM ESTSexual OrientationStraight 11/02/2023 1:41 PM EST Last Filed Vital Signs Vital SignReadingTime TakenCommentsBlood Rqsywxii523/8211/07/2024 10:16 AM EST Pulse--Temperature--Respiratory Rate--Oxygen Saturation--Inhaled Oxygen Concentration--Iufbxy57.7 kg (158 lb)11/07/2024 10:16 AM RQVElzaos486.6 cm (5' 4 )03/15/2022 12:00 PM EDTBody Mass Index27.12003/15/2022 12:00 PM EDT Plan of Treatment DateTypeDepartmentCare Team (Latest Contact Info)Kdvzhyhjyah98/13/2026 10:45 AM ESTOffice Visit [facility] Lary MADRIGALGYDeann [address] EVARISTO D [address] [address] Giulia Turpin DO [address] [address] Insurance * Guarantor: Lorena Bright TypeRelation to PatientDate of BirthPhone Billing AddressPersonal/[id number] [address] Care Teams Team MemberRelationshipSpecialtyStart DateEnd Date Angie Mcgee MD [facility]/02/[facility]
--- OUTSIDE RECORDS SUMMARY | 2025-09-18 12:56 | XMS_ITS | Clinical Summary ---
Author Organization [facility] Address [address] [place] [address] Care Team Providers Care Animal Keeper Name Role Phone Angie Mcgee MD Primary Care Provider [phone] Allergies Active AllergyReactionsCriticalityNoted DateCommentsNitroglycerinOtherHigh 08/21/2024 Asystole after nitroglycerin was given Medications MedicationSigDispense QuantityRefillsLast FilledStart DateEnd DateStatus DULoxetine (Cymbalta) [address] capsule Take 20 mg by mouth in the morning.Active cholecalciferol (Vitamin D-3) 25 MCG (1000 units) tablet Take 1,000 Units by mouth in the morning.09/11/2020Active cyanocobalamin (Vitamin B-12) 500 mcg tablet Take 500 mcg by mouth in the morning.09/11/2020Active melatonin 3 mg tablet Take 1.5 mg by mouth if needed at bedtime for sleep.Active levothyroxine (Synthroid, Levoxyl) 75 mcg tablet Take 75 mcg by mouth before breakfast.Active carvedilol (Coreg) 3.125 mg tablet Indications:Takotsubo cardiomyopathyTake 1 tablet (3.125 mg) by mouth with breakfast and with evening meal. 180 tablet 4Active Additional Information Patient not taking.Reported on 05/10/2025 rosuvastatin (Crestor) 20 mg tablet Indications:Pure hypercholesterolemiaTake 1 tablet (20 mg) by mouth in the morning. 30 tablet 1102/36269512/19/2025ctive valsartan (Diovan) 80 mg tablet Indications:Takotsubo cardiomyopathyTake 1 tablet (80 mg) by mouth once daily as directed. 90 tablet 307/507/11/2026Active Active Problems ProblemNoted DateDiagnosed JoceBekmaocgnzoc94/19/2025Essential hypertension 12/19/2024Pure yojmresmvjlfuckkwyhv77/19/2025Overweight (BMI 25.0-29.9) 12/19/2024Takotsubo nowywlarrumabt12/06/2024Left ventricular systolic dysfunction (LVSD)09/05/20244436Efmerrqbnw66/22/0339Rstuhgjelkfsqi52/22/2024hronic bilateral low back pain without ufcqglvh43/13/2015Joint stiffness of multiple sites09/12/2014Knee pain, dqrglzaev71/13/2014Secondary osteoarthritis of multiple sites09/12/2014NA qgrxgaxw25/02/2014ilateral hand pain08/01/2014 Purnhoy4208/01/2014Pain in both feet08/01/2014 Resolved Problems ProblemNoted DateDiagnosed DateResolved DateChest pain/08/2025 Elevated fytimgbb78/08/2025 Family History Medical HistoryRelationNameCommentsHeart diseaseFatherBreast cancerMother RelationNameStatusCommentsFatherMother Social History Tobacco UseTypesPacks/DayYears UsedDateSmoking Tobacco: NeverSmokeless Tobacco: NeverAlcohol UseStandard Drinks/WeekCommentsNever0 (1 standard drink = 0.6 oz pure alcohol)[facility] UtilitiesAnswerDate RecordedIn the past 12 months has the electric, gas, oil, or water [employer] threatened to shut off services in your home?No08/21/2024Humiliation, Afraid, Rape, and Kick questionnaireAnswerDate RecordedWithin the last year, have you been afraid of your partner or ex-partner?No08/21/2024Emotionally AbusedNot on file08/21/2024hysically Abused Not on file08/21/2024Sexually AbusedNot on file08/21/2024Overall Financial Resource Strain (CARDIA)AnswerDate RecordedHow hard is it for you to pay for the very basics like food, housing, medical care, and heating?Not hard at all 08/21/2024TransportationAnswerDate RecordedIn the past 12 months, has lack of transportation kept you from medical appointments or from getting medications?No 08/21/2024Lack of Transportation (Non-Medical)Not on file08/21/2024Housing Stability Vital SignAnswerDate RecordedUnable to Pay for Housing in the Last YearNot on file08/21/2024Number of Places Lived in the Last YearNot on file 08/21/2024In the last 12 months, was there a time when you did not have a steady place to sleep or slept in ashelter (including now)?No08/21/2024Hunger Vital SignAnswerDate RecordedWithin the past 12 months, you worried that your food would run out before you got the money to buymore.Never true08/21/2024an Out of Food in the Last YearNot on file08/21/2024CommentsUnknownSex and Gender InformationValueDate RecordedSex Assigned at YaunmQormqs91/22/2024 1:03 PM EDT Legal SpsRozjis53/21/2024 6:40 PM EDTGender YkosbwmhEoimgu52/22/2024 1:03 PM EDT Sexual OrientationHeterosexual or Rvdtnnza82/22/2024 1:03 PM EDT Last Filed Vital Signs Vital SignReadingTime TakenCommentsBlood Vjcjkcdu677/8705/10/2025 1:58 PM EDT Wbxob445905/10/2025 1:58 PM JTTXbjnfpodedp52.6 ??C (97.9 ??F)08/22/2024 8:25 AM EDTRespiratory Pnqm3383 8:25 AM EDTOxygen Yntwxtcjmg19%05/10/2025 1:58 PM EDTInhaled Oxygen Concentration--Vbqzob70.1 kg (159 lb)05/10/2025 1:58 PM EDT Fpzvvr059 cm (5' 3 )05/10/2025 1:58 PM EDTBody Mass Index28.17005/10/2025 1:58 PM EDT Plan of Treatment Health MaintenanceDue DateLast DoneCommentsCT Brhexvayitoa1968Colonoscopy 1968FOBT02/17/19682661Flgpggdnbfibi1968Depression Rugygmtnn11/19/1980 Hepatitis B Vaccines (1 of 3 - 19+ 3-dose series)02/16/1987Pneumococcal Vaccine: Pediatrics (0 to 5 Years) and At-Risk Patients (6 to 64 Years) (1 of 2 - PCV) 02/16/1987Adult Ccudiuu6402/16/1990HPV/Hiuvoj2002/16/1998Zoster Vaccines (1 of 2) 02/16/2018Cervical Cancer Gnupwzgay94/17/2025Pap Smear03/16//FIT /OVID-19 Vaccine (3 - season)/10/2020, 06/10/2021Influenza Vaccine (#1)/, 08/05/2020, 08/31/2017, Additional history besdtzPoouzggyj17/14/202702/olorectal Cancer Beamutsmo66/24/2027FIT-DNAHIB VaccinesAged OutNo longer eligible based on patient's age to complete this topicHPV VaccinesAged OutNo longer eligible based on patient's age to complete this topicIPV VaccinesAged OutNo longer eligible based on patient's age to complete this topicMeningococcal B VaccineAged OutNo longer eligible based on patient's age to complete this topicMeningococcal VaccineAged OutNo longer eligible based on patient's age to complete this topicRotavirus VaccinesAged OutNo longer eligible based on patient's age to complete this topic Advance Directives * Full Code (Latest Code Status on File) Date ActivatedDate FnztkszmnbmUpjsklwl86/22/2024 3:59 AM08/22/2024 2:02 PM Care Teams Team MemberRelationshipSpecialtyStart DateEnd Date Angie Mcgee [place] [address] PCP - Zznkgvq15/22/24
--- OUTSIDE RECORDS SUMMARY | 2025-09-18 12:56 | XMS_ITS | Clinical Summary ---
Author Organization [facility] Address [address] [place], [place] [id number] Care Team Providers Care Cardiographer Name Role Phone Angie Mcgee MD Primary Care Provider [phone] Allergies No known active allergies Medications MedicationSigDispense QuantityRefillsLast FilledStart DateEnd DateStatus Levothyroxine 100 mcg cap Take by mouth once daily.Active omeprazole (PRILOSEC) 20 mg capsule Take 20 mg by mouth once daily.Active melatonin 3 mg Take by mouth as needed.Active OLOPATADINE HCL (PATANASE NASAL) Use in the nose.Active gabapentin (NEURONTIN) 100 mg capsule Indications:Chronic pain syndrome,Chronic bilateral low back pain without sciaticaTAKE 1 TO 3 CAPSULES BY MOUTH EVERY NIGHT. MAY CAUSE DROWSINESS 270 capsule Active naproxen (NAPROSYN) 500 mg tablet TAKE 1 TABLET BY MOUTH TWICE DAILY NEEDED FOR PAIN TAKE WITH FOOD 60 tablet Active DULoxetine (CYMBALTA) 30 mg capsule Indications:Secondary osteoarthritis of multiple sites,Chronic pain syndromeTAKE 1 CAPSULE BY MOUTH EVERY DAY 90 capsule Active Active Problems ProblemNoted DateDiagnosed DateChronic bilateral low back pain without sciatica 06/11/2016Bilateral thumb pain02/06/2016Chronic pain svvjnjuu01/01/2015Bilateral low back pain without kieibdem34/13/2015Chronic thumb pain, xakylllbz27/13/2015 Secondary osteoarthritis of multiple sites09/12/2014Knee pain, bilateral 09/12/2014Joint stiffness of multiple sites09/12/2014ilateral hand pain 08/01/2014Pain in both feet08/01/2014NA /02/2014Thyroid disease 08/01/20148461Ywuzjqo54/02/2014Palpitations Family History Medical HistoryRelationCommentsDiabetesFatherHeartFatherCADHypertensionFather LipidsFatherCancerMotherbreast/uterineRelationStatusCommentsFatherAliveMother Alive Social History Tobacco UseTypesPacks/DayYears UsedDateSmoking Tobacco: NeverAlcohol UseStandard Drinks/WeekCommentsYes0 (1 standard drink = 0.6 oz pure alcohol)rare CommentsNoSex and Gender InformationValueDate RecordedSex Assigned at BirthNot on fileLegal AowGmdcne84/02/2012 3:44 PM ESTGender IdentityNot on fileSexual OrientationNot on fileOccupationIndustryJob Start DateJob End DateNot on fileNot on fileNot on fileNot on file Last Filed Vital Signs Vital SignReadingTime TakenCommentsBlood Slzowrly730/8802/02/2016 12:48 PM EDT Vsqiw286702/02/2016 12:48 PM EIFXxcattomcum12.4 ??C (99.3 ??F)05/13/2015 10:50 AM EDTRespiratory Bcqs513805/13/2015 10:50 AM EDTOxygen Qaskamcvap18%02/02/2016 12:48 PM EDTInhaled Oxygen Concentration--Aapvnp95.4 kg (142 lb)02/02/2016 12:48 PM GHCNrqbhf880 cm (5' 3 )05/13/2015 10:50 AM EDTBody Mass Index25.1507 10:50 AM EDT Plan of Treatment Health MaintenanceDue DateLast DoneCommentsAnxiety Yphpjsflw87/19/1986Depression Qnapvgokm40/19/1986HIV Viylknrsv19/19/1986DTaP,Tdap,Td Vaccine (1 - Tdap) 02/16/1987Hepatitis B Vaccine (1 of 3 - 19+ 3-dose series)02/16/1987Cervical Cancer Ghxykzytg94/19/1989Mammogram Kveegfeer30/19/2008CT Lmdzjjjiojyw08/19/2013 Cologuard (FIT-DNA)02/16/20131452Afwycyebotv43/19/2013Colorectal Cancer Screening 02/16/2013Fecal Occult Blood02/16/2013Lipid Uffpidodv78/19/2013Sigmoidoscopy 02/16/2013Diabetes Psqitjdar33Pneumococcal Vaccine: 50+ (1 of 1 - PCV)02/16/2018Shingrix Vaccine (1 of 2)02/16/2018Covid-19 Vaccine (1 - season)2025Influenza Vaccine (#1)2025Hepatitis C Screening Nceqmtwwg12/02/2014 Procedures Procedure NamePriorityDate/TimeAssociated DiagnosisCommentsHEP REMOTE PANEL BL Tajxjut6908/01/2014 11:14 AM EDT YENNI positive COMPREHENSIVE METABOLIC HTTDUPrdwexu51/02/2014 11:14 AM EDT Elevated LFTs from Last 3 Months or Most Recently Relevant to Health Maintenance Results * HEP REMOTE PANEL BL (08/01/2014 11:14 AM EDT)ComponentValueRef RangeTest MethodAnalysis TimePerformed AtPathologist SignatureHep B Core Ab, Total NegativeNEGATCLEVELAND COMMUNITY [facility]IN LABORATORYHep C Antibody IANegativeNEGAT [facility] LABOR[facility]ORYHBsAgNegativeNEGATCLEVELRED [facility]KE [facility] LABORATORYHep B Surface Ab, QualNegativeNEGATCLEVELAND COMMUNITY [facility]OR[facility] Comment:No evidence of antibodies to Hepatitis B surface antigen.Specimen (Source)Anatomical Location / LateralityCollection Method / VolumeCollection TimeReceived TimeBlood specimen (specimen)BLOOD SPECIMEN / Qmxnwij0208/01/2014 11:14 AM EDT1 11:16 AM EDT Narrative Authorizing ProviderResult TypeResult StatusWendy Mc MDLABORATORYFinal ResultPerforming OrganizationAddressCity/State/ZIP CodePhone Number [facility] [address] [place] [address] * (ABNORMAL) COMP METABOLIC PANEL (08/01/2014 11:14 AM EDT)ComponentValueRef RangeTest MethodAnalysis TimePerformed AtPathologist SignatureProtein, Total 7.46.0 - 8.4 g/dLNATIONWIDE CHILDREN'S HOSP[facility] LABORATORYAlbumin4.43.5 - 5.0 g/dL [facility] LABORATORYCalcium9.28.5 - 10.5 mg/dLNATIONWIDE CHILDREN'S HOSPITAL LABORATORYBilirubin, Total0.20.0 - 1.5 mg/dLNATIONWIDE CHILDREN'S HOSP[facility] LABORATORYAlkaline Ixidnhtrhky4924 - 150 U/LCDOCTORS HOSPITAL LABORATORY QAS157 - 40 U/LCDOCTORS HOSPITAL IOXQIWKOHRUpltnkp184(H)65 - 100 mg/dL [facility] NZOTKLQYQRJNX511 - 25 mg/dLNATIONWIDE CHILDREN'S [facility]OS[facility] LABORATORYCreatinine0.830.70 - 1.40 mg/dLNATIONWIDE CHILDREN'S [facility] Qtdizk941900 - 148 mmol/LCST. ELIZABETH [facility]ITAL MAIN LABORATORYPotassium4.23.5 - 5.0 mmol/LCST. ELIZABETH HOSPITAL MAIN HVCRLWPRXILakuphkc94923 - 110 mmol/LCDOCTORS HOSPITAL ZZLXVQWSEDOK75516 - 32 mmol/LCDOCT[facility] LABORATORYAnion Gap80 - 15 mmol/LCDOCT[facility] MPGSRSLFSDCPV800 - 45 U/LCDOCTORS HOSPITAL LABORATORYeGFR->60[facility] eGFR-All Other Races>60.[facility] LABORATORYComment: eGFR (Estimated GFR) Units of measure: mL/min/1.73 meters squared eGFR is derived from the reexpressed MDRD Study equation using the following parameters: serum creatinine, age, gender and race. The creatinine assay has been calibrated to be traceable to IDMS. An eGFR <60 mL/min/1.73m2 for >3 months is consistent with chronic kidney disease. Refer to KDOQI guidelines for clinical interpretation. Specimen (Source)Anatomical Location / LateralityCollection Method / Volume Collection TimeReceived TimeBlood specimen (specimen)BLOOD SPECIMEN / Unknown 08/01/2014 11:14 AM EDT1 11:16 AM EDT Narrative Authorizing ProviderResult TypeResult StatusMarbrent Mc MDLABORATORYFinal ResultPerforming OrganizationAddressCity/State/ZIP CodePhone Number [facility] [address] [place] [address] from Last 3 Months or Most Recently Relevant to Health Maintenance Care Teams Team MemberRelationshipSpecialtyStart DateEnd Date Angie Mcgee MD [address] [place] [id number] PCP - GeneralFamily Medicine06/04/14
--- OUTSIDE RECORDS SUMMARY | 2025-09-18 12:58 | XMS_ITS | CCD ---
Author Organization [facility] Care Team Providers Care Technical Sales Advisor Name Role Phone Rosalba Martinez Unavailable DR [...] Provider Unavailable DO Giulia Turpin Referring Provider Chon Aguila MD Primary Care Provider GIULIA TURPIN Attending Unavailable Chon Aguila MD Primary Care Provider Giulia Turpin DO Attending Provider Giulia Turpin Admitting Unavailable Giulia Turpin Attending Unavailable Chon Aguila Primary Care Unavailable UNA HERRON Attending Unavailable FELICIA MCKEON Referring Unavailable NAM SANCHEZ Admitting Unavailable PREET MACHADO Attending Unavailable PREET MACHADO Attending Unavailable PREET MACHADO Attending Unavailable PIRKL, DELL Referring Unavailable PIRKL, DELL Referring Unavailable Allergies Allergy ClassificationReported Allergen(s)Allergy TypeDate of OnsetReaction(s) Facility (1 source)patient allergy list reviewed by nurse or physiciaPropensity to adverse [id number]:[email or web address] Other (1 source)Allergies ReconciledPropensity to adverse thazdyncw34-04-9147Istbrkj [email or web address] Other (1 source)Nitroglycerin; Translations: [NITROGLYCERIN]Drug [id number] [facility] Medications Current Medications MedicationDrug Class(es)DatesSig (Normalized)Sig (Original)amoxicillin 875 mg / clavulanate 125 mg oral tablet (2 sources)Penicillin-class AntibacterialStart: 75-17-2018aati 1 tablet by mouth every twelve hoursAmoxicillin-Pot Clavulanate 875-125 MG 1 tablet Orally every 12 hrs for 10 day(s) Sep, Activeapixaban 2.5 mg oral tablet (5 sources)Factor Xa InhibitorStart: 08-28-2024 End: 76-77-9394xinh 1 tablet by mouth in the morningapixaban (Eliquis) 2.5 MG tablet Take 2.5 mg by mouth in the morning and 2.5 mg in the evening. 09/05/2024 08/31/2025 ActiveAscorbic Acid (3 sources)Vitamin CVitamin C Activeazithromycin 250 mg oral tablet (2 sources)Macrolide AntimicrobialStart: 09-74-7369Hkblesntorbz 250 MG as directed Orally 2 tabs po today, then 1 tab daily x 4 more days for 5 Jan, Activebenzonatate 200 mg oral capsule (2 sources)Non-narcotic AntitussiveStart: 23-80-8916vpam 1 capsule by mouth every eight hoursBenzonatate 200 MG 1 capsule Orally Three times a day for 10 day(s) Jan, Activecarvedilol 3.125 mg oral tablet (5 sources)alpha-Adrenergic Moises, beta-Adrenergic BlockerStart: 08-28-2024 End: 02-87-2137sjpy 1 tablet by mouth in the morningcarvedilol (Coreg) 3.125 MG tablet Take 3.125 mg by mouth in the morning and 3.125 mg in the evening. Take with meals. 09/05/2024 09/05/2025 ActiveDULoxetine 20 mg delayed release oral capsule (20 sources)Serotonin and Norepinephrine Reuptake InhibitorStart: 10-29-2024 DULoxetine (Cymbalta) [address] capsule 10/29/2024 ActiveStart: 08-28-2024 End: 62-78-8222whuo 1 capsule by mouth once dailyDuloxetine 20 mg capsule,delayed release(DR/EC) Active 0 .ROUTE .COMPLEX October 29, 2024 4:39pm TAKE 1 CAPSULE BY MOUTH DAILYStart: 05-22-2024 End: 42-48-5818yrdo 1 capsule by mouth once dailyDuloxetine Discontinued 0 .ROUTE .COMPLEX May 22, 2024 11:10am August 28, 2024 11:44am TAKE 1 CAPSULE BY MOUTH DAILYStart: 03-12-2024 End: 60-74-1813ldwr 1 capsule by mouth once dailyDuloxetine Discontinued 0 .ROUTE .COMPLEX March 12, 2024 12:43pm May 22, 2024 11:10am TAKE 1 CAPSULE BY MOUTH DAILYStart: 09-11-2020 End: 57-13-7726klwp 1 capsule by mouth once daily in the morningDuloxetine 30 mg capsule,delayed release(DR/EC) Discontinued 30 MG PO Every morning September 11, 2020 12:00am March 12, 2024 11:43ameplerenone 25 mg oral tablet (2 sources)Aldosterone AntagonistStart: 10-10-2024 End: 03-59-2597pmtx 1 tablet by mouth in the morningeplerenone (Inspra) 25 MG tablet Take 25 mg by mouth in the morning. 10/10/2024 10/10/2025 Active levothyroxine sodium 0.075 mg oral tablet (16 sources)l-ThyroxineStart: 32-12-9950dgag 1 tablet by mouth once daily Levothyroxine 75 mcg tablet Active 0 .ROUTE .COMPLEX September 24, 2024 4:59pm TAKE 1 TABLET BYMOUTH DAILYStart: 08-28-2024 End: 26-84-3588bcyh 1 tablet by mouth once dailyLevothyroxine 75 mcg tablet Discontinued 75 MCG PO Daily August 27, 2024 11:00pm September 24, 2024 4:59pmStart: 09-11-2020 End: 82-62-0597yoyg 1 tablet by mouth once daily in the morningLevothyroxine 88 mcg tablet Discontinued 88 MCG PO Every morning September 11, 2020 12:00am March 13, 2024 1:00pmtake 1 tablet by mouth once daily in the morningmelatonin 10 mg oral tablet (6 sources)Start: 24-90-6801rfgp 1 mg by mouth at bedtime as needed for sleep Melatonin 10 mg Tablet Active 1 MG PO Bedtime as needed for Sleep September 11, 2020 12:00amStart: 14-52-8023djdd 1 mg by mouth at bedtimeMelatonin Active 1 MG PO Bedtime September 11, 2020 1:00ammelatonin (KP Melatonin) 3 MG tablet Oral ActivemethylPREDNISolone 4 mg oral tablet (1 source)CorticosteroidStart: 61-64-7090Lagzfa 4 MG as directed Orally for 6 days Oct, ActiveMultivitamin preparation (3 sources)Start: 60-41-4292szrg 1 tablet by mouth once dailyMultivitamin Active 1 TAB PO Daily August 17, 2021 12:00amStart: 82-15-3444xyfv 1 tablet by mouth once dailyMultivitamin Active 1 TAB PO Daily August 16, 2021 11:00pm Multivitamin Tablet (1 source)Start: 97-16-2547qorm 1 tablet by mouth once dailyMultivitamin Tablet Active 1 TAB PO Daily August 16, 2021 11:00pmnaproxen 500 mg oral tablet (7 sources)Nonsteroidal Anti-inflammatory Drugnaproxen (Naprosyn) 500 MG tablet every 12 (twelve) hours Activetake 1 tablet by mouth twice daily as needed Naproxen 500 MG TAKE 1 TABLET BY MOUTH TWICE DAILY NEEDED for 90 Activetake 1 tablet by mouth every twelve hours at mealtime as neededNaproxen 500 MG 1 tablet with food or milk as needed Orally every 12 hrs Activethyroid (penitentiary) 60 mg oral tablet (4 sources)Start: 08-26-2023 End: 04-02-2962dcvc 1 tablet by mouth in the morningArmour Thyroid 60 MG tablet Take 60 mg by mouth in the morning. 08/26/2023 11/07/2024 DiscontinuedTurmeric extract (4 sources)Start: 18-11-0255reqf 1 capsule by mouth once dailyTurmeric 400 mg Capsule Active 800 MG PO Daily August 16, 2021 11:00pmStart: 72-08-0364pusr 800 mg by mouth once dailyTurmeric Active 800 MG PO Daily August 17, 2021 12:00amStart: 34-56-4972safz 800 mg by mouth once dailyTurmeric Active 800 MG PO Daily August 16, 2021 11:00pmvalsartan 40 mg oral tablet (5 sources)Angiotensin 2 Receptor BlockerStart: 08-28-2024 End: 83-03-3227ronvisguv (Diovan) 40 MG tablet Take 40 mg by mouth 09/05/2024 09/05/2025 Activevitamin b12 0.5 mg oral tablet (4 sources)Vitamin C96Liuot: 32-09-5936thdy 1 tablet by mouth once daily Cyanocobalamin (Vitamin B-12) (Vitamin B-12) 500 mcg Tablet Active 500 MCG PO Daily September 11, 2020 12:00amVitamin D (3 sources)Vitamin D Active Completed/Discontinued Medications MedicationDrug Class(es)DatesSig (Normalized)Sig (Original)acetaminophen 325 mg / HYDROcodone bitartrate 5 mg oral tablet (8 sources)Opioid AgonistStart: 08-27-2021 End: 36-56-5004khbr 1 tablet by mouth every four to six hours as needed for pain Hydrocodone-Acetaminophen 5-325 mg tablet Discontinued 1 TAB PO EVERY 4-6 HOURS as needed for pain 45 6 August 27, 2021 August 28, 2024 10:43amStart: 09-19-2020 End: 85-42-6417sepi 1 tablet by mouth every four to six hours as needed for pain Hydrocodone-Acetaminophen ([place]) 5-325 mg tablet Discontinued 1 - 2 TAB PO EVERY 4-6 HOURS as needed for Pain 50 7 September 19, 2020 August 17, 2021 3:22pmcholecalciferol 0.025 mg oral tablet (4 sources)Vitamin DStart: 09-11-2020 End: 94-35-1376rogu 1 tablet by mouth once dailyCholecalciferol (Vitamin D3) (Vitamin D3) 25 mcg (1,000 unit) Tablet Discontinued 25 MCG PO Daily September 11, 2020 12:00am August 28, 2024 10:42amdiclofenac sodium 0.01 mg/mg topical gel (7 sources)Nonsteroidal Anti-inflammatory DrugStart: 09-11-2020 End: 91-69-1139xmscg 2 g topically twice daily as needed for painDiclofenac Sodium 1 % Gel Discontinued 2 GM TOPICAL Twice daily as needed for Pain September 11, 2020 12:00am August 28, 2024 10:42amStart: 09-11-2020 End: 01-87-9844rbcpq 2 g topically twice dailyDiclofenac Sodium Discontinued 2 GM TOPICAL Twice daily September 11, 2020 1:00am August 28, 2024 11:42am Start: 72-92-4752Mixyilbr 1 % apply 1-2 grams to affected area Transdermal BID PRN for 30 days Jul, Activedoxycycline hyclate 100 mg oral tablet (8 sources)Tetracycline-class DrugStart: 08-27-2021 End: 01-90-9151jyru 1 tablet by mouth twice dailyDoxycycline Hyclate 100 mg tablet Discontinued 100 MG PO Twice daily 10 August 26, 2021 11:00pm August 28, 2024 10:42amStart: 09-19-2020 End: 03-50-6759euel 1 tablet by mouth twice dailyDoxycycline Hyclate 100 mg tablet Discontinued 100 MG PO Twice daily 10 September 19, 2020 12:00am August 17, 2021 3:21pmDuloxetine 30 mg capsule,delayed release(DR/EC) (2 sources)Start: 05-22-2024 End: 62-48-9143gptq 1 capsule by mouth once dailyDuloxetine 30 mg capsule,delayed release(DR/EC) Discontinued 0 .ROUTE .COMPLEX 90 May 22, 2024 10:10am August 28, 2024 10:44am TAKE 1 CAPSULE BY MOUTH DAILYStart: 03-12-2024 End: 82-41-7428gzmn 1 capsule by mouth once dailyDuloxetine 30 mg capsule,delayed release(DR/EC) Discontinued 0 .ROUTE .COMPLEX 90 March 12, 2024 11:43am May 22, 2024 10:10am TAKE 1 CAPSULE BY MOUTH DAILYMagnesium (4 sources)Start: 08-17-2021 End: 39-05-9049uhbp 1 tablet by mouth once dailyMagnesium 200 mg Tablet Discontinued 200 MG PO Daily August 16, 2021 11:00pm August 28, 2024 1 0:43amStart: 08-17-2021 End: 39-92-3732jyjd 200 mg by mouth once dailyMagnesium Discontinued 200 MG PO Daily August 17, 2021 12:00am August 28, 2024 11:43amStart: 74-24-7910datj 200 mg by mouth once dailyMagnesium Active 200 MG PO Daily August 16, 2021 11:00pmomeprazole 20 mg delayed release oral tablet (7 sources)Proton Pump InhibitorStart: 09-11-2020 End: 10-11-2365qpbk 1 tablet by mouth once daily in the morningOmeprazole 20 mg Tablet,Delayed Release (Dr/Ec) Discontinued 20 MG PO Every morning September 11, 2020 12:00am August 28, 2024 10:43amtake 1 capsule by mouth every twenty-four hoursOmeprazole 20 MG 1 capsule Orally Once a day ActiveThyroid (Pork) (2 sources)Start: 05-22-2024 End: 78-32-4639gbio 1 tablet by mouth once dailyThyroid (Pork) Discontinued 0 .ROUTE .COMPLEX May 22, 2024 11:10am August 28, 2024 11:45amTAKE 1 TABLET BY MOUTH EVERY DAYThyroid (Pork) ([place] Thyroid) 60 mg tablet (6 sources)Start: 03-13-2024 End: 33-23-5653wodm 1 tablet by mouth once dailyThyroid (Pork) ([place] Thyroid) 60 mg tablet Discontinued 60 MG PO Daily March 13, 2024 1:00pm May 22, 2024 10:10amStart: 03-13-2024 End: 20-68-1310mfdc 1 tablet by mouth once dailyThyroid (Pork) ([place] Thyroid) 60 mg tablet Discontinued 60 MG PO Daily March 13, 2024 2:00pm May 22, 2024 11:10amStart: 03-13-2024 End: 50-32-6678ihkt 1 tablet by mouth once dailyThyroid (Pork) ([place] Thyroid) 60 mg tablet Discontinued 60 MG PO Daily March 12, 2024 11:00pm 2023 1:00pmStart: 03-13-2024 End: 85-91-4906esay 1 tablet by mouth once dailyThyroid (Pork) ([place] Thyroid) 60 mg tablet Discontinued 60 MG PO Daily March 13, 2024 12:00am 2023 2:00pmThyroid (Pork) 60 mg tablet (1 source)Start: 05-22-2024 End: 34-38-8202spub 1 tablet by mouth once dailyThyroid (Pork) 60 mg tablet Discontinued 0 .ROUTE .COMPLEX 90 May 22, 2024 10:10am July 10:45am TAKE 1 TABLET BY MOUTH EVERY DAYTriamcinolone (20 sources)CorticosteroidStart: 64-47-8693Whkoxtl -40 mg Jan, 40 mg Start: 25-97-3415Joejywg -40 mg February, 40 mgStart: 28-48-5663Majclse -40 mg Jul, 40 mg Problems Active Problems Problem ClassificationProblemDateDocumented DateEpisodic/ChronicChronic obstructive pulmonary disease and bronchiectasis (1 source)Bronchitis, not specified as acute or chronicEpisodicDisorders of lipid metabolism (7 sources)Hyperlipidemia; Translations: [Hyperlipidemia, unspecified]Onset: 26-01-1477BonqnxcZjdojneyky disorders (3 sources)Esophageal reflux finding; Translations: [Esophageal reflux]Onset: 56-63-3719OdvyqlkWrmenwqdh hypertension (5 sources)Essential hypertension; Translations: [Essential (primary) hypertension]Onset: 31-69-2092CfayjrtOysnoaapkghcu and screening for infectious disease (3 sources)Vaccination given; Translations: [Encounter for immunization]Episodic Influenza (3 sources)Upper respiratory tract infection due to Influenza; Translations: [Influenza due to unidentified influenza virus with other respiratory manifestations]EpisodicMenopausal disorders (3 sources)Menopause present; Translations: [Menopausal and female climacteric states]ChronicMood disorders (7 sources)Major depression in partial remission; Translations: [Major depressive disorder, single episode, inpartial remission]ChronicNutritional deficiencies (3 sources)Vitamin D deficiency; Translations: [Vitamin D deficiency, unspecified]Onset: 50-29-3329UflexocBghimledpqfgeo (20 sources)Degenerative joint disease of hand; Translations: [Primary osteoarthritis, right hand]Onset: 02-21-2017 Resolved: 65-98-4320AkboidtUfnbndu on above:Problem List clean-up per request of Phys. EHR CmteOther and ill-defined heart disease (2 sources)Takotsubo syndrome; Translations: [Takotsubo syndrome]Onset: 85-91-2186KitgfyxCfyjs and ill-defined heart disease (2 sources)Heart disease, unspecified; Translations: [Heart disease, unspecified]Onset: 15-64-2155AfmraflWtwae circulatory disease (3 sources)Elevated blood-pressure reading without diagnosis of hypertension; Translations: [Elevated blood-pressure reading, without diagnosis of hypertension]EpisodicOther connective tissue disease (4 sources)Tenosynovitis of left radial styloid; Translations: [Radial styloid tenosynovitis [de Quervain]]00-47-0679XjehuaflZzfywxd on above:Problem List clean-up per request of Phys. EHR CmteOther gastrointestinal disorders (3 sources)Flatulence, eructation and gas pain; Translations: [Abdominal distension (gaseous)]EpisodicOther nervous system disorders (4 sources)Pain in limb; Translations: [Other acute postprocedural pain] 13-08-7138LdibjvcsXikmyux on above:Problem List clean-up per request of Phys. EHR CmteOther nutritional; endocrine; and metabolic disorders (4 sources)Overweight; Translations: [Overweight]Onset: 82-40-3648BlswvmzbRtpsg nutritional; endocrine; and metabolic disorders (3 sources)Body mass index 25-29 - overweight; Translations: [Body mass index (BMI) 26.0-26.9, adult]EpisodicOther screening for suspected conditions (not mental disorders or infectious disease) (9 sources)Musculoskeletal screening procedure; Translations: [Encounter for screening for other musculoskeletal disorder]Onset: 435407-01-8480Xrxpgcqe Other upper respiratory disease (3 sources)Allergic rhinitis; Translations: [Allergic rhinitis, unspecified] Onset: 18-48-5756YprpujwSbtx-; endo-; and myocarditis; cardiomyopathy (except that caused by tuberculosis or sexually transmitted disease) (1 source)Cardiomyopathy; Translations: [Other cardiomyopathies]08-28-2024 ChronicResidual codes; unclassified (1 source)Family history of malignant neoplasm of breast; Translations: [FAMILY HX MALIG NEOPLASM OF BREAST]Onset: 73-36-5141ZhgtrhrvDbfcamfc codes; unclassified (9 sources)Family history of breast cancer; Translations: [Family history of malignant neoplasm of breast]Onset: 577864-26-9207AoaznbtjAadhfixeros; intervertebral disc disorders; other back problems (1 source)Other intervertebral disc degeneration, thoracic region; Translations: [OTH IV DISC DEGEN THORACIC REGION]Onset: 51-93-9111SxztwweBivqrmrfuyc; intervertebral disc disorders; other back problems (19 sources)Pain in thoracic spine; Translations: [Cervicalgia]Onset: 10-26-2022 EpisodicThyroid disorders (17 sources)Hypothyroidism, unspecified; Translations: [Hypothyroidism]Onset: 88-75-7942MqbxfpeIpnchzaqkzcd (3 sources)LOW BACK PAIN, UNSPECIFIED; Translations: [LOW BACK PAIN, UNSPECIFIED]Onset: 10-26-2022 Past or Other Problems Problem ClassificationProblemDateDocumented DateEpisodic/ChronicAllergic reactions (3 sources)Contact dermatitis due to plants; Translations: [Unspecified contact dermatitis due to plants, except food]Onset: 77-15-9449LmvcjataVfrdlek dysrhythmias (3 sources)Palpitations; Translations: [Palpitations]Onset: 84-82-7969Mujehpgu Noninfectious gastroenteritis (3 sources)Non-infective enteritis and colitis; Translations: [Noninfective gastroenteritis and colitis, unspecified]Onset: 56-08-5026JfmfdgvxEpmiukiyktm chest pain (2 sources)Chest pain, unspecified; Translations: [Chest pain, unspecified] Onset: 20-16-5124FbgaogjbEnuwy connective tissue disease (1 source)Pain in left finger(s); Translations: [Pain of left thumb M79.645] Onset: 08-11-2021 Resolved: 40-20-0525TzsscbfnTsmyh connective tissue disease (1 source)Trigger thumb, left thumbOnset: 11-06-2021 Resolved: 38-87-8232JuoxaskhJfwau connective tissue disease (1 source)Pain in left handOnset: 11-06-2021 Resolved: 94-71-4701MgmzjglbTpgwg connective tissue disease (1 source)Myalgia/myositis - multiple; Translations: [Unspecified myalgia and myositis]Onset: 56-34-5309VaewjhhhValbb connective tissue disease (2 sources)Muscle pain; Translations: [Unspecified myalgia and myositis]Onset: 91-90-1722YefdstgkWwjwe gastrointestinal disorders (3 sources)Diarrhea; Translations: [Diarrhea]Onset: 01-46-0729QbpdofydNknui non- traumatic joint disorders (3 sources)Hand joint pain; Translations: [Pain in joint, hand]Onset: 04-03-2019 EpisodicOther nutritional; endocrine; and metabolic disorders (1 source)Overweight; Translations: [Overweight]Onset: 67-21-9990OocohlwpLtaue upper respiratory infections (4 sources)Acute maxillary sinusitis; Translations: [Acute recurrent maxillary sinusitis]Onset: 70-33-6191JdlxymomLzwwqtkw codes; unclassified (3 sources)Other specified postprocedural states; Translations: [Other specified postprocedural states Z98.890]Onset: 08-11-2021 Resolved: 50-46-8442BkzspcebMzbreowm codes; unclassified (3 sources)Family history of malignant neoplasm of gastrointestinal tract; Translations: [Family history of malignant neoplasm of digestive organs]Onset: 55-07-3966TibcqwxuJtrajspz codes; unclassified (3 sources)Family history of diabetes mellitus; Translations: [Family history of diabetes mellitus]Onset: 18-71-5686LyoenljzTdkwpgxbrwto (1 source)LOW BACK PAIN, UNSPECIFIED; Translations: [LOW BACK PAIN, UNSPECIFIED] Onset: 93-96-7662Imxcrrhdmadk (3 sources)Long-term current use of drug therapy; Translations: [Long-term (current) use of other medications]Onset: 01-14-2014 Results Test NameValueInterpretationReference RangeFacilityOffice Visiton 05-10-2025 Follow-up [id number] Ortiz Bright 1970 F Date Provider Department Center 05/10/2025 23095-THYSABPREET MACHADO [facility] Family History Problem Relation Age of Onset Breast cancer Mother Heart disease Father Family Status - Relation Status Age at Mother Father Level of Service:48649 [place] OFFICE/OUTPATIENT ESTABLISHED MOD MDM 30 MIN Reason for Visit and Comments: Hyperlipidemia [182] - Had routine labs with lipid panel in December 2024. Says she stopped taking carvedilol and rosuvastatin last week. Congestive Heart Failure [127] - She hasn't been taking valsartan for the past few months. Says she didn't have a refill on it. Denies LE edema and SOB. Denies chest pain. Valve Disorder [3372] - Denies palpitations. Had echo in Dec 2024. nonischemic cardiomyopathy [Other][facility] Office Visiton 53-89-5004Jdvvdv-up [id number] Ortiz Bright 1970 F Date Provider Department Center 12/19/2024 35007-KEEBZWPREET MACHADO JOSHUA Dobbs Family History Problem Relation Age of Onset Breast cancer Mother Heart disease Father Family Status - Relation Status Age at Mother Father Level of Service:31762 [place] OFFICE/OUTPATIENT ESTABLISHED MOD [facility] 30 MIN Reason for Visit and Comments: Cardiomyopathy [104] Congestive Heart Failure [127] - Had echo 2 weeks ago. She wasn't able to tolerate spironolactone or Inspra. Hyperlipidemia [182] - Had lipids 2 weeks ago. Valve Disorder [3372]NormalUnGalion HospitalMM screening mammo BI w/CADon 74-21-4032YS screening mammo BI w/CAD[facility] [place] [address] [place] [address] Mammography Report Signed Patient: Ortiz Bright MR#: [id number] : 1970 Acct:[id number] Age/Sex: 54 / F ADM Date: 12/14/24 Loc: [place] Room: Type: [facility] Attending Dr: Giulia Turpin DO Copies to: MD ISADORA Nguyen MONA DO Ordering Provider: GIULIA TURPIN DO Date of Service: 12/14/24 MM/MM screening [...] Jignesh Mercado M.D.12/14/2024 11:18 AM Dictation Location: [facility] Transcribed By: ERNIE 12/14/24 1118 Dictated By: Jignesh Mercado DO 12/14/24 1117 Signed By: 12/14/24 1118[facility] Phys[facility] GroupMammography reportOrdered By: Jignesh Mercado on 53-24-1333Ptwxpmnmtb imaging [facility] [place] [address] [place] [address] Mammography Report Signed Patient: Ortiz Bright MR#: [id number] : 1970 Acct:[id number] Age/Sex: 54 / F ADM Date: 5 Loc: [place] Room: Type: [facility] Attending Dr: Giulia Turpin DO Copies to: MD ISADORA Nguyen MONA DO~ Ordering Provider: GIULIA TURPIN DO Date of Service: 12/14/24 MM/MM screening [...] Jignesh Mercado M.D.12/14/2024 11:18 AM Dictation Location: [facility] Transcribed By: [facility] 12/14/24 111 Dictated By: Jingesh Mercado DO 12/14/24 111 Signed By: 12/14/24 1118 [facility]36on 72-88-863972ThhtsMD Sherin Moreira MA Her lipids are elevated. I put in my note that she is on atorvastatin but I do not see that is on her medication list. Can you please verify if she is on it what the dose is. Spoke with patient and informed her of normal echo per Dr. Machado. Also confirmed with patient she is NOT on atorvastatin. She has follow up apt with Dr. Machado on 12/13/2024 and will discuss lipids at that time. Patient verbalized understanding.NormalUK HealthcareCholesterol in LDL Calc [Mass/Vol]on 52-07-6077Ourmxxwnnba in LDL [Mass/Vol]Cholesterol in LDL [Mass/volume] in Serum or Plasma by calculationWvumedicine Harrison Community Hospital Comment on above:<100 mg/dl FKROPTI892-761 mg/dl NEAR OR ABOVE FNZQTYR954-542 mg/dl BORDERLINE ADLJ554-568 mg/dl HIGH>190 mg/dl VERY HIGHCholesterol in VLDL Calc [Mass/Vol]on 10-09-0580Apwqkfnmwfz in VLDL [Mass/Vol]Cholesterol in VLDL [Mass/volume] in Serum or Plasma by calculationWvumedicine Harrison Community Hospital Laboratory - Chemistry and Chemistry - challengeon 49-59-7198OQD [Catalytic activity/Vol]31 U/Y21-52AnbtouplxWvumedicine Harrison Community HospitalAST [Catalytic activity/Vol]22 U/E19-84TweidfqegWvumedicine Harrison Community HospitalCholesterol [Mass/Vol] 231 mg/dLHigh<=200[facility] Community HospitalCholesterol in HDL [Mass/Vol] 54 mg/iT86-56McrriiaqoWvumedicine Harrison Community HospitalComment on above:> or =60 mg/dl - LOW CARDIOVASCULAR RISK<40 mg/dl - HIGH CARDIOVASCULAR RISKTriglyceride [Mass/Vol]141 mg/dL<=150Clermont County Hospitalerum or plasma total cholesterol/high density lipoprotein (HDL) cholesterol mass rodney 12-03-2024 Cholesterol.total/Cholesterol in HDL [Mass ratio]Serum or plasma total cholesterol/high density lipoprotein (HDL) cholesterol mass [facility] HospitalComment on above:3.3 - 4.4 LOW RISK4.4 - 7.1 AVERAGE RISK7.1 - 11.0 MODERATE RISK>11.0 HIGH RISKEstimated glomerular filtration rate (GFR) non- Americanon 68-41-0775AQX/1.73 sq M.predicted among non-blacks MDRD (S/P/Bld) [Vol rate/Area]Estimated glomerular filtration rate (GFR) non- AmericanLow>=60 mL/min/1.73m 2FSamaritan Hospital Laboratory - Chemistry and Chemistry - challengeon 39-95-4788Ladsrfr [Mass/Vol] 8.6 mg/dL8.5-10.1FSamaritan HospitalChloride [Moles/Vol]105 mmol/L 98-107[facility] HospitalCO2 [Moles/Vol]32.0 mmol/L21.0-32.0 [facility] HospitalCreatinine [Mass/Vol]0.99 mg/dL0.55-1.02 [facility] HospitalGFR/1.73 sq M.predicted MDRD (S/P/Bld) [Vol rate/Area]mL/min/{1.73_m2}>=60 mL/min/1.73m 2FSamaritan Hospital Glucose [Mass/Vol]122 mg/jHEajx97-538SobahvluiWvumedicine Harrison Community HospitalPotassium [Moles/Vol]4.3 mmol/L3.5-5.1FSumma Health Wadsworth - Rittman Medical Centerodium [Moles/Vol] 142 mmol/U179-234IfcelhhfxWvumedicine Harrison Community HospitalUrea nitrogen [Mass/Vol]9.0 mg/dL7.0-18.0Wvumed[facility] Community HospitalUrea nitrogen/Creatinine [Mass ratio]9.1 mg/mgClermont County Hospitalerum or plasma anion gap determinationon 69-33-2653Nwtzk gap [Moles/Vol]Serum or plasma anion gap determinationWvumedicine Harrison Community Hospital36on [id number] lab results from 09/17/2024: MD Sherin Moreira MA BMP and TSH are normal. Continue current management Spoke with patient and informed her of lab results per Dr. Machado. I scheduled her for her follow up in Dec and [facility] set [facility].NormalUK HealthcareEstimated glomerular filtration rate (GFR) non- Americanon 17-15-0820QPM/1.73 sq M.predicted among non- blacks MDRD (S/P/Bld) [Vol rate/Area]Estimated glomerular filtration rate (GFR) non- AmericanLow>=60 mL/min/1.73m 2FSamaritan Hospital Laboratory - Chemistry and Chemistry - challengeon 64-97-8747Medmqpw [Mass/Vol] 9.1 mg/dL8.5-10.1FSamaritan HospitalChloride [Moles/Vol]102 mmol/L 98-107Wvumedicine Harrison Community HospitalCO2 [Moles/Vol]29.9 mmol/L21.0-32.0 [facility] HospitalCreatinine [Mass/Vol]1.04 mg/dLHigh0.55-1.02 [facility] Community HospitalGFR/1.73 sq M.predicted MDRD (S/P/Bld) [Vol rate/Area]mL/min/{1.73_m2}>=60 mL/min/1.[address]m [address] [place] [address] Glucose [Mass/Vol]132 mg/hJAmlg17-485OuxooaijhWvumedicine Harrison Community HospitalPotassium [Moles/Vol]4.3 mmol/L3.5-5.1FSumma Health Wadsworth - Rittman Medical Centerodium [Moles/Vol] 138 mmol/M544-400JpyauyiocWvumedicine Harrison Community HospitalUrea nitrogen [Mass/Vol]14.0 mg/dL7.0-18.0W[facility] Community HospitalUrea nitrogen/Creatinine [Mass ratio]13.5 mg/mgWvumedicine Harrison Community HospitalTSH Qn3.358 m[IU]/L0.358-3.740 Clermont County Hospitalerum or plasma anion gap determinationon 84-10-9249Axngm gap [Moles/Vol]Serum or plasma anion gap determinationWvumedicine Harrison Community HospitalFollow-Upon 59-18-5150Qoinwu-[id number] Ortiz Bright 1970 F Date Provider Department [place] 09/05/2024 79601-AAMXCDPREET MACHADO [facility] Family History Problem Relation Age of Onset Breast cancer Mother Heart disease Father Family Status - Relation Status Age at Mother Father Level of Service:37541 [place] OFFICE/OUTPATIENT ESTABLISHED MOD MDM 30 MIN Reason for Visit and Comments: Post-Cath [731] - 1. Normal coronary angiogram. 2. 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 Having some episodes of pressure since cath Cardiomyopathy [104] - NON ISCHEMIC Hypothyroidism [143][facility]30on The patient is Moderately Stable - Low risk of patient condition declining or worsening The patient's goals for the shift include discharge The clinical goals for the shift include vss Over the shift, the patient did not make progress toward the following goals. Barriers to progression include . Recommendations to address these barriers include .[facility]30The patient is Moderately Stable - Low risk [...] Adult Goal: Maintains hematologic stability Outcome: Progressing .NormalUnGalion HospitalBASIC METABOLIC PANELon 08-22-2024 Anion gap [Moles/Vol]11 mmol/LNormal7-20UnGalion Hospital Comment on above:Performed By: #### [id number] #### [facility] ([facility]) [address] [place], [place] [address]Dkkknhn [Mass/Vol]8.8 mg/dLNormal8.6-10.3UnGalion HospitalComment on above:Performed By: #### [id number] #### [facility] ([facility]) [address] [place], [place] [address]Xroqjwkh [Moles/Vol]105 mmol/IXetjqw07-782PnhxwmnqufGalion HospitalComment on above:Performed By: #### [id number] #### [facility] ([facility]) [address] [place], [place] [address]TQ6 [Moles/Vol]26 mmol/RQjbkad73-59SyldxrzqwaGalion HospitalComment on above:Performed By: #### [id number] #### [facility] ([facility]) [address] [place], [place] [address]Etfpigoovk [Mass/Vol]0.83 mg/dLNormal0.60-1.20UnGalion HospitalComment on above:Performed By: #### [id number] #### [facility] ([facility]) [address] [place], [place] [address]BGQOGQJWUY FILTRATION RATE ML/MIN/1.73 SQ M.JDUGBXRGO84.7 mL/min/1.73m*2Normal>60.0UnGalion HospitalComment on above: Result Comment: [facility]???s estimated glomerular filtration rate (eGFR) will no [...] potential consequences that do not disproportionately affect anyone group of individuals.Performed By: #### [id number] #### [facility] ([facility]) [address] [place], [place] [address]Ianqdqz [Mass/Vol]96 mg/eLGjpthv83-402UjznkxowdjGalion HospitalComment on above:Performed By: #### [id number] #### [facility] ([facility]) [address] [place], [place] [address]Cscpwhsrn [Moles/Vol]3.8 mmol/LNormal3.5-5.1UnGalion HospitalComment on above:Performed By: #### [id number] #### [facility] ([facility]) [address] [place], [place] [address]Ovyxzl [Moles/Vol]138 mmol/IVllejk485-672TsorogxyzgGalion HospitalComment on above:Performed By: #### [id number] #### [facility] ([facility]) [address] [place], [place] [address]Ljeb nitrogen [Mass/Vol]18 mg/dLNormal7-25UnGalion HospitalComment on above:Performed By: #### [id number] #### [facility] ([facility]) [address] [place], [place] [address]KDKO NITROGEN/CREATININE (MASS RATIO) IN SER/PLAS21.7Normal UK HealthcareComment on above:Performed By: #### [id number] #### [facility] ([facility]) [address] [place], [place] [address]WUY WITH AUTO DIFFERENTIALon 62-88-0305Lhmbjltwd (Bld) [#/Vol] 0.09 10*3/uLNormal0.00-0.20UnGalion HospitalComment on above: Performed By: #### [id number] #### [facility] ([facility]) [address] [place], [place] [address]Bdygmmqir/100 WBC (Bld)0.9 %Normal0.0-1.0UnGalion HospitalComment on above:Performed By: #### [id number] #### [facility] ([facility]) [address] [place], [place] [address]Rqjdxykbvkv (Bld) [#/Vol]0.26 10*3/uLNormal0.00-0.50UnGalion HospitalComment on above:Performed By: #### [id number] #### [facility] ([facility]) [address] [place], [place] [address]Grwbjptxvez/100 WBC (Bld)2.5 %Normal0.0-6.0UnGalion HospitalComment on above:Performed By: #### [id number] #### [facility] ([facility]) [address] [place], [place] [address]Pxivmvmzbcs distribution width (RBC) [Ratio]13.1 %Normal 11.5-15.0UnGalion HospitalComment on above:Performed By: #### [id number] #### [facility] ([facility]) [address] [place], [place] [address]NRSMUKWUFYO MEAN CORPUSCULAR HEMOGLOBIN CONCENTRATION (G/DL) BY UBQXXFDRI38.4 g/pDCmjmyv04.0-35.0UnGalion HospitalComment on above:Performed By: #### [id number] #### [facility] ([facility]) [address] [place], [place] [address]Swwovodrsr (Bld) [Volume fraction]44.6 %Mnwntz61.0-48.0 UK HealthcareComment on above:Performed By: #### [id number] #### [facility] ([facility]) [address] [place], [place] [address]Kypkvvwtbr (Bld) [Mass/Vol]14.9 g/wAOfghba33.0-15.0UnGalion HospitalComment on above:Performed By: #### [id number] #### [facility] ([facility]) [address] [place], [place] [address]Vxqngdkd granulocytes (Bld) [#/Vol]0.05 10*3/uLNormal0.00-0.20 UK HealthcareComment on above:Performed By: #### [id number] #### [facility] ([facility]) [address] [place], [place] [address]Bbagphbg granulocytes/100 WBC (Bld)0.5 %Normal0.0-1.0UnGalion HospitalComment on above:Performed By: #### [id number] #### [facility] ([facility]) [address] [place], [place] [address]Irgwsvhkkhi (Bld) [#/Vol]2.85 10*3/uLNormal1.20-4.00UnGalion HospitalComment on above:Performed By: #### [id number] #### [facility] ([facility]) [address] [place], [place] [address]Akhgfunozqf/100 WBC (Bld)27.4 %Lxvvrv00.0-45.0UnGalion HospitalComment on above:Performed By: #### [id number] #### [facility] ([facility]) [address] [place], [place] [address]PBE (RBC) [Entitic mass]30.4 cjSerzqh60.0-33.0UnGalion HospitalComment on above:Performed By: #### [id number] #### [facility] ([facility]) [address] [place], [place] [address]SBT (RBC) [Entitic vol]91.0 kRUarrrc39.0-98.0UnGalion HospitalComment on above:Performed By: #### [id number] #### [facility] ([facility]) [address] [place], [place] [address]Weytcrivb (Bld) [#/Vol]0.67 10*3/uLNormal0.10-1.00UnGalion HospitalComment on above:Performed By: #### [id number] #### [facility] ([facility]) [address] [place] [address]Gmulsygeu/100 WBC (Bld)6.4 %Normal5.0-12.0UnGalion HospitalComment on above:Performed By: #### [id number] #### [facility] ([facility]) [address] [place] [address]Thptbsnqxte (Bld) [#/Vol]6.48 10*3/uLNormal1.60-7.60UnGalion HospitalComment on above:Performed By: #### [id number] #### [facility] ([facility]) [address] [place] [address]Mhrxmqwuhwv/100 WBC (Bld)62.3 %Zbvooj46.0-72.0UnGalion HospitalComment on above:Performed By: #### [id number] #### [facility] ([facility]) [address] [place] [address]VSOQ (PER 100 WBCS) BY AUTOMATED COUNT0.0 %Oaqaxu1WumlsrreduGalion HospitalComment on above:Performed By: #### [id number] #### [facility] ([facility]) [address] [place] [address]GFTGCWNEA (10*3/UL) IN BLOOD AUTOMATED [id number] 10*3/uLNormal 150-400UnGalion HospitalComment on above:Performed By: #### [id number] #### [facility] ([facility]) [address] [place] [address]TKK (Bld) [#/Vol]4.90 10*6/uLNormal3.80-5.00UnGalion HospitalComment on above:Performed By: #### [id number] #### [facility] ([facility]) [address] [place] [address]MDD (Bld) [#/Vol]10.40 10*3/uLNormal4.00-10.60UnGalion HospitalComment on above:Performed By: #### [id number] #### [facility] ([facility]) [address] [facility] [place], [place] [address]Rjnlgovdiyjcxyd [id number] Ortiz Bright [place] 1970 F Date Provider Department Center 08/22/2024 [address]-RFZEBHUWFRANCI [facility] CARD NM HeartVAS No family history on fileNormalUniversity of Baylor Scott And White The Heart Hospital – PlanoMAGNESIUMon 20-19-3406Npnkngxob [Mass/Vol]2.2 mg/dLNormal1.9-2.7UnGalion HospitalComment on above:Performed By: #### [id number] #### [facility] ([facility]) [address] [place], [place] [address]GKKAFZJS Ion 47-29-8603Aodinair I.cardiac [Mass/Vol]0.64 ng/mL Critically high0.00-0.04UnGalion HospitalComment on above: Result Comment: M-PREVIOUS CRITICAL RESULT Previous result verified on 08/22/2024 0103 on specimen/case [id number] called with component Troponin I for procedure Troponin I with value 0.76 ng/mL. Performed By: #### [id number] #### [facility] ([facility]) [address], [place] [address]vq 70-13-339053Qpdfh Case Management Update Multidisciplinary rounds have been completed. Barriers to Discharge: Pending clinical course and improvement in clinical condition. Patient transferred from [facility] w/ CP and elevated troponin's. Patient [...] discharge disposition appropriate for patient?: Yes New Consults:[facility]30The patient is Moderately Stable - Low risk [...] - Adult Goal: Maintains hematologic stability Outcome: ProgressingNormalUniversity of [facility]30The patient is Moderately Stable - Low risk [...] optimal cardiac output and hemodynamic stability Outcome: ProgressingNormalUniversAdena Health SystemANTI-XA (HEPARIN LEVEL)on 17-44-8634VBADNIR UNFRACTIONATED (U/ML) IN PPP BY CHROMOGENIC METHOD 0.68 IU/mLNormal0.3-0.7UnGalion HospitalComment on above:Order Comment: Check anti-Xa level every 6 hours while on heparin infusion, or per protocol.Result Comment: Rivaroxaban and Apixaban will interfere with the anti Xa assay used to monitor UFH and LMWH.Performed By: #### [id number] ####[facility] ([employer])[address] [place], [place] [address]FFYSgc 08-21-2024 ACTIVATED PARTIAL THROMBOPLASTIN TIME IN PPP BY COAGULATION ASSAY30.0 Seconds Ktgpnl03.0-35.0UnGalion HospitalComment on above:Order Comment: Baseline aPTT before initiating heparin infusion.Result Comment: Clinical significance of the APTT is questionable in the presence of heparin. Performed By: #### [id number] #### [facility] ([employer]) [address] [place], [place] [address]Ufaxvyqfy partial thromboplastin time (aPTT) in platelet poor plasma by coagulation aon 38-18-1342dUII Coag (PPP) [Time]38.7 sHigh22.3-36.2 [facility] HospitalBASIC METABOLIC PANELon 81-91-7332Wujft gap [Moles/Vol]12 mmol/LNormal7-20UnGalion HospitalComment on above:Performed By: #### [id number] #### [facility] ([employer]) [address] [place], [place] [address]Fkahgdy [Mass/Vol]8.7 mg/dLNormal8.6-10.3UnGalion HospitalComment on above:Performed By: #### [id number] #### [facility] ([facility]) [address] [place] [address]Ysjahjzy [Moles/Vol]103 mmol/NIncjbk37-769PqfnzhrafaGalion HospitalComment on above:Performed By: #### [id number] #### [facility] ([facility]) [address] [place] [address]FI9 [Moles/Vol]27 mmol/XZutzap21-55KjqheogrraGalion HospitalComment on above:Performed By: #### [id number] #### [facility] ([facility]) [address] [place] [address]Vqfskzhidw [Mass/Vol]0.83 mg/dLNormal0.60-1.20UnGalion HospitalComment on above:Performed By: #### [id number] #### [facility] ([facility]) [address] [place], [place] [address]QSNHAFPGZB FILTRATION RATE ML/MIN/1.73 SQ M.JZJDBETAW70.7 mL/min/1.73m*2Normal>60.0UnGalion HospitalComment on above: Result Comment: [facility]???s estimated glomerular filtration rate (eGFR) will no [...] potential consequences that do not disproportionately affect anyone group of individuals.Performed By: #### [id number] #### [facility] ([facility]) [address] [place], [place] [address]Kgzepbx [Mass/Vol]100 mg/qKArjvvo91-657LsdyhwnulyGalion HospitalComment on above:Performed By: #### [id number] #### [facility] ([facility]) [address] [place], [place] [address]Vqxwbjjhu [Moles/Vol]3.7 mmol/LNormal3.5-5.1UnGalion HospitalComment on above:Performed By: #### [id number] #### [facility] ([facility]) [address] [place] [address]Tvpclm [Moles/Vol]138 mmol/ZOyphhh458-302GatxcxcreyGalion HospitalComment on above:Performed By: #### [id number] #### [facility] ([facility]) [address] [place], [place] [address]Jqsq nitrogen [Mass/Vol]11 mg/dLNormal7-25UnGalion HospitalComment on above:Performed By: #### [id number] #### [facility] ([facility]) [address] [place], [place] [address]NATM NITROGEN/CREATININE (MASS RATIO) IN SER/PLAS13.3Normal [facility] HealthcareComment on above:Performed By: #### [id number] #### [facility] ([facility]) [address] [place], [place] [address]LMW WITH AUTO DIFFERENTIALon 86-35-1027Ghbsvtpth (Bld) [#/Vol] 0.10 10*3/uLNormal0.00-0.20UnGalion HospitalComment on above: Performed By: #### [id number] #### [facility] ([facility]) [address] [place], [place] [address]Gisinlrqj/100 WBC (Bld)1.0 %Normal0.0-1.0UnGalion HospitalComment on above:Performed By: #### [id number] #### [facility] ([facility]) [address] [place], [place] [address]Gjnqvwiykfv (Bld) [#/Vol]0.31 10*3/uLNormal0.00-0.50UnGalion HospitalComment on above:Performed By: #### [id number] #### [facility] ([facility]) [address] [place] [address]Vwnjntvkiqc/100 WBC (Bld)3.0 %Normal0.0-6.0UnGalion HospitalComment on above:Performed By: #### [id number] #### [facility] ([facility]) [address] [place], [place] [address]Uschbjfteyf distribution width (RBC) [Ratio]13.0 %Normal 11.5-15.0UnGalion HospitalComment on above:Performed By: #### [id number] #### [facility] ([facility]) [address] [place], [place] [address]FVZOVYRTKQK MEAN CORPUSCULAR HEMOGLOBIN CONCENTRATION (G/DL) BY ITRYIIXHT61.3 g/tYIelrge37.0-35.0UnGalion HospitalComment on above:Performed By: #### [id number] #### [facility] ([facility]) [address] [place], [place] [address]Jfojyjuqqp (Bld) [Volume fraction]43.7 %Ortjsq42.0-48.0 UK HealthcareComment on above:Performed By: #### [id number] #### [facility] ([facility]) [address] [place], [place] [address]Xxltbzobdw (Bld) [Mass/Vol]15.0 g/qRMgsgxo18.0-15.0UnGalion HospitalComment on above:Performed By: #### [id number] #### [facility] ([facility]) [address] [place], [place] [address]Fivgixcw granulocytes (Bld) [#/Vol]0.03 10*3/uLNormal0.00-0.20 UK HealthcareComment on above:Performed By: #### [id number] #### [facility] ([facility]) [address] [place], [place] [address]Ggbqmuul granulocytes/100 WBC (Bld)0.3 %Normal0.0-1.0UnGalion HospitalComment on above:Performed By: #### [id number] #### [facility] ([facility]) [address] [place] [address]Dbbielnwpsm (Bld) [#/Vol]3.16 10*3/uLNormal1.20-4.00UnGalion HospitalComment on above:Performed By: #### [id number] #### [facility] ([facility]) [address] [place] [address]Tprnckprwsr/100 WBC (Bld)30.6 %Vuxwxo55.0-45.0UnGalion HospitalComment on above:Performed By: #### [id number] #### [facility] ([facility]) [address] [place] [address]KZR (RBC) [Entitic mass]30.4 gcWkpfnr77.0-33.0UnGalion HospitalComment on above:Performed By: #### [id number] #### [facility] ([facility]) [address] [place], [place] [address]ILM (RBC) [Entitic vol]88.6 aFSqfpdb42.0-98.0UnGalion HospitalComment on above:Performed By: #### [id number] #### [facility] ([facility]) [address] [place], [place] [address]Ovllxykbj (Bld) [#/Vol]0.62 10*3/uLNormal0.10-1.00UnGalion HospitalComment on above:Performed By: #### [id number] #### [facility] ([facility]) [address] [place], [place] [address]Ovluqjcpu/100 WBC (Bld)6.0 %Normal5.0-12.0UnGalion HospitalComment on above:Performed By: #### [id number] #### [facility] ([facility]) [address] [place], [place] [address]Jmmzysmhlqx (Bld) [#/Vol]6.10 10*3/uLNormal1.60-7.60UnGalion HospitalComment on above:Performed By: #### [id number] #### [facility] ([facility]) [address] [place] [address]Ipvwrglyeva/100 WBC (Bld)59.1 %Kvuovp25.0-72.0UnGalion HospitalComment on above:Performed By: #### [id number] #### [facility] ([facility]) [address] [place] [address]LCSK (PER 100 WBCS) BY AUTOMATED COUNT0.0 %Aqhsog9ShdveoxjhiGalion HospitalComment on above:Performed By: #### [id number] #### [facility] ([facility]) [address] [place] [address]VJUCQOMLZ (10*3/UL) IN BLOOD AUTOMATED [id number] 10*3/uLNormal 150-400UnGalion HospitalComment on above:Performed By: #### [id number] #### [facility] ([facility]) [address] [place] [address]MMY (Bld) [#/Vol]4.93 10*6/uLNormal3.80-5.00UnGalion HospitalComment on above:Performed By: #### [id number] #### [facility] ([facility]) [address] [place] [id number] (Bld) [#/Vol]10.32 10*3/uLNormal4.00-10.60UnGalion HospitalComment on above:Performed By: #### [id number] #### [facility] ([facility]) [address] [place] [id number] Attestation signed by Ankit Crook MD at 08/21/2024 2:10 PM Evaluated, reviewed and discussed with lifter driver on rounds. I agree with his notations and plan Cardiology Consult Note Reason for Consult: elevated trop, chest pain HPI: Ortiz Bright is a 54 y.o. female with past medical history of major depressive disorder and hypothyroidism, who presented as a direct admission from [facility] with chest pain and elevated troponin. Patient reported that last night she started having midsternal chest pain with radiation into her left arm and left jaw, her chest pain was retrosternal in location, severe in intensity, with no other associated symptoms. She denied having any shortness of breath or sweating or any other complaints. Initial high-sensitivity troponin of 143, initial troponin in [facility] with 2 mg/dL. Patient was started on [...] Value Ventricular Rate 76 Atrial Rate 76 [place] Interval 132 QRS DURATION 72 QT Interval 408 QTC CALCULATION(BAZETT) 459 P [place] 63 R-[place] 87 T Wave [place] 99 Impression Normal sinus rhythm Nonspecific ST [...] proceed with coronary an (more content not included)...NormalUnGalion HospitalHEMOGLOBIN A1Con 55-25-1989Mbhbofv [Mass/Vol]128 mg/dL NormalUnGalion HospitalComment on above:Performed By: #### [id number] ####[facility] ([facility])[address] [place], [place] [id number] (Bld) [Mass fraction]6.1 %High4.0-6.0UnGalion HospitalComment on above:Performed By: #### [id number] ####[facility] ([facility])[address] [place], [place] [address]MOXTDHVWXP AND HEMATOCRIT, BLOODon 11-30-4173Mdgsmmyrsv (Bld) [Volume fraction]46.3 %Pthooc09.0-48.0UnGalion HospitalComment on above:Performed By: #### [id number] #### [facility] (BEAKER) [address] [place], [place] [address]Npqosreqxe (Bld) [Mass/Vol]15.2 g/wPQrih31.0-15.0UnGalion HospitalComment on above:Performed By: #### [id number] #### [facility] (BEAKER) [address] [place], [place] [address]LQak 23-93-5510ZJYqqvjtiiny Interval Pre-Procedural History & Physical Chief Complaint: elevated trop, chest pain HPI: Ortiz Bright is a 54 y.o. female with past medical history of major depressive disorder and hypothyroidism, who presented as a direct admission from [facility] with chest pain and elevated troponin. Patient reported that last night she started having midsternal chest pain with radiation into her left arm and left jaw, her chest pain was retrosternal in location, severe in intensity, with no other associated symptoms. She denied having any shortness of breath or sweating or any other complaints. Initial high-sensitivity troponin of 143, initial troponin in [facility] with 2 mg/dL. Patient was started on [...] Value Ventricular Rate 76 Atrial Rate 76 [place] Interval 132 QRS DURATION 72 QT Interval 408 QTC CALCULATION(BAZETT) 459 P Langley 63 R-Langley 87 T Wave Langley 99 Impression Normal sinus rhythm Nonspecific ST and T wave abnormality Abnormal ECG No previous ECGs available Lab Results Component Value Date TROPONINI 1.07 () 08/21/2024 Complete Echo (TTE) w/wo Imaging Agent, Strain, 3D, Bubble Study Result Date: 08/21/2024 1 1 [facility] Heart Station [address] [id number] [phone] (fax) Echocardiogram-[facility] Name: ORTIZ BRIGHT Study Date: 08/21/2024 07:30 AM B/P: 122 mmHg/79 mmHg HR: 78 bpm Date of : 1970 Location: [facility] Height: 63 in. Age: 54 [...] Overall Conclusions: No (more content not included)... NormalUnGalion HospitalLIPID PANELon 34-24-9928ZMLF/HDL4.2 mg/dLNormalUniversAdena Health SystemComment on above:Performed By: #### [id number] ####[facility] ([facility])[address] [place] [address] Cholesterol [Mass/Vol]226 mg/dJUqgf267-643BvzdyurooaGalion Hospital Comment on above:Performed By: #### [id number] ####[facility] ([facility])[address] [place], [place] [address]Jvftsxbeg [Mass/Vol]179 mg/nTXjjw73-812JbdnnhgeguGalion HospitalComment on above:Result Comment: TRIGLYCERIDE REFERENCE RANGE: 20 YEARS AND OLDER CARDIOVASCULAR RISK LESS THAN 150 mg/dL LOW RISK 150 TO 199 mg/dL BORDERLINE RISK 200 mg/dL AND GREATER HIGH RISKPerformed By: #### [id number] ####[facility] ([facility])[address] [place], [place] [address]Uzdbibwso [Mass/Vol]136 mg/dLNormal 0-160UnGalion HospitalComment on above:Performed By: #### [id number] ####[facility] ([facility])[address] [place], [place] [address]Xkwxhvofr [Mass/Vol]54 mg/aNItybzo69-15TwtjatbyskGalion HospitalComment on above:Performed By: #### [id number] ####[facility] ([facility])[address] [place], [place] [address]JGI HDL CHOL. (LDL+VLDL)172NormalUniCentervilleComment on above:Performed By: #### [id number] ####[facility] (AKER)[address] [place], [place] [address]DGZFW VLDL-C36 mg/dLNormal0-40 [facility] HealthcareComment on above:Performed By: #### [id number] ####[facility] ([facility])[address] [place] [place], [place] [address]YEJCYZFVBuz 34-04-5736Ptkpnouji [Mass/Vol]2.1 mg/dLNormal1.9-2.7UnGalion HospitalComment on above:Performed By: #### [id number] #### [facility] ([facility]) [address] [place], [place] [address]Qb Panel Informationon 32-46-6882Vqbomvdj I High Sensitivity 5205.7 pg/mLHigh4.0-51.3FSamaritan HospitalComment on above: RESULTS CALLED TO FADI KAMINSKI RN at 0108CUT-OFF POINTS HAVE BEEN ESTABLISHED BASED ON THE FOURTHIVERS DEFINITION OF MYOCARDIAL INFARCTION. THE UPPERREFERENCE LIMIT (URL) OF TROPONIN, DEFINED THE 99THPERCENTILE OF cTnI DISTRIBUTION IN A REFERENCE POPULATION,HAS BEEN CONFIRMED THE DECISION THRESHOLD FOR MIDIAGNOSIS.99TH PERCENTILE = 51.4 PG/MLNOTE: HIGH-SENSITIVITY TROPONIN ASSAY IS NOT INTENDED TO BEUSED IN ISOLATION BUT SHOULD BE INTERPRETED IN CONJUNCTIONWITH OTHER DIAGNOSTIC ANDCLINICAL INFORMATION.PHOSPHORUSon 85-25-0544Dckyntkax [Mass/Vol]3.8 mg/dLNormal2.5-5.0UnGalion HospitalComment on above:Performed By: #### [id number] #### [facility] ([facility]) [address] [place], [place] [address]DQXR GLUCOSE METER UNSOLICITED RESULTSon 36-49-1300Kpcxitc [Mass/Vol]130 mg/mYVzrs16-196IwlovbsgnyGalion HospitalComment on above:Order Comment: Waived Testing in the ED is performed under the ED CLIA certificate #[id number].Result Comment: bfloodPerformed By: #### [id number] #### [facility] ([facility]) [address] [place], [place] [address]BGXPZNR-XQXwn 97-06-1721PWN IN PPP BY COAGULATION ASSAY0.96 Normal0.90-1.10UnGalion HospitalComment on above:Result Comment: ACC RECOMMENDED INR FOR WARFARIN THERAPY CONDITION INR PROPHYLAXIS OF VENOUS THROMBOSIS 2-3 (HIGH-RISK SURGERY) TREATMENT OF VENOUS THROMBOSIS 2-3 TREATMENT OF PULMONARY EMBOLISM 2-3 PREVENTION OF SYSTEMIC EMBOLISM: 2-3 ACUTE MYOCARDIAL INFARCTION TISSUE HEART VALVES VALVULAR HEART DISEASE ATRIAL FIBRILLATION RECURRENT SYSTEMIC EMBOLISM MECHANICAL HEART VALVE 2.5-3.5 FROM: ORAL ANTICOAGULANTS. MECHANISM OF ACTION, CLINICAL EFFECTIVENESS, AND OPTIMAL THERAPEUTIC RANGE. CHEST 1995;108:231S-246S.Performed By: #### [id number] #### [facility] ([facility]) [address] [place], [place] [address]DZYYAGSIQJR TIME (PT) IN PPP BY COAGULATION ASSAY12.8 Seconds Twsyyx49.3-14.8UnGalion HospitalComment on above:Performed By: #### [id number] #### [facility] FanFoundENCOM[facility]) [address] [place], [place] [address]W4, FREEon 60-96-6154AKVKGSXIP (T4) FREE (NG/DL) IN SER/PLAS0.58 ng/dLLow0.71-1.85UnGalion HospitalComment on above:Performed By: #### [id number] #### [facility] FanFoundENCOM[facility]) [address] [place], [place] [address]HVLVBKXT Ion 12-26-5171Mlcqcesg I.cardiac [Mass/Vol]0.76 ng/mL Critically high0.00-0.04UnGalion HospitalComment on above: Result Comment: M-PREVIOUS CRITICAL RESULT Previous result verified on 08/21/2024 0613 on specimen/case [id number] called with component Troponin I for procedure Troponin I with value 2.09 ng/mL. Performed By: #### [id number] #### [facility] ([facility]) [address] [place], [place] [address]Wikikqmp I.cardiac [Mass/Vol]0.58 ng/mLCritically high0.00-0.04 [facility] HealthcareComment on above:Result Comment: M-PREVIOUS CRITICAL RESULT Previous result verified on 08/21/2024612 on specimen/case [id number] called with component Troponin I for procedure Troponin I with value 2.09 ng/mL. Performed By: #### [id number] ####[facility] ([facility])[address] [place], [place] [address]Eqnuadac I.cardiac [Mass/Vol]1.07 ng/mLCritically high 0.00-0.04UnGalion HospitalComment on above:Result Comment: M- PREVIOUS CRITICAL RESULT Previous result verified on 08/21/2024612 on specimen/case [id number] called with component Troponin I for procedure Troponin I with value 2.09 ng/mL. Performed By: #### [id number] ####[facility] ([facility])[address] [place], [place] [address]Kmueggtf I.cardiac [Mass/Vol]2.09 ng/mLCritically high 0.00-0.04UnGalion HospitalComment on above:Result Comment: M- TROPONIN INITIAL CRITICAL HIGH; RESPUN AND RETESTEDPerformed By: #### [id number] #### [facility] ([facility]) [address] [facility], [place] [address]WFZ7 REFLEX TO FT4on 26-72-8649WOWBCUPQVQX (MIU/L) IN SER/PLAS BY DETECTION LIMIT <= 0.05 MIU/L10.64 mIU/LHigh0.34-5.60UnGalion HospitalComment on above:Performed By: #### [id number] #### [facility] ([facility]) [address], [place] [address]Fxuvbjedj Auto (Bld) [#/Vol]on 07-05-9947Umuhnahzj (Bld) [#/Vol] 0.1 10 3/uL0.0-0.1FSamaritan HospitalBasophils/100 WBC Auto (Bld) on 34-25-0347Fvbzdonxd/100 WBC (Bld)1.1 %0.2-2.0[facility] HospitalEosinophils/100 WBC Auto (Bld)on 25-75-4549Legfszymexo/100 WBC (Bld)5.3 % 0.9-7.0[facility] HospitalErythrocyte distribution width Auto (RBC) [Ratio]on 33-50-8628Eniecfiourc distribution width (RBC) [Ratio]12.8 % 11.0-15.0[facility] HospitalEstimated glomerular filtration rate (GFR) non- Americanon 55-47-0920YXR/1.73 sq M.predicted among non-blacks MDRD (S/P/Bld) [Vol rate/Area]54 mL/min/{1.73_m2}Low>=60 mL/min/1.73m 2FSamaritan HospitalGlobulin Calc (S) [Mass/Vol]on 42-81-8503Gqlflnsb (S) [Mass/Vol]3.8 g/dLWvumedicine Harrison Community HospitalHematocrit Auto (Bld) [Volume fraction]on 18-19-2015Giylkhigki (Bld) [Volume fraction]46.0 %36.0-48.0 [facility] HospitalHemoglobin [Mass/volume] in Bloodon 08-20-2024 Hemoglobin (Bld) [Mass/Vol]15.4 g/dL12.0-16.0[facility] INR in Platelet poor plasma by Coagulation assayon 70-20-9475JLK Coag (PPP) [Relative time]0.93 {INR}[facility] HospitalComment on above: DESIRED INR:2.0-3.0 CONDITIONS NOT LISTED BELOW2.5-3.5 FOR PROSTHETIC HEART VALVE REPLACEMENT2.5-3.5 RECURRENT THROMBOSISLaboratory - Chemistry and Chemistry - challengeon 65-28-8037LC [Catalytic activity/Vol]192 U/L26-192 [facility] HospitalCK.MB [Mass/Vol]7.56 ng/mLHigh<=3.60[facility] Community HospitalComment on above:RESULTS CALLED TO JOSHUA MARRERO RN at 2211Albumin [Mass/Vol]4.3 g/dL3.4-5.0[facility] HospitalALP [Catalytic activity/Vol]69 U/Q27-116HrvqmkkyuWvumedicine Harrison Community HospitalALT [Catalytic activity/Vol]36 U/K30-89YszmreyvfWvumedicine Harrison Community HospitalAST [Catalytic activity/Vol]23 U/S00-87DejlowtbuWvumedicine Harrison Community HospitalBilirubin [Mass/Vol]0.5 mg/dL0.2-1.0[facility] HospitalCalcium [Mass/Vol]9.5 mg/dL8.5-10.1FSamaritan HospitalChloride [Moles/Vol]103 mmol/L 98-107[facility] HospitalCO2 [Moles/Vol]28.9 mmol/L21.0-32.0 [facility] HospitalCreatinine [Mass/Vol]1.05 mg/dLHigh0.55-1.02 [facility] HospitalGFR/1.73 sq M.predicted MDRD (S/P/Bld) [Vol rate/Area]mL/min/{1.73_m2}>=60 mL/min/1.73m 2FSamaritan Hospital Glucose [Mass/Vol]106 mg/iD47-941BhdupbxkyWvumedicine Harrison Community HospitalLactate [Moles/Vol]1.1 mmol/L0.4-2.0[facility] HospitalLipase [Catalytic activity/Vol]84.0 U/LHigh16.0-77.0[facility] HospitalMagnesium [Mass/Vol]2.3 mg/dL1.8-2.4FSamaritan HospitalNatriuretic peptide B (Bld) [Mass/Vol]40.0 pg/mL<=900.0[facility] HospitalPotassium [Moles/Vol]3.9 mmol/L3.5-5.1FSamaritan HospitalProtein [Mass/Vol] 8.1 g/dL6.4-8.2FSumma Health Wadsworth - Rittman Medical Centerodium [Moles/Vol]141 mmol/L 136-145[facility] HospitalUrea nitrogen [Mass/Vol]11.0 mg/dL 7.0-18.0[facility] HospitalUrea nitrogen/Creatinine [Mass ratio] 10.5 mg/mgWvumedicine Harrison Community HospitalLaboratory - Hematology and Cell countson 37-07-3655Mhsbuhim granulocytes/100 WBC (Bld)0.3 %0.0-0.5FSamaritan HospitalLeukocytes [#/volume] corrected for nucleated erythrocytes in Blood by Automated counon 79-11-6907QBD corrected for nucl RBC Auto (Bld) [#/Vol]9.6 10 3/uL4.0-11.0[facility] Lymphocytes Auto (Bld) [#/Vol]on 87-56-6414Gcvdaffekbg (Bld) [#/Vol]2.8 10 3/uL 1.2-3.8[facility] HospitalLymphocytes/100 WBC Auto (Bld)on 57-05-4903Igaubfwwmmq/100 WBC (Bld)28.7 %20.5-60.0[facility] HospitalH Auto (RBC) [Entitic mass]on 27-31-1373DYB (RBC) [Entitic mass]30.4 pg 26.7-34.0[facility] HospitalMCHC Auto (RBC) [Mass/Vol]on 46-72-8667GWTR (RBC) [Mass/Vol]33.5 g/dL29.9-35.2FSamaritan HospitalMCV Auto (RBC) [Entitic vol]on 67-15-0441GWI (RBC) [Entitic vol]90.9 fL 81.0-99.0[facility] HospitalMonocytes Auto (Bld) [#/Vol]on 14-28-6394Exgubknfp (Bld) [#/Vol]0.5 10 3/uL0.3-0.8[facility] HospitalMonocytes/100 WBC Auto (Bld)on 48-00-1063Xvbwqwqrx/100 WBC (Bld)5.6 % 1.7-12.0[facility] HospitalNeutrophils Auto (Bld) [#/Vol]on 59-18-8984Waalnqznbai (Bld) [#/Vol]5.7 10 3/uL1.4-6.5FSamaritan HospitalNeutrophils/100 WBC Auto (Bld)on 97-79-8168Fveybecobdw/100 WBC (Bld)59.0 % 43.0-75.0[facility] HospitalNo Panel Informationon 08-20-2024 Troponin I High Tudcilsbxak5941.2 pg/mLHigh4.0-51.3FSamaritan HospitalComment on above:RESULTS CALLED TO JOSHUA MARRERO RN at 2211CUT-OFF POINTS HAVE BEEN ESTABLISHED BASED ON THE FOURTHUNIVERSAL DEFINITION OF MYOCARDIAL INFARCTION. THE UPPERREFERENCE LIMIT (URL) OF TROPONIN, DEFINED THE 99THPERCENTILE OF cTnI DISTRIBUTION IN A REFERENCE POPULATION,HAS BEEN CONFIRMED THE DECISION THRESHOLD FOR MIDIAGNOSIS.99TH PERCENTILE = 51.4 PG/MLNOTE: HIGH-SENSITIVITY TROPONIN ASSAY IS NOT INTENDED TO BEUSED IN ISOLATION BUT SHOULD BE INTERPRETED IN CONJUNCTIONWITH OTHER DIAGNOSTIC AND CLINICAL INFORMATION.Eosinophils # (Auto)0.5 10 3/uL0.0-0.7FSamaritan HospitalImmature Granulocyte # (Auto)0.03 10 3/uL0.00-0.03[facility] HospitalPlatelet mean volume Auto (Bld) [Entitic vol]on 04-93-0617Rgwqypze mean volume (Bld) [Entitic vol]8.9 fLLow9.5-13.5FSamaritan HospitalPlatelets Auto (Bld) [#/Vol]on 37-25-7585Lludxmfve (Bld) [#/Vol]395 10 3/rB601-752JsziiblqeWvumedicine Harrison Community HospitalProthrombin time (PT) on 15-53-3234TL Coag (PPP) [Time]9.9 s9.0-11.6FSamaritan Hospital RBC Auto (Bld) [#/Vol]on 91-85-4862ORR (Bld) [#/Vol]5.06 10 6/uL4.20-5.40 [facility] Hospitalerum or plasma albumin/globulin mass ratioon 71-73-8596Xkddhtb/Globulin [Mass ratio]1.1 {ratio}[facility] Hospitalerum or plasma anion gap determinationon 98-94-5532Gegqw gap [Moles/Vol] 13.0 mmol/LFSamaritan HospitalXR CSPINE 2_3 VIEWSon 33-79-8405LK CSPINE 2_3 VIEWSEXAMINATION: XR CSPINE 2_3 VIEWS HISTORY: Neck pain [...] Electronically authenticated by: PHAN BRADFORD Date: 2022-10-18 23:36[facility] CenterXR LSPINE MIN 4 VIEWSon 87-72-8950TM LSPINE MIN 4 VIEWS EXAMINATION: XR LSPINE [...] Electronically authenticated by: PHAN BRADFORD Date: 2022-10-18 23:29[facility] CenterXR TSPINE 3 VIEWSon 27-69-4996EU TSPINE 3 VIEWSEXAMINATION: XR TSPINE 3 VIEWS HISTORY: Pain in [...] Electronically authenticated by: PHAN BRADFORD Date: 2022-10-18 23:30NormalThPremier Health [facility] AUTO DIFFon 31-76-1137TNSW #0.1 103/ulNormal0.0-0.1The [facility] HospitalComment on above:Performed By: #### CBC #### [facility] [address] [address] [address] Hamilton HerronBasophils/100 WBC (Bld)1.5 %Normal0.2-2.0The [facility] Comment on above:Performed By: #### CBC #### [facility] [address] [address] [address] Hamilton Tejada #0.1 103/ulNormal0.0-0.7The [facility] HospitalComment on above: Performed By: #### CBC #### [facility] [address] [address] [address] Hamilton Cumminsosinophils/100 WBC (Bld)2.3 %Normal0.9-7.0The [facility] Comment on above:Performed By: #### CBC #### [facility] [address] [address] [address] Hamilton Cumminsrythrocyte distribution width (RBC) [Ratio]16.0 %Critically high 11.0-15.0The [facility] HospitalComment on above:Performed By: #### CBC #### [facility] [address] [address] [address] Hamilton HerronHematocrit (Bld) [Volume fraction]40.3 %Wbzdrv55.0-48.0The [facility] HospitalComment on above:Performed By: #### CBC #### [facility] [address] [address] [address] Hamilton HerronHemoglobin (Bld) [Mass/Vol]12.7 g/iPWanwrs98.0-16.0The [facility] HospitalComment on above:Performed By: #### CBC #### [facility] [address] [address] [address] Hamilton Yee #0.02 10e3/ulNormal0.00-0.03The [facility] Hospitalment on above:Performed By: #### CBC #### [facility] [address] [address] [address] Hamilton Yee %0.3 %Normal0.0-0.5The [facility] HospitalComtrinity health [facility] hospital on above: Performed By: #### CBC #### [facility] [address] [address] [address] Hamilton Freeman #1.8 103/ulNormal1.2-3.8The [facility] HospitalComment on above:Performed By: #### CBC #### [facility] [address] [place] [address] Dr. Hamilton Seayhocytes/100 WBC (Bld)30.5 %Rejfog80.5-60.0[facility] HospitalComtrinity health [facility] hospital on above:Performed By: #### CBC #### [facility] [address] [place] [address] Dr. Hamilton Vargas DIFF REQNONormalThe [facility] HospitalComment on above: Performed By: #### CBC #### [facility] [address] [place] [address] Dr. Hamilton Osman (RBC) [Entitic mass]26.4 pgCritically low26.7-34.0The [facility] on above:Performed By: #### CBC #### [facility] [address] [place] [address] Dr. Hamilton Roldan (RBC) [Mass/Vol]31.5 g/sUGjqiee33.9-35.2The [facility] Hospitalment on above:Performed By: #### CBC #### [facility] [address] [place] [address] Dr. Hamilton Roldan (RBC) [Entitic vol]83.8 xKLpwyuz03.0-99.0The [facility] Hospitalment on above:Performed By: #### CBC #### [facility] [address] [place] [address] Dr. Hamilton Barahona #0.4 103/ulNormal0.3-0.8The [facility] HospitalComment on above:Performed By: #### CBC #### [facility] [address] [place] [address] Dr. Hamilton Rosenocytes/100 WBC (Bld)6.0 %Normal1.7-12.0The [facility] Comment on above:Performed By: #### CBC #### [facility] [address] [place] [address] Dr. Hamilton Barry #3.6 103/ulNormal1.4-6.5The [facility] HospitalComment on above:Performed By: #### CBC #### [facility] [address] [place] [address] Dr. Hamilton Gonzalezutrophils/100 WBC (Bld)59.4 %Eqwjdf09.0-75.0The [facility] HospitalComment on above:Performed By: #### CBC #### [facility] [address] [place] [address] Dr. Hamilton Paniagualet mean volume (Bld) [Entitic vol]9.1 fLCritically low 9.5-13.5The [facility] HospitalComment on above:Performed By: #### CBC #### [facility] [address] [place] [address] Dr. Hamilton AndersonT431 103/lmGnnjnw689-041Yff [facility] HospitalComment on above: Performed By: #### CBC #### [facility] [address] [place] [address] Dr. Hamilton HerronRBC4.81 106/ulNormal4.20-5.40The [facility] HospitalComment on above:Performed By: #### CBC #### [facility] [address] [place] [address] Dr. Hamilton HerronWBC6.0 103/ulNormal4.0-11.0The [facility] HospitalComment on above: Performed By: #### CBC #### [facility] [address] [place] [address] Dr. Hamilton Leslie T4on 66-72-2770Cyip T4 [Mass/Vol]1.30 ng/dLNormal0.76-1.46 [facility] on above:Performed By: #### FT4 #### [facility] [address] [place] [address] Dr. Hamilton HerronGLYCOHEMOGLOBIN A1Con 00-77-7889QAL RECOMMENDATIONSEE BELOWNormSheltering Arms HospitalComtrinity health [facility] hospital on above:Result Comment: ADA RECOMMENDED LIMIT 4.0 - 6.0 ADA THERAPEUTIC TARGET < 7.0 ACTION SUGGESTED > 7.0Performed By: #### A1C #### [facility] [address] [place] [address] Dr. Hamilton HerronGlucose [Mass/Vol]128 mg/dLAdams County Regional Medical CenterComtrinity health [facility] hospital on above:Performed By: #### A1C #### [facility] [address] [place] [address] Dr. Hamilton HerronHbA1c (Bld) [Mass fraction]6.1 %Normal4.5-6.2[facility] HospitalComtrinity health [facility] hospital on above:Performed By: #### A1C #### [facility] [address] [place] [address] Dr. Hamilton HerronLIPID PROFILEon 17-08-7216IJQL-HDL RATIO NORMSEE [facility] HospitalComtr[facility] health [facility] on above:Result Comment: 3.3 - 4.4 LOW RISK 4.4 - 7.1 AVERAGE RISK 7.1 - 11.0 MODERATE RISK >11.0 HIGH RISKPerformed By: #### TSH, LIPID, CMP #### [facility] [address] [place] [address] Dr. Hamilton HerronCholesterol [Mass/Vol]214 mg/dLCritically high<=200[facility] on above:Performed By: #### TSH, LIPID, CMP #### [facility] [address] [place] [address] Dr. Hamilton HerronCholesterol in HDL [Mass/Vol]56 mg/vGIchkin41-84SqjElyria Memorial Hospital on above:Performed By: #### TSH, LIPID, CMP #### [facility] [address] [address] [address] Hamilton HerronCholesterol in LDL [Mass/Vol]141.0 mg/dLAdams County Regional Medical CenterComment on above:Performed By: #### TSH, LIPID, CMP #### [facility] [address] [place] [address] Dr. Hamilton Sheltonestercaty.total/Cholesterol in HDL [Mass ratio]3.8 {ratio} NormalThe [facility] HospitalComment on above:Performed By: #### TSH, LIPID, CMP #### [facility] [address] [place] [address] Dr. Hamilton Hill NORMAL> or = 60 mg/dl - LOW CARDIOVASCULAR RISK <40 mg/dl - HIGH CARDIOVASCULAR RISKAdams County Regional Medical CenterComment on above:Performed By: #### TSH, LIPID, CMP #### [facility] [address] [place] [address] Dr. Hamilton Tomlinson CALC NORMALSEE BELOWNoMansfield HospitalComment on above:Result Comment: <100 mg/dl OPTIMAL 100 - 129 mg/dl NEAR OR ABOVE OPTIMAL 130 - 159 mg/dl BORDERLINE HIGH 160 - 189 mg/dl HIGH >190 mg/dl VERY HIGH Performed By: #### TSH, LIPID, CMP #### [facility] [address] [place] [address] Dr. Hamilton HerronTriglyceride [Mass/Vol]85 mg/dLNormal<=150The [facility] Comment on above:Performed By: #### TSH, LIPID, CMP #### [facility] [address] [place] [address] Dr. Hamilton GonzalezLDL CALC17.0 mg/dLNoMansfield HospitalComment on above: Performed By: #### TSH, LIPID, CMP #### [facility] [address] [place] [address] Dr. Hamilton Fregoso 14(COMP METB)on [id number] [Mass/Vol]3.9 g/dLNormal 3.4-5.0The [facility] HospitalComment on above:Performed By: #### TSH, LIPID, CMP #### [facility] [address] [address] [address] Hamilton HerronAlbumin/Globulin [Mass ratio]1.1 {ratio}NormalThe [facility] HospitalComment on above:Performed By: #### TSH, LIPID, CMP #### [facility] [address] [address] [address] Hamilton RaeP [Catalytic activity/Vol]95 [id number] [facility] HospitalComment on above:Performed By: #### TSH, LIPID, CMP #### [facility] [address] [address] [address] Hamilton RaeT [Catalytic activity/Vol]41 U/CKidipt95-32Pxc [facility] HospitalComment on above:Performed By: #### TSH, LIPID, CMP #### [facility] [address] [address] [address] Hamilton Patiñoon gap [Moles/Vol]7.0 mmol/LNormalThe [facility] HospitalComment on above:Performed By: #### TSH, LIPID, CMP #### [facility] [address] [address] [address] Hamilton HerronAST [Catalytic activity/Vol]25 U/DHmypum63-61Zsl [facility] Hospitalment on above:Performed By: #### TSH, LIPID, CMP #### [facility] [address] [address] [address] Hamilton HerronBilirubin [Mass/Vol]0.3 mg/dLNormal0.2-1.0The [facility] Comment on above:Performed By: #### TSH, LIPID, CMP #### [facility] [address] [address] [address] Hamilton HerronCalcium [Mass/Vol]9.0 mg/dLNormal8.5-10.1The [facility] Comment on above:Performed By: #### TSH, LIPID, CMP #### [facility] [address] [address] [address] Hamilton HerronChloride [Moles/Vol]102 mmol/UFdnrtr38-299Jrq [facility] Comment on above:Performed By: #### TSH, LIPID, CMP #### [facility] [address] [address] [address] Hamilton HerronCO2 [Moles/Vol]32.7 mmol/LCritically high21.0-32.0The [facility] HospitalComment on above:Performed By: #### TSH, LIPID, CMP #### [facility] [address] [place] [address] Dr. Hamilton HerronCreatinine [Mass/Vol]0.95 mg/dLNormal0.55-1.02[facility] HospitalComment on above:Performed By: #### TSH, LIPID, CMP #### [facility] [address] [place] [address] Dr. Hamilton Gilbert-AF FIJIAN>60Normal>=60The [facility] HospitalComment on above:Performed By: #### TSH, LIPID, CMP #### [facility] [address] [place] [address] Dr. Hamilton Gilbert-NON AF FIJIAN>60Normal>=60The [facility] HospitalComment on above:Performed By: #### TSH, LIPID, CMP #### [facility] [address] [place] [address] Dr. Hamilton HerronGlobulin (S) [Mass/Vol]3.7 g/dLNormalThe [facility] HospitalComment on above:Performed By: #### TSH, LIPID, CMP #### [facility] [address] [place] [address] Dr. Hamilton HerronGlucose [Mass/Vol]112 mg/dLCritically xkmp71-394Yqq [facility] Hospitalment on above:Performed By: #### TSH, LIPID, CMP #### [facility] [address] [place] [address] Dr. Hamilton HerronPotassium [Moles/Vol]3.7 mmol/LNormal3.5-5.1The [facility] Comment on above:Performed By: #### TSH, LIPID, CMP #### [facility] [address] [place] [address] Dr. Hamilton HerronProtein [Mass/Vol]7.6 g/dLNormal6.4-8.2The [facility] Comment on above:Performed By: #### TSH, LIPID, CMP #### [facility] [address] [address] [address] Hamilton Ravium [Moles/Vol]138 mmol/SOrjnri565-953Uxu [facility] Comment on above:Performed By: #### TSH, LIPID, CMP #### [facility] [address] [address] [address] Hamilton Vyas nitrogen [Mass/Vol]10.0 mg/dLNormal7.0-18.0The [facility] HospitalComment on above:Performed By: #### TSH, LIPID, CMP #### [facility] [address] [address] [address] Hamilton Vyas nitrogen/Creatinine [Mass ratio]10.5 mg/mgNormalThe [facility] HospitalComment on above:Performed By: #### TSH, LIPID, CMP #### [facility] [address] [address] [address] Hamilton Madison 12-81-0333SAF3.200 uIU/mLCritically low0.358-3.740The [facility] HospitalComment on above:Performed By: #### TSH, LIPID, CMP #### [facility] [address] [place] [address] Dr. Hamliton Tinajero hand LT min 3V*on 81-82-0873FE hand LT min 3V*[facility] [employer] Other XR hand LT min 3V*[facility] [employer] Other XR hand LT min 3V*Alysha Haskins [facility] [employer] Other XR hand LT min 3V*[address] [employer] Other XR hand LT min 3V*XRay [facility] [employer] Other XR hand LT min 3V*[facility] [employer] Other XR hand LT min 3V*Patient: Ortiz Bright MR#: [id number] [employer] Other XR hand LT min 3V*71[place] [employer] Other XR hand LT min 3V*: 1970 Acct:[id number] [employer] Other XR hand LT min 3V*Age/Sex: 51 / F ADM Date: 11/06/21 [email or web address] Other XR hand LT min 3V*Loc: [facility] [place] Room: Type: [facility] [employer] Other XR hand LT min 3V*Attending Dr: Rosalba Martinez MD [email or web address] Other XR hand LT min 3V*Ordering Provider: Rosalba Martinez MDVictory Healthcare [employer] Other XR hand LT min 3V*Date of Service: 11/06/21[place] [employer] Other XR hand LT min 3V* XR/XR hand LT min 3V*: Primary osteoarthritis of left handPanhandle [employer] Other XR hand LT min 3V*Copies to: Rosalba Martinez MDPanhandle [employer] Other XR hand LT min 3V*Left wrist 11/06/2021.[email or web address] Other XR hand LT min 3V*CLINICAL DATA: Primary osteoarthritis of left hand.[email or web address] Other XR hand LT min 3V*FINDINGS: 3 views of the left wrist were obtained along with a dedicated view of the left [facility] Other XR hand LT min 3V*carpal-metacarpal joint. This examination is compared with a prior study 09/30/2021.[email or web address] Other XR hand LT min 3V*There is redemonstration of postsurgical changes related to fusion of the first carpal-metacarpalNowashington university medical center [employer] Other XR hand LT min 3V*joint. The hardware appears intact and unchanged in position. There are underlying degenerativePanhandle [employer] Other XR hand LT min 3V*changes at the first carpal- metacarpal joint. No fracture or dislocation is identified. [facility] [employer] Other XR hand LT min 3V*significant soft tissue swelling is seen.[email or web address] Other XR hand LT min 3V* XR/XR hand LT min 3V*[place] [employer] Other XR hand LT min 3V*IMPRESSION: Stable postsurgical changes related to fusion of the left first CMC jointPanhandle [employer] Other XR hand LT min 3V*Impression dictated by: Tarun Aranda Jr., M.D.11/06/2021 12:15 [facility] [employer] Other XR hand LT min 3V*Dictation Location: [address] [employer] Other XR hand LT min 3V*Transcribed By: ERNIE 11/06/[address] [place] [address] [employer] Other XR hand LT min 3V*Dictated By: Tarun Aranda Jr, MD 11/06/[address] [place] [address] [employer] Other XR hand LT min 3V*Signed By:[email or web address] Other XR hand LT min 3V*11/06/[address] [place] [address] [employer] Other XR hand LT min 3V*on 59-39-0192RJ hand LT min 3V* [facility] [employer] Other XR hand LT min 3V*[facility] [employer] Other XR hand LT min 3V*Alysha HernandezPanhandle [employer] Other XR hand LT min 3V*LYDIA Stewart [address]Tvakk [employer] Other XR hand LT min 3V*XRay ReportPanhandle [employer] Other XR hand LT min 3V*SignedPanhandle [employer] Other XR hand LT min 3V*Patient: Ortiz Bright MR#: [id number] [employer] Other XR hand LT min 3V*71[place] [employer] Other XR hand LT min 3V*: 1970 Acct:[id number] [employer] Other XR hand LT min 3V*Age/Sex: 51 / F ADM Date: 09/30/21 [place] [employer] Other XR hand LT min 3V*Loc: [facility] [place] Room: Type: [facility] [employer] Other XR hand LT min 3V*Attending Dr: Rosalba Martinez MD [place] [employer] Other XR hand LT min 3V*Ordering Provider: Rosalba Martinez MDPanhandle [employer] Other XR hand LT min 3V*Date of Service: 09/30/21[place] [employer] Other XR hand LT min 3V* XR/XR hand LT min 3V*: Primary osteoarthritis, right handPanhandle [employer] Other XR hand LT min 3V*Copies to: Rosalba Martinez MDPanhandle [employer] Other XR hand LT min 3V*4 views LEFT hand plain filmPanhandle [employer] Other XR hand LT min 3V*COMPARISON:[employer] SystemsPanhandle [employer] Other XR hand LT min 3V*HISTORY:Status post LEFT 1st carpometacarpal fusionPanhandle [employer] Other XR hand LT min 3V*2 bony vikki fuse the 1st carpometacarpal articulation. Mild bony bridging identified. [facility] [employer] Other XR hand LT min 3V*alignment adequate. No soft tissue abnormality.[email or web address] Other XR hand LT min 3V* XR/XR hand LT min 3V*[email or web address] Other XR hand LT min 3V*IMPRESSION:No hardware failure. Bony fusion changes.[email or web address] Other XR hand LT min 3V*Impression dictated by: Jignesh Mercado M.D.09/30/2021 2:36 PMNpark[facility] [employer] Other XR hand LT min 3V*Dictation Location: [address] [employer] Other XR hand LT min 3V*Transcribed By: [facility] 09/30/21 [facility] [email or web address] Other XR hand LT min 3V*Dictated By: Jignesh Mercado DO 09/30/[address] [place] [address] [employer] Other XR hand LT min 3V*Signed By:[email or web address] Other XR hand LT min 3V*09/30/[address] [place] [address] [employer] Other XR hand LT min 3V*on 76-76-9919BZ hand LT min 3V* [facility] [employer] Other XR hand LT min 3V*[facility] [employer] Other XR hand LT min 3V*[facility] [employer] Other XR hand LT min 3V*LYDIA Stewart [address]Hkzaz [employer] Other XR hand LT min 3V*XRay ReportPanhandle [employer] Other XR hand LT min 3V*SignedSharetribe [employer] Other XR hand LT min 3V*Patient: Ortiz Bright MR#: [id number] [employer] Other XR hand LT min 3V*71[place] [employer] Other XR hand LT min 3V*: 1970 Acct:[id number] Other XR hand LT min 3V*Age/Sex: 51 / F ADM Date: 08/11/21 [email or web address] Other XR hand LT min 3V*Loc: [facility] [place] Room: Type: [facility] [employer] Other XR hand LT min 3V*Attending Dr: Rosalba Martinez MD [email or web address] Other XR hand LT min 3V*Ordering Provider: Rosalba Martinez MDSharetribe [employer] Other XR hand LT min 3V*Date of Service: 08/11/21[place] [employer] Other XR hand LT min 3V* XR/XR hand LT min 3V*: Pain of left thumbPanhandle [employer] Other XR hand LT min 3V*Copies to: Rosalba Martinez MDVictory Healthcare [employer] Other XR hand LT min 3V*4 viewsLEFT hand plain filmADVANCED MEDICAL ISOTOPE Other XR hand LT min 3V*COMPARISON:[employer] Other XR hand LT min 3V*HISTORY:Status post LEFT carpometacarpal fusion.[email or web address] Other XR hand LT min 3V*Extensive 1st carpometacarpal degenerative changes identified. No fracture or dislocation.[email or web address] Other XR hand LT min 3V* XR/XR hand LT min 3V*[email or web address] Other XR hand LT min 3V*IMPRESSION:Extensive 1st carpometacarpal degeneration.[email or web address] Other XR hand LT min 3V*Impression dictated by: Jignesh Mercado M.D.08/11/2021 4:17 PMNparkland health center [employer] Other xr hand LT min 3V*Dictation Location: [address] [employer] Other XR hand LT min 3V*Transcribed By: ERNIE 08/11/21 [facility] [email or web address] Other xr hand LT min 3V*Dictated By: Jignesh Mercado DO 08/11/21 [facility] Other xr hand LT min 3V*Signed By:[email or web address] Other xr hand LT min 3V*08/11/21 [facility] Care[facility] Other OBSOLETEon 07-19-1615FGQSCAIINisyjv (RHEULN) --------ORTIZ BRIGHT ([id number]) 1970 FDate Time Provider Pyhthfvvnj46/22/17 JANAK YE Duringyour visit today, we recorded the following information about you:Rosamaria Ramirez Ma 10/21/20177:26 AM SignedPharmacy electronically requests the following refill(s)Pending Prescriptions Disp Refills DULOXETINE 30 MG CAPSULE,DELAYED RELEASE 90 capsule 0 Sig: Take 1 capsule by mouth once daily.ASHWIN: Daisy Ye MD 10/21/2017 8:50 AM SignedCall pharmacy and patientNot seen since 01/2016Multiple cancellationDefer med refill to current providerThank you.Dinorah Jain RN 10/25/2017 6:48 PM SignedCall to patient. Lm to return call.Call to pharmacy.They will send the order to the pcp.Allergies As of Date: 10/21/2017(No Known Allergies)Date Reviewed: 02/02/2016Reviewed by: Rosamaria Ramirez Ma - Fully AssessedReason for Visit: Refill Request [94]Prescriptio ns as of 10/21/2017 Sig: DULOXETINE 30 MG CAPSULE,[place]* TAKE 1 CAPSULE BY MOUTH EVERY* NAPROXEN 500MG TABLET TAKE 1 TABLET BY MOUTH TWICE * GABAPENTIN 100 MG CAPSULE TAKE 1 TO 3 CAPSULES BY MOUTH* PATANASE NASAL Use in the nose. LEVOTHYROXINE 100 MCG CAPSULE Take by mouth once daily. OMEPRAZOLE 20MG CAPSULE,AUSTIN* Take 20 mg by mouth once [...] pain without sciatic*INVALID FOR* Status:Closed by DINORAH JAIN RN on 10/25/17NoMer[facility] Vital Signs Date TimeVital SignValuePerforming LmpbekwlrHbyetqon85-03-8082 10:16-0500Body mass index (BMI) [Ratio]27.12 kg/m2Giulia Clarkra DO Work Phone: [facility] ChildrenBpkygquznn98-93-5496 10:16-0500Body fswfoe84.67 kgMonamanda Nataprchuyitara DO Work Phone: [facility] ChildrenTyodejkhgw40-90-0140 10:16-0500Diastolic blood jgmjyzvf95 mm[Hg]Giulia Juaresaprawira DO Work Phone: noSaint Luke's HospitalLtrhszinub12-30-6955 10:16-0500Systolic blood hwyqrvxt027 mm[Hg]Giulia Clarkra DO Work Phone: [facility] ChildrenKydthxtfvo53-31-7726 11:24-0400Body .02 cmWvumedicine [facility]10-29-2024 11:24-0400Body mass index (BMI) [Ratio]27.1 kg/q1MzartqdliWvumedicine Harrison Community Hospital10-29-2024 11:24-0400Body lwcbej91.39 kgWvumedicine Harrison Community Hospital10-29-2024 11:24-0400Diastolic blood qeajseeg07 mm[Hg][facility]10-29-2024 11:24-0400 Heart rate62 /minWvumedicine Harrison Community Hospital10-29-2024 11:24-5926LzZ4% (BldA) [Mass fraction]97 %[facility]10-29-2024 11:24-0400 Systolic blood nnjgepve006 mm[Hg][facility]12-26-2023 11:30-0500Body pzwjey662.02 cmChon Aguila Other [email or web address] Other 12-26-2023 11:30-0500Body mass index (BMI) [Ratio] 26.29 kg/l2ClpbzoChon Aguila Other [email or web address] Other 12-26-2023 11:30-0500Body zdetwhtbcwj95.5 [degF]Chon Ayla Other [email or web address] Other 12-26-2023 11:30-0500Body dqneft36.31 kgCarolyncarleen Aguila Other noADVANCED MEDICAL [employer]OTOPE Other 12-26-2023 11:30-0500Diastolic blood yvwyuhxm64 mm[Hg] Chon Ayla Other [email or web address] Other 12-26-2023 11:30-0500Systolic blood htfdihid402 mm[Hg] Chon Ayla Other [email or web address] Other 12-01-2021 12:15-0500Body qhowmg596.02 [facility] Waurikayashira Martinez Other [email or web address] Other 12-01-2021 12:15-0500Body mass index (BMI) [Ratio] 32.77 kg/c2Iedwkrxyashira Martinez Other [email or web address] Other 12-01-2021 12:15-0500Body pmbupq65.92 kgCollyashira Martinez Other [email or web address] Other 10-12-2021 12:15-0400Body fcaeoy306.02 cmCollyashira Martinez Other [email or web address] Other 10-12-2021 12:15-0400Body mass index (BMI) [Ratio] 26.57 kg/f5Trkrgwu Calvmelissa Other [email or web address] Other 10-12-2021 12:15-0400Body cbxmoo16.04 kgCollyashira Martinez Other [email or web address] Other Encounters Encounter DateEncounter TypeCare ProviderFacilityStart: 05-10-2025 End: 88-09-5050aokitroztuCYZIPFayette County Memorial Hospitaltart: 12-19-2024 End: 26-82-7777hhenfkzqdpMGGPKFayette County Memorial Hospitaltart: 12-14-2024 End: 01-16-0800Knijnar encounter Nina Aguila MD Work Phone: [facility] Work Phone: Start: 12-14-2024 End: 81-48-8231ydxkhrbzduWcqdaw E Braun MD Work Phone: [facility] Work Phone: Start: 12-57-4820Vys-patient / Non-visitChon Aguila MD Work Phone: [facility] flatev Work Phone: Start: 11-07-2024 End: 68-49-8236Tfbdgzx encounter statusMona Aiden Nataprawira DO Work Phone: noms HealthcareStart: 11-07-2024 End: 27-82-8912Bimsxwvt preventive med est patient 40-64yrsMona Aiden Nataprawira DO Work Phone: noms NB OBComment on above:Encounter for gynecological examination without abnormal finding (Primary Dx); Other screening mammogram; Family history of breast cancerStart: 11-07-2024 End: 53-95-7273aavuhupuqdEVPJ J NATAPRAWIRANot AvailableStart: 32-99-5923Szl- patient / Non-visitChon Aguila MD Work Phone: [facility] [employer] Work Phone: Start: 42-28-2398Lcz-patient / Non-visitChon Aguila MD Work Phone: [facility] Physician GroupProsser Memorial Hospital Professional [employer] Work Phone: Start: 09-05-2024 End: 79-22-1715xwvzbdsliiRXGBF [facility] Avontart: 08-28-2024 End: 67-94-7683uiptvsuxghAtoyirjrkMorrow County Hospital Work Phone: Start: 08-28-2024 End: 91-11-3780Daphpbw encounter procedureFircommunity health systems Physician Group-[facility] Work Phone: Start: 47-41-7508Vdd-patient / Non-visitFirelands Physician Group-[facility] [place] Work Phone: Start: 98-83-6205Ieykcmtjpi and management of inpatientMEGHAN [facility] City Hospitaltart: 08-21-2024 End: 79-34-5845Xgwmxmgibo and management of inpatientKYU Southview Medical Centertart: 69-37-4098Ykw-patient / Non-visitFircommunity health systems Physician [facility] Co Work Phone: Start: 89-49-4646Ngv-patient / Non-visitFrye [facility] Work Phone: Start: 12-12-2023 End: 92-14-6290lgjylqvdxfNtuqgv Braun Other [place] [employer] Other Start: 27-79-7369Rothubnam encounterMarjackiea Poncho [facility] Hospitaltart: 11-29-2023 End: 81-64-4361qngcmyftezBU Chon Aguila Work Phone: [facility] Work Phone: Start: 11-29-2023 End: 69-26-9387Zkbuati encounter procedureMD Chon Aguila Work Phone: [facility] Work Phone: Start: 10-25-2023 End: 80-40-3938amukpeanyxJvbcxn Braun Other [email or web address] Other Start: 76-72-2156Qkrraw outpatient visit 15 minutes Chon Isaac [facility] Hospitaltart: 10-25-2023 End: 40-76-3422Fnueaqd encounter procedureMD Chon Aguila Work Phone: [facility] Work Phone: Start: 06-07-2023 End: 69-34-1885deszhgliwvWseysl Aguila Other [email or web address] Other Start: 43-89-9639Fvfhspisf encounterMarcarleen AguilaGrace [facility] Hospitaltart: 02-03-2023(Televisit) TelevisitChon AguilaGrace [facility] Hospitaltart: 02-03-2023 End: 71-76-0220ojczrdgiduRkexas Ayla Other [email or web address] Other Start: 98-42-2670Xzpfz health examinationChon Aguila Other [email or web address] Other Start: 10-18-2022 End: 05-10-5290bngpdmbrxeEP CHON AGUILAFacility:X0Gszjt: 64-63-0518Jmmqkjjch for general adult medical examination without abnormal findingsDR CHON AGUILA [facility]tart: 07-08-2022 End: 68-71-8468scqopzuljeOF CHON AGUILAFacility:S1Diicr: 07-08-2022 End: 54-51-8751Kqrznieqc for general adult medical examination without abnormal findingsDR CHON AGUILAFacility:J7Ojyuk: 11-06-2021 End: 77-23-7364gqxrsecfuvHknkpsm Cal[place] Other noADVANCED MEDICAL [employer]OTOPE Other Start: 89-75-1137Xuhxez follow up visit related to original pxCollyashira CalveyMountains Community Hospital OrthopedicsStart: 09-30-2021 End: 04-59-8744ioeqvavpltVponhcd Calvey Other [facility] [employer] Other Start: 87-54-6255Wjudmo follow up visit related to original pxCogaetano Stewart OrthopedicsStart: 03-33-9521Gszsha outpatient visit 25 minutesColleen Richard [facility] Procedures DateProcedureProcedure DetailPerforming ClinicianStart: 27-11-8294Jheeeodex mammography of bilateral breastsMchristopheria Ayla KWAN Work Phone: Start: 73-45-7580Tkmbbmjpw mammography of bilateral breastsMD Chon Aguila Work Phone: Start: 33-97-5219Njvstcd examination of patientChon Aguila Other Screening for malignant neoplasm of colonChon Aguila Other Plan of Treatment DateCare ActivityDetailAuthorStart: 11-30-2024 End: 97-96-1319LZX Breast - bilateral screeningBilateral screening mammogram with tomosynthesis Imaging Routine Other screening mammogram Expected: 11/30/2024, Expires: 01/05/2026[facility] Work Phone: comment on above:Expected: 11/30/2024, Expires: 01/05/2026[facility] Immunizations Immunization DateImmunizationNotesCare IseusqhyPvwbdews07-30-3061isnspcfix virus vaccine, split virus (incl. purified surface antigen)Chon Aguila Other [facility] [employer] Other 10-001431-87-5827elckgqbqg virus vaccine, unspecified formulationWvumedicine Harrison Community Hospital10-05-2021influenza virus vaccine, split virus (incl. purified surface antigen)Chon Aguila Other [facility] [employer] Other 10-072908-73-8857xyckuvedt virus vaccine, unspecified formulationWvumedicine Harrison Community Hospital09-01-2021COVID-19 Vaccine Pfizer - Documentation Purposes OnlyChon Ayla Other [facility]08-11-2021COVID-19 Vaccine Pfizer - Documentation Purposes OnlyChon Ayla Other [facility]04-14-2021Kenalog -40 mgColleen Calvey Other [email or web address] Other 05-022567-21-0500Zivbsmf -40 mgColleen Calvey Other [email or web address] Other 09-622623-30-5644Vsmmdds -40 mgColleen Calvey Other [email or web address] Other 11-646725-38-4911jwbjlvx and diphtheria toxoids, adsorbed, preservative free, for adult use (5 Lf of tetanus toxoid and 2 Lf of diphtheria toxoid)Chon Aguila Other [facility]11-14-2016tetanus and diphtheria toxoids, adsorbed, preservative free, for adult use (5 Lf of tetanus toxoid and 2 Lf of diphtheria toxoid)Chon Aguila Other [facility]12-03-2015influenza virus vaccine, split virus (incl. purified surface antigen)Chon Aguila Other [email or web address] Other 327132-08-5558injdjjdhj virus vaccine, unspecified formulationWvumedicine [facility] Community Hospital Payers DatePayer CategoryPayerPolicy [id number] Health [place] [id number] [id number] [id number] [id number] 2.16.840.1.697524.19 [id number] 2.16.840.1.565643.3.579.2.531 Social History DateTypeDetailFacilityUnknown if ever smokedPanhandle [employer] Other Start: 50-60-5307Yqe Assigned At [facility] [employer] Other Start: 08-27-2021 End: 44-27-5630Vdfpgfs smoking status NHISNever smoked tobacco (finding) [facility] Hospitaltart: [phone] Assigned At [facility]woodstart: [phone] use and exposure Smokeless tobacco non-userNOMS HealthcareStart: 68-82-8408Jfukxyysz beverage intakeEx-drinker (finding)[facility] HealthcareStart: 06-00-5067Nvsrkyz of Social functionNOMS HealthcareStart: 24-15-9804Oztgwf identityIdentifies as female gender (finding)[facility] HealthcareStart: 84-12-9756Ihwowf orientationHeterosexual (finding)[facility] HealthcareStart: 91-05-2388LuwKtzvwd (finding)[facility] Medical Equipment Procedure CodeEquipment CodeEquipment Original TextEquipment IdentifierDates Arthroplasty, thumbOrthopaedic bone staple, non-adjustable, sterile ()[id number] FDAStart: 77-80-6905Wcigbdkkouoe, thumbOrthopaedic bone staple, non-adjustable, sterile ()[id number] FDAStart: 37-50-3887Ahnivvpmyymt, thumbOrthopaedic bone staple, non-adjustable, sterile ()[id number] FDAStart: 08-27-2021 Clinical Notes 08-11-2021 to 05-10-2025 Note Date & BsobFxlxTitqtuof03-14-3672 NoteUT Cardiology - [facility] Subjective Ortiz Bright is a 55 y.o. year old female patient being seen for Cardiomyopathy (NON ISCHEMIC ), and Hypothyroidism Patient Active Problem List Diagnosis Chest pain Elevated troponin Depression Hypothyroidism Takotsubo cardiomyopathy Left ventricular systolic dysfunction (LVSD) YENNI positive Bilateral hand pain Chronic bilateral low back pain without sciatica Joint stiffness of multiple sites Myalgia Knee pain, bilateral Pain in both feet Palpitations Secondary osteoarthritis of multiple sites Essential hypertension Pure hypercholesterolemia Overweight (BMI 25.0-29.9) HPI 05/10/2025 Patient states that she has been doing well. She denies any chest discomfort at rest or with exertion. She denies exertional dyspnea, orthopnea or paroxysmal nocturnal dyspnea. She denies dizziness, syncope or near syncope. She denies palpitations, legs edema or discomfort on exertion. She reports that she stopped valsartan about 1 and half month ago. She stopped Coreg and Crestor about 1 week ago. The reason she stopped the medication that she feels she is back to normal and no symptoms. She reports that her blood pressure was in the 130s over 80s before she stopped the medications 12/19/2024 Patient is here today for follow-up [...] Date CHF (congestive heart failure) (CMS/HCC) Depression Heart valve disease Hyperlipidemia Hypothyroidism Myocardial infarction (CMS/HCC) Nonischemic cardiomyopathy (CMS/HCC) [...] nitroglycerin was given Medications Current Outpatient Medications: cholecalciferol (Vitamin D-3) 25 MCG (1000 units) [...] at bedtime for sleep., Disp: , Rfl: carvedilol (Coreg) 3.125 mg tablet, Take 1 tablet (3.125 mg) by mouth with breakfast and with evening meal., Disp: 180 tablet, Rfl: 3 rosuvastatin (Crestor) 20 mg tablet, Take 1 tablet (20 mg) by mouth in the morning., Disp: 30 tablet, Rfl: 11 valsartan (Diovan) 80 mg tablet, Take 1 tablet (80 mg) by mouth once daily as directed., Disp: 90 tablet, Rfl: 3 Objective Visit Vitals BP 146/87 (BP Location: Left arm, Patient Position: Sitting) Pulse 58 Ht 1.6 m (5' 3 ) Wt 72.1 kg (159 lb) SpO2 98% BMI 28.17 kg/m??? Smoking Status Never BSA 1.79 m??? Physical exam: GENERAL: alert and oriented x3, well developed, in no acute distress. HEAD: atraumatic, normocephalic. EYES: YONATAN, EOMI. NECK: trachea midline, no JVD present, no carotid bruits present. CARDIAC: S1, S2 (more content not included)...[facility]02-19-2025 NoteUT Cardiology - [facility] Subjective Ortiz Bright is a 54 y.o. year old female [...] edema. No rash/skin discolo (more content not included)...[facility]01-08-2025 History of Present illness Narrative* Giulia Turpin DO - 11/07/2024 10:15 AM EST Images from the original note were not included. Giulia Turpin DO Obstetrics and Gynecology Name: Ortiz Bright Date/Time of Service:11/07/2024 10:49 AM :1970 Age: 54 y.o. Subjective Ortiz Bright is a 54 y.o. female who is here for a routine exam. Gynecologic Exam (Patient here for yearly. Denies any problems at this time. Mammogram order sent to [facility]. Cologuard completed on 04/23/24) Control Contraception: post menopausal status. LMP: No LMP recorded. Patient is postmenopausal. Last Mammogram Results for orders placed in visit on 03/15/22 Bilateral screening mammogram Narrative PERFORMED AT [facility] LOCATION:[place] [id number] [facility] Main [place] [address] [place] [address] Mammography Report Signed Patient: Ortiz Bright MR#: [id number] 69 : 1970 Acct:[id number] Age/Sex: 52 / F ADM Date: 08/16/22 Loc: [place] Room: Type: [facility] Attending Dr: Giulia Turpin DO Copies to: MD ISADORA Nguyen MONA DO Ordering Provider: GIULIA TURPIN DO Date of Service: 08/16/22 MM/MM screening [...] mammogram. Impression dictated by: Wilbur Ayala Jr., D.O.08/16/2022 4:08 PM Dictation Location: DWS01 Transcribed By: PWS 08/16/22 1608 Dictated By: Wilbur Ayala Jr, [...] MG tablet every 12 (twelve) hours [DISCONTINUED] [place] Thyroid 60 MG tablet Take 60 mg [...] cancer Z80.3 No follow-ups on file. Giulia Turpin DO 11/07/2024 10:49 AM documented in this encounterShriners Hospitals for [id number] NoteUT Cardiology - [facility] Subjective Ortiz Bright is a 54 y.o. year old female [...] size. Global left ventricular (more content not included)...[facility]10-23-2024 Note Hospital Medicine Discharge Summary Final Discharge Diagnosis: Stress-induced cardiomyopathy Elevated troponin in setting of above Acquired hypothyroidism Major depressive disorder Admission Diagnosis: Chest pain [R07.9] Hospital course: Ortiz Bright is a 54 y.o. female with past medical history of major depressive disorder and hypothyroidism, who presented as a direct admission from [facility] with chest pain and elevated troponin. Patient reported that last night she started having midsternal chest pain with radiation into her left arm and left jaw, her chest pain was retrosternal in location, severe in intensity, with no other associated symptoms. She denied having any shortness of breath or sweating or any other complaints. Initial high-sensitivity troponin of 143, initial troponin in [facility] with 2 mg/dL. Patient was started on [...] Your Medications These medications were sent to [id number] [phone] apixaban 2.5 mg tablet carvedilol 3.125 mg [...] She is alert. Mental (more content not included)...[facility]10-23-2024 NoteUTP CARDIOLOGY INPATIENT PROGRESS NOTE Reason for follow up: elevated [...] Value Ventricular Rate 76 Atrial Rate 76 [place] Interval 132 QRS DURATION 72 QT Interval 408 QTC CALCULATION(BAZETT) 459 P Langley 63 R-Langley 87 T Wave Langley 99 Impression Normal sinus rhythm Nonspecific ST and T wave abnormality Abnormal ECG No previous ECGs available Confirmed by Francisca Liang ([id number]) on 08/21/2024 5:36:12 PM Cardiac Catheterization 08/21/24: Impression/Findings: Normal coronary angiogram. Findings are consistent with non-ischemic cardiomyopathy, likely Takotsubo syndrome (stre (more content not included)...[facility] 08-21-2024 Note08/21/24 1830 Admission Assessment Questions Verify insurance with [...] Status Interested Does the patient have a block and case maker assigned to them through their insurance? No [...] patient to ask at Cardio Clinic in [place] when she follows up if she decides she would like to.)[facility]10-22-2024 NotePatient: Ortiz Bright Procedure Information Date/Time: 08/21/24 1900 Procedure: Coronary angiography Location: [facility] 3 / [facility] (Cath) Providers: Shun Benz MD Clinical information reviewed: Tobacco Allergies Meds Med Hx Surg Hx Fam Hx Soc Hx Physical Exam Airway Mallampati: II TM distance: >3 FB Neck ROM: full Cardiovascular Rhythm: regular Rate: normal Dental Pulmonary Abdominal Anesthesia Plan ASA 3 (Conscious sedation) Anesthetic plan and risks discussed with patient. Additional Equipment RequestsUnGalion Hospital10-22-2024 Note Case was discussed with the PANKAJ on 08/21/2024. I agree with the history, physical, assessment, and plan of care. I discussed the findings and therapeutic plan. I agree with the documentation, except for any updates below. Roxy Ocasio MDUnGalion Hospital10-22-2024 NoteHospital Medicine History and Physical 08/21/2024 4:01 AM THE HOSPITALIST TEAM PREFERS TO USE [employer] CHAT FOR NON-URGENT COMMUNICATION 7AM-7PM. IF I DO NOT RESPOND WITHIN 20 MINUTES OR URGENT MATTERS, PLEASE CALL THROUGH THE CREDIT PORTFOLIO MANAGER. FROM 7PM-7AM, PLEASE PAGE [phone](COVR). Chief Complaint Direct admission from [facility] with chest pain and elevated troponin History of Present Illness Ortiz Bright is an 54 y.o. female who came from home with past medical history of depression and hypothyroidism presents as a direct mission from [facility] with chest pain and elevated troponin [...] has a history of a CABG. At [facility], labs were completed showing WBC 9.6, RBC 5.06, hemoglobin 15.4, hematocrit 46, platelet count 395, INR 0.93, sodium 141, potassium 3.9, BUN 11, creatinine 1.05, lactate 1.1, magnesium 2.3, troponin 143.7. Repeat troponin found to be 710.1. [place] provider spoke with our cardiology department who stated to start patient on a heparin drip and transfer patient for possible cardiac intervention in a.m. During my exam, patient is still complaining of left jaw pain but states that chest pain has subsided. She reports that she was given sublingual nitroglycerin at [facility] which bottomed out her blood pressure [...] Depression Acquired hypothyroidism Assessment and Plan Ortiz Bright is an 54 y.o. female who came from home with past medical history of depression and hypothyroidism presents as a direct mission from [facility] with chest pain and elevated troponin [...] this hospital stay by a member of [facility]. Past Medical History No past medical history on file. Past (more content not included)...[facility]12-26-2023 Evaluation note* Encounter Date Diagnosis Assessment Notes Treatment Notes Treatment Clinical Notes Sep, Acute non-recurrent maxillary si nusitis (ICD-10 - J01.00) Sinus infections can be triggered by a secondary infection from a viral URI or even seasonal allergies. Take medications as directed. Use saline nasal spray prior to presciption nasal spray. Take medications as directed, and complete all doses of medication even if you start to feel better. Patientadvised to follow up with PCP if symptoms persist or worsen. Patient verbalized understanding and agreement with treatment plan. Sep,Hypothyroidism, unspecified (ICD-10 - E03.9)Chronic problem, due for labs. [email or web address] Other 04-06-2023 Evaluation note* Encounter Date Diagnosis Assessment Notes Treatment Notes Treatment Clinical Notes Jan, Bronchitis (ICD-10 - J40) Supportive care as directed. Push fluids and rest. Pt denied school or work note today. Pt is to take otc antipyretic prn for fever and aches. Pt is to take otc cough suppressant prn for cough. Pt isto be re-evaluated after tx if sx worsen [...] Pt understood and agreed to tx plan. [email or web address] Other 01-07-2022 Evaluation note* Encounter Date Diagnosis Assessment Notes Treatment Notes Treatment Clinical Notes Oct, Primary osteoarthritis of left h and (ICD-10 - M19.042) Oct,Trigger thumb, left thumb (ICD-10 - M65.312) Rx given for Medrol Dosepak Oct,Left hand pain (ICD-10 - M79.642) Oct,2Other specified postprocedural states (ICD-10 - Z98.890) [email or web address] Other 12-01-2021 Evaluation note* Encounter Date Diagnosis Assessment Notes Treatment Notes Treatment Clinical Notes Sep, Other specified postprocedural s tates (ICD-10 - Z98.890) Sep,rimary osteoarthritis of left hand (ICD-10 - M19.042) Radiographs reviewed with patient. She is progressing well from surgery at this time. May transition from large brace to smaller neoprene thumb brace. Continue gentle motion and strengthening exercises. Call with questions/concerns. [email or web address] Other 10-12-2021 Evaluation note* Encounter Date Diagnosis Assessment Notes Treatment Notes Treatment Clinical Notes Jul, Primary osteoarthritis, right castillo nd (ICD-10 - M19.041) Jul,Other specified postprocedural states (ICD-10 - Z98.890) Jul,1Pain of left thumb (ICD-10 - M79.645) Based on location of pain and exam findings we will proceed with a left thumb CMC fusion with a first dorsal wrist compartment release. : Risks and benefits of procedure explained to patient: patientverbalizes understanding. Jul,rthritis of hand, left (ICD-10 - M19.042) [email or web address] Other Evaluation noteNo InformationNort [employer] Other Evaluation noteNo assessment information available [facility] Work Phone: Evaluation note* Diagnosis Onset Date Resolution Status Hypothyroidism, unspecified acute [facility] Work Phone: Evaluation note* Diagnosis Encounter for gynecological examination without abnormal finding- Primary Other screening mammogram Family history of breast cancer Family history of malignant neoplasm of breast documented in this encounter NOMS HealthcareHistory general Narrative - Reported* Type Description Date Medical History acid reflux Medical Historythyroid diseaseMedical HistoryOsteoarthritisSurgical Historygall bladderSurgical Historytonsillectomy and adenoidectomySurgical HistoryC section Surgical HistorycolonoscopySurgical Historyright thumb carpometacarpal joint arthrodesis/ /20 [email or web address] Other History general Narrative - Reported* Type Description Date Medical History acid reflux Medical Historythyroid diseaseMedical HistoryOsteoarthritisSurgical Historygall bladderSurgical Historytonsillectomy and adenoidectomySurgical HistoryC section Surgical HistorycolonoscopySurgical Historyright thumb carpometacarpal joint arthrodesis/ vkzcyn43/20Surgical Historyleft thumb CMC arthrodesis/ fusion and left first dorsal wrist compartment. DOS: 08/27/2021. [email or web address] Other Hisgobl general Narrative - Reported* Type Description Date Medical History acid reflux Medical Historythyroid diseaseMedical HistoryOsteoarthritisMedical HistoryFamily history of breast cancer in femaleMedical HistoryCervical painMedical History Back pain, thoracicMedical HistoryMajor depression in partial remissionSurgical Historygall bladderSurgical Historytonsillectomy and adenoidectomySurgical HistoryC sectionSurgical HistorycolonoscopySurgical Historyright thumb carpometacarpal joint arthrodesis/ [id number] Historyleft thumb CMC arthrodesis/ fusion and left first dorsal wrist compartment. DOS: 08/27/2021. Hospitalization HistorySEE SURGICAL HX [email or web address] Other Summary Purpose Family History No Family History Records Found Relationship Condition Age at Onset Recorded Date/T sharron father Family history of co ronary artery bypass surgery Unknown Coronary artery diseaseUnknownAlzheimer's diseaseUnknownDiabetes mellitusUnknown HypertensionUnknownNot SpecifiedMalignant neoplasm of ovaryUnknownMalignant neoplasm of breastUnknownHypothyroidismUnknownnatural sonType 1 diabetes mellitusUnknown Relationship Condition Age at Onset Recorded Date/T sharron father Family history of co ronary artery bypass surgery Unknown Coronary artery diseaseUnknownAlzheimer's diseaseUnknownDiabetes mellitusUnknown HypertensionUnknownmotherMalignant neoplasm of ovaryUnknownMalignant neoplasm of breastUnknownHypothyroidismUnknownsonType 1 diabetes mellitusUnknownfatherHeart diseaseUnknownmotherMalignant neoplasmUnknownsonDiabetes mellitusUnknown Advance Directives No Advanced Directives Records Found Advance Directive Response Recorded Date/ Time Advance Directives No December 3:08pm Advance Directive Response Recorded Date/ Time Advance Directives No December 4:08pm Chief Complaint and Reason for Visit Chief Complaint Cough, Sinus Congest ion, Covid Negative Screening Chief Complaint Amb Documentation [facility]: Heart Cath f/uReason for VisitHypothyroidism, unspecified Chief Complaint Admit Date Z10.30December 14, 2024 10:53am Additional Source Comments INFORMATION SOURCE (unrecogn ized section and content) DATE CREATED AUTHOR 04/25/2018 [facility] DATE CREATED AUTHOR AUTHOR'S ORGANIZ ATION 01/12/2023 [facility] DATE CREATED AUTHOR AUTHOR'S ORGANIZ ATION 11/12/2024 [facility] DATE CREATED AUTHOR AUTHOR'S ORGANIZ ATION 12/16/2024 [facility] DATE CREATED AUTHOR AUTHOR'S ORGANIZ ATION 05/15/2025 [facility] REASON FOR VISIT (unrecogniz ed section and content) ReasonCommentsGynecologic ExamPatient here for yearly. Denies any problems at this time. Mammogram order sent to [facility]. Hunter completed on 04/23/24 Care Teams (unrecognized sec tion and content) Team Status: Active Member Role Status Dates Chon Aguila MD Primary Care Provider Active Team Status: Active Member Role Status Dates Chon Aguila MD Primary Care Provider Active Start: August 20, 2024 MANOLO Mendoza-CAttending ProviderActiveStart: August 20, 2024 Team Status: Active Member Role Status Dates Chon Aguila MD Primary Care Provider Active Start: August 21, 2024 Jignesh Mckeon , DOAttending ProviderActiveStart: August 21, 2024 Team Status: Active Member Role Status Dates Chon Aguila MD Primary Care Provider Active Start: August 23, 2024 Trina David CMAAttending ProviderActiveStart: August 23, 2024 Team Status: Inactive Member [...] Active Start: November 29, 2023 End: November 29eferral SelfAttending ProviderActiveStart: November 29, 2023 End: November 29, 2023Mona Nataprgeorgina , DOReferring ProviderActiveStart: November 29, 2023 End: November 29, 2023Team MemberRelationshipSpecialtyStart DateEnd Date Chon Aguila MD [address] [place] [phone] [facility]CP - [facility]ly [facility]11/02/23 Team Status: Active Member Role Status Dates Chon Aguila MD Primary Care Provider Active Start: September 17, 2024 Aliyah Moreira ProviderActiveStart: September 17, 2024 Team Status: Active Member Role Status Dates Chon Aguila MD Primary Care Provider Active Start: October 19, 2024 Priti Devlin ProviderActiveStart: October 19, 2024 Team Status: Active Member Role Status Dates Chon Aguila MD Primary Care Provider Active Start: December 03, 2024 Aliyah Moreira ProviderActiveStart: December 03, 2024 Team Status: Inactive Member Role Status Dates Chon Aguila MD Primary Care Provider Active Start: December 14, 2024 End: December 14, 2024Giulia Turpin Attkymberly ProviderActiveStart: December 14, 2024 End: December 14, 2024 [...] BE BASED ON THE PRIMARY CLINICAL RECORDS. [employer] provides no warranty or guarantee of the accuracy or completeness of information in this document.
[2025-09-18 14:28] LABS: Thyroid Stimulating Hormone 1.062 uIU/mL (0.358-3.740)
[2025-09-23 20:09] LABS: Reverse T3, Serum 23.1 ng/dL (9.2-24.1)
== END 2025-09-18 12:51 | disposition home or self-care (01) ==
LOC: LAB 12:52
PROVIDERS: PCP Family Medicine; Visit Provider Family Medicine
DX: E03.9 Hypothyroidism, unspecified (principal)
CPT/HCPCS: 36415; 84436; 84439; 84443; 84482